=== PATIENT | male | born 1955 | race Caucasian/White ===

== ENCOUNTER 2020-01-10 09:37 | Emergency (ER) | payer MEDICARE, SELFPAY ==
[2020-01-10] VITALS (8 sets, daily range): BP systolic 128–163; BP diastolic 71–85; PULSE 76–96; RESP 12–19; O2SAT 98–100
--- NOTE | ~2020-01-10 | CT_ITS ---
EXAMINATION: CTA chest abdomen pelvis DATE: 01/10/2020 11:37 INDICATION: Chest pain. TECHNIQUE: Computed tomographic angiography (CTA) of the chest, abdomen, and pelvis was performed wit hout and with 100 mL Omnipaque-350 intravenous contrast. Volume-rendered 3D-reconstructions of the ao rta and large arteries were constructed by the technologist on a separate workstation. Automated expo sure control and iterative reconstruction technique were employed. The dose-length product was 123 m Gy-cm. COMPARISON: 09/23/2013 and 06/23/2013 FINDINGS: Thorax: Mild to moderate emphysema. No pneumonia, pulmonary edema, pleural effusion or pneumothorax. Heart si ze is normal. No pericardial effusion. Median sternotomy and changes of prior repair of an earlier as cending thoracic aortic aneurysm. There is residual aneurysmal dilation of the more distal ascending aorta at the distal margin of the repair immediately proximal to the level of the takeoff of the inno minate artery where the aorta measures 5.0 x 4.9 cm in maximal diameter measured orthogonal to the ax is of flow on axial and sagittal images. This appears increased from 4.5 x 4.4 similar in correspondi ng measurements on the prior study. The aorta tapers to 2.9 x 3.2 cm immediately following the takeof f of the left subclavian artery. No thoracic aortic dissection. No pathologically enlarged thoracic l ymphadenopathy. Small sliding-type hiatal hernia. Mild thoracic spondylosis. Abdomen/pelvis: Liver, gallbladder, spleen, pancreas, bilateral adrenal glands and kidneys are normal. There is mild colonic diverticulosis with a sigmoid predominance. There is no adjacent inflammatory change to sugg est diverticulitis. The appendix is not visualized. No pericecal inflammatory change to suggest acute appendicitis. No bowel obstruction. Small left and tiny right fat-containing inguinal hernias. Bladd er is normal. No free intraperitoneal gas or fluid. No pathologically enlarged abdominal or pelvic ly mphadenopathy. There is calcified atherosclerosis without hemodynamically significant stenosis of the normal caliber abdominal aorta and many of the other arteries. Mild lumbar spondylosis. IMPRESSION: 1. Postoperative change of prior dissection repair at the proximal ascending thoracic aorta with incr ease in size of aneurysmal dilation of the more distal ascending aorta now measuring 5.0 x 4.9 cm. No recurrent aortic dissection or aneurysm of the descending thoracic or abdominal aorta. 2. Small sliding-type hiatal hernia. 3. Mild diverticulosis. 4. Emphysema. Reviewed, dictated and finalized at location A. IMPRESSION: 1. Postoperative change of prior dissection repair at the proximal ascending th oracic aorta with increase in size of aneurysmal dilation of the more distal as cending aorta now measuring 5.0 x 4.9 cm. No recurrent aortic dissection or ane urysm of the descending thoracic or abdominal aorta. 2. Small sliding-type hiatal hernia. 3. Mild diverticulosis. 4. Emphysema.
--- NOTE | ~2020-01-10 | XR_ITS ---
EXAMINATION: XR chest 2V DATE: 01/10/2020 10:16 INDICATION: Chest pain TECHNIQUE: Chest pain COMPARISON: Chest radiograph dated 07/11/2014 FINDINGS: Bilateral nipple shadows project along the cephalad margin of the bilateral anterior sixth ribs. No a irspace opacities, pulmonary edema, pleural effusion or pneumothorax. The cardiomediastinal silhouett e is normal. Median sternotomy wires and mediastinal surgical clips are seen, likely from prior coron juli artery bypass grafting. IMPRESSION: 1. No acute cardiopulmonary disease. Reviewed, dictated and finalized at location A.
--- NOTE | 2020-01-10 09:45 | ECG_ITS ---
Measurements Intervals [place] Rate: 92 P: 72 MT: 140 QRS: 11 QRSD: 101 T: 73 QT: 338 QTc: 419 Interpretive Statements SINUS RHYTHM NONSPECIFIC T-WAVE ABNORMALITY BORDERLINE ST ABNORMALITY- ANTEROLATERAL LEADS BORDERLINE ECG Electronically Signed On 01-10-2020 12:56:45 CDT by Db Faria D.O.
--- NOTE | 2020-01-10 09:57 | ED.GENADULT ---
HPI - General Adult General Chief complaint: Chest Pain <CARLOS Ruiz - Last Filed: 01/10/20 14:18> Stated complaint: cp <CARLOS Ruiz - Last Filed: 01/10/20 14:18> Time Seen by Provider: 01/10/20 09:57 <CARLOS Ruiz - Last Filed: 01/10/20 14:18> Source: patient <CARLOS Ruiz - Last Filed: 01/10/20 14:18> Mode of arrival: ambulatory <CARLOS Ruiz - Last Filed: 01/10/20 14:18> Limitations: no limitations <CARLOS Ruiz - Last Filed: 01/10/20 14:18> History of Present Illness HPI narrative: 64-year-old male patient presents to the emergency department with complaints of midsternal chest pain that started when he woke up this morning a little after 6 AM. Patient states that the chest pain currently is fine rates his pain 2 out of 10. Patient states the chest pain is intermittent comes and go but does not radiate anywhere else. Patient denies any lightheadedness or dizziness. Denies any recent fevers. Denies any abdominal pain, nausea, vomiting or diarrhea. Patient states he is a little short of breath but states he is a smoker. Patient does have a history of an aortic dissection in 2013. Patient states that he did eat some fried chicken for dinner last night denies any recent alcohol. Denies any pain with urination. Patient denies taking anything for his symptoms prior to arrival today. Patient states he is not followed by a facilities director and takes no meds. <CARLOS Ruiz - Last Filed: 01/10/20 14:18> Related Data Home medications: Home Medications Medication Instructions Recorded Confirmed atorvastatin 40 mg tablet 40 mg PO DAILY 01/15/20 metoprolol succinate 25 mg 25 mg PO DAILY 01/15/20 tablet,extended release 24 hr <CARLOS Ruiz - Last Filed: 01/10/20 14:18> Allergies/adverse reactions: Allergies Allergy/AdvReac Type Severity Reaction Status Date / Time Penicillins Allergy Unknown Unknown Verified 01/15/20 11:04 <CARLOS Ruiz - Last Filed: 01/10/20 14:18> Review of Systems Review of Systems: Narrative: CONSTITUTIONAL: Denies fever, chills, or sweats. EYES: Denies visual changes, redness, or discharge. ENT: Denies rhinorrhea, congestion, sore throat, or otalgia. CARDIOVASCULAR: Positive midsternal chest pain that is intermittent, positive palpitations, denies edema. RESPIRATORY: Denies cough, positive dyspnea. GASTROINTESTINAL: Denies abdominal pain, nausea, vomiting, or diarrhea. GENITOURINARY: Denies dysuria or hematuria. SKIN: Denies rash or itching. MUSCULOSKELETAL: Denies back pain, joint pain, or myalgia. NEUROLOGIC: Denies headache, numbness, or weakness. PSYCHIATRIC: Denies anxiety or depression. <CARLOS Ruiz - Last Filed: 01/10/20 14:18> [facility] Past Medical History Medical History: Medical History (Updated 01/15/20 @ 12:52 by Meghna Fine MD) Aortic arch dissection Emphysema lung Hyperlipidemia Thoracic aortic aneurysm (TAA) Tobacco abuse <CARLOS Ruiz - Last Filed: 01/10/20 14:18> Surgical History Surgical History: Surgical History (Updated 01/15/20 @ 12:06 by Meghna Fine MD) S/P aortic dissection repair <CARLOS Ruiz - Last Filed: 01/10/20 14:18> Family History Family History: Family History (Updated 02/03/16 @ 23:21 by DOCTOR UNKNOWN) Mother Patient's mother is in good health Father Cerebrovascular accident Patient's father is <CARLOS Ruiz - Last Filed: 01/10/20 14:18> Social History Social History: Social History (Updated 01/15/20 @ 11:06 by Angela Perales) Smoking packs per day: 1 Smoking cigarettes per day: 20.0 Years smoked: 50 Smoking pack-years: 50.00 Smoking status: Former smoker Tobacco type: cigarettes Smoking end date: 01/10/20 Alcohol intake: current Substance use: never Substance use type: does not use Li
[2020-01-10 09:58] LABS: Basophils Absolute Auto 0.1 K/mm3 (0.0-0.1); Basophils Percent Auto 0.8 % (0.2-1.2); Eosinophils Absolute Auto 0.2 K/mm3 (0-0.3); Eosinophils Percent Auto 2.7 % (0-4.4); Hemoglobin 17.6 g/dL (14.0-18.0); Immature Granulocyte Absolute 0.01 K/mm3 (0.00-0.031); Immature Granulocyte Percent A 0.2 % (0-0.5); Lymphocytes Absolute Auto 1.36 K/mm3 (0.9-3.2); Lymphocytes Percent Auto 21.6 % (18.3-44.2); Mean Corpuscular HGB Conc 33.8 g/dl (32-36); Mean Corpuscular Hemoglobin 33.7 pg (26-34); Mean Corpuscular Volume 99.4 fl (80-100); Mean Platelet Volume 8.9 fl (7.4-10.4); Monocytes Absolute Auto 0.6 K/mm3 (0.1-0.6); Monocytes Percent Auto 8.9 % (2.6-8.5); Neutrophils Absolute Auto 4.2 K/mm3 (1.3-6.7); Neutrophils Percent Auto 65.8 % (45.5-73.1); Platelet Count Result 200 k/mm3 (150-375); Red Blood Count 5.23 M/mm3 (4.6-6.20); Red Cell Distribution Width 14.2 % (11.5-14.5); White Blood Count 6.3 K/mm3 (4.5-10.0)
[2020-01-10 10:08] LABS: Prothrombin Time 12.7 Seconds (11.1-14.7)
[2020-01-10 10:09] LABS: Partial Thromboplastin Time 29.5 SECONDS (22.3-36.8)
[2020-01-10 10:10] LABS: Blood Urea Nitrogen 12 mg/dL (9-20); Calcium 9.4 mg/dL (8.4-10.2); Carbon Dioxide 26 mmol/L (22-30); Chloride 105 mmol/L (98-107); Estimated CRCL calculation 41 ml/min; Estimated Glomerular Filt Rate 47; Glucose 109 mg/dL (75-110); Potassium 3.8 mmol/L (3.4-5.0); Sodium 137 mmol/L (137-145)
[2020-01-10 10:23] LABS: Troponin I 0.038 ng/mL (0.000-0.034)
[2020-01-10] MEDS: SODIUM CHLORIDE 0.9% IV 1,000 ML 999 ML IV CONT (10:34)
[2020-01-10] MEDS: ASPIRIN 81 MG CHEWABLE TABLET 324 MG PO (10:35)
--- NOTE | 2020-01-27 11:34 | PC.NURSE ---
LATE ENTRY This note is being entered to document information to the patient's record. The following information was omitted on [01/10/2020], by [Rj Yanez]. PT TRANSFERRED TO HIGHER LEVEL OF CARE WITH DRIP RUNNING, UNKNOWN STOP TIME Rj.
== END 2020-01-10 13:50 | disposition short-term general hospital (02) ==
PROVIDERS: Emergency Medicine; Emergency Provider Nurse Practitioner Family; PCP Family Medicine
DX: R07.2 Precordial pain (principal); R79.89 Other specified abnormal findings of blood chemistry; J43.9 Emphysema, unspecified; E78.5 Hyperlipidemia, unspecified; R94.31 Abnormal electrocardiogram [ECG] [EKG]; F17.200 Nicotine dependence, unspecified, uncomplicated; R06.02 Shortness of breath; R03.0 Elevated blood-pressure reading, without diagnosis of hypertension
CPT/HCPCS: 36415; 71046; 71275; 74174; 80048; 84484; 85025; 85610; 85730; 93005; 96361; 96374; 99285; A9270; J7030; Q9967

== ENCOUNTER 2020-10-02 14:29 | Observation (INO) | payer MEDICARE, SELFPAY ==
[2020-10-02] VITALS (11 sets, daily range): BP systolic 91–140; BP diastolic 54–75; PULSE 74–103; RESP 12–18; TEMP 36.3–36.7; O2SAT 95–99; BMI 23.9
--- NOTE | ~2020-10-02 | US_ITS ---
EXAMINATION: US venous doppler LE EXAM DATE: 10/03/2020 09:04 INDICATION: Pulmonary embolism. TECHNIQUE: Multiple grayscale, color flow and Doppler images of the lower extremity deep venous syste ms bilaterally were obtained and reviewed. Correlation is made to pulmonary CT from yesterday. FINDINGS: Right side: The right common femoral, femoral and profunda veins demonstrate normal color flow, respi ratory variation, augmentation and compressibility. Compressibility, color flow confirmed within the right popliteal, posterior tibial, peroneal, and greater saphenous veins. Left side: The left common femoral, femoral and profunda veins demonstrate normal color flow, respira tory variation, augmentation and compressibility. Compressibility, color flow confirmed within the l eft popliteal, posterior tibial, peroneal, and greater saphenous veins. IMPRESSION: 1. No lower extremity deep venous thrombosis bilaterally. Reviewed, dictated and finalized at location A.
--- NOTE | ~2020-10-02 | CT_ITS ---
EXAMINATION: CTA chest PE protocol EXAM DATE: 10/02/2020 15:21 INDICATION: Pulmonary embolism/aortic dissection . History of aortic dissection, repair. TECHNIQUE: Spiral CTA of the chest (pulmonary arteries) was performed with 100 cc Omnipaque 350 intr avenous contrast injection. Images were acquired during the pulmonary arterial phase. Coronal maxi mum intensity projection 3D-reconstructions were created by the technologist on dedicated workstation . Axial, coronal and sagittal reformatted images were reviewed. The dose-length product (DLP) for t his examination was 235.77 mGy-cm. The exposure was tailored according to patient size (auto mA exp osure control), and iterative reconstruction (ASIR) was used as additional dose reduction technique. Comparison is made to prior examination from 01/10/2020. FINDINGS: There is tiny pulmonary embolism in right upper lobe anterior segmental pulmonary artery ( indicated on axial image 118). Again there is repair of the proximal ascending aorta, with aneurysmal dilation of the ascending aorta just before the arch, at 4.9 cm, unchanged. No thoracic aortic disse ction. There is mild to moderate emphysema and hyperinflation. There is a 5 mm lingular nodule unchanged, co nsistent with noncalcified granuloma. The lungs are otherwise clear. There are no pleural or perica rdial effusions. Tracheobronchial tree is patent. There is no mediastinal, hilar or axillary lymp hadenopathy. There is no pneumothorax. Heart normal in size. There are sternotomy wires, and ca rdiac/coronary surgical changes. Correlate with prior history. Upper abdomen is unremarkable. The bones are unremarkable. IMPRESSION: 1. Tiny right upper lobe segmental pulmonary embolism. 2. Stable ascending aortic aneurysm. No dissection. 3. Mild to moderate emphysema and hyperinflation. 4. Granuloma. Reviewed, dictated and finalized at location A.
--- NOTE | ~2020-10-02 | XR_ITS ---
EXAMINATION: XR chest 2V EXAM DATE: 10/02/2020 14:48 INDICATION: Anterior chest pain. TECHNIQUE: Frontal and lateral projections of the chest obtained and reviewed. Comparison is made to prior examination from 01/10/2020. FINDINGS: Sternotomy wires are present without findings to suggest sternal dehiscence. The lungs are clear. There are no pleural effusions. The cardiomediastinal silhouette is within normal limits. T here is no pneumothorax suspected. The bones and soft tissues are unremarkable. IMPRESSION: No acute cardiopulmonary findings. Reviewed, dictated and finalized at location A.
--- NOTE | 2020-10-02 14:31 | ECG_ITS ---
Measurements Intervals [place] Rate: 107 P: 63 [place]: 141 QRS: -19 QRSD: 93 T: 76 QT: 338 QTc: 452 Interpretive Statements SINUS TACHYCARDIA POSSIBLE LEFT ATRIAL ENLARGEMENT BORDERLINE ST-T WAVE ABNORMALITY- ANTEROLAT/HIGH LAT LEADS ABNORMAL ECG Electronically Signed On 10-02-2020 16:32:50 CDT by Db Faria D.O.
--- NOTE | 2020-10-02 14:44 | PC.NURSE ---
Pt to XY via stretcher at this time.
[2020-10-02] MEDS: ASPIRIN 81 MG CHEWABLE TABLET 324 MG PO (14:50)
[2020-10-02 15:03] LABS: Basophils Percent Auto 0.6 % (0.2-1.2); Eosinophils Absolute Auto 0.1 K/mm3 (0-0.3); Eosinophils Percent Auto 1.7 % (0-4.4); Hematocrit 46.4 % (42.0-52.0); Hemoglobin 15.9 g/dL (14.0-18.0); Immature Granulocyte Absolute 0.01 K/mm3 (0.00-0.031); Immature Granulocyte Percent A 0.1 % (0-0.5); Lymphocytes Absolute Auto 1.49 K/mm3 (0.9-3.2); Lymphocytes Percent Auto 21.1 % (18.3-44.2); Mean Corpuscular HGB Conc 34.3 g/dl (32-36); Mean Corpuscular Hemoglobin 33.4 pg (26-34); Mean Corpuscular Volume 97.5 fl (80-100); Mean Platelet Volume 8.9 fl (7.4-10.4); Monocytes Absolute Auto 0.6 K/mm3 (0.1-0.6); Monocytes Percent Auto 7.8 % (2.6-8.5); Neutrophils Absolute Auto 4.8 K/mm3 (1.3-6.7); Neutrophils Percent Auto 68.7 % (45.5-73.1); Platelet Count Result 184 k/mm3 (150-375); Red Blood Count 4.76 M/mm3 (4.6-6.20); Red Cell Distribution Width 14.2 % (11.5-14.5); White Blood Count 7.1 K/mm3 (4.5-10.0)
[2020-10-02 15:11] LABS: INR 0.9; Prothrombin Time 12.8 Seconds (11.1-14.7)
[2020-10-02 15:12] LABS: Partial Thromboplastin Time 30.4 SECONDS (22.3-36.8)
--- NOTE | 2020-10-02 15:12 | ED.CHESTPAIN ---
HPI - Chest Pain General Chief Complaint: Chest Pain Stated Complaint: chest pain Time Seen by Provider: 10/02/20 14:44 Source: patient, family and RN notes reviewed Limitations: no limitations History of Present Illness HPI narrative: Patient is 64 years old white male was walking inside his house as usual suddenly felt retrosternal tightness like somebody punching him in the chest associated with severe lightheadedness and dizziness making fell down to the floor. Patient denies loss of consciousness or any injury. Patient was able to manage to get up and still complaining of retrosternal chest pressure 5 out of 10. The above symptoms started 45 minutes prior to arrival to the emergency room. Patient denies shortness of breath or radiation of pain. Patient had similar symptoms last year without falling to the ground. History of thoracic aortic repair 2012. Patient denies any fever, chills, nausea, vomiting, diarrhea, constipation, headache, back pain or abdominal pain. Related Data Home Medications Medication Instructions Recorded Confirmed atorvastatin 40 mg tablet 40 mg PO DAILY 01/15/20 metoprolol succinate 25 mg 25 mg PO DAILY 01/15/20 tablet,extended release 24 hr Allergies Allergy/AdvReac Type Severity Reaction Status Date / Time Penicillins Allergy Unknown Unknown Verified 10/02/20 16:34 Review of Systems Review of Systems: Narrative: CONSTITUTIONAL: Denies fever, chills, or sweats. EYES: Denies visual changes, redness, or discharge. ENT: Denies rhinorrhea, congestion, sore throat, or otalgia. CARDIOVASCULAR: Chest pain RESPIRATORY: Denies cough or dyspnea. GASTROINTESTINAL: Denies abdominal pain, nausea, vomiting, or diarrhea. GENITOURINARY: Denies dysuria or hematuria. SKIN: Denies rash or itching. MUSCULOSKELETAL: Denies back pain, joint pain, or myalgia. NEUROLOGIC: Denies headache, numbness, or weakness. PSYCHIATRIC: Denies anxiety or depression. [facility] Past Medical History Medical History Aortic arch dissection Emphysema lung Hyperlipidemia Thoracic aortic aneurysm (TAA) Tobacco abuse Surgical History Surgical History S/P aortic dissection repair Family History Family History Mother Patient's mother is in good health Father Cerebrovascular accident Patient's father is Social History Social History Smoking packs per day: 1 Smoking cigarettes per day: 20.0 Years smoked: 50 Smoking pack-years: 50.00 Smoking status: Former smoker Tobacco type: cigarettes Smoking end date: 01/10/20 Alcohol intake: current Substance use: never Substance use type: does not use Gender identity (if verbalized by the patient): Male Exam Narrative: Exam Narrative: General appearance: Well-developed, well-nourished, anxious Skin: Normal color Head: Normocephalic, nontraumatic Eyes: Clear conjunctiva ENT: Oropharynx normal, ears normal, nose normal Neck: Supple, nontender Chest and respiratory: Airway patent, no respiratory distress, no accessory muscle use Heart: Tachycardia Abdomen: Soft, nontender, no organomegaly, quiet bowel sounds Vascular: Normal peripheral pulses, normal capillary refill. Musculoskeletal: Normal range of motion, nontender back Neurologic: Alert and oriented ?3, ENRICHMENT SPECIALIST is normal as tested, no gross motor deficit Course Course Emergency Course: Stable Consultations Consultation #1: Dr. Zuniga Date: 10/02/20 Time: 16:05 Vital Signs Vital signs: Vital Si
[2020-10-02 15:15] LABS: Anion Gap 6 mmol/L (8-16); Blood Urea Nitrogen 12 mg/dL (9-20); Carbon Dioxide 23 mmol/L (22-30); Chloride 107 mmol/L (98-107); Estimated CRCL calculation 47 ml/min; Estimated Glomerular Filt Rate 55; Glucose 170 mg/dL (75-110); Potassium 3.7 mmol/L (3.4-5.0); Sodium 136 mmol/L (137-145)
[2020-10-02 15:17] LABS: Estimated CRCL calculation 47 ml/min; Estimated Glomerular Filt Rate 55
[2020-10-02 15:26] LABS: Troponin I < 0.012 ng/mL (0.000-0.034)
[2020-10-02] MEDS: METOPROLOL TARTRATE 50 MG TAB 25 MG PO (15:36)
[2020-10-02] MEDS: ONDANSETRON INJ 4 MG/2 ML VIAL IV PUSH (15:37)
[2020-10-02] MEDS: MORPHINE SULFATE (*CRX) 4 MG/ML INJ IV PUSH (15:39)
--- NOTE | 2020-10-02 16:06 | ECG_ITS ---
Measurements Intervals [place] Rate: 80 P: 53 [place]: 132 QRS: -23 QRSD: 92 T: 55 QT: 365 QTc: 422 Interpretive Statements SINUS RHYTHM POSSIBLE LEFT ATRIAL ENLARGEMENT INFERIOR INFARCT, AGE INDETERMINATE ABNORMAL ECG Electronically Signed On 10-02-2020 16:33:44 CDT by Db Faria D.O.
[2020-10-02] MEDS: ENOXAPARIN 80 MG/0.8 ML SYRINGE 70 MG SUB-Q (16:11)
[2020-10-02] MEDS: NITROGLYCERIN OINTMENT 1 INCH DOSE TRANSDERM (16:20)
--- NOTE | 2020-10-02 17:27 | PM.IMHP ---
H&P: HPI History of Present Illness Date/Time: 10/02/20 17:27 this is a 64-year-old male patient who had emergent cardiothoracic surgery June 24, 2013 for type a aortic dissection repair. The patient had a six-month follow-up visit at [facility]. It was discussed about the risk and potential aortic enlargement of his remaining aorta and the importance of follow-up due to slight increase on the read that day. However the tells me that he did not follow-up with them any further. At 1 time he had been on metoprolol and atorvastatin and has stopped taking those when they ran out. 01/10/2020 the patient came to the emergency room with complaints of chest pain. He had a repeat CT and there were some changes with his prior dissection this CT was measuring 5.0 x 5.9 cm the patient was sent to [place] for further evaluation. Was walking inside of his house in his usual manner suddenly he felt this retrosternal tightness the middle of his chest he stated that it felt like somebody punched him in his chest then the patient fell over but he said he did not lose consciousness. He was having retrosternal chest pain 5/10. He denied any shortness of breath but he felt dizzy prior to falling on his knees. The patient denies hitting his head. He denies any problems with speech or any problems swallowing. Problems with his vision. His blood sugar was listed as 170. Troponin 0.012. Creatinine 1.3. EKG was reported as 107. Left atrial enlargement possible inferior myocardial infarction probably old. Chest x-ray was read as no cardiopulmonary findings. CTA shows tiny right upper lobe segmental pulmonary embolism. Stable ascending aortic aneurysm. No dissection mild to moderate emphysema and hyperinflation. Granuloma.Was given an aspirin, morphine, Zofran, Lopressor Lovenox, and Nitro ointment. Cardiology has been consulted. Patient was admitted to observation on date of service of 10/03/2019 Chief Complaint: Chest pain and pulmonary emboli Review of Systems Review of Systems: All systems reviewed & are unremarkable except as noted in HPI and below Constitutional: Constitutional: Reports as per HPI and Reports no additional constitutional complaints Eyes: Eyes: Reports as per HPI and Reports no additional eye complaints ENT: Reports system reviewed and no additional complaints, except as documented and Reports Normal hearing present Cardiovascular: Cardiovascular: Reports no additional cardiovascular complaints Respiratory: Respiratory: Reports no additional respiratory complaints and Reports no additional respiratory complaints Gastrointestinal: Gastrointestinal: Reports as per HPI and Reports no additional gastrointestinal complaints Musculoskeletal: Musculoskeletal: Reports no additional musculoskeletal complaints Integumentary/Breasts: Skin/Breast: Reports system reviewed and no additional complaints, except as docu and Reports as per HPI Neurologic: Reports system reviewed and no additional complaints, except as documented, Reports as per HPI and Reports Normal hearing present Psychiatric: Psychiatric: Reports no additional psychiatric complaints and Reports as per HPI Endocrine: Endocrine: Reports no additional endocrine complaints Hematologic/Lymphatic: Hematologic/Lymphatic: Reports no additional hematologic/lymphatic complaints Allergic/Immunologic: Allergic/Immunologic: Reports no additional allergic/immunologic complaints [facility] Past Medical History Medical History (Updated 10/02/20 @ 17:54 by Tatiana Cherry NP) Aortic arch dissection Emphysema lung Hyperlipidemia Thoracic aortic aneurysm (TAA) Tobacco abuse Surgical History Surgical History (Updated 10/02/20 @ 17:45 by Tatiana Cherry NP) History of appendectomy History of tonsillectomy S/P aortic dissection repair Family History Family History (Updated 10/02/20 @ 17:48 by Tatiana Cherry NP) Mother Dementia Father Cerebrovascular
--- NOTE | 2020-10-02 18:28 | PC.NURSE ---
This patient, Ki Shaver, was admitted to IMU Room 203-01. Patient/family oriented to hospital policies and general routines including ID bracelet, bed and alarms, visiting hours, pain management, procedures, bathroom and other care routines, personal items, smoking policy, room service/diet, and visiting hours. Information on how to activate the Rapid Response Team has been discussed. Patient/Family are encouraged to report perceived risks to care and to ask questions if they do not understand what they are told or what they should do.
[2020-10-02 18:58] LABS: Troponin I < 0.012 ng/mL (0.000-0.034)
[2020-10-02 21:40] LABS: Troponin I < 0.012 ng/mL (0.000-0.034)
[2020-10-03] VITALS (11 sets, daily range): BP systolic 110–122; BP diastolic 54–79; PULSE 18–88; RESP 16–18; TEMP 35.9–36.6; O2SAT 93–97
--- NOTE | 2020-10-03 | ECHO_ITS ---
Patient Info Name: Ki Shaver Age: 64 years : 1955 Gender: Male Ht: 67 in Wt: 154 lbs BSA: 1.82 m2 HR: 72 bpm BP: 110 / 54 mmHg Heart Rhythm: Sinus Rhythm Technical Quality: Good Exam Date: 10/03/2020 9:56 AM Exam Location: [facility] Patient Status: Inpatient Admit Date: 10/02/2020 Staff Ordering Physician: Tatiana Cherry NP [employer] C Developer: Martin Doherty RDCS, RT Attending Provider: Matt Girard MD Referring Physician: Jo Ann WOODY; Exam Type: CA echo doppler color flow Study Info Indications I26.99 - Other pulmonary embolism without acute cor pulmonale Complete two-dimensional, color flow and Doppler transthoracic echocardiogram is performed. Strain analysis performed. Summary 1. Complete two-dimensional, color flow and Doppler transthoracic echocardiogram is performed. 2. Mild left ventricular hypertrophy with normal systolic function. 3. Mildly sclerotic aortic valve which is not stenotic at this time. 4. Mild aortic regurgitation. 5. Mild tricuspid insufficiency. Left Ventricle Left ventricular chamber dimension is normal. Left ventricular systolic function is normal, estimated at 60-65%. There is mild concentric increased left ventricular wall thickness. The left ventricular diastolic function is grade I diastolic dysfunction. Right Ventricle Right ventricular chamber dimension is normal. Left Atria Left atrial chamber dimension is mildly enlarged. Right Atria Right atrial chamber dimension is normal. Aortic Valve The aortic valve is trileaflet. There is mild aortic valve sclerosis. There is mild aortic valve stenosis with a peak velocity of 331 cm/s, mean gradient of 22 mmHg, and aortic valve area of 1.5 cm2. There is mild aortic valve regurgitation. Pulmonic Valve The pulmonic valve is not well visualized. Mitral Valve The mitral valve has normal leaflets. Tricuspid Valve The tricuspid valve leaflets are normal. There is mild tricuspid valve regurgitation. Pericardium/Pleural The pericardium appears normal. Aorta The aortic root size at the sinus of Valsalva is normal. Left Ventricular Outflow Tract Name Value Normal LVOT 2D LVOT Diameter 2.1 cm LVOT Doppler LVOT Peak Gradient 5 mmHg LVOT Mean Gradient 2 mmHg LVOT VTI 27 cm LVOT VTI/AV VTI Ratio 0.4 LVOT Stroke Volume 95 ml LVOT CO 5.4 l/min LVOT CI 3.0 l/min/m2 Mitral Valve Name Value Normal MV Doppler MV Decel B[place] 443 cm/s2 MV PHT 53 ms MV Area (PHT) 4.1 cm2 4.0-5.0 MV Diastolic Function
[2020-10-03 05:06] LABS: Basophils Absolute Auto 0.1 K/mm3 (0.0-0.1); Basophils Percent Auto 0.8 % (0.2-1.2); Eosinophils Absolute Auto 0.2 K/mm3 (0-0.3); Eosinophils Percent Auto 2.5 % (0-4.4); Hematocrit 46.9 % (42.0-52.0); Immature Granulocyte Absolute 0.03 K/mm3 (0.00-0.031); Immature Granulocyte Percent A 0.4 % (0-0.5); Lymphocytes Percent Auto 26.9 % (18.3-44.2); Mean Corpuscular HGB Conc 34.1 g/dl (32-36); Mean Corpuscular Hemoglobin 33.5 pg (26-34); Mean Corpuscular Volume 98.1 fl (80-100); Mean Platelet Volume 8.8 fl (7.4-10.4); Monocytes Absolute Auto 0.8 K/mm3 (0.1-0.6); Monocytes Percent Auto 9.3 % (2.6-8.5); Neutrophils Absolute Auto 5.1 K/mm3 (1.3-6.7); Neutrophils Percent Auto 60.1 % (45.5-73.1); Platelet Count Result 187 k/mm3 (150-375); Red Blood Count 4.78 M/mm3 (4.6-6.20); Red Cell Distribution Width 14.3 % (11.5-14.5); White Blood Count 8.5 K/mm3 (4.5-10.0)
[2020-10-03 05:19] LABS: Alanine Aminotransferase 15 U/L (4-50); Albumin Level 3.5 g/dL (3.5-5.1); Alkaline Phosphatase 95 U/L (38-126); Anion Gap 5 mmol/L (8-16); Aspartate Amino Transferase 25 U/L (17-59); Bilirubin,Total 0.6 mg/dL (0.2-1.3); Blood Urea Nitrogen 12 mg/dL (9-20); Calcium 8.8 mg/dL (8.4-10.2); Carbon Dioxide 26 mmol/L (22-30); Chloride 108 mmol/L (98-107); Cholesterol 235 mg/dL (0-200); Estimated CRCL calculation 36 ml/min; Estimated Glomerular Filt Rate 41; Glucose 100 mg/dL (75-110); HDL Direct 28 mg/dL; Magnesium 1.9 mg/dL (1.6-2.3); Potassium 4.6 mmol/L (3.4-5.0); Sodium 139 mmol/L (137-145); Triglycerides 278 mg/dL (<150)
[2020-10-03 05:30] LABS: LDL Cholesterol Direct 156 mg/dL
[2020-10-03] MEDS: ENOXAPARIN 80 MG/0.8 ML SYRINGE 70 MG SUB-Q (05:58)
[2020-10-03 07:05] LABS: Free T4 Free Thyroxine Reflex 0.72 ng/dL (0.78-2.19)
[2020-10-03] MEDS: ATORVASTATIN 40 MG TABLET PO (09:40)
[2020-10-03] MEDS: METOPROLOL SUCCINATE EXT REL 25 MG TABCR PO (09:41)
[2020-10-03] MEDS: ASPIRIN 81 MG CHEWABLE TABLET PO (09:43)
--- NOTE | 2020-10-03 11:03 | PM.CNCAR ---
Assessment and Plan Additional Plan 64-year-old man with: Episode of chest pain yesterday with no evidence of acute coronary syndrome and known history of a ascending aortic dissection which was repaired emergently in 2012 he has some aneurysmal changes in the ascending aorta distal to the graft which appeared to be stable based on scans that have been done here and at [place] in the last couple of years. Biomarkers rule out evidence of acute coronary syndrome and he reports no evidence of coronary disease prior to this. The CT of the chest suggests that there might be a tiny right upper lobe subsegmental PE which is in my opinion unexpected other than his smoking history he does not have any history of DVT venous Doppler today. I do not believe he needs any additional cardiac evaluation here at [facility] since he has ruled out for acute coronary syndrome. The patient with his previous ascending aortic repair probably should not have follow-up angiograms in this laboratory ideally in any event. I would recommend that he be treated with beta-pablo therapy because of his aortic dissection and I suppose it we are going to presume this pain to be from very small PE systemic anticoagulation with the NOAC of your choice should be is started at this time. If we are going to anticoagulate him I would discontinue low-dose aspirin. Given his pathology in the ascending aorta follow-up with cardiology and or cardiothoracic surgery at [place] would be appropriate after discharge from [place]. Yahir Langley MD [facility] History of Present Illness History of Present Illness Consult date/time: 10/03/20 11:03 Consult reason: chest pain Reason For Visit: Chest pain/pulmonary embolism Narrative: This is a 64-year-old man I am seeing at the request of the hospitalist because of some chest pain for which he was admitted yesterday afternoon. The patient states that he was in his usual state of health when he was in his home and he open the front door to the step outside from moment to checked the temperature is he was going to go out run some errands. After he clothes there are came back inside he took a few steps into the house and he suddenly felt the sense of some chest pain he is describes this as a sharp stabbing like sensation in the center of the chest. He sat down on the couch and he then got lightheaded and states that he fell to the floor. He states he did not lose consciousness but when this occurred he got up and sat back on the couch he told his that he probably should come here for evaluation. He was brought to the emergency room where his evaluation as far as his cardiac status is concerned was essentially unrevealing. He does not have a history of coronary disease he does have a history of a negative coronary angiogram about 8 years ago when he had urgent repair of an ascending aortic aneurysm. The patient does have a history of aortic dissection which presented emergently back in 2012 he was taken to [facility] where he underwent emergency repair of a type a aortic dissection with reimplantation of the coronaries. He I believe had sparing of his aortic valve. The deep ascending aorta above the graft is known to be somewhat dilated with diameters of about 5 cm this has not changed over the last couple of years based on CT scans done here and at [place]. He did have an evaluation at [place] again in January of 2020 when he had some chest pain here felt that his aortic diameter might have enlarged although cardiothoracic erp consultant at [place] did not agree with that opinion and did not believe his pain had anything to do with his aorta. He unfortunately is a former smoker who quit smoking when he had his operation but then went back to smoking about a pack to a pack and half per day in more recent years. He does have hypertension and apparently does not take any medication or if he has medication prescribed he is not compliant with it. His eval
--- NOTE | 2020-10-03 17:15 | PM.DS ---
DS: Admitting Diagnosis Admitting Diagnosis Admitting Diagnosis: (1) Syncope: (2) Chest pain: (3) Pulmonary embolus: (4) Hyperlipidemia: (5) Tobacco abuse: (6) Thoracic aortic aneurysm (TAA): DS: Discharge Diagnosis Discharge Diagnosis (1) Pulmonary embolus: Code(s): I26.99 - Other pulmonary embolism without acute cor pulmonale Status: Acute Assessment and Plan: THE PATIENT FOUND TO HAVE PULMONARY EMBOLI WAS STARTED ON LOVENOX THERAPEUTIC DOSE GOING HOME ON XARELTO (2) Syncope: Code(s): R55 - Syncope and collapse Status: Acute Assessment and Plan: Likely vasovagal in nature (3) Chest pain: Qualifiers: Chest pain type: unspecified Qualified Code(s): R07.9 - Chest pain, unspecified Code(s): R07.9 - Chest pain, unspecified Status: Acute Assessment and Plan: Likely secondary to PE Resolved (4) Pulmonary air embolism: Qualifiers: Encounter type: subsequent encounter Qualified Code(s): T79.0XXD - Air embolism (traumatic), subsequent encounter Code(s): T79.0XXA - Air embolism (traumatic), initial encounter Status: Acute Assessment and Plan: Started on Xarelto. (5) Hyperlipidemia: Code(s): E78.5 - Hyperlipidemia, unspecified Status: Chronic Assessment and Plan: Follow-up in outpatient setting (6) Tobacco abuse: Code(s): Z72.0 - Tobacco use Status: Acute Assessment and Plan: Encouraged Tobacco cessation. (7) Emphysema lung: Code(s): J43.9 - Emphysema, unspecified Status: Acute Assessment and Plan: Stable Follow up in the outpatient setting (8) Thoracic aortic aneurysm (TAA): Code(s): I71.2 - Thoracic aortic aneurysm, without rupture Status: Acute Assessment and Plan: Is status post repair in 2012 Continue metoprolol (9) Aortic arch atherosclerosis: Code(s): I70.0 - Atherosclerosis of aorta Status: Acute Assessment and Plan: Stable Continue to monitor DS: Summary Hospital Course Reason for hospitalization: Syncope. Hospital Course: The patient was admitted to IMU he was monitored overnight on telemetry there were no events hospital stay was uneventful for the most part. Patient was found to have a pulmonary emboli was started on therapeutic Lovenox and went home on Xarelto. Consults obtained: none Procedures performed:none Status at Discharge Cognitive/behavioral status at discharge: AOX3 Functional status at discharge: independent ambulation Overall status at discharge: patient is progressing back to baseline Time Spent with Patient Time attestation: Total time spent providing and/or coordinating discharge services: Exam Const: General: comfortable, no acute distress, well developed, alert and awake Nutritional Appearance: average body habitus Orientation/consciousness: patient oriented x3 HENMT: Head: normal to inspection, normocephalic and atraumatic Ears: hearing grossly normal bilaterally Face and sinus: normal facial exam Eyes: General: appearance normal, both eyes and all related structures Pupils: Equal, round and reactive pupils present EOM: EOMs intact bilaterally Neck: Neck: full ROM, no lymphadenopathy and no JVD Thyroid: thyroid normal Lymphatic: no lymphadenopathy noted Resp: Effort & Inspection: normal respiratory effort and able to speak in complete sentences Auscultation: clear to auscultation bilaterally Cardio: Jugular venous distension: no JVD Rate: regular rate Rhythm: regular rhythm Heart sounds: S1 normal heart sound present and S2 normal heart sound present GI: GI Palp: Yes Soft to palpation and Yes No hepatosplenomegaly present : General: Yes deferred Skin: Rashes: no rashes Wounds: no wounds Neuro: General: patient oriented x3 and CN's II-XI intact bilaterally Cranial nerves: Yes CN's II-XII intact bi
[2020-10-06 03:53] LABS: Hexagonal Phase Confirm Negative (Negative); Lupus dRVVT 1:1 Mix Interpreta Not Indicated; Lupus dRVVT Screen 41 sec (<=45); PTT-LA Screen 42 sec (<=40)
== END 2020-10-03 17:50 | disposition home or self-care (01) ==
LOC: ANHED 16:05 → ANHIMU 18:28
PROVIDERS: Nurse Practitioner; Admitting Provider Internal Medicine; Emergency Provider Emergency Medicine; PCP Family Medicine; Visit Provider Internal Medicine
DX: I26.99 Other pulmonary embolism without acute cor pulmonale (principal); R55 Syncope and collapse; R07.9 Chest pain, unspecified; I71.2 Thoracic aortic aneurysm, without rupture; E78.5 Hyperlipidemia, unspecified; J43.9 Emphysema, unspecified; I70.0 Atherosclerosis of aorta; F17.210 Nicotine dependence, cigarettes, uncomplicated
CPT/HCPCS: 36415; 71046; 71275; 80048; 80053; 80061; 81291; 83735; 84439; 84443; 84484; 85025; 85598; 85610; 85613; 85730; 93005; 93306; 93970; 96372; 96374; 96375; 99285; A9270; G0378; J1650; J2270; J2405; Q9967

== ENCOUNTER 2021-02-13 09:18 | Outpatient (CLI) | payer MEDICARE, SELFPAY ==
[2021-02-13 09:50] LABS: Basophils Percent Auto 0.5 % (0.2-1.2); Eosinophils Absolute Auto 0.2 K/mm3 (0-0.3); Eosinophils Percent Auto 2.6 % (0-4.4); Hematocrit 46.4 % (42.0-52.0); Hemoglobin 15.3 g/dL (14.0-18.0); Immature Granulocyte Absolute 0.02 K/mm3 (0.00-0.031); Immature Granulocyte Percent A 0.3 % (0-0.5); Lymphocytes Absolute Auto 1.64 K/mm3 (0.9-3.2); Lymphocytes Percent Auto 22.1 % (18.3-44.2); Mean Corpuscular Hemoglobin 32.5 pg (26-34); Mean Corpuscular Volume 98.5 fl (80-100); Monocytes Absolute Auto 0.5 K/mm3 (0.1-0.6); Monocytes Percent Auto 7.2 % (2.6-8.5); Neutrophils Percent Auto 67.3 % (45.5-73.1); Platelet Count Result 212 k/mm3 (150-375); Red Blood Count 4.71 M/mm3 (4.6-6.20); Red Cell Distribution Width 13.7 % (11.5-14.5); White Blood Count 7.4 K/mm3 (4.5-10.0)
[2021-02-13 10:43] LABS: Alanine Aminotransferase 17 U/L (4-50); Albumin Level 3.9 g/dL (3.5-5.1); Alkaline Phosphatase 98 U/L (38-126); Anion Gap 4 mmol/L (8-16); Aspartate Amino Transferase 21 U/L (17-59); Bilirubin,Total 0.5 mg/dL (0.2-1.3); Blood Urea Nitrogen 13 mg/dL (9-20); Calcium 9.2 mg/dL (8.4-10.2); Carbon Dioxide 24 mmol/L (22-30); Chloride 103 mmol/L (98-107); Cholesterol 254 mg/dL (0-200); Estimated Glomerular Filt Rate 51; Glucose 94 mg/dL (65-110); HDL Direct 41 mg/dL; Potassium 4.3 mmol/L (3.4-5.0); Sodium 131 mmol/L (137-145); Triglycerides 128 mg/dL (<150)
[2021-02-13 10:54] LABS: LDL Cholesterol Direct 173 mg/dL
== END 2021-02-13 09:19 | disposition home or self-care (01) ==
PROVIDERS: PCP Family Medicine; Visit Provider Physician Assistant
DX: E78.5 Hyperlipidemia, unspecified (principal); J43.9 Emphysema, unspecified
CPT/HCPCS: 36415; 80053; 80061; 85025

== ENCOUNTER 2021-02-27 12:44 | Outpatient (CLI) | payer MEDICARE, SELFPAY ==
--- NOTE | ~2021-02-27 | CT_ITS ---
EXAMINATION: CTA chest PE protocol DATE: 02/27/2021 13:27 INDICATION: History of pulmonary embolism. Noncompliant with anticoagulation. TECHNIQUE: Computed tomography angiography (CTA) of the chest was performed with 100 mL Omnipaque-350 intravenous contrast timed to evaluate the pulmonary arteries. Coronal maximum intensity projection 3D-reconstructions were created by the technologist. Automated exposure control and iterative reconst ruction technique were employed. Exam dose: 329.06 mGy-cm total exam DLP. COMPARISON: 10/02/2020 CT pulmonary scan 01/10/2020 CTA chest abdomen pelvis FINDINGS: There is diagnostic enhancement of the pulmonary arteries and no evidence of pulmonary embo lism. Status post sternotomy. Normal heart size. No pericardial or pleural effusion. There is ascending aortic aneurysm ectasia. No aortic dissection. No hilar or mediastinal mass lesion or lymphadenopathy. There are degenerative changes of the thoracic and lumbar spine. 6 mm right lower lobe right lower lobe irregular mass, suspicious for primary malignant pulmonary malgorzata plasm. 6 mm lingular nodule, most likely a granuloma, not significantly changed since 10/02/2020 or 01/10/2020. There is mild emphysema. No pulmonary infiltrate or consolidation or pulmonary mass lesion is detected. There is degenerative spurring of the thoracic and lumbar spine. IMPRESSION: No evidence of pulmonary embolism 6 mm irregular right lower lobe mass, suspicious for small malignant pulmonary neoplasm Emphysema Dr. Wiseman telephoned the report including the 6 mm right lower lobe possible pulmonary malignancy on at 1643 hours [address] [facility]. Reviewed, dictated and finalized at [facility]. Reviewed, dictated and finalized at [facility]. IMPRESSION: No evidence of pulmonary embolism 6 mm irregular right lower lobe mass, suspicious for small malignant pulmonary neoplasm Emphysema Dr. Wiseman telephoned the report including the 6 mm right lower lobe possible pul monary malignancy on 02/27/2021 at 1643 hours Astrid Loandesklbers.
== END 2021-02-27 12:45 | disposition home or self-care (01) ==
PROVIDERS: PCP Family Medicine; Visit Provider Physician Assistant
DX: I26.99 Other pulmonary embolism without acute cor pulmonale (principal); J43.9 Emphysema, unspecified
CPT/HCPCS: 71275; Q9967

== ENCOUNTER 2021-03-16 08:34 | Outpatient (CLI) | payer MEDICARE, SELFPAY ==
--- NOTE | ~2021-03-16 | PE_ITS ---
EXAMINATION: PET skull to mid thigh DATE: 03/16/2021 10:38 INDICATION: Solitary pulmonary nodule. TECHNIQUE: Blood glucose level was 108 mg/dL. 12.351 mCi of 18-fluorodeoxyglucose (18-FDG) was admini stered i.v. Low dose computed tomography (CT) images were acquired from the base of the brain to the proximal thighs for attenuation correction and anatomic localization. Automated exposure control was employed. Dose-length product (DLP) was 424 mGy-cm. Positron emission tomography (PET) images were ac quired in the same distribution. COMPARISON: Chest CT 02/27/2021, 10/02/2020, 01/10/20 FINDINGS: Head/neck: There is increased activity in the oral cavity, oropharynx, and glottis without CT correla te, likely physiologic. There are no pathologically enlarged lymph nodes. Chest: There is moderate emphysema. There is a 7 mm nodule in lingula without increased activity, sta ble from 01/10/20, likely benign. There is a 7 mm nodule in right lower lobe without increased activity , increased from 5 mm on 10/02/20. No pleural effusion. The heart size is normal. There are coronary a rtery calcifications. No pericardial effusion. There is tube graft repair of ascending aorta. Ascendi ng aorta measures 4.9 cm distal to the graft, stable from 01/10/20. Abdomen/pelvis/proximal thighs: Calcifications in the liver is consistent with old granulomatous dise ase. The gallbladder, spleen, pancreas, adrenal glands, and kidneys are normal. There are no dilated loops of bowel. There are no pathologically enlarged lymph nodes. There is no free intraperitoneal fl uid. There is a left inguinal hernia containing fat. There is a small sliding hiatal hernia. There is no osseous malignancy. There is increased activity in left hip joint, consistent with inflammation. IMPRESSION: 1. 7 mm right lower lobe pulmonary nodule without increased activity, increased from 5 mm on 1, suspicious for primary bronchogenic carcinoma. Noncontrast low-dose chest CT is recommended in 3 [facility]. 2. Moderate emphysema. Reviewed, dictated and finalized at [facility]. IMPRESSION: 1. 7 mm right lower lobe pulmonary nodule without increased activity, increased from 5 mm on 10/02/2020, suspicious for primary bronchogenic carcinoma. Noncont rast low-dose chest CT is recommended in 3 months. 2. Moderate emphysema.
[2021-03-16 08:56] LABS: Glucose Point of Care 108 mg/dl (65-105)
== END 2021-03-16 08:35 | disposition home or self-care (01) ==
PROVIDERS: PCP Family Medicine; Visit Provider Internal Medicine Pulmonary Disease
DX: R91.1 Solitary pulmonary nodule (principal)
CPT/HCPCS: 78815; A9552

== ENCOUNTER 2024-03-14 15:54 | Emergency (ER) | payer MEDICARE, SELFPAY ==
--- NOTE | ~2024-03-14 | CT_ITS ---
EXAMINATION: CTA chest abdomen pelvis DATE: 03/14/2024 19:10 INDICATION: Chest pain. History of aortic aneurysm and pulmonary embolism. Elevated d-dimer. TECHNIQUE: Computed tomography angiography (CTA) of the chest, abdomen and pelvis was performed with 100 CC Omnipaque 350 intravenous contrast. Automated exposure control and iterative reconstruction te chnique were employed. Exam dose: 396.54 mGy-cm total exam DLP. COMPARISON: 10/02/2020 CTA chest FINDINGS: There is nipple-like focal bulging of the right anterolateral aspect of the ascending aorta at the beginning of the aortic arch, suggesting contained thoracic aortic rupture. There is approxim ately 4.7 cm diameter aortic aneurysm in this region, otherwise relatively stable since 02/27/2021. ergency cardiovascular surgical consultation is recommended. No evidence of pulmonary embolism is noted. No hilar or mediastinal mass lesion or lymphadenopathy. Normal heart size. No pericardial or pleural effusion. Mild emphysematous changes. No pulmonary infiltrate or consolidation or pulmonary mass lesion is evid ent. The liver, gallbladder, bile ducts, pancreas, pancreatic duct, spleen, and adrenal glands and kidneys are unremarkable. There is atherosclerotic plaque and calcification of the abdominal aorta but no aneurysm. There is at herosclerotic change as well as the iliac and femoral arteries without aneurysm. No intraperitoneal or retroperitoneal or pelvic mass lesion or adenopathy or ascites is noted. There is prostate enlargement and calcification. There is moderate diffuse thickening of the urinary bladder likely due to prostatomegaly. Diverticulosis of the sigmoid colon; no CT evidence of diverticulitis. No bowel obstruction is detect ed. No intraperitoneal free air. Bilateral small fat-containing inguinal hernias, larger on the left. Small fat-containing umbilical hernia. No suspicious osteolytic or osteoblastic lesions are noted. Status post sternotomy. Degenerative spurring of the thoracic and lumbar spine. IMPRESSION: Focal aortic rupture is suggested at the anterolateral right aspect of the ascending aor ta at the anterior aortic arch, likely contained by serosa; emergency cardiovascular surgical consult ation is recommended. Dr. Wiseman telephoned this finding and emergency perivascular surgical consult re commendation to emergency room physician Dr. Feng on 03/14/2024 at 1953 hours. No evidence of pulmonary embolism Emphysema Diverticulosis of sigmoid colon; no evidence of diverticulitis Prostatomegaly, likely responsible for diffuse bladder wall thickening Small bilateral fat-containing inguinal hernias and umbilical hernia Reviewed, dictated and finalized at [facility]. Reviewed, dictated and finalized at [facility]. IMPRESSION: Focal aortic rupture is suggested at the anterolateral right aspec t of the ascending aorta at the anterior aortic arch, likely contained by seros a; emergency cardiovascular surgical consultation is recommended. Dr. Wiseman tele phoned this finding and emergency perivascular surgical consult recommendation to emergency room physician Dr. Feng on 03/14/2024 at 1953 hours. No evidence of pulmonary embolism Emphysema Diverticulosis of sigmoid colon; no evidence of diverticulitis Prostatomegaly, likely responsible for diffuse bladder wall thickening Small bilateral fat-containing inguinal hernias and umbilical hernia
--- NOTE | ~2024-03-14 | XR_ITS ---
XR chest 2V DATE: 03/14/2024 16:26 INDICATION: Chest pain TECHNIQUE: PA and lateral views COMPARISON: 10/02/2020 2 view chest 02/27/2021 CTA chest FINDINGS: Bilateral nipple shadows project over the chest on the PA view. Mild bilateral hyperinflation. No pulmonary infiltrate or consolidation, pleural effusion or pulmonary vascular congestion or pneumo thorax is detected. No apparent pulmonary mass lesion but the previously reported 6 mm irregular soft tissue mass in the right lower on 02/27/2021 cannot be definitively excluded on the current examination, possibly obscure d by overlapping vessels and skeletal structures. CT thorax is recommended to compare with the 6 mm r ight lower lobe mass noted on 02/27/2021. Normal heart size. Aortic arch calcification. No hilar or mediastinal enlargement. Degenerative changes of the cervical, thoracic and lumbar spine. IMPRESSION: CT thorax is recommended to follow-up the 6 mm irregular mass reported in the right lower lobe on 02/27/2021 CT thorax Bilateral mild hyperinflation suggesting possible obstructive airways disease Status post sternotomy Aortic calcification Reviewed, dictated and finalized at [facility]. IMPRESSION: CT thorax is recommended to follow-up the 6 mm irregular mass repor joe in the right lower lobe on 02/27/2021 CT thorax Bilateral mild hyperinflation suggesting possible obstructive airways disease Status post sternotomy Aortic calcification
[2024-03-14 15:55] VITALS: BP 177/60; PULSE 86; RESP 18; TEMP 36.2; O2SAT 100
--- NOTE | 2024-03-14 15:58 | ECG_ITS ---
Test Date: 2024-03-14 16:01:39 Measurements Intervals [place] Rate: 86 P: 44 MT: 117 QRS: 20 QRSD: 93 T: 64 QT: 360 QTc: 432 Interpretive Statements SINUS RHYTHM NONSPECIFIC ST & T-WAVE ABNORMALITY- LATERAL LEADS BASELINE ARTIFACT- V4-V5 BORDERLINE ECG No previous ECG available for comparison Electronically Signed On 03-14-2024 18:58:41 CDT by Db Faria D.O.
[2024-03-14 16:15] LABS: Basophils Absolute Auto 0.1 K/mm3 (0.0-0.1); Basophils Percent Auto 0.8 % (0.2-1.2); Eosinophils Absolute Auto 0.3 K/mm3 (0-0.3); Eosinophils Percent Auto 2.9 % (0-4.4); Hematocrit 42.5 % (42.0-52.0); Hemoglobin 13.5 g/dL (14.0-18.0); Immature Granulocyte Absolute 0.04 K/mm3 (0.00-0.031); Immature Granulocyte Percent A 0.4 % (0-0.5); Lymphocytes Absolute Auto 2.13 K/mm3 (0.9-3.2); Lymphocytes Percent Auto 21.8 % (18.3-44.2); Mean Corpuscular HGB Conc 31.8 g/dl (32-36); Mean Corpuscular Hemoglobin 29.5 pg (26-34); Mean Corpuscular Volume 92.8 fl (80-100); Monocytes Absolute Auto 0.7 K/mm3 (0.1-0.6); Monocytes Percent Auto 7.4 % (2.6-8.5); Neutrophils Absolute Auto 6.5 K/mm3 (1.3-6.7); Neutrophils Percent Auto 66.7 % (45.5-73.1); Platelet Count Result 277 k/mm3 (150-375); Red Blood Count 4.58 M/mm3 (4.6-6.20); Red Cell Distribution Width 14.7 % (11.5-14.5); White Blood Count 9.8 K/mm3 (4.5-10.0)
[2024-03-14 16:26] LABS: Alanine Aminotransferase 10 U/L (6-50); Albumin Level 4.4 g/dL (3.5-5.1); Alkaline Phosphatase 101 U/L (38-126); Anion Gap 9 mmol/L (4-12); Aspartate Amino Transferase 17 U/L (17-59); Bilirubin,Total 0.3 mg/dL (0.2-1.3); Blood Urea Nitrogen 11 mg/dL (9-20); Calcium 9.3 mg/dL (8.4-10.2); Carbon Dioxide 27 mmol/L (22-30); Chloride 104 mmol/L (98-107); Estimated CRCL calculation 36 ml/min; Estimated Glomerular Filt Rate 43; Glucose 97 mg/dL (65-110); Lipase 39 U/L (23-300); Potassium 3.6 mmol/L (3.4-5.0); Sodium 140 mmol/L (137-145)
[2024-03-14 16:29] LABS: Partial Thromboplastin Time 30.8 Seconds (22.3-36.8)
[2024-03-14 16:37] LABS: Troponin I < 0.012 ng/mL (0.000-0.034)
[2024-03-14 18:30] VITALS: BP 173/67; PULSE 87; RESP 14; O2SAT 100
[2024-03-14 18:39] LABS: D Dimer 0.98 ug/mL (<0.48)
--- NOTE | 2024-03-14 18:53 | ED.CHESTPAIN ---
HPI - Chest Pain General Chief Complaint: Chest Pain <ROEL Guzman Last Filed: 03/14/24 23:11> Stated Complaint: CP <ROEL Guzman Last Filed: 03/14/24 23:11> Time Seen by Provider: 03/14/24 17:46 <ROEL Guzman Last Filed: 03/14/24 23:11> Source: patient <ROEL Guzman Last Filed: 03/14/24 23:11> Mode of arrival: ambulatory <ROEL Guzman Last Filed: 03/14/24 23:11> Limitations: no limitations <ROEL Guzman Last Filed: 03/14/24 23:11> History of Present Illness HPI narrative: This is a 68 year old male that presents to the ER for chest pain. Ongoing since this morning. Reports the pain is sharp and constant. Reports the pain radiates into his abdomen. Denies fever, shortness of breath, vomiting, or diarrhea. <ROEL Guzman Last Filed: 03/14/24 23:11> Related Data Home Medications: Home Medications Medication Instructions Recorded Confirmed aspirin 81 mg tablet,delayed 81 mg PO DAILY 03/24/21 06/20/22 release (Adult Aspirin Regimen) metoprolol succinate 50 mg tablet PO 03/24/21 06/20/22 tablet,extended release 24 hr rosuvastatin 40 mg tablet 40 mg PO DAILY 03/24/21 06/20/22 <ROEL Guzman Last Filed: 03/14/24 23:11> Allergies/Adverse Reactions: Allergies Allergy/AdvReac Type Severity Reaction Status Date / Time Penicillins Allergy Unknown Unknown Verified 06/20/22 13:25 <ROEL Guzman Last Filed: 03/14/24 23:11> Review of Systems Review of Systems: CONSTITUTIONAL: Denies fever CARDIOVASCULAR: Reports chest pain. Denies edema. RESPIRATORY: Reports dyspnea. GASTROINTESTINAL: Reports abdominal pain. Denies nausea, vomiting, or diarrhea. GENITOURINARY: Denies dysuria <ROEL Guzman Last Filed: 03/14/24 23:11> All systems reviewed & are unremarkable except as noted in HPI and below <Shaniqua Feng PA-C - Last Filed: 03/14/24 23:11> PMFSH Past Medical History Medical History: Medical History Aortic arch dissection Aortic stenosis Emphysema lung History of pulmonary embolism Hyperlipidemia Thoracic aortic aneurysm (TAA) Tobacco abuse <Shaniqua Feng PA-C - Last Filed: 03/14/24 23:11> Surgical History Surgical History: Surgical History History of appendectomy History of tonsillectomy S/P aortic dissection repair <Shaniqua Feng PA-C - Last Filed: 03/14/24 23:11> Family History Family History: Family History Mother Dementia Father Patient's father is Pancreatic cancer Sibling Lung cancer <Shaniqua Feng PA-C - Last Filed: 03/14/24 23:11> Social History Social History: Social History (Updated 06/20/22 @ 13:30 by Joie Rosa) Social History: The patient lives with his who is the durable power compliance attorney for healthcare. The patient is a full code but does not want to live in a vegetative state on a ventilator. The patient still continues to smoke 1 pack a cigarettes a day. He had quit many years ago and then went back to smoking again. The patient is retired from [employer]. He has no children. Years smoked: 50 Smoking status: Current every day smoker Tobacco type: cigarettes Second hand tobacco smoke exposure: Yes Smoking end date: 01/10/20 Alcohol intake: current Alcohol use details: 2 a month Substance use: never Substance use type: does not use Living arrangements: with family Occupation/Education: retired Gender identity (if verbalized by the patient): Male Sexual Orientation (if Verbalized by the Patient): Straight or Heterosexual Spiritual care concerns: No <ROEL Guzman Last Filed: 03/14/24 23:11> Exam Narrative: GENERAL: Well-appearing, well-nourished, and in no
[2024-03-14] MEDS: ASPIRIN 81 MG CHEWABLE TABLET 324 MG PO (19:23)
[2024-03-14 19:40] LABS: Add Urine Microscopic? NO; Appearance Urine Clear (Clear); Bilirubin Urine Negative (Negative); Blood Urine Negative (Negative); Color Urine Yellow (Yellow); Glucose Urine UA Negative (Negative); Ketones Urine Negative (Negative); Leukocyte Esterase Ur Negative LEU/UL (Negative); Nitrate Urine Negative (Negative); Protein Urine Negative (Negative); Specific Grav Ur 1.008 (1.001-1.035); Urobilinogen Urine 0.2 mg/dL (<2.0); pH Urine 7.5 (5.0-9.0)
[2024-03-14 19:46] LABS: Troponin I < 0.012 ng/mL (0.000-0.034)
[2024-03-14 20:07] VITALS: BP 162/72; PULSE 86; RESP 16; O2SAT 100
[2024-03-14 20:27] VITALS: BP 169/72; PULSE 89
[2024-03-14] MEDS: ESMOLOL HCL 2,500 MG/250 ML 2,500 MG/250 ML BAG 19.8 MG IV CONT (20:27)
[2024-03-14] MEDS: ESMOLOL HCL 100 MG/10 ML VIAL 33 MG IV PUSH (20:28)
[2024-03-14 20:35] VITALS: BP 189/77; PULSE 84
[2024-03-14] MEDS: niCARdipine 20 MG/200 ML 20 MG/200 ML BAG 50 MG IV CONT (20:35)
--- NOTE | 2024-03-14 20:40 | PC.NURSE ---
[facility] evac here to transport pt to [facility]. Report called to Elda SANTILLAN at [facility]. Pt being sent w keyon, pcs, and chart.
[2024-03-14 20:41] VITALS: BP 189/77; PULSE 84; RESP 19; O2SAT 100
== END 2024-03-14 20:42 | disposition short-term general hospital (02) ==
PROVIDERS: Student in an Organized Health Care Education/Training Program; Emergency Provider Physician Assistant; PCP Family Medicine
DX: I71.8 Aortic aneurysm of unspecified site, ruptured (principal); J43.9 Emphysema, unspecified; E78.5 Hyperlipidemia, unspecified; F17.210 Nicotine dependence, cigarettes, uncomplicated; Z86.711 Personal history of pulmonary embolism; Z79.82 Long term (current) use of aspirin; Z79.899 Other long term (current) drug therapy; K57.90 Diverticulosis of intestine, part unspecified, without perforation or abscess without bleeding; N40.0 Benign prostatic hyperplasia without lower urinary tract symptoms; R93.41 Abnormal radiologic findings on diagnostic imaging of renal pelvis, ureter, or bladder; R94.31 Abnormal electrocardiogram [ECG] [EKG]
CPT/HCPCS: 36415; 71046; 71275; 74174; 80053; 81003; 83690; 84484; 85025; 85380; 85610; 85730; 86850; 86900; 86901; 93005; 96374; 96375; 99291; A9270; J2404; Q9967

== ENCOUNTER 2024-05-04 09:50 | Outpatient (CLI) | payer MEDICARE, SELFPAY ==
[2024-05-04 10:20] LABS: Basophils Absolute Auto 0.1 K/mm3 (0.0-0.1); Basophils Percent Auto 0.7 % (0.2-1.2); Eosinophils Absolute Auto 0.3 K/mm3 (0-0.3); Eosinophils Percent Auto 4.3 % (0-4.4); Hematocrit 34.1 % (42.0-52.0); Hemoglobin 10.3 g/dL (14.0-18.0); Immature Granulocyte Absolute 0.02 K/mm3 (0.00-0.031); Immature Granulocyte Percent A 0.3 % (0-0.5); Lymphocytes Absolute Auto 1.38 K/mm3 (0.9-3.2); Lymphocytes Percent Auto 20.7 % (18.3-44.2); Mean Corpuscular HGB Conc 30.2 g/dl (32-36); Mean Corpuscular Hemoglobin 27.6 pg (26-34); Mean Corpuscular Volume 91.4 fl (80-100); Mean Platelet Volume 9.6 fl (7.4-10.4); Monocytes Absolute Auto 0.6 K/mm3 (0.1-0.6); Monocytes Percent Auto 8.5 % (2.6-8.5); Neutrophils Absolute Auto 4.4 K/mm3 (1.3-6.7); Neutrophils Percent Auto 65.5 % (45.5-73.1); Platelet Count Result 240 k/mm3 (150-375); Red Blood Count 3.73 M/mm3 (4.6-6.20); Red Cell Distribution Width 15.4 % (11.5-14.5); White Blood Count 6.7 K/mm3 (4.5-10.0)
[2024-05-04 10:31] LABS: Alanine Aminotransferase 9 U/L (6-50); Albumin Level 3.9 g/dL (3.5-5.1); Alkaline Phosphatase 99 U/L (38-126); Anion Gap 7 mmol/L (4-12); Aspartate Amino Transferase 15 U/L (17-59); Bilirubin,Total 0.5 mg/dL (0.2-1.3); Blood Urea Nitrogen 15 mg/dL (9-20); Calcium 9.2 mg/dL (8.4-10.2); Carbon Dioxide 25 mmol/L (22-30); Chloride 109 mmol/L (98-107); Cholesterol 108 mg/dL (0-200); Estimated Glomerular Filt Rate 43; Glucose 107 mg/dL (65-110); HDL Direct 28 mg/dL; Sodium 141 mmol/L (137-145); Triglycerides 150 mg/dL (<150)
[2024-05-04 10:42] LABS: LDL Cholesterol Direct 44 mg/dL
[2024-05-06 14:23] LABS: PSA, Free 0.1 ng/mL; PSA, Total 0.2 ng/mL (< OR = 4.0); Percent Free Prostate Spec Ag 50 % (calc) (>25)
== END 2024-05-04 09:51 | disposition home or self-care (01) ==
PROVIDERS: PCP Family Medicine; Visit Provider Family Medicine
DX: I10 Essential (primary) hypertension (principal); N40.1 Benign prostatic hyperplasia with lower urinary tract symptoms; E78.2 Mixed hyperlipidemia; I35.0 Nonrheumatic aortic (valve) stenosis
CPT/HCPCS: 36415; 80053; 80061; 84153; 84154; 84443; 85025

== ENCOUNTER 2024-08-11 09:23 | Outpatient (CLI) | payer MEDICARE, SELFPAY ==
--- OUTSIDE RECORDS SUMMARY | 2024-08-11 09:56 | XMS_ITS | Clinical Summary ---
Author Organization [facility] Address [address] [place] [address] Care Team Providers Care Box Order Person Name Role Phone Meghna Fine MD Primary Care Provider Yahir Brooke MD Unavailable [phone] Armando Balderas Chi, MD Unavailable [phone] Balta Bennett MD Unavailable Allergies Active Allergy Reactions Criticality Noted Date Comments Penicillins Hives Medium Medications rosuvastatin (CRESTOR) 40 mg tablet Take 1 tablet (40 mg total) by mouth daily 30 tablet 11 03/17/2024 Active metoprolol tartrate (LOPRESSOR) 37.5 mg tablet immediate release tablet Take 1 tablet (37.5 mg total) by mouth 2 (two) times a day 60 tablet 03/16/2024 Active Active Problems Patient Care Coordination No te Formatting of this note migh t be different from the original. This is a 65-year-old male presenting to us with a pulmonary nodule. He has a medical history significant for an aortic dissection status post repair, heart murmur, PE, osteoarthritis and emphysema. He is a current every day smoker. He underwent a CTA chest PE protocol on 02/27/2021. There is diagnostic enhancement of the pulmonary arteries and no evidence of pulmonary embolism. Status post sternotomy. Normal heart size. No pericardial or pleural effusion. Status post sternotomy. Normal heart size. No pericardial or pleural effusion. There is ascending aortic aneurysm ectasias. No aortic dissection. No hilar or mediastinal mass lesion or lymphadenopathy. There are degenerative changes of the thoracic and lumbar spine. 6 mm right lower lobe right lower lobe irregular mass, suspicious for primary malignant pulmonary neoplasm. 6 mm lingular nodule, most likely a granuloma, not significantly changed since 10/02/2020 or 01/10/2020. There is mild emphysema. No pulmonary infiltrate or consolidation or pulmonary mass lesion is detected. There is degenerative spurring of the thoracic and lumbar spine. He underwent a PET scan on 03/16/2021. There is increased activity in the oral cavity, oropharynx, and glottis without CT correlate, likely physiologic. There are no physiologically enlarged lymph nodes. There is moderate emphysema. There is a 7 mm nodule in the lingula without increased activity, stable, likely benign. There is a 7 mm nodule in the right lower lobe without increased activity, increased from 5 mm on 10/02/2020. No pleural effusion. The heart size is normal. There are coronary artery calcifications. No pericardial effusion. There is tube graft repair of ascending aorta. Ascending aorta measures 4.9 cm distal to the graft stable from 01/10/2020. Calcifications in the liver consistent with old granulomatous disease. The gallbladder, spleen, pancreas, adrenal glands, kidneys are normal. There are no dilated loops of bowel. There are no pathologically enlarged lymph nodes. There is a left inguinal hernia containing fat. There was a small sliding hiatal hernia. There is no osseous malignancy. There was increased activity in the left hip joint, consistent with inflammation. He is here for further surgical evaluation and discussion. Problem Noted Date Diagnosed Date Ascending aortic aneurysm, unspecified whether r uptured 03/14/2024 Radiotherapy follow-up examination 03/28/2022 Malignant neoplasm of lower lobe of right lung 0 07/18/2021 Cancer Staging:Clinical stage from 06/27/2021:Stage IA1(cT1a, cN0, cM0) - Signed by Balta Bennett MD on 07/18/2021 Lung nodule seen on imaging study 03/30/2021 Chest pain 01/10/2020 Assessment & Plan (01/12/2020 6:33 PM CDT): Awoke 7/5 and noticed palpitations and substernal chest pressure, at worst 7/10 severity, <2/10 by time he was paged out to us. Similar to pain he had w/ dissection. No change w/ exertion or position. Went to OSH --> known thoracic aortic aneurysm increased by 3mm compared to 2015. EKG NSR, no ST changes. Initially started on esmolol gtt in ED, turned off before came up to floor. Not on any BP meds at home. Given improving symptoms, unremarkable EKG, favor acute myocardial injury over ischemia. - Cardiac surgery consulted: aneurysm overall stable, no e/o acute aortic pathology, therefore unlikely CP was 2/2 aneurysm - Spot 1x labetalol for SBP < 120; speaking with CT, no need for strict BP target at this time, but keep BP around 120's (01/09) - Telemetry monitoring --> multiple witnessed runs of 150 regular narrow-complex SVT's consistent atrial tachycardia, consistent with pt.'s palpitations; no anti-coagulation indicated at this time (01/10) - 3x repeat troponins 0.04 -> 0.04 -> 0.04; suspect chronic process from hypertension possible hypertrophy > ischemia/injury - Will order TTE today (01/10). Last TTE in 2014 s/p dissection repair with normal LV/RV function. - Patient started on metoprolol XL 25mg for control of atrial arrythmia, no recurrence. - Discussed with patient holter monitoring outpatient for arrythmia after d/c if recurrence despite metoprolol. - TTE: EF 58%, normal LV function, normal LV cavity and wall, moderate AR//TR, normal PASP. - D/c home with outpatient cardiology (Dr. Colon, [facility]). (01/11) Tobacco use 01/10/2020 Assessment & Plan (01/10/2020 10:25 PM CDT): Current 1 ppd smoker. - nicotine patch - cessation counseling Elevated serum creatinine 01/10/2020 Assessment & Plan (01/12/2020 3:29 PM CDT): - Crea 1.49 (admission 01/09) -> 1.53 (01/10) -> 1.72 (01/11) - Patient tolerating normal pO. - trend BMP, renally dose meds History of aortic dissection 06/30/2013 Assessment & Plan (01/12/2020 5:23 PM CDT): History of type A aortic dissection s/p repair 06/2013 with ascending aorta replacement (32mm graft); complicated by 49*42mm enlargement distal to the graft on CT in 2014; size has increased to 52*49mm on repeat CT 01/10/20 at OSH. Started on esmolol gtt in ED, later discontinued - Cardiac Surgery consulted and evaluated patient in ED: do not think presenting symptoms are due to the noted aortic aneurysm given overall stable size. - Labetalol PRN, no specific tight BP control at this time, CP less likely from dissection vs. AFibb. Will avoid hydralazine given hx dissection. - Per patient, home BP's very consistent 120's/70's but haven't measured for a few years, no current HTN medications. - Will transition patient to metoprolol XL 25mg today for BP/dissection control, continue monitoring BP's. (01/10) - Started atorvastatin 40mg due to >10% reduction of ASCVD risk, independent beneficial effect on mortality in TAA. (01/11) Surgical History Surgery Date Site/Laterality Comments APPENDECTOMY Appendectomy OTHER SURGICAL HISTORY Aortic dissection repair with 32 mm Hemashield graft TONSILLECTOMY Tonsillectomy AORTA SURGERY Medical History Medical History Date Comments Hx Other Medical Tobacco use Pulmonary emphysema (HCC) Emphys drew Osteoarthritis Osteoarthritis Hx Other Medical Aortic aneurysm with type A aortic dissection Hx Other Medical Subaortic steno sis with subaortic membrane Hx Other Medical Moderate aortic regurgitation Heart murmur Aortic dissection (HCC) Family History Medical History Relation Name Comments Cancer Father Cancer; Cause o f : Cancer Aneurysm Maternal Grandfather Aneurys m - Relation: Grandfather (Added by TW Conv) Other Maternal Grandfather Aortic dissection; Cause of : Aortic dissection Dementia Mother Hypertension Mother Family history of hypertension - (Added by TW Conv) Transient ischemic attack Mother in 80s Relation Name Status Comments Father (Age 77) Maternal Grandfather (Age 59) Mother (Age 86) Social History Tobacco Use Types Packs/Day Years Used Date Smoking Tobacco: Former Cigarettes 1 53.8 1 968 - 05/04/2021 Smokeless Tobacco: Never Tobacco Cessation:Counseling Given: Yes Comments:. The pt. is currently quiting on his own. Alcohol Use Standard Drinks/Week Comments Yes 0 (1 standard drink = 0.6 oz pur e alcohol) AUDIT-C Answer Date Recorded Q1: How often do you have a drink containing alc ohol? Monthly or less 07/17/2021 Q2: How many drinks containi ng alcohol do you have on a typical day when you are drinking? 1 or 2 07/17/2021 Q3: How often do you have si x or more drinks on one occasion? Never 07/17/2021 Personal Safety Answer Date Recorded Have you ever been in or are you currently in a harmful physical or emotional relationship or is someone making you feel afraid or unsafe? 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 SPECIALIST Gender Identity Not on file Sexual Orientation Straight 07/12/2021 1: 28 PM RADIOLOGY SPECIALIST Obstetrics History Last Filed Vital Signs Vital Sign Reading Time Taken Comments Blood Pressure 116/98 03/16/2024 12:00 PM CDT Pulse 81 03/16/2024 12:00 PM CDT Temperature 36.9 ??C (98.4 ??F) 03/16/2024 8:00 AM CD T Respiratory Rate 18 03/16/2024 12:0 0 PM CDT Oxygen Saturation 99% 03/16/2024 12: 00 PM CDT Inhaled Oxygen Concentration - - Weight 64.8 kg (142 lb 13.7 oz) 03/15/2024 2:13 AM CDT Height 170.2 cm (5' 7 ) 03/15/2024 2:13 AM CDT Body Mass Index 22.37 03/15/2024 2:13 AM CDT Plan of Treatment Health Maintenance Due Date Last Done Comments Colon Cancer Screening-Colonoscopy 1955 Depression Screening 1955 Hepatitis C Screening 1955 DTaP/Tdap/Td Vaccine (1 - Tdap) 1964 Hepatitis B Screening 10/07/1971 Zoster Vaccine (1 of 2) 10/07/2003 Abdominal Aortic Aneurysm (A AA) Screen 2018 08/25/2014, 02/10/2014, 06/24/2013 Pneumococcal vaccine 65+ (1 of 1 - PCV) 2018 Well Visit 65+ 2018 Covid-19 Vaccine ( season) 2024 07/06/2021, 01/07/2021, 12/09/2020 Influenza Vaccine (#1) 2024 Fall Risk Assessment 03/16/2025 03/16/2024, 07/18/19 22 Procedures Procedure Name Priority Date/Time Associated Diagnosis Comments CTA ABDOMEN PELVIS W WO CONTRAST Routine 08/25/2014 8:40 AM RADIOLOGY SPECIALIST from Last 3 Months or Most Recently Relevant to Health Maintenance Results * CT Angiogram Abdomen Pelvis W WO Contrast (08/25/2014 8:40 AM RADIOLOGY SPECIALIST) Anatomical Region Laterality Modality Body N/A Computed Tomogra phy 08/25/2014 8:40 AM RADIOLOGY SPECIALIST Narrative 08/25/2014 9:26 AM RADIOLOGY SPECIALIST PHU DE OLIVEIRA M.D. FINAL REPORT ACC# ??Date Time ??Exam [id number] Aug 25, 2014 08:40:[id number] Chest with contrast [id number] Aug 25, 2014 08:40:00 [id number] CTA Abd&Pelv wwo w recons EXAMINATION: ? 1. CT chest with contrast 2. CT angiogram abdomen and pelvis without and with contrast HISTORY: ??58-year-old man with type A aortic dissection repaired TECHNIQUE: ??Transaxial computed tomographic images of the chest were obtained with contrast. CT angiographic images of the abdomen and pelvis were obtained without and with contrast. 119 mL Optiray-350 was administered without complication. FINDINGS: ??Comparison is made to 02/10/2014. There are surgical changes of ascending aortic repair. No residual dissection is identified. No dissection is seen in the descending aorta. The great vessels of the arch are normal in course and caliber. The maximum diameter of the descending aorta orthogonal to the flow of blood is located just distal to the aortic repair measures 4.9 x 4.2 cm (slightly increased from the prior exam ) Aortic annulus: 22 x 23 mm (unchanged) Sinuses of Valsalva: 33 x 38 mm (unchanged) The heart size is normal. No pericardial effusion. There is mild atherosclerosis in the unrepaired descending aorta. There is no supraclavicular, axillary, mediastinal, hilar lymph adenopathy. There is mild to moderate paraseptal and centrilobular emphysema. A small amount reticulation groundglass is noted in the anterior left upper lobe, likely early fibrosis. No pleural effusion or pneumothorax. Abdomen and pelvis: No focal liver lesion is identified. The gallbladder is decompressed. The pancreas, spleen, and kidneys are normal. There is thickening of both adrenal glands which may reflect hyperplasia. No hydronephrosis. The bladder is normal. The prostate is enlarged. There is no free intraperitoneal air fluid. The bowel is normal in course and caliber without evidence of obstruction. No suspicious osseous lytic or blastic lesion, or compression fracture. Abdomen and pelvis Vascular findings: There is moderate severity atherosclerosis of the abdominal aorta. The celiac axis, superior mesenteric artery and inferior mesenteric artery without significant stenosis. There are single bilateral renal arteries without significant stenosis. Atherosclerosis extends throughout the iliac arteries without significant stenosis in the common or external iliac arteries. The common femoral arteries and included portions of the superficial femoral arteries and or fundus numerous arteries are without significant stenosis. IMPRESSION: ?? 1. Repaired descending aortic dissection with slight interval increase in aneurysmal dilatation of the proximal bad river band ascending aorta which now measures 4.9 x 4.2 cm measured orthogonal to the flow blood. 2. No evidence of recurrent or residual dissection. 3. Diffuse atherosclerosis without significant stenosis in the abdomen or pelvis. Requested By: HIREN CARNEY M.D. Dictated By: ?? PHU DE OLIVEIRA M.D. ??on Aug 25 2014 ??9:26A This document has been electronically signed by: PHU DE OLIVEIRA M.D. on Aug 25 2014 ??9:26A [id number] Procedure Note Provider, MD Iveth - 11/02/2016 PHU DE OLIVEIRA M.D. FINAL REPORT ACC# Date Time Exam [id number] Aug 25, 2014 08:40:[id number] Chest with contrast [id number] Aug 25, 2014 08:40:00 [id number] CTA Abd&Pelv wwo w recons EXAMINATION: 1. CT chest with contrast 2. CT angiogram abdomen and pelvis without and with contrast HISTORY: 58-year-old man with type A aortic dissection repaired TECHNIQUE: Transaxial computed tomographic images of the chest were obtained with contrast. CT angiographic images of the abdomen and pelvis were obtained without and with contrast. 119 mL Optiray-350 was administered without complication. FINDINGS: Comparison is made to 02/10/2014. There are surgical changes of ascending aortic repair. No residual dissection is identified. No dissection is seen in the descending aorta. The great vessels of the arch are normal in course and caliber. The maximum diameter of the descending aorta orthogonal to the flow of blood is located just distal to the aortic repair measures 4.9 x 4.2 cm (slightly increased from the prior exam ) Aortic annulus: 22 x 23 mm (unchanged) Sinuses of Valsalva: 33 x 38 mm (unchanged) The heart size is normal. No pericardial effusion. There is mild atherosclerosis in the unrepaired descending aorta. There is no supraclavicular, axillary, mediastinal, hilar lymph adenopathy. There is mild to moderate paraseptal and centrilobular emphysema. A small amount reticulation groundglass is noted in the anterior left upper lobe, likely early fibrosis. No pleural effusion or pneumothorax. Abdomen and pelvis: No focal liver lesion is identified. The gallbladder is decompressed. The pancreas, spleen, and kidneys are normal. There is thickening of both adrenal glands which may reflect hyperplasia. No hydronephrosis. The bladder is normal. The prostate is enlarged. There is no free intraperitoneal air fluid. The bowel is normal in course and caliber without evidence of obstruction. No suspicious osseous lytic or blastic lesion, or compression fracture. Abdomen and pelvis Vascular findings: There is moderate severity atherosclerosis of the abdominal aorta. The celiac axis, superior mesenteric artery and inferior mesenteric artery without significant stenosis. There are single bilateral renal arteries without significant stenosis. Atherosclerosis extends throughout the iliac arteries without significant stenosis in the common or external iliac arteries. The common femoral arteries and included portions of the superficial femoral arteries and or fundus numerous arteries are without significant stenosis. IMPRESSION: 1. Repaired descending aortic dissection with slight interval increase in aneurysmal dilatation of the proximal bad river band ascending aorta which now measures 4.9 x 4.2 cm measured orthogonal to the flow blood. 2. No evidence of recurrent or residual dissection. 3. Diffuse atherosclerosis without significant stenosis in the abdomen or pelvis. Requested By: HIREN CARNEY M.D. Dictated By: PHU DE OLIVEIRA M.D. on Aug 25 2014 9:26A This document has been electronically signed by: PHU DE OLIVEIRA M.D. on Aug 25 2014 9:26A [id number] us Historical Provider MD HUFF CT PROCEDURES Final R esult from Last 3 Months or Most Recently Relevant to Health Maintenance Insurance MEDICARE [facility] MEDICARE [facility] MEDICARE [facility] Advance Directives For more information, please contact: [phone] * LIMITED - No CPR (Latest Code Status on File) Date Activated Date Inactivated Comments 03/15/2024 2:50 AM 03/16/2024 5:56 PM * Full Code Date Activated Date Inactivated Comments 01/10/2020 8:49 PM 01/12/2020 11:02 PM Care Teams Box Order Person Relationship Specialty Start Date End Date Meghna Fine MD [address] [place] [address] PCP - General Family Medicine 10/02/20 Yahir Brooke MD [address] [place] [address] Referring Physician Critical Care Med 03/30/21 Armando Balderas Chi, MD [address] [place] [address] Referring Physician Pulmonary Disease 03/30/21 Balta Bennett MD [address] [facility] [address] [place] [address] Radiation Oncologist Radiation Oncology 07/18/21
--- OUTSIDE RECORDS SUMMARY | 2024-08-11 09:56 | XMS_ITS | Referral Summary ---
Author Organization [facility] Address [address] [place] [address] Care Team Providers Care Waste Management Recycling Technician Name Role Phone Meghna Fine MD Primary Care Provider Yahri Brooke MD Unavailable [phone] Armando Balderas Chi, MD Unavailable [phone] Balta Bennett MD Unavailable Allergies Active Allergy [...] D/c home with outpatient cardiology (Dr. Colon, [facility]). (01/11) Tobacco use 01/10/2020 Assessment & Plan [...] beneficial effect on mortality in TAA. 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 INSPECTOR Gender Identity Not on file Sexual Orientation Straight 07/12/2021 1: 28 PM PAIRER INSPECTOR Last Filed Vital Signs Vital Sign Reading [...] 03/15/2024 2:13 AM CDT Plan of Treatment Not on file Procedures Procedure Name Priority Date/Time Associated Diagnosis Comments CTA ABDOMEN PELVIS W WO CONTRAST Routine 08/25/2014 8:40 AM PAIRER INSPECTOR from Last 3 Months or Most Recently Relevant to Health Maintenance Results * CT Angiogram Abdomen Pelvis W WO Contrast (08/25/2014 8:40 AM PAIRER INSPECTOR) Anatomical Region Laterality Modality Body N/A Computed Tomogra phy 08/25/2014 8:40 AM PAIRER INSPECTOR Narrative 08/25/2014 9:26 AM PAIRER INSPECTOR PHU DE OLIVEIRA M.D. FINAL REPORT ACC# ??Date Time ??Exam [id number] Aug 25, 2014 08:40:[id number] Chest with contrast [id number] Aug 25, 2014 08:40:00 [id number] CTA Abd&Pelv wwo w recons EXAMINATION: ? [...] increase in aneurysmal dilatation of the proximal cabazon ascending aorta which now measures 4.9 x [...] OLIVEIRA M.D. on Aug 25 2014 ??9:26A [id number] Procedure Note Provider, MD Iveth - 11/02/2016 PHU DE OLIVEIRA M.D. FINAL REPORT ACC# Date Time Exam [id number] Aug 25, 2014 08:40:[id number] Chest with contrast [id number] Aug 25, 2014 08:40:00 [id number] CTA Abd&Pelv wwo w recons EXAMINATION: 1. [...] increase in aneurysmal dilatation of the proximal cabazon ascending aorta which now measures 4.9 x [...] OLIVEIRA M.D. on Aug 25 2014 9:26A [id number] us Historical Provider MD HUFF CT PROCEDURES Final R esult from Last 3 Months or Most Recently Relevant to Health Maintenance Insurance [facility] MEDICARE [employer] [facility] MEDICARE BLUE [facility] Advance Directives For more information, please contact: [phone] * LIMITED - No CPR (Latest Code Status on File) Date Activated Date Inactivated Comments 03/15/2024 2:50 AM 03/16/2024 5:56 PM * Full Code Date Activated Date Inactivated Comments 01/10/2020 8:49 PM 01/12/2020 11:02 PM Care Teams Waste Management Recycling Technician Relationship Specialty Start Date End Date Meghna Fine MD [address] [facility] [address] [place] [address] PCP - General Family Medicine 10/02/20 Yahir Brooke MD [address] [facility] [address] [place] [address] Referring Physician Critical Care Med 03/30/21 Armando Balderas Chi, MD [facility] [address] [place] [address] Referring Physician Pulmonary Disease 03/30/21 Balta Bennett MD [address] [facility] [address] [place] [address] Radiation Oncologist Radiation Oncology 07/18/21
--- OUTSIDE RECORDS SUMMARY | 2024-08-11 09:57 | XMS_ITS ---
Author Organization [facility] Address [address] [place] [address] Care Team Providers Care Vault Installer Name Role Phone Meghna Fine MD Primary Care Provider Yahir Brooke MD Unavailable [phone] Armando Balderas Chi, MD Unavailable Balta Bennett MD Unavailable [phone] Active Problems Patient Care Coordination No te [...] 06/27/2021:Stage IA1(cT1a, cN0, cM0) - Signed by Blata Bennett MD on 07/18/2021 Lung nodule seen [...] D/c home with outpatient cardiology (Dr. Colon, [facility]). (01/11) Tobacco use 01/10/2020 Assessment [...] beneficial effect on mortality in [place]. (01/11) Current Oncology Plans No current plan information found. Past Plans No past plan information found. Radiation Treatments * Plan Last Treated On Elapsed Days Fractions Treated Prescribed Fraction Dose Prescribed Total Dose RLL_SBRT 08/16/2021 8 3 1,800 cGy 5,400 cGy Reference Point Last Treated On Elapsed Days Session Dose Total Dose [id number] 08/16/2021 8 1,800 cGy 5,400 cGy Lifetime Dose Tracking * Chemical Lifetime Dose Automatic Entry Manual Entr y DLP 1,136 mGycm 1,136 mGycm 0 mGycm Treatment Summaries Malignant neoplasm of lower lobe of right lung (HCC)* Images from the original note were not included. [address] [place] [address] This Survivorship Care Plan is a cancer treatment summary and follow-up plan and is provided to youto keep with your health care records and to share with your primary care provider or any of your doctors and nurses. This summary is a brief record of major aspects of your cancer treatment not a detailed or comprehensive record of your care. You should review this with your cancer provider. Treatment Summary and Survivorship Care Plan for Non-Small Cell Lung Cancer General Information Patient name Ki Shaver (home) Date of 1955 Health Care Providers (Including Names, Institutions) Provider Name: Contact Information: Primary Care Physician Meghna Fine MD [phone] Surgeon No care steam boiler fireman to display Radiation Oncologist Balta Bennett MD [phone] Medical Oncologist No care steam boiler fireman to display Other Providers Treatment Summary Cancer Diagnosis Information Diagnosis Malignant neoplasm of lower lobe of right lung (CMS/HCC) (HCC) Diagnosis date 07/18/2021 Staging information Cancer Staging Malignant neoplasm of lower lobe of right lung (CMS/HCC) (HCC) Staging form: Lung, AJCC 8th Edition - Clinical stage from 06/27/2021: Stage IA1 (cT1a, cN0, cM0) - Signed by Balta Bennett MD on 07/18/2021 Treatment Completed Surgery No Radiation Radiation Treatments Active Plans RLL_SBRT Most recent treatment: Dose planned: 1,800 cGy (fraction 3 on 08/16/2021) Total: Dose planned: 5,400 cGy Elapsed Days: 8 Reference Points [id number] Most recent treatment: Dose given: 1,800 cGy (on 08/16/2021) Total: Dose given: 5,400 cGy Elapsed Days: 8 Historical No historical radiation treatments to show. Systemic Therapy (chemotherapy, hormonal therapy, other) [No treatment plan] Lifetime Dose Tracking Lifetime Dose Tracking No doses have been documented on this patient for the following tracked chemicals: doxorubicin, epirubicin, idarubicin, daunorubicin, mitoxantrone, bleomycin, mitomycin, cyclophosphamide, carmustine,cisplatin, ifosfamide, carboplatin, fluorouracil, etoposide, doxorubicin HCl pegylated liposomal, et oposide phosphate, valrubicin, doxorubicin isotoxic equivalent Research Studies Persistent symptoms or side effects that have continued after finishing treatment: Other: : Treatment Ongoing: No Follow-up Care Plan Your follow-up care plan is design to inform you and primary care providers regarding the recommended and required follow-up, cancer screening and routine health maintenance that is needed to maintain optimal health. Schedule of Clinical Visits Coordinating Provider When/How often Balta Bennett MD Every 3-6 months for first 2 years, then every 6-12 months for 3-5 years then yearly. Cancer Surveillance or other Recommended Tests Coordinating Provider Test How Often Balta Bennett MD Chest Imaging Every 3-6 months for 2 years then every 6-12 months years 3-5, then yearly. All providers Monitor for adjunct faculty for medical terminology cardiac toxicity. Meghna Fine Monitor for adjunct faculty for medical terminology toxicity Cardiac - congestive heart failure (CHF), coronary artery disease (CAD) Renal insufficiency- Creatinine Musculoskeletal - Chest wall pain Neurologic - neuropathy Hematologic - CBC Yearly Possible late- and long-term effects that someone with this type of cancer and treatment may experience: Constipation Hearing loss Kidney problems Peripheral neuropathy or numbness and tingling Pneumonitis or inflammation of the lung (6 weeks-6 months after treatment) * Pulmonary fibrosis or scarring (6 weeks-6 months after treatment) * Trouble with or painful swallowing * Chest wall toxicity between 9-12 months after radiation therapy * Please call your radiation oncologist if experiencing these late effects * Fatigue Many patients experience some level of fatigue. Some patients experience severe and ongoing fatigue. An active lifestyle with healthy sleep patterns can improve your energy levels. Talk to your provider about ongoing (more than 3 months) fatigue. Please continue to see your primary care provider for all general health care recommended for a person your age, including cancer screening tests. Any symptoms should be brought to the attention of your provider: Anything that represents a brand new symptom; Anything that represents a persistent symptom; Anything you are worried about that might be related to the cancer coming back. Cancer survivors may experience issues with the areas listed below. If you have any concerns in these or other areas, please speak with your doctors or nurses to find out how you can get help with them. Anxiety and depression Emotional and mental health Fatigue Fertility Financial advice or assistance Insurance Memory or concentration loss Parenting Physical functioning School/work Sexual functioning Stopping smoking Weight changes Other A number of lifestyle/behaviors can affect your ongoing health, including the risk for the cancer coming back or developing another cancer. Discuss these recommendations with your doctor or nurse: Eat a healthy diet: focus on more fruits, vegetables and whole grains. Maintain a healthy weight; avoid being overweight. Aim for a normal body mass index (BMI) of 18.5-24.9. Help learning to eat healthier, call the tin pourer at: [facility] [facility] . Have an active lifestyle, strive for 30 minutes of moderate exercise 5 times a week and strength orresistance training at least twice a week. Use broad-spectrum (UVA+UVB) sunscreen with SPF 30 or greater, is water resistant, limit time spentin the sun (10 am-4pm), wear hat, wear UV protective clothing, wear sunglasses. Never use a tanningbed. Skin that was irradiated may be more sensitive over your lifetime. Do not smoke or chew tobacco; participate in a smoking cessation program. Limit alcohol intake, 1 drink per day for a woman and 2 drinks per day for a man. Resources you may be interested in: [facility] http://www.[facility]/ [facility] Cancer Information Center 1st floor of [facility] [phone]. Computer access, educational material, counseling services (FREE) Cancer Resources: www.cancer.net [place] Disabilities Act: The U.S. Department of Justice provides information about the Americans with Disabilities Act (ADA). Toll free number http://www.ada.gov/ Occupational Therapy at [facility]. Improve memory and thinking following chemotherapy. Improve your performance at home, work and in the community. or Toll free www..[facility]/patients A service of [employer], a non-profit organization providing free, professional support - includingcounseling, support group, financial assistance, educational workshops and publications -to anyone coping with lung cancer. http://www.lungcancer.org/ We are a partnership of lung cancer survivors, advocates, researchers, healthcare professionals andsmithmill leaders. And we are united in the belief that every person with lung cancer deserves a cure. http://www.freetobreathe.org/ Lung Cancer Connection is committed to organizing and funding community outreach programs aimed at those affected by lung cancer in the [place] area. http://www.lungcancerconnectioninc.org Cancer and Careers empowers and educates people with cancer to thrive in their workplace by providing expert advice, interactive tools and educational events. http://www.cancerandcareers.org/en/qpagpgw-dri-ysnb Springboard Beyond Cancer: https://survivorship.cancer.gov/ an online tool for cancer survivors andcaregivers created by the [place] Cancer Society and the National Cancer Sigel. It provides: Information on dealing with side effects from cancer and treatment Caregivers with support and resources Practical advice about talking to friends and family about cancer Questions to ask their health care team
--- OUTSIDE RECORDS SUMMARY | 2024-08-11 09:57 | XMS_ITS | Encounter Summary ---
Author Organization [facility] Address [address] [place] [address] Phone Care Team Providers Care Story Teller Name Role Phone Meghna Fine MD Primary Care Provider Yahir Brooke MD Unavailable [phone] Armando Balderas Chi, MD Unavailable [phone] Balta Bennett MD Unavailable Encounter Details Date Type Department Care Team (Latest Contact Info) Description 02/27/2021 Orders Only [facility] Scanning, Provider Social History Tobacco Use Types Packs/Day Years Used Date Smoking Tobacco: Former Comments:Smoking History Pac ks/day: 1 Packs Alcohol Use Standard Drinks/Week Comments Yes 0 (1 standard drink = 0.6 oz pur e alcohol) Sex and Gender Information Value Date Recorded Sex Assigned at Not on file Legal Sex 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 Gender Identity Not on file Sexual Orientation Straight 07/12/2021 1: 28 PM VISUAL EDUCATOR documented as of this encounter Plan of Treatment Not on file documented as of this encounter Procedures Procedure Name Priority Date/Time Associated Diagnosis Comments SCAN - RADIOLOGY/IMAGING 02/27/2021 documented in this encounter Results * SCAN - RADIOLOGY/IMAGING (02/27/2021) Anatomical Region Laterality Modality Other us Provider Scanning Final Result documented in this encounter Visit Diagnoses Not on filedocumented in this encounter Care Teams Story Teller Relationship Specialty Start Date End Date Rostovtseva, Meghna Y., MD [address] [place] [address] PCP - General Family Medicine 10/02/20 Yahir Brooke MD [address] [place] [address] Referring Physician Critical Care Med 03/30/21 Armando Balderas Chi, MD [address] [place] [address] Referring Physician Pulmonary Disease 03/30/21 Balta Bennett MD [address] [facility] [address] [place] [address] Radiation Oncologist Radiation Oncology 07/18/21 documented as of this encounter
[2024-08-11 10:19] LABS: Basophils Absolute Auto 0.1 K/mm3 (0.0-0.1); Eosinophils Absolute Auto 0.2 K/mm3 (0-0.3); Eosinophils Percent Auto 2.9 % (0-4.4); Hematocrit 25.9 % (42.0-52.0); Hemoglobin 7.4 g/dL (14.0-18.0); Immature Granulocyte Absolute 0.01 K/mm3 (0.00-0.031); Immature Granulocyte Percent A 0.2 % (0-0.5); Lymphocytes Absolute Auto 0.97 K/mm3 (0.9-3.2); Lymphocytes Percent Auto 19.1 % (18.3-44.2); Mean Corpuscular HGB Conc 28.6 g/dl (32-36); Mean Corpuscular Hemoglobin 24.4 pg (26-34); Mean Corpuscular Volume 85.5 fl (80-100); Mean Platelet Volume 10.8 fl (7.4-10.4); Monocytes Absolute Auto 0.4 K/mm3 (0.1-0.6); Monocytes Percent Auto 7.3 % (2.6-8.5); Neutrophils Absolute Auto 3.5 K/mm3 (1.3-6.7); Neutrophils Percent Auto 69.5 % (45.5-73.1); Platelet Count Result 205 k/mm3 (150-375); Red Blood Count 3.03 M/mm3 (4.6-6.20); Red Cell Distribution Width 16.9 % (11.5-14.5); White Blood Count 5.1 K/mm3 (4.5-10.0)
[2024-08-11 10:40] LABS: Platelet Estimate Adequate (Adequate)
[2024-08-11 10:41] LABS: Anisocytosis 1+; Hypochromasia 1+; Ovalocytes 1+; Schistocytes None Seen
[2024-08-11 10:49] LABS: Alanine Aminotransferase 9 U/L (6-50); Albumin Level 3.3 g/dL (3.5-5.1); Alkaline Phosphatase 82 U/L (38-126); Anion Gap 9 mmol/L (4-12); Aspartate Amino Transferase 15 U/L (17-59); Bilirubin,Total 0.6 mg/dL (0.2-1.3); Blood Urea Nitrogen 12 mg/dL (9-20); Carbon Dioxide 26 mmol/L (22-30); Chloride 103 mmol/L (98-107); Estimated Glomerular Filt Rate 54; Glucose 97 mg/dL (65-110); Potassium 3.5 mmol/L (3.4-5.0); Sodium 138 mmol/L (137-145)
== END 2024-08-11 09:24 | disposition home or self-care (01) ==
LOC: ANHLAB 09:25
PROVIDERS: PCP Family Medicine; Visit Provider Physician Assistant
DX: K92.0 Hematemesis (principal)
CPT/HCPCS: 36415; 80053; 85025

== ENCOUNTER 2024-08-11 11:40 | Inpatient (IN) | payer MEDICARE, SELFPAY ==
[2024-08-11] VITALS (45 sets, daily range): BP systolic 100–176; BP diastolic 39–84; PULSE 71–106; RESP 6–26; TEMP 36.5–37.2; O2SAT 97–100; BMI 18.0
--- NOTE | ~2024-08-11 | CT_ITS ---
EXAMINATION: CT diagnostic chest w con DATE: 08/12/2024 15:52 INDICATION: gastric mass - staging TECHNIQUE: Computed tomography (CT) of the chest was performed with 75 mL Omnipaque-350 intravenous c ontrast. Additional 3D reconstructions utilizing coronal maximum intensity projection (MIP) were perf ormed. Automated exposure control and iterative reconstruction technique were employed. The dose-liza th product was 154.80 mGy-cm. COMPARISON: 08/11/2024 and 03/14/2024 FINDINGS: Mild to moderate upper lung predominant emphysema. There is a band of pleural thickening containing a pproximately 6-7 cm medial collateral along the posterior right ninth rib. There is approximately 2.1 x 1.2 cm spiculated nodule at the medial side of the region of pleural thickening. There is thin elida ear discoid atelectasis/scarring at this location on the prior CT this could represent progression of the atelectasis/scarring although neoplasm cannot be absolutely excluded. No other suspicious pulmon juli nodules, pulmonary edema or pleural effusion. Heart size normal. Atherosclerotic coronary artery calcifications. No pericardial effusion. Postopera tive changes of prior median sternotomy and aortic root repair. No significant change in a fusiform a neurysm of the ascending thoracic aorta immediately distal to the site of repair which measures 5.2 x 4.8 cm in maximal diameter measured orthogonal to the axis of flow on the sagittal and coronal image s respectively. This tapers to a normal caliber and the descending thoracic aorta. No dissection. No pathologically enlarged thoracic lymphadenopathy. Again seen is prominent gastric distention. There is asymmetric gastric wall thickening along the les ser curvature extending from the cardia to the gastric antrum with which is suspicious for malignancy or suspicious imaging features also reported on interval endoscopy. There is an indistinct serosal m argin stomach both at the cardia and at the fundus as well as several adjacent prominent but still no rmal-sized gastric hepatic lymph nodes which are suspicious for metastatic disease. Review of the CT of the abdomen pelvis one day prior demonstrates no other lesions suspicious for metastatic disease i n the abdomen or pelvis. Mild thoracic spondylosis. IMPRESSION: 1. Prominent wall thickening along the lesser curvature of stomach extending from the cardia to the a ntrum indistinct serosal margin and multiple adjacent gastric hepatic lymph nodes suspicious for jordyn isabel cancer with extra serosal invasion and local metastatic lymphadenopathy. 2. 2.1 x 1.0 cm spiculated pleural-based nodule at the posterior right lower lobe at the site of prio r thin linear discoid atelectasis/scarring along the mildly recent CT from 5 months prior which would favor atelectasis/scarring over malignancy. No other suspicious pulmonary nodules or pathologically enlarged thoracic lymphadenopathy to suggest metastatic disease. Consider 3 month follow-up chest CT. 3. Mild to moderate emphysema. 4. 5.2 x 4.8 cm fusiform ascending thoracic aortic aneurysm along the distal margin of a likely aorti c root repair. Reviewed, dictated and finalized at location A. L GEAR GENERATOR OPERATOR IMPRESSION: 1. Prominent wall thickening along the lesser curvature of stomach extending fr om the cardia to the antrum indistinct serosal margin and multiple adjacent gas tric hepatic lymph nodes suspicious for gastric cancer with extra serosal invas ion and local metastatic lymphadenopathy. 2. 2.1 x 1.0 cm spiculated pleural-based nodule at the posterior right lower lo be at the site of prior thin linear discoid atelectasis/scarring along the mild ly recent CT from 5 months prior which would favor atelectasis/scarring over ma lignancy. No other suspicious pulmonary nodules or pathologically enlarged thor acic lymphadenopathy to suggest metastatic disease. Consider 3 month follow-up chest CT. 3. Mild to moderate emphysema. 4. 5.2 x 4.8 cm fusiform ascending thoracic aortic aneurysm along the distal ma rgin of a likely aortic root repair.
--- NOTE | ~2024-08-11 | CT_ITS ---
CLINICAL INDICATION: Left upper quadrant abdominal pain COMPARISON: 03/14/2024. TECHNIQUE: Multiple contiguous axial images of the abdomen and pelvis were performed following the ad ministration of with 100 mL Omnipaque-350 intravenous contrast The dose-length product (DLP) was 208.64 mGy-cm. Automated exposure control and iterative reconstruction technique were employed. FINDINGS/OBSERVATIONS: Visualized lower thorax: The bilateral lung bases are clear. The heart is of normal size, without pericardial effusion. Appearance of the thoracic and abdominal aorta is unchanged from 03/14/2024 The esophagus is distended with fluid. Significant distention of the stomach with both fluid and retained gastric contents. This is a signif icant change from previous examination dated 03/14/2024 and likely the source of patient's discomfort. The distended stomach demonstrates mass effect on the adjacent spleen and splenic vasculature. Urgent decompression is recommended. No discrete source of obstruction is identified. Retained oral contrast is identified within the colon and distal small bowel suggesting interval exam ination. Remaining loops of small bowel and colon are otherwise unremarkable. The appendix is not definitively visualized. However, no pericecal inflammatory change is identified suggest the presence of acute appendicitis. Free fluid is identified within the pelvis, never a normal finding in a male patient. IMPRESSION: Significant gastric distention for which urgent decompression is recommended. Reviewed, dictated and finalized at location A. L SOLDERER
--- OUTSIDE RECORDS SUMMARY | 2024-08-11 12:10 | XMS_ITS ---
Author Organization [facility] Address [address] [place] [address] Care Team Providers Care Gravity Prospecting Observer Helper Name Role Phone Meghna Fine MD Primary Care Provider Yahir Brooke MD Unavailable [phone] Armando Balderas Chi, MD Unavailable [phone] Balta Bennett MD Unavailable Active Problems Patient Care Coordination No te [...] D/c home with outpatient cardiology (Dr. Colon, [facility]). (01/11) Tobacco use 01/10/2020 Assessment & Plan [...] from the original note were not included. [address] [place] [address] This Survivorship Care Plan is a cancer [...] Information: Primary Care Physician Meghna Fine MD [phone] Surgeon No care production team member to display Radiation Oncologist Balta Bennett MD [phone] Medical Oncologist No care production team member to display Other Providers Treatment Summary Cancer Diagnosis Information Diagnosis Malignant neoplasm of lower lobe of right lung (CMS/HCC) (HCC) Diagnosis date 07/18/2021 Staging information Cancer Staging Malignant neoplasm of lower lobe of right lung (CMS/HCC) (HCC) Staging form: Lung, AJCC 8th Edition - Clinical stage from 06/27/2021: Stage IA1 (cT1a, cN0, cM0) - Signed by Balta Benentt MD on 07/18/2021 Treatment Completed Surgery No [...] 3-5, then yearly. All providers Monitor for intermediate project manager cardiac toxicity. Meghna Fine Monitor for intermediate project manager toxicity Cardiac - congestive heart failure (CHF), [...] Help learning to eat healthier, call the director of billing at: [facility] [facility] . Have an active [...] man. Resources you may be interested in: [facility] [facility] http://www.[facility]/ [facility] & [facility] Information Center 1st floor of [facility] [phone]. Computer access, educational material, counseling services (FREE) Cancer Resources: www.cancer.net [place] Disabilities Act: The U.S. Department of Justice provides information about the Americans with Disabilities Act (ADA). Toll free number http://www.ada.gov/ Occupational Therapy at [facility]. Improve memory and thinking following chemotherapy. Improve your performance at home, work and in the community. or Toll free www..[facility]/patients A service of [employer], a non-profit organization providing free, professional support - includingcounseling, support group, financial assistance, educational workshops and publications -to anyone coping with lung cancer. http://www.lungcancer.org/ We are a partnership of lung cancer survivors, advocates, researchers, healthcare professionals anduniversity leaders. And we are united in the belief that every person with lung cancer deserves a cure. http://www.freetobreathe.org/ Lung Cancer Connection is committed to organizing and funding community outreach programs aimed at those affected by lung cancer in the [place] area. http://www.lungcancerconnectioninc.org Cancer and Careers empowers and educates people with cancer to thrive in their workplace by providing expert advice, interactive tools and educational events. http://www.cancerandcareers.org/en/ggskzct-fdh-jrvq Springboard Beyond Cancer: https://survivorship.cancer.gov/ an online tool for cancer survivors andcaregivers created by the [place] Cancer Society and the National Cancer Rosie. It provides: Information on dealing with side effects from cancer and treatment Caregivers with support and resources Practical advice about talking to friends and family about cancer Questions to ask their health care team
--- OUTSIDE RECORDS SUMMARY | 2024-08-11 12:10 | XMS_ITS | Referral Summary ---
Author Organization [facility] Address [address] [place] [address] Care Team Providers Care Porter Baggage Name Role Phone Meghna Fine MD Primary Care Provider Yahir Brooke MD Unavailable [phone] Armando Balderas Chi, MD Unavailable [phone] Balta Bnenett MD Unavailable Allergies Active Allergy Reactions Criticality [...] D/c home with outpatient cardiology (Dr. Colon, [facility]). 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 FINAL REPORT ACC# ??Date Time ??Exam [id number] Aug 25, 2014 08:40:[id number] Chest with contrast [id number] Aug 25, 2014 08:40:00 45727 CTA Abd&Pelv wwo w recons EXAMINATION: ? 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 on Aug 25 2014 ??9:26A [id number] Procedure Note Provider, MD Iveth - 11/02/2016 PHU DE OLIVEIRA M.D. FINAL REPORT ACC# Date Time Exam [id number] Aug 25, 2014 08:40:[id number] Chest with contrast [id number] Aug 25, 2014 08:40:00 [id number] CTA Abd&Pelv wwo w recons EXAMINATION: 1. 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 on Aug 25 2014 9:26A [id number] us Historical Provider MD HUFF CT PROCEDURES Final R esult from Last 3 Months or Most Recently Relevant to Health Maintenance Insurance MEDICARE [facility] MEDICARE [employer] [facility] MEDICARE BLUE [facility] Advance Directives For more information, please contact: [phone] * LIMITED - No CPR (Latest Code Status on File) Date Activated Date Inactivated Comments 03/15/2024 2:50 AM 03/16/2024 5:56 PM * Full Code Date Activated Date Inactivated Comments 01/10/2020 8:49 PM 01/12/2020 11:02 PM Care Teams Porter Baggage Relationship Specialty Start Date End Date Meghna Fine MD [address] [facility] [address] [place] [address] PCP - General Family Medicine 10/02/20 Yahir Brooke MD [address] [facility] [address] [place] [address] Referring Physician Critical Care Med 03/30/21 Armando Balderas Chi, MD [facility] [address] [place] [address] Referring Physician Pulmonary Disease 03/30/21 Balta Bennett MD [address] [facility] [address] [place] [address] Radiation Oncologist Radiation Oncology 07/18/21
--- OUTSIDE RECORDS SUMMARY | 2024-08-11 12:10 | XMS_ITS | Clinical Summary ---
Author Organization [facility] Address [address] [place] [address] Care Team Providers Care Manufacturing Advisor Name Role Phone Meghna Fine MD Primary Care Provider Yahir Brooke MD Unavailable [phone] Armando Balderas Chi, MD Unavailable [phone] aBlta Bennett MD Unavailable Allergies Active Allergy Reactions [...] 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 FINAL REPORT ACC# ??Date Time ??Exam [id number] Aug 25, 2014 08:40:[id number] Chest with contrast [id number] Aug 25, 2014 08:40:00 [id number] CTA Abd&Pelv wwo w recons EXAMINATION: ? 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 on Aug 25 2014 ??9:26A [id number] Procedure Note Provider, MD Iveth - 11/02/2016 PHU DE OLIVEIRA M.D. FINAL REPORT ACC# Date Time Exam [id number] Aug 25, 2014 08:40:[id number] Chest with contrast [id number] Aug 25, 2014 08:40:00 [id number] CTA Abd&Pelv wwo w recons EXAMINATION: 1. 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 on Aug 25 2014 9:26A [id number] us Historical Provider MD HUFF CT PROCEDURES Final R esult from Last 3 Months or Most Recently Relevant to Health Maintenance Insurance MEDICARE [facility] MEDICARE [facility] MEDICARE [facility] Advance Directives For more information, please contact: [phone] * LIMITED - No CPR (Latest Code Status on File) Date Activated Date Inactivated Comments 03/15/2024 2:50 AM 03/16/2024 5:56 PM * Full Code Date Activated Date Inactivated Comments 01/10/2020 8:49 PM 01/12/2020 11:02 PM Care Teams Manufacturing Advisor Relationship Specialty Start Date End Date Meghna Fine MD [address] [place] [address] PCP - General Family Medicine 10/02/20 Yahir Brooke MD [address] [place] [address] Referring Physician Critical Care Med 03/30/21 Armando Balderas Chi, MD [address] [place] [address] Referring Physician Pulmonary Disease 03/30/21 Balta Bennett MD [address] [facility] [address] [place] [address] Radiation Oncologist Radiation Oncology 07/18/21
--- OUTSIDE RECORDS SUMMARY | 2024-08-11 12:10 | XMS_ITS | Encounter Summary ---
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 Gender Identity Not on file Sexual Orientation Straight 07/12/2021 1: 28 PM EXCHANGE TROUBLE SHOOTER documented as of this encounter Plan of Treatment Not on file documented as of this encounter Procedures Procedure Name Priority Date/Time Associated Diagnosis Comments SCAN - RADIOLOGY/IMAGING 02/27/2021 documented in this encounter Results * SCAN - RADIOLOGY/IMAGING (02/27/2021) Anatomical Region Laterality Modality Other us Provider Scanning Final Result documented in this encounter Visit Diagnoses Not on filedocumented in this encounter Care Teams Car Changer Relationship Specialty Start Date End Date Rostovtseva, Meghna Y., MD [address] [place] [address] PCP - General Family Medicine 10/02/20 Yahir Brooke MD [address] [place] [address] Referring Physician Critical Care Med 03/30/21 Armando Balderas Chi, MD [address] [place] [address] Referring Physician Pulmonary Disease 03/30/21 Balta Bennett MD [address] [facility] [address] [place] [address] Radiation Oncologist Radiation Oncology 07/18/21 documented as of this encounter
[2024-08-11] MEDS: PANTOPRAZOLE SODIUM IV 40 MG VIAL IV PUSH ×2 (13:45→20:52)
--- OUTSIDE RECORDS SUMMARY | 2024-08-11 13:56 | XMS_ITS ---
Author Organization [facility] Address [address] [place] [address] Care Team Providers Care Fish Straightener Name Role Phone Meghna Fine MD Primary Care Provider Yahir Brooke MD Unavailable [phone] Armando Balderas Chi, MD Unavailable Balta Bennett MD Unavailable Active Problems Patient [...] D/c home with outpatient cardiology (Dr. Colon, [facility]). (01/11) Tobacco use 01/10/2020 Assessment & Plan [...] from the original note were not included. [address] [place] [address] This Survivorship Care Plan is a cancer [...] Information: Primary Care Physician Meghna Fine MD [phone] Surgeon No care team supervisor to display Radiation Oncologist Balta Bennett MD [phone] Medical Oncologist No care team supervisor to display Other Providers Treatment Summary Cancer [...] 3-5, then yearly. All providers Monitor for termite renewal inspector cardiac toxicity. Meghna Fine Monitor for termite renewal inspector toxicity Cardiac - congestive heart failure (CHF), [...] Help learning to eat healthier, call the head automatic sawyer at: [facility] . Have an active [...] Resources you may be interested in: [facility] http://www.[facility]/ [facility] & Cancer Information Center 1st floor of [facility] [phone]. Computer access, educational material, counseling services (FREE) Cancer Resources: www.cancer.net Afghan Disabilities Act: The U.S. Department of Justice provides information about the Americans with Disabilities Act (ADA). Toll free number http://www.ada.gov/ Occupational Therapy at [facility]. Improve memory and thinking following chemotherapy. Improve your performance at home, work and in the community. or Toll free www..[facility]/patients A service of [employer], a non-profit organization providing free, professional support - includingcounseling, support group, financial assistance, educational workshops and publications -to anyone coping with lung cancer. http://www.lungcancer.org/ We are a partnership of lung cancer survivors, advocates, researchers, healthcare professionals andredfield leaders. And we are united in the belief that every person with lung cancer deserves a cure. http://www.freetobreathe.org/ Lung Cancer Connection is committed to organizing and funding community outreach programs aimed at those affected by lung cancer in the [place] area. http://www.lungcancerconnectioninc.org Cancer and Careers empowers and educates people with cancer to thrive in their workplace by providing expert advice, interactive tools and educational events. http://www.cancerandcareers.org/en/lrdohak-gyd-xpln Spring[employer] Beyond Cancer: https://survivorship.cancer.gov/ an online tool for cancer survivors andcaregivers created by the [employer] Cancer Society and the National Cancer [place]. It provides: Information on dealing with side effects from cancer and treatment Caregivers with support and resources Practical advice about talking to friends and family about cancer Questions to ask their health care team
--- OUTSIDE RECORDS SUMMARY | 2024-08-11 13:56 | XMS_ITS | Clinical Summary ---
Author Organization [facility] Address [address] [place] [address] Care Team Providers Care Knitting Machine Tender Name Role Phone Meghna Fine MD Primary Care Provider Yahir Brooke MD Unavailable [phone] Armando Balderas Chi, MD Unavailable [phone] Balta Bennett MD Unavailable Allergies Active Allergy [...] D/c home with outpatient cardiology (Dr. Colon, [facility]). (01/11) Tobacco use 01/10/2020 Assessment & [...] on file Legal Sex Male 3:07 AM CLAIMS ANALYST Gender Identity Not on file Sexual Orientation Straight 07/12/2021 1: 28 PM CLAIMS ANALYST Obstetrics History Last Filed Vital Signs Vital [...] W WO CONTRAST Routine 08/25/2014 8:40 AM CLAIMS ANALYST from Last 3 Months or Most Recently Relevant to Health Maintenance Results * CT Angiogram Abdomen Pelvis W WO Contrast (08/25/2014 8:40 AM CLAIMS ANALYST) Anatomical Region Laterality Modality Body N/A Computed Tomogra phy 08/25/2014 8:40 AM CLAIMS ANALYST Narrative 08/25/2014 9:26 AM CLAIMS ANALYST PHU DE OLIVEIRA M.D. FINAL REPORT ACC# ??Date Time ??Exam [id number] Aug 25, 2014 08:40:[id number] Chest with contrast [id number] Aug 25, 2014 08:40:00 [id number] CTA Abd&Pelv wwo w recons EXAMINATION: ? [...] increase in aneurysmal dilatation of the proximal [place] ascending aorta which now measures 4.9 x [...] OLIVEIRA M.D. on Aug 25 2014 ??9:26A [id number] Procedure Note Provider, MD Iveth - 11/02/2016 PHU DE OLIVEIRA M.D. FINAL REPORT ACC# Date Time Exam [id number] Aug 25, 2014 08:40:[id number] Chest with contrast [id number] Aug 25, 2014 08:40:00 [id number] CTA Abd&Pelv wwo w recons EXAMINATION: 1. [...] increase in aneurysmal dilatation of the proximal [place] ascending aorta which now measures 4.9 x [...] OLIVEIRA M.D. on Aug 25 2014 9:26A [id number] us Historical Provider MD HUFF CT PROCEDURES Final R esult from Last 3 Months or Most Recently Relevant to Health Maintenance Insurance MEDICARE [facility] MEDICARE [facility] MEDICARE [facility] Advance Directives For more information, please contact: [phone] * LIMITED - No CPR (Latest Code Status on File) Date Activated Date Inactivated Comments 03/15/2024 2:50 AM 03/16/2024 5:56 PM * Full Code Date Activated Date Inactivated Comments 01/10/2020 8:49 PM 01/12/2020 11:02 PM Care Teams Knitting Machine Tender Relationship Specialty Start Date End Date Meghna Fine MD [address] [place] [address] PCP - General Family Medicine 10/02/20 Yahir Brooke MD [address] [place] [address] Referring Physician Critical Care Med 03/30/21 Armando Balderas Chi, MD [address] [place] [address] Referring Physician Pulmonary Disease 03/30/21 Balta Bennett MD [address] [facility] [address] [place] [address] Radiation Oncologist Radiation Oncology 07/18/21
--- OUTSIDE RECORDS SUMMARY | 2024-08-11 13:56 | XMS_ITS | Referral Summary ---
Author Organization [facility] Address [address] [place] [address] Care Team Providers Care Meat Counter Clerk Name Role Phone Meghna Fine MD Primary Care Provider Yahir Brooke MD Unavailable [phone] Armando Balderas Chi, MD Unavailable [phone] Balta Bennett MD Unavailable Allergies Active Allergy [...] D/c home with outpatient cardiology (Dr. Colon, [facility]). 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 FINAL REPORT ACC# ??Date Time ??Exam [id number] Aug 25, 2014 08:40:[id number] Chest with contrast [id number] Aug 25, 2014 08:40:00 [id number] CTA Abd&Pelv wwo w recons EXAMINATION: ? [...] increase in aneurysmal dilatation of the proximal [place] ascending aorta which now measures 4.9 x [...] OLIVEIRA M.D. on Aug 25 2014 ??9:26A [id number] Procedure Note Provider, MD Iveth - 11/02/2016 PHU DE OLIVEIRA M.D. FINAL REPORT ACC# Date Time Exam [id number] Aug 25, 2014 08:40:[id number] Chest with contrast [id number] Aug 25, 2014 08:40:00 [id number] CTA Abd&Pelv wwo w recons EXAMINATION: 1. [...] increase in aneurysmal dilatation of the proximal [place] ascending aorta which now measures 4.9 x [...] OLIVEIRA M.D. on Aug 25 2014 9:26A [id number] us Historical Provider MD HUFF CT PROCEDURES Final R esult from Last 3 Months or Most Recently Relevant to Health Maintenance Insurance MEDICARE [facility] MEDICARE [employer] [facility] MEDICARE BLUE [facility] Advance Directives For more information, please contact: [phone] * LIMITED - No CPR (Latest Code Status on File) Date Activated Date Inactivated Comments 03/15/2024 2:50 AM 03/16/2024 5:56 PM * Full Code Date Activated Date Inactivated Comments 01/10/2020 8:49 PM 01/12/2020 11:02 PM Care Teams Meat Counter Clerk Relationship Specialty Start Date End Date Meghna Fine MD [address] [facility] [address] [place] [address] PCP - General Family Medicine 10/02/20 Yahir Brooke MD [address] [facility] [address] [place] [address] Referring Physician Critical Care Med 03/30/21 Armando Balderas Chi, MD [facility] [address] [place] [address] Referring Physician Pulmonary Disease 03/30/21 Balta Bennett MD [address] [facility] [address] [place] [address] Radiation Oncologist Radiation Oncology 07/18/21
--- OUTSIDE RECORDS SUMMARY | 2024-08-11 13:56 | XMS_ITS | Encounter Summary ---
Author Organization [facility] Address [address] [place] [address] Phone Care Team Providers Care Diving Fisher Name Role Phone Mehgna Fine MD Primary Care Provider Yahir Brooke MD Unavailable [phone] Armando Balderas Chi, MD Unavailable [phone] Balta Bennett MD Unavailable [phone] Encounter Details Date Type Department Care Team [...] on file Legal Sex Male 3:07 AM PUBLICATION SPECIALIST Gender Identity Not on file Sexual Orientation Straight 07/12/2021 1: 28 PM PUBLICATION SPECIALIST documented as of this encounter Plan of Treatment Not on file documented as of this encounter Procedures Procedure Name Priority Date/Time Associated Diagnosis Comments SCAN - RADIOLOGY/IMAGING 02/27/2021 documented in this encounter Results * SCAN - RADIOLOGY/IMAGING (02/27/2021) Anatomical Region Laterality Modality Other us Provider Scanning Final Result documented in this encounter Visit Diagnoses Not on filedocumented in this encounter Care Teams Diving Fisher Relationship Specialty Start Date End Date Rostovtseva, Meghna Y., MD [address] [place] [address] PCP - General Family Medicine 10/02/20 Yahir Brooke MD [address] [place] [address] Referring Physician Critical Care Med 03/30/21 Armando Balderas Chi, MD [address] [place] [address] Referring Physician Pulmonary Disease 03/30/21 Balta Bennett MD [address] [facility] [address] [place] [address] Radiation Oncologist Radiation Oncology 07/18/21 documented as of this encounter
--- NOTE | 2024-08-11 14:06 | ED.GENADULT ---
HPI - General Adult General Chief complaint: Recheck/Abnormal Lab/Rx Stated complaint: Low hemoglobin-needs tranfusion Time Seen by Provider: 08/11/24 13:28 Source: patient Mode of arrival: ambulatory Limitations: no limitations History of Present Illness HPI narrative: 68-year-old with a history of COPD, type. Dissection of the aorta here with a complaint of low hemoglobin. Patient states that for the last 4 months he has been feeling weak having left upper abdominal pain and epigastric pain on and off. He also reports he has been having black color stool. He denies any shortness of breath. No history of nausea or vomiting. No previous history of peptic ulcer disease. Not on any anticoagulant Related Data Home Medications ?Medication ?Instructions ?Recorded ?Confirmed ?Last Taken ?Type aspirin 81 mg tablet,delayed 81 mg PO DAILY 03/24/21 08/11/24 Unknown History release (Adult Aspirin Regimen) Al hyd-Mg tr-alg ac-sod bicarb 80 tablet PO 03/24/24 08/11/24 Unknown History mg-20 mg chewable tablet Allergies Allergy/AdvReac Type Severity Reaction Status Date / Time Penicillins Allergy Unknown Unknown Verified 08/11/24 13:34 Review of Systems Review of Systems: All systems reviewed & are unremarkable except as noted in HPI and below Constitutional: Constitutional: Reports no additional constitutional complaints Eyes: Eyes: Reports no additional eye complaints ENT: Reports system reviewed and no additional complaints, except as documented Cardiovascular: Cardiovascular: Reports no additional cardiovascular complaints Respiratory: Respiratory: Reports no additional respiratory complaints Gastrointestinal: Gastrointestinal: Reports as per HPI Musculoskeletal: Musculoskeletal: Reports no additional musculoskeletal complaints Integumentary/Breasts: Skin/Breast: Reports system reviewed and no additional complaints, except as docu Neurologic: Reports system reviewed and no additional complaints, except as documented [facility] Past Medical History Medical History Malignant neoplasm of lower lobe of right lung completed a definitive course of [facility] 08/20[facility] at [facility] [place] 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 Code status: Full code. Smoking packs per day: 1 Smoking cigarettes per day: 20.0 Years smoked: 50 Smoking pack-years: 50.00 Smoking status: Current every day smoker Tobacco type: cigarettes Second hand tobacco smoke exposure: Yes Smoking end date: 01/10/20 Alcohol intake: former Alcohol use details: Substance use: never Substance use type: does not use Do You Feel Safe in your Home?: Yes Lack of Transportation: No Lack of Food: Never True Current Housing: I Have Housing Concerned About Future Housing: No Difficulty Paying Gas/Electric Bills: No Difficulty Paying for Meds: No Currently Unemployed: YES Education: Don't Know Difficulty w/ Childcare or Family Care: No Living arrangements: with family Occupation/Education: retired Spiritual care concerns: No Exam Narrative: GENERAL: Well-appearing, well-nourished, and in no acute distress. HEAD: Normocephalic, atraumatic. EYES: PERRLA and EOMI. ENT: Nares clear, no rhinorrhea or epistaxis. Mucous membranes moist. NECK: Supple. CHEST: Clear to auscultation. No respiratory distress. HEART: Regular rate and rhythm. No murmur heard. Normal peripheral pulses. ABDOMEN: Soft, mild tenderness in the epigastric and LUQ , nondistended, normal active bowel sounds. heme positive stool EXTREMITIES: Normal range of motion. No edema. SKIN: Warm, dry, no rash. NEURO: No focal deficits. Alert and oriented x3. PSYCH: Normal mood and affect. Course Course Emergency Course: Patient remained stable here and did start IV Protonix. Discussed with GI , will transfuse with [address] shows gastric distention will place a NG tube . Vital Signs Vital signs: Vital Signs Temperature 36.5 C 08/11/24 12:33 Pulse Rate 97 08/11/24 12:33 Respiratory Rate 16 08/11/24 12:33 Blood Pressure 100/39 L 08/11/24 12:33 Pulse Oximetry 100 08/11/24 12:33 Oxygen Delivery Room Air 08/11/24 12:33 Temperature 37.2 C 08/11/24 15:48 Pulse Rate 83 08/11/24 15:48 Respiratory Rate 16 08/11/24 15:48 Blood Pressure 132/58 L 08/11/24 15:48 Pulse Oximetry 100 08/11/24 15:48 Oxygen Delivery Room Air 08/11/24 13:29 Medical Decision Making Medical Records Medical records reviewed: Yes I reviewed the external patient's medical records. Vital Signs Vital Signs: Vital Signs Temperature 36.5 C 08/11/24 12:33 Pulse Rate 97 08/11/24 12:33 Respiratory Rate 16 08/11/24 12:33 Blood Pressure 100/39 L 08/11/24 12:33 Pulse Oximetry 100 08/11/24 12:33 Oxygen Delivery Room Air 08/11/24 12:33 Temperature 37.2 C 08/11/24 15:48 Pulse Rate 83 08/11/24 15:48 Respiratory Rate 16 08/11/24 15:48 Blood Pressure 132/58 L 08/11/24 15:48 Pulse Oximetry 100 08/11/24 15:48 Oxygen Delivery Room Air 08/11/24 13:29 Lab Data Lab results reviewed: Yes I reviewed the patient's lab results. Labs: Lab Results 08/11/24 Range/Units 14:07 Blood Type A Positive Antibody Screen Negative Crossmatch See Detail Imaging Data Radiologist's impression: ITS Impressions Abdomen/Pelvis CT 08/11/24 15:29 IMPRESSION: Significant gastric distention for which urgent decompression is recommended. Critical Care Time Critical Care Time Critical Care Time: Yes Total Critical Care Time: 45 Discharge Plan Discharge Clinical Impression: Gastric distention GI bleeding Qualifiers: GI bleed type/associated pathology: melena Qualified Code(s): K92.1 - Melena Anemia Qualifiers: Anemia type: iron deficiency Iron deficiency anemia type: chronic blood loss Qualified Code(s): D50.0 - Iron deficiency anemia secondary to blood loss (chronic) Patient Disposition: Still a Patient Condition: Stable Patient Language: Trinidadian Prescriptions: No Action aspirin [Adult Aspirin Regimen] 81 mg tablet,delayed release (DR/EC) 81 mg PO DAILY Al hyd-Mg tr-alg ac-sod bicarb 80-20 mg tablet,chewable PO rosuvastatin 40 mg tablet 40 mg PO DAILY Qty: 90 0RF omeprazole 40 mg capsule,delayed release(DR/EC) 40 mg PO BID Qty: 180 1RF famotidine 20 mg tablet 20 mg PO DAILY Qty: 30 0RF finasteride 5 mg tablet 5 mg PO DAILY Qty: 90 1RF tamsulosin 0.4 mg capsule 0.4 mg PO QHS Qty: 90 1RF metoprolol tartrate 25 mg tablet 37.5 mg PO BID Qty: 270 0RF Follow-up/Referrals: David Berrios MD [Primary Care Provider] - Time of Disposition: 14:18
[2024-08-11] MEDS: SODIUM CHLORIDE 0.9% IV 250 ML 30 ML IV CONT (14:37)
--- NOTE | 2024-08-11 14:37 | PC.NURSE ---
Blood consent signed and placed in pt. chart.
--- NOTE | 2024-08-11 15:15 | PC.NURSE ---
CT notified there is a green top at bedside. Will get blood when pt. returns from CT.
--- NOTE | 2024-08-11 15:35 | P.HP_ITS ---
H&P: HPI History of Present Illness Date/Time: 08/11/24 15:35 Chief Complaint: Low hemoglobin. Narrative: This is a 68-year-old male smoker with history of type A aortic dissection status post repair in June 2013, right lower lobe lung cancer for which he completed SBRT in August 2021, chronic obstructive pulmonary disease, pulmonary embolism, hyperlipidemia, aortic stenosis, benign prostatic hyperplasi a, chronic kidney disease stage 3, and gastroesophageal reflux disease who presented to the emergency department after was found to have a low hemoglobin on labs drawn earlier today. The patient provides the following history. He gives a several month history of intermittent epigastric discomfort which he attributes to indigestion for which she has been taking Tums and Pepto-Bismol with little relief. He has dark stools daily and reports a couple of episodes of what sounds like coffee-ground emesis though not for a week or more. He has also lost 15 lb unintentionally and endorses bloating, belching, and early satiety. Today he saw his new doctor who ordered labs and he was found to have a hemoglobin of 7.4, which is a 3 g drop in the last several months, he was referred to the ED. He has no history of malignancy or peptic ulcers. He has never had a colonoscopy or an endoscopy. He also denies syncope, near syncope, chest pain, shortness of breath, and current abdominal pain. He denies s ignificant alcohol and caffeine intake and denies NSAID use. He is not on SGLT 2 inhibitors. In the ED: Blood pressure was 100/39 on arrival and the remainder of his vital signs were stable. Outpatient labs this morning were significant for a WBC count 5.1, hemoglobin 7.4, creatinine 1.32. CT of the abdomen and pelvis significant gastric distension for which urgent decompression is recommended. ED nurses attempted to place an NG tube on several occasions in were unsuccessful and the patient has refused further attempts. On examination his abdomen is slightly distended but nontender and he is adamantly denying pain and current nausea. GI was consulted and they plan on endoscopy tomorrow. Review of Systems Review of Systems: 12 systems were reviewed and are negativ e except for as per HPI. 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 Code status: Full code. Smoking packs per day: 1 Smoking cigarettes per day: 20.0 Years smoked: 50 Smoking pack-years: 50.00 Smoking status: Current every day smoker Second hand tobacco smoke exposure: Yes Alcohol intake: former Alcohol use details: Substance use: never Substance use type: does not use Do You Feel Safe in your Home?: Yes Lack of Transportation: No Lack of Food: Never True Current Housing: I Have Housing Concerned About Future Housing: No Difficulty Paying Gas/Electric Bills: No Difficulty Paying for Meds: No Currently Unemployed: YES Education: Don't Know Difficulty w/ Childcare or Family Care: No Living arrangements: with family Occupation/Education: retired Spiritual care concerns: No Meds Home Medications and Allergies Home Medications ?Medication ?Instructions ?Recorded ?Confirmed ?Type aspirin 81 mg tablet,delayed 81 mg PO DAILY 03/24/21 08/11/24 History release (Adult Aspirin Regimen) Al hyd-Mg tr-alg ac-sod bicarb 80 tablet PO 03/24/24 08/11/24 History mg-20 mg chewable tablet rosuvastatin 40 mg tablet 40 mg PO DAILY #90 tabs 03/24/24 08/11/24 Rx finasteride 5 mg tablet 5 mg PO DAILY #90 tabs 06/22/24 08/11/24 Rx tamsulosin 0.4 mg capsule 0.4 mg PO QHS #90 caps 06/22/24 08/11/24 Rx metoprolol tartrate 25 mg tablet 37.5 mg (1.5 x 25 mg) PO BID #270 07/17/24 08/11/24 Rx tabs famotidine 20 mg tablet 20 mg PO DAILY #30 tabs 08/11/24 08/11/24 Rx omeprazole 40 mg capsule,delayed 40 mg PO BID #180 caps 08/11/24 08/11/24 Rx release Allergies Allergy/AdvReac Type Severity Reaction Status Date / Time Penicillins Allergy Unknown Unknown Verified 08/11/24 13:34 Vital Signs Vital Signs - 24 hr 08/11/24 12:33 08/11/24 13:29 08/11/24 14:34 Temperature 97.7 F Pulse Rate 97 87 86 Respiratory Rate 16 14 16 Blood Pressure 100/39 L 130/51 L 135/50 L Pulse Oximetry 100 100 100 Oxygen Delivery Room Air Room Air Exam Narrative: General: Nontoxic-appearing male sitting up in bed in no distress. Weight: 55.5 kg. BMI: 18.1. HEENT: Wearing corrective lenses. PERRL, EOMI. Sclera anicteric. Pale conjunctiva. Oral mucosa moist. Neck: Supple. Respiratory: Lungs are clear to auscultation bilaterally. Cardiovascular: Regular rate and rhythm with S1-S2. Systolic murmur at the right upper sternal border. Gastrointestinal: Abdomen is soft and nontender with positive bowel sounds. Stomach does feel a bit distended. Skin: Warm and dry. Generalized pallor. Extremities: No cyanosis, clubbing, or edema. Radial and pedal pulses intact. Neurological: Alert. Cranial nerves 2-12 are grossly intact. No gross focal deficits to casual conversation. Psychiatric: Pleasant and cooperative with normal mood and affect. Judgment and insight intact. H&P: Results Labs Labs: Laboratory Last Values Iron 11 ug/dL (49-181) L 08/11/24 15:52 TIBC 361 ug/dL (265-497) 08/11/24 15:52 % Saturation 3 % (20-50) L 08/11/24 15:52 Ferritin 5.20 ng/mL (11.1-264) L 08/11/24 15:52 Vitamin B12 208.0 pg/mL (239-931) L 08/11/24 15:52 Folate 3.3 ng/mL (2.76->20) 08/11/24 15:52 TSH (Reflex) 2.530 uIU/mL (0.465-4.68) 08/11/24 15:52 Blood Type A Positive 08/11/24 14:07 Antibody Screen Negative 08/11/24 14:07 Crossmatch See Detail 08/11/24 14:07 Impressions Abdomen/Pelvis CT 08/11/24 15:29 IMPRESSION: Significant gastric distention for which urgent decompression is recommended. Assessment and Plan Assessment and plan (1) GI bleeding: Qualifiers: GI bleed type/associated pathology: melena Qualified Code(s): K92.1 - Melena Code(s): K92.2 - Gastrointestinal hemorrhage, unspecified Status: Acute (2) Blood loss anemia: Code(s): D50.0 - Iron deficiency anemia secondary to blood loss (chronic) Status: Acute (3) Gastric distention: Code(s): K31.89 - Other diseases of stomach and duodenum Status: Acute (4) Iron deficiency anemia: Code(s): D50.9 - Iron deficiency anemia, unspecified Status: Acute (5) Vitamin B12 deficiency: Code(s): E53.8 - Deficiency of other specified B group vitamins Status: Acute (6) Aortic stenosis: Code(s): I35.0 - Nonrheumatic aortic (valve) stenosis Status: Acute (7) Tobacco abuse: Code(s): Z72.0 - Tobacco use Status: Acute Plan The patient presented to the emergency department after he was found to have a hemoglobin of 7.4 with a several month history of dark stools as detailed in HPI. Labs, imaging, EKG, and all reports were personally reviewed. He likely has ongoing GI blood loss, presumably from an upper GI tract source. He has been started on pantoprazole and will be NPO after midnight for endoscopy tomorrow per Dr. Arrington. CT scan showed significant distension of the stomach however NG tube insertion was unsuccessful in the ED and the patient has adamantly refused further attempts. At the time my evaluation his abdominal exam is benign he is not having any pain or nausea whatsoever. This could pose a problem tomorrow with his procedure however if his stomach is full. He has iron and B12 deficiency and will receive Venofer and IM cyanocobalamin. He has known aortic stenosis which does not seem to be causing issues. Smoking cessation is encouraged and was discussed. He declines the need for nicotine patch at this time. Findings and treatment plan were discussed with the patient. Questions were solicited and answered to satisfaction. The patient's medical management will be taken over by the hospitalist team in a.m. Quality VTE Prophylaxis VTE prophylaxis: mechanical ordered If No VTE Prophylaxis Answer both mechanical and pharmacologic: Reason no pharmacologic proph: medical contraindication (anemia, dark stools) Hospitalist MIPS Advance Care Plan I have confirmed that the patient's Advanced Care Plan is present, code status is documented, or surrogate decision maker is listed in patient medical record.: Yes Medication Reconciliation I have utilized all available resources to obtain, update and review the patients current medications (includes all prescriptions, OTC, herbals, cannabis, and nutritional supplements).: Yes
--- NOTE | 2024-08-11 15:44 | WPDGICN ---
Assessment and Plan Assessment and plan (1) GI bleeding: Qualifiers: GI bleed type/associated pathology: melena Qualified Code(s): K92.1 - Melena Code(s): K92.2 - Gastrointestinal hemorrhage, unspecified Status: Acute Assessment and Plan: The patient has clear evidence of [id number] GI bleeding, most likely from a gastro-duodenal source, most frequently peptic ulcer disease, erosive gastritis, or less likely gastric neoplasm. He has significant GERD, so chronic erosive esophagitis is also in the differential diagnosis. An EGD will be scheduled for tomorrow noon/afternoon. Iron studies are not back, but if he is found to be iron deficient will consider colonoscopy at a different date, since patient is not able to tolerate colonoscopy prep at this moment. (2) Anemia: Qualifiers: Anemia type: iron deficiency Iron deficiency anemia type: chronic blood loss Qualified Code(s): D50.0 - Iron deficiency anemia secondary to blood loss (chronic) Code(s): D64.9 - Anemia, unspecified Status: Acute GI Consult Note Consult date/time: 08/11/24 15:44 HPI: Ki Shaver is a 68 year old male with a history of aortic dissection repaired, who has been complaining of dark stools over the past 2 weeks, and describes what seems coffee ground emesis 4 days ago. He is also endorsing daily heartburn, but no dysphagia. He came to the ER feeling weak and found to have severe anemia (Hb 7.0), and is currently receiving a unit of PRBC. He denies chest pain, but describes epigastric-LUQ discomfort that has been intermittent for the past month. 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 The patient is a full code but does not want to live in a vegetative state on a ventilator. The patient still continues to smoke 1 pack a cigarettes a day. He had quit many years ago and then went back to smoking again. The patient is retired from [employer]. He has no children. Smoking packs per day: 1 Smoking cigarettes per day: 20.0 Years smoked: 50 Smoking pack-years: 50.00 Smoking status: Current every day smoker Tobacco type: cigarettes Second hand tobacco smoke exposure: Yes Smoking end date: 01/10/20 Alcohol intake: former Alcohol use details: Substance use: never Substance use type: does not use Do You Feel Safe in your Home?: Yes Lack of Transportation: No Lack of Food: Never True Current Housing: I Have Housing Concerned About Future Housing: No Difficulty Paying Gas/Electric Bills: No Difficulty Paying for Meds: No Currently Unemployed: YES Education: Don't Know Difficulty w/ Childcare or Family Care: No Living arrangements: with family Occupation/Education: retired Gender identity (if verbalized by the patient): Male Sexual Orientation (if Verbalized by the Patient): Straight or Heterosexual Spiritual care concerns: No Meds Home Medications and Allergies Home Medications ?Medication ?Instructions ?Recorded ?Confirmed ?Type aspirin 81 mg tablet,delayed 81 mg PO DAILY 03/24/21 08/11/24 History release (Adult Aspirin Regimen) Al hyd-Mg tr-alg ac-sod bicarb 80 tablet PO 03/24/24 08/11/24 History mg-20 mg chewable tablet rosuvastatin 40 mg tablet 40 mg PO DAILY #90 tabs 03/24/24 08/11/24 Rx finasteride 5 mg tablet 5 mg PO DAILY #90 tabs 06/22/24 08/11/24 Rx tamsulosin 0.4 mg capsule 0.4 mg PO QHS #90 caps 06/22/24 08/11/24 Rx metoprolol tartrate 25 mg tablet 37.5 mg (1.5 x 25 mg) PO BID #270 07/17/24 08/11/24 Rx tabs famotidine 20 mg tablet 20 mg PO DAILY #30 tabs 08/11/24 08/11/24 Rx omeprazole 40 mg capsule,delayed 40 mg PO BID #180 caps 08/11/24 08/11/24 Rx release Allergies Allergy/AdvReac Type Severity Reaction Status Date / Time Penicillins Allergy Unknown Unknown Verified 08/11/24 13:34 Vital Signs Vital Signs - 24 hr 08/11/24 12:33 08/11/24 13:29 08/11/24 14:34 Temperature 97.7 F Pulse Rate 97 87 86 Respiratory Rate 16 14 16 Blood Pressure 100/39 L 130/51 L 135/50 L Pulse Oximetry 100 100 100 Oxygen Delivery Room Air Room Air Exam Const: General: cooperative and healthy appearing Resp: Effort & Inspection: normal respiratory effort and able to speak in complete sentences Auscultation: clear to auscultation bilaterally Cardio: Rate: regular rate Rhythm: regular rhythm GI: Inspection: normal to inspection GI Palp: No No hepatosplenomegaly present Auscultation: normal bowel sounds Rectal Exam: deferred Skin: General skin exam: normal color Psych: Appearance: grossly normal Mental Status: mental status grossly normal
[2024-08-11] MEDS: TUBING, BLOOD PLUM PUMP TUBING 1 EACH XX (15:56)
[2024-08-11 16:36] LABS: Iron 11 ug/dL (49-181)
--- NOTE | 2024-08-11 16:37 | PC.NURSE ---
Order placed by to place NG tube. Pt. started bleeding from L. nare upon initial insertion of NG tube into L. nare. NG not advanced, but removed d/t bleeding. NG tube then placed into R. nare successfully. Dr. Ann notified of bleeding and to bedside to assess pt. Per MD, NG tube removed. Nasal clamp applied. Pt. denies any current pain.
[2024-08-11 16:45] LABS: Percent Iron Saturation 3 % (20-50)
--- NOTE | 2024-08-11 17:30 | PC.NURSE ---
Nasal clamp removed. No active bleeding. Pt states he does not feel like blood is running down his throat. Pt. continues to deny any pain.
[2024-08-11 17:31] LABS: Folic Acid 3.3 ng/mL (2.76->20)
--- NOTE | 2024-08-11 17:33 | PC.NURSE ---
CARISSA Saleem stated that no need for NG tube at this time
--- NOTE | 2024-08-11 18:07 | ADMGEN ---
This patient, Ki Shaver, was admitted to Medical Room 242-. Patient/family oriented to hospital policies and general routines including ID bracelet, bed and alarms, visiting hours, pain management, procedures, bathroom and other care routines, personal items, smoking policy, room service/diet, and visiting hours. Information on how to activate the Rapid Response Team has been discussed. Patient/Family are encouraged to report perceived risks to care and to ask questions if they do not understand what they are told or what they should do.
[2024-08-11] MEDS: SODIUM CHLORIDE 0.9% IV 1,000 ML 125 ML IV CONT (18:30)
[2024-08-12] VITALS (11 sets, daily range): BP systolic 129–154; BP diastolic 47–64; PULSE 73–86; RESP 14–20; TEMP 36.5–37; O2SAT 96–100
[2024-08-12] MEDS: IRON SUCROSE COMPLEX 200 MG, IRON SUCROSE COMPLEX 100 MG in SODIUM CHLORIDE 0.9% IV 250 ML 176.67 MG IVPB (00:39)
[2024-08-12] MEDS: SODIUM CHLORIDE 0.9% IV 1,000 ML 125 ML IV CONT ×2 (03:51→11:14)
[2024-08-12 06:16] LABS: Basophils Percent Auto 0.6 % (0.2-1.2); Eosinophils Absolute Auto 0.2 K/mm3 (0-0.3); Eosinophils Percent Auto 3.5 % (0-4.4); Hematocrit 27.7 % (42.0-52.0); Hemoglobin 8.1 g/dL (14.0-18.0); Immature Granulocyte Absolute 0.01 K/mm3 (0.00-0.031); Immature Granulocyte Percent A 0.2 % (0-0.5); Lymphocytes Absolute Auto 0.85 K/mm3 (0.9-3.2); Lymphocytes Percent Auto 17.7 % (18.3-44.2); Mean Corpuscular HGB Conc 29.2 g/dl (32-36); Mean Corpuscular Volume 85.5 fl (80-100); Mean Platelet Volume 11.6 fl (7.4-10.4); Monocytes Absolute Auto 0.4 K/mm3 (0.1-0.6); Monocytes Percent Auto 7.5 % (2.6-8.5); Neutrophils Absolute Auto 3.4 K/mm3 (1.3-6.7); Neutrophils Percent Auto 70.5 % (45.5-73.1); Platelet Count Result 156 k/mm3 (150-375); Red Blood Count 3.24 M/mm3 (4.6-6.20); Red Cell Distribution Width 16.2 % (11.5-14.5); White Blood Count 4.8 K/mm3 (4.5-10.0)
[2024-08-12 06:35] LABS: Anion Gap 7 mmol/L (4-12); Blood Urea Nitrogen 11 mg/dL (9-20); Calcium 8.4 mg/dL (8.4-10.2); Carbon Dioxide 21 mmol/L (22-30); Chloride 107 mmol/L (98-107); Estimated CRCL calculation 39 ml/min; Estimated Glomerular Filt Rate 59; Glucose 69 mg/dL (65-110); Magnesium 2.1 mg/dL (1.6-2.3); Potassium 3.7 mmol/L (3.4-5.0); Sodium 135 mmol/L (137-145)
[2024-08-12 06:36] LABS: Anisocytosis 1+; Hypochromasia 1+; Platelet Estimate Adequate (Adequate)
[2024-08-12 06:37] LABS: Burr Cells 1+; Ovalocytes 1+; Schistocytes None Seen
--- NOTE | 2024-08-12 06:48 | P.PNGI_ITS ---
Progress Note: A&P Assessment and Plan (1) GI bleeding: Qualifiers: GI bleed type/associated pathology: melena Qualified Code(s): K92.1 - Melena Code(s): K92.2 - Gastrointestinal hemorrhage, unspecified Status: Acute Assessment and Plan: The patient presented with severe anemia, melena, and a history of possible coffee-ground emesis. His post-transfusion hemoglobin this morning is 8.1 g/dL. However, he is iron deficient. An EGD is planned for today to evaluate for a source of chronic blood loss. If no source is identified, a colonoscopy will be performed tomorrow. (2) Iron deficiency anemia: Code(s): D50.9 - Iron deficiency anemia, unspecified Status: Acute Time Spent With Patient Time with patient: less than 15 minutes Subjective Date/time seen: 08/12/24 06:48 Interval history: The patient did well during the night. No melena. No abdominal pain. Iron studies prior to transfusion did show iron deficiency. Objective Data Vital Signs Vital Signs: Vital Signs - 24 hr 08/11/24 12:33 08/11/24 13:22 08/11/24 13:23 Temperature 97.7 F Pulse Rate 97 91 89 Respiratory Rate 16 25 H 14 Blood Pressure 100/39 L 132/54 L Pulse Oximetry 100 100 100 Oxygen Delivery Room Air 08/11/24 13:29 08/11/24 13:30 08/11/24 13:31 Temperature Pulse Rate 87 84 85 Respiratory Rate 14 9 L 17 Blood Pressure 130/51 L 130/51 L Pulse Oximetry 100 100 100 Oxygen Delivery Room Air 08/11/24 13:45 08/11/24 13:46 08/11/24 14:00 Temperature Pulse Rate 71 90 84 Respiratory Rate 20 15 20 Blood Pressure 133/52 L Pulse Oximetry 100 100 100 Oxygen Delivery 08/11/24 14:01 08/11/24 14:15 08/11/24 14:16 Temperature Pulse Rate 84 100 98 Respiratory Rate 12 20 14 Blood Pressure 124/60 117/50 L Pulse Oximetry 100 100 100 Oxygen Delivery 08/11/24 14:30 08/11/24 14:31 08/11/24 14:34 Temperature Pulse Rate 84 86 86 Respiratory Rate 20 13 16 Blood Pressure 135/50 L 135/50 L Pulse Oximetry 100 100 Oxygen Delivery 08/11/24 14:45 08/11/24 14:46 08/11/24 15:00 Temperature Pulse Rate 85 90 87 Respiratory Rate 7 L 13 11 L Blood Pressure 121/52 L Pulse Oximetry 100 100 100 Oxygen Delivery 08/11/24 15:01 08/11/24 15:30 08/11/24 15:44 Temperature Pulse Rate 82 75 84 Respiratory Rate 19 11 L 17 Blood Pressure 131/53 L 151/52 H Pulse Oximetry 100 100 Oxygen Delivery 08/11/24 15:45 08/11/24 15:46 08/11/24 15:48 Temperature 99 F Pulse Rate 84 83 83 Respiratory Rate 6 L 10 L 16 Blood Pressure 132/58 L 132/58 L Pulse Oximetry 100 100 100 Oxygen Delivery 08/11/24 16:00 08/11/24 16:01 08/11/24 16:04 Temperature 98 F Pulse Rate 86 78 84 Respiratory Rate 12 12 16 Blood Pressure 113/57 L 113/57 L Pulse Oximetry 100 100 100 Oxygen Delivery 08/11/24 16:15 08/11/24 16:16 08/11/24 16:30 Temperature Pulse Rate 83 81 Respiratory Rate 12 12 23 H Blood Pressure 138/57 L Pulse Oximetry 100 100 100 Oxygen Delivery 08/11/24 16:31 08/11/24 16:38 08/11/24 16:41 Temperature Pulse Rate 106 H 95 Respiratory Rate 26 H 16 14 Blood Pressure 160/61 H 176/73 H 176/73 H Pulse Oximetry 97 99 100 Oxygen Delivery 08/11/24 16:45 08/11/24 16:46 08/11/24 17:00 Temperature Pulse Rate 96 102 H 88 Respiratory Rate 14 26 H 15 Blood Pressure 159/84 H Pulse Oximetry Oxygen Delivery 08/11/24 17:01 08/11/24 17:15 08/11/24 17:16 Temperature Pulse Rate 88 85 84 Respiratory Rate 15 12 20 Blood Pressure 158/56 H 148/59 H Pulse Oximetry 98 98 Oxygen Delivery 08/11/24 17:30 08/11/24 17:31 08/11/24 18:24 Temperature 98.1 F Pulse Rate 83 81 87 Respiratory Rate 22 H 16 16 Blood Pressure 142/57 H 147/48 H Pulse Oximetry 98 98 100 Oxygen Delivery 08/11/24 18:50 08/11/24 20:00 08/11/24 20:12 Temperature 98.5 F 98.5 F Pulse Rate 83 83 Respiratory Rate 18 18 Blood Pressure 163/59 H 163/59 H Pulse Oximetry 100 100 100 Oxygen Delivery Room Air 08/11/24 20:50 08/12/24 00:00 08/12/24 04:00 Temperature 98.2 F 98.2 F Pulse Rate 86 80 Respiratory Rate 18 18 Blood Pressure 135/59 L 154/55 H Pulse Oximetry 96 97 Oxygen Delivery Room Air 08/12/24 04:06 Temperature 98.2 F Pulse Rate 80 Respiratory Rate 18 Blood Pressure 154/55 H Pulse Oximetry 97 Oxygen Delivery Intake/Output Intake/Output: Intake & Output 08/09/24 08/10/24 08/11/24 08/12/24 23:59 23:59 23:59 23:59 Intake Total 350 1000 Balance 350 1000 Meds/Results Medications: Active Medications Generic Name Dose Route Start Last Admin Trade Name Freq PRN Reason Stop Dose Admin Cyanocobalamin 1,000 mcg 08/12/24 09:00 Cyanocobalamin Inj 1,000 Mcg/Ml Vial IM 08/14/24 09:01 DAILY TODD Ferrous Sulfate 325 mg 08/12/24 09:00 Ferrous Sulfate [address] PO BID TODD Sodium Chloride 1,000 mls @ 125 mls/hr 08/11/24 16:10 08/12/24 03:51 Normal Saline Iv IV CONT 125 mls/hr .Q8H TODD Administration Pantoprazole Sodium 40 mg 08/11/24 21:00 08/11/24 20:52 Pantoprazole Sodium Iv 40 Mg Vial IV PUSH 40 mg Q12HR TODD Administration Radiology Results: ITS Impressions Abdomen/Pelvis CT 08/11/24 15:29 IMPRESSION: Significant gastric distention for which urgent decompression is recommended. Labs Labs: Laboratory Results - last 24 hr 08/11/24 08/11/24 08/12/24 14:07 15:52 05:30 WBC 4.8 RBC 3.24 L Hgb 8.1 L Hct 27.7 L MCV 85.5 MCH 25.0 L MCHC 29.2 L RDW 16.2 H Plt Count 156 MPV 11.6 H Immature Gran % (Auto) 0.2 Neut % (Auto) 70.5 Lymph % (Auto) 17.7 L [place] % (Auto) 7.5 Eos % (Auto) 3.5 Baso % (Auto) 0.6 Lymph # (Auto) 0.85 L [place] # (Auto) 0.4 Eos # (Auto) 0.2 Baso # (Auto) 0.0 Abs Immat Gran (auto) 0.01 Absolute Neuts (auto) 3.4 Absolute Nucleated RBC 0.000 Nucleated RBC % 0.0 Platelet Estimate Adequate Hypochromasia 1+ Anisocytosis 1+ Ovalocytes 1+ Elissa Cells 1+ Schistocytes None seen Sodium 135 L Potassium 3.7 Chloride 107 Carbon Dioxide 21 L Anion Gap 7 BUN 11 Creatinine 1.22 Estim Creat Clear Calc 39 Estimated GFR 59 Glucose 69 Calcium 8.4 Magnesium 2.1 Iron 11 L TIBC 361 % Saturation 3 L Ferritin 5.20 L Vitamin B12 208.0 L Folate 3.3 TSH (Reflex) 2.530 Blood Type A Positive Antibody Screen Negative Crossmatch See Detail
--- NOTE | 2024-08-12 07:48 | PM.IMPN ---
Progress Note: A&P Assessment and Plan (1) GI bleeding: Qualifiers: GI bleed type/associated pathology: melena Qualified Code(s): K92.1 - Melena Code(s): K92.2 - Gastrointestinal hemorrhage, unspecified Status: Acute Assessment and Plan: Patient reports coffee ground emesis for a week or so. Denies significant alcohol and caffeine intake. Denies overuse of NSAIDs. - Pantoprazole - GI consulted, appreciate recommendations EGD Protruding, friable, fungating, ulcerated, infiltrative mass seen in the antrum with stigmata of bleeding. It appeared partially obstructing. Malignant appearing. Pylorus permeable but near obstructed. Biopsies pending Recommend oncology consult Clear liquids only due to near obstruction of the pylorus. Might need transfer for palliative pyloric stent. (2) Gastric mass: Code(s): K31.89 - Other diseases of stomach and duodenum Status: Acute Assessment and Plan: Abdomen/pelvis CT: Significant gastric distention for which urgent decompression is recommended. Per chart review, ED nurses attempted to place an NG tube several times and were unsuccessful. Patient refusing further attempts. Chest CT for stagin. Prominent wall thickening along the lesser curvature of stomach extending from the cardia to the antrum indistinct serosal margin and multiple adjacent gastric hepatic lymph nodes suspicious for gastric cancer with extra serosal invasion and local metastatic lymphadenopathy. 2. 2.1 x 1.0 cm spiculated pleural-based nodule at the posterior right lower lobe at the site of prior thin linear discoid atelectasis/scarring along the mildly recent CT from 5 months prior which would favor atelectasis/scarring over malignancy. No other suspicious pulmonary nodules or pathologically enlarged thoracic lymphadenopathy to suggest metastatic disease. Consider 3 month follow-up chest CT. 3. Mild to moderate emphysema. 4. 5.2 x 4.8 cm fusiform ascending thoracic aortic aneurysm along the distal margin of a likely aortic root repair. Abdomen/pelvis CT: Significant gastric distention for which urgent decompression is recommended. Oncology consulted, appreciate recommendations Surgery consulted, appreciate recommendations GI consulted, appreciate recommendations EGD Protruding, friable, fungating, ulcerated, infiltrative mass seen in the antrum with stigmata of bleeding. It appeared partially obstructing. Malignant appearing. Pylorus permeable but near obstructed. Biopsies pending Clear liquids only due to near obstruction of the pylorus. Given that there is no definitive evidence of metastatic disease the possibility of surgical resection will be explored If patient is a poor candidate for surgical resection will need transfer for palliative pyloric stent. (3) Blood loss anemia: Code(s): D50.0 - Iron deficiency anemia secondary to blood loss (chronic) Status: Acute Assessment and Plan: H/H 7.4/25.9 on admission. Patient reporting coffee ground like emesis concerning for GI bleed. See plan above #1. - H/H 8.1/27.7 on am labs - Continue to monitor (4) Iron deficiency anemia: Code(s): D50.9 - Iron deficiency anemia, unspecified Status: Acute Assessment and Plan: Iron panel: Iron 11, TIBC 361, % sat 3, ferritin 5.2. - Given venofer x1 - Started on iron supplementation BID - Monitor (5) Vitamin B12 deficiency: Code(s): E53.8 - Deficiency of other specified B group vitamins Status: Acute Assessment and Plan: B12: 208 - Given IM cyanocobalamin x1 (6) Tobacco abuse: Code(s): Z72.0 - Tobacco use Status: Acute Assessment and Plan: Encourage cessation. Time Spent With Patient Time with patient: 25 - 35 minutes Subjective Date/time seen: 08/12/24 07:48 Interval history: 68-year-old male smoker with history of type A aortic dissection status post repair in June 2013, right lower lobe lung cancer for which he completed SBRT in August 2021, chronic obstructive pulmonary disease, pulmonary embolism, hyperlipidemia, aortic stenosis, benign prostatic hyperplasia, chronic kidney disease stage 3, and gastroesophageal reflux disease who presented to the hospital after he was found to have a low hemoglobin on labs drawn earlier today. Patient is pleasant sitting up in his chair with family at bedside. He continues to endorse reflux but denies any chest pain, shortness of breath, palpitations, nausea/vomiting and abdominal pain. Review of Systems Review of Systems: All systems reviewed & are unremarkable except as noted in HPI and below Exam Narrative: AF HR 78 RR 20 Spo2 100 BP 131/64 General: male in no acute respiratory distress who is nontoxic appearing, lying semi recumbent in bed. HEENT: Normocephalic. Atraumatic. Extraocular movement intact. Sclera clear and anicteric. No facial asymmetry. Chest: Lungs are clear to auscultation bilaterally. No wheezes or crackles. CV: Heart was regular rate and rhythm. S1/S2. No murmurs, gallops, or rubs. Abd: Abdomen was soft. Nontender. Nondistended. Positive bowel sounds. Ext: No clubbing, cyanosis, or edema. 2+ DP pulses bilaterally. Neuro: Patient is alert. Speech is clear. Objective Data Vital Signs Vital Signs: Vital Signs - 24 hr 08/11/24 12:33 08/11/24 13:22 08/11/24 13:23 Temperature 97.7 F Pulse Rate 97 91 89 Respiratory Rate 16 25 H 14 Blood Pressure 100/39 L 132/54 L Pulse Oximetry 100 100 100 Oxygen Delivery Room Air 08/11/24 13:29 08/11/24 13:30 08/11/24 13:31 Temperature Pulse Rate 87 84 85 Respiratory Rate 14 9 L 17 Blood Pressure 130/51 L 130/51 L Pulse Oximetry 100 100 100 Oxygen Delivery Room Air 08/11/24 13:45 08/11/24 13:46 08/11/24 14:00 Temperature Pulse Rate 71 90 84 Respiratory Rate 20 15 20 Blood Pressure 133/52 L Pulse Oximetry 100 100 100 Oxygen Delivery 08/11/24 14:01 08/11/24 14:15 08/11/24 14:16 Temperature Pulse Rate 84 100 98 Respiratory Rate 12 20 14 Blood Pressure 124/60 117/50 L Pulse Oximetry 100 100 100 Oxygen Delivery 08/11/24 14:30 08/11/24 14:31 08/11/24 14:34 Temperature Pulse Rate 84 86 86 Respiratory Rate 20 13 16 Blood Pressure 135/50 L 135/50 L Pulse Oximetry 100 100 Oxygen Delivery 08/11/24 14:45 08/11/24 14:46 08/11/24 15:00 Temperature Pulse Rate 85 90 87 Respiratory Rate 7 L 13 11 L Blood Pressure 121/52 L Pulse Oximetry 100 100 100 Oxygen Delivery 08/11/24 15:01 08/11/24 15:30 08/11/24 15:44 Temperature Pulse Rate 82 75 84 Respiratory Rate 19 11 L 17 Blood Pressure 131/53 L 151/52 H Pulse Oximetry 100 100 Oxygen Delivery 08/11/24 15:45 08/11/24 15:46 08/11/24 15:48 Temperature 99 F Pulse Rate 84 83 83 Respiratory Rate 6 L 10 L 16 Blood Pressure 132/58 L 132/58 L Pulse Oximetry 100 100 100 Oxygen Delivery 08/11/24 16:00 08/11/24 16:01 08/11/24 16:04 Temperature 98 F Pulse Rate 86 78 84 Respiratory Rate 12 12 16 Blood Pressure 113/57 L 113/57 L Pulse Oximetry 100 100 100 Oxygen Delivery 08/11/24 16:15 08/11/24 16:16 08/11/24 16:30 Temperature Pulse Rate 83 81 Respiratory Rate 12 12 23 H Blood Pressure 138/57 L Pulse Oximetry 100 100 100 Oxygen Delivery 08/11/24 16:31 08/11/24 16:38 08/11/24 16:41 Temperature Pulse Rate 106 H 95 Respiratory Rate 26 H 16 14 Blood Pressure 160/61 H 176/73 H 176/73 H Pulse Oximetry 97 99 100 Oxygen Delivery 08/11/24 16:45 08/11/24 16:46 08/11/24 17:00 Temperature Pulse Rate 96 102 H 88 Respiratory Rate 14 26 H 15 Blood Pressure 159/84 H Pulse Oximetry Oxygen Delivery 08/11/24 17:01 08/11/24 17:15 08/11/24 17:16 Temperature Pulse Rate 88 85 84 Respiratory Rate 15 12 20 Blood Pressure 158/56 H 148/59 H Pulse Oximetry 98 98 Oxygen Delivery 08/11/24 17:30 08/11/24 17:31 08/11/24 18:24 Temperature 98.1 F Pulse Rate 83 81 87 Respiratory Rate 22 H 16 16 Blood Pressure 142/57 H 147/48 H Pulse Oximetry 98 98 100 Oxygen Delivery 08/11/24 18:50 08/11/24 20:00 08/11/24 20:12 Temperature 98.5 F 98.5 F Pulse Rate 83 83 Respiratory Rate 18 18 Blood Pressure 163/59 H 163/59 H Pulse Oximetry 100 100 100 Oxygen Delivery Room Air 08/11/24 20:50 08/12/24 00:00 08/12/24 04:00 Temperature 98.2 F 98.2 F Pulse Rate 86 80 Respiratory Rate 18 18 Blood Pressure 135/59 L 154/55 H Pulse Oximetry 96 97 Oxygen Delivery Room Air 08/12/24 04:06 Temperature 98.2 F Pulse Rate 80 Respiratory Rate 18 Blood Pressure 154/55 H Pulse Oximetry 97 Oxygen Delivery Intake/Output Intake/Output: Intake & Output 08/09/24 08/10/24 08/11/24 08/12/24 23:59 23:59 23:59 23:59 Intake Total 350 1000 Balance 350 1000 Meds/Results Medications: Active Medications Generic Name Dose Route Start Last Admin Trade Name Kaitlyn PRN Reason Stop Dose Admin Cyanocobalamin 1,000 mcg 08/12/24 09:00 Cyanocobalamin Inj 1,000 Mcg/Ml Vial IM 08/14/24 09:01 DAILY TODD Ferrous Sulfate 325 mg 08/12/24 09:00 Ferrous Sulfate [address] PO BID TODD Sodium Chloride 1,000 mls @ 125 mls/hr 08/11/24 16:10 08/12/24 03:51 Normal Saline Iv IV CONT 125 mls/hr .Q8H TODD Administration Pantoprazole Sodium 40 mg 08/11/24 21:00 08/11/24 20:52 Pantoprazole Sodium Iv 40 Mg Vial IV PUSH 40 mg Q12HR TODD Administration Radiology Results: ITS Impressions Abdomen/Pelvis CT 08/11/24 15:29 IMPRESSION: Significant gastric distention for which urgent decompression is recommended. Labs Labs: Laboratory Results - last 24 hr 08/11/24 08/11/24 08/12/24 14:07 15:52 05:30 WBC 4.8 RBC 3.24 L Hgb 8.1 L Hct 27.7 L MCV 85.5 MCH 25.0 L MCHC 29.2 L RDW 16.2 H Plt Count 156 MPV 11.6 H Immature Gran % (Auto) 0.2 Neut % (Auto) 70.5 Lymph % (Auto) 17.7 L [place] % (Auto) 7.5 Eos % (Auto) 3.5 Baso % (Auto) 0.6 Lymph # (Auto) 0.85 L [place] # (Auto) 0.4 Eos # (Auto) 0.2 Baso # (Auto) 0.0 Abs Immat Gran (auto) 0.01 Absolute Neuts (auto) 3.4 Absolute Nucleated RBC 0.000 Nucleated RBC % 0.0 Platelet Estimate Adequate Hypochromasia 1+ Anisocytosis 1+ Ovalocytes 1+ [place] Cells 1+ Schistocytes None seen Sodium 135 L Potassium 3.7 Chloride 107 Carbon Dioxide 21 L Anion Gap 7 BUN 11 Creatinine 1.22 Estim Creat Clear Calc 39 Estimated GFR 59 Glucose 69 Calcium 8.4 Magnesium 2.1 Iron 11 L TIBC 361 % Saturation 3 L Ferritin 5.20 L Vitamin B12 208.0 L Folate 3.3 TSH (Reflex) 2.530 Blood Type A Positive Antibody Screen Negative Crossmatch See Detail Quality VTE Prophylaxis VTE prophylaxis: mechanical ordered
[2024-08-12] MEDS: CYANOCOBALAMIN INJ 1,000 MCG/ML VIAL 1000 MCG IM (08:53)
[2024-08-12] MEDS: PANTOPRAZOLE SODIUM IV 40 MG VIAL IV PUSH ×2 (08:53→20:19)
--- NOTE | 2024-08-12 12:45 | PC.NURSE ---
Patient off floor to GI lab via wheelchair. Report given to Ellie SANTILLAN.
[2024-08-12] MEDS: LACTATED RINGERS 1,000 ML 150 ML IV CONT (13:04)
--- NOTE | 2024-08-12 13:15 | WPDANESEPPF ---
Anes - Initial Pre Proc Eval Procedure: Operation Date: 08/12/24 15:00 Proposed Procedures p Esophagogastroduodenoscopy - Jimmy Arrington MD Date/Time: 08/12/24 13:15 Surgeon: Aimee Dwyer PA-C Pre Op Diagnosis: GI Bleed/Anemia/Astric Distention Patient Data Age: 68 Gender: M Height: 1.75 m Weight: 55.5 kg Last Vital Signs Temp 36.9 C 08/12/24 12:50 Pulse 75 08/12/24 12:50 Resp 16 08/12/24 12:50 BP 129/47 L 08/12/24 12:50 Pulse Ox 99 08/12/24 12:50 O2 Del Method Room Air 08/12/24 12:50 Allergies Allergy/AdvReac Type Severity Reaction Status Date / Time Penicillins Allergy Unknown Unknown Verified 08/12/24 13:00 Home Medications ?Medication ?Instructions ?Recorded ?Confirmed ?Type aspirin 81 mg tablet,delayed 81 mg PO DAILY 03/24/21 08/11/24 History release (Adult Aspirin Regimen) Al hyd-Mg tr-alg ac-sod bicarb 80 tablet PO 03/24/24 08/11/24 History mg-20 mg chewable tablet rosuvastatin 40 mg tablet 40 mg PO DAILY #90 tabs 03/24/24 08/11/24 Rx finasteride 5 mg tablet 5 mg PO DAILY #90 tabs 06/22/24 08/11/24 Rx tamsulosin 0.4 mg capsule 0.4 mg PO QHS #90 caps 06/22/24 08/11/24 Rx metoprolol tartrate 25 mg tablet 37.5 mg (1.5 x 25 mg) PO BID #270 07/17/24 08/11/24 Rx tabs famotidine 20 mg tablet 20 mg PO DAILY #30 tabs 08/11/24 08/11/24 Rx omeprazole 40 mg capsule,delayed 40 mg PO BID #180 caps 08/11/24 08/11/24 Rx release Laboratory Tests 08/11/24 08/11/24 08/12/24 14:07 15:52 05:30 WBC 4.8 K/mm3 (4.5-10.0) RBC 3.24 L M/mm3 (4.6-6.20) Hgb 8.1 L g/dL (14.0-18.0) Hct 27.7 L % (42.0-52.0) MCV 85.5 fl (80-100) MCH 25.0 L pg (26-34) MCHC 29.2 L g/dl (32-36) RDW 16.2 H % (11.5-14.5) Plt Count 156 k/mm3 (150-375) MPV 11.6 H fl (7.4-10.4) Immature Gran % (Auto) 0.2 % (0-0.5) Neut % (Auto) 70.5 % (45.5-73.1) Lymph % (Auto) 17.7 L % (18.3-44.2) [place] % (Auto) 7.5 % (2.6-8.5) Eos % (Auto) 3.5 % (0-4.4) Baso % (Auto) 0.6 % (0.2-1.2) Lymph # (Auto) 0.85 L K/mm3 (0.9-3.2) [place] # (Auto) 0.4 K/mm3 (0.1-0.6) Eos # (Auto) 0.2 K/mm3 (0-0.3) Baso # (Auto) 0.0 K/mm3 (0.0-0.1) Abs Immat Gran (auto) 0.01 K/mm3 (0.00-0.031) Absolute Neuts (auto) 3.4 K/mm3 (1.3-6.7) Absolute Nucleated RBC 0.000 K/mm3 (0.0-0.012) Nucleated RBC % 0.0 % (0.0-0.2) Platelet Estimate Adequate (Adequate) Hypochromasia 1+ Anisocytosis 1+ Ovalocytes 1+ [place]issa Cells 1+ Schistocytes None seen Sodium 135 L mmol/L (137-145) Potassium 3.7 mmol/L (3.4-5.0) Chloride 107 mmol/L (98-107) Carbon Dioxide 21 L mmol/L (22-30) Anion Gap 7 mmol/L (4-12) BUN 11 mg/dL (9-20) Creatinine 1.22 mg/dL (0.7-1.3) Estim Creat Clear Calc 39 ml/min Estimated GFR 59 (59 - ) Glucose 69 mg/dL (65-110) Calcium 8.4 mg/dL (8.4-10.2) Magnesium 2.1 mg/dL (1.6-2.3) Iron 11 L ug/dL (49-181) TIBC 361 ug/dL (265-497) % Saturation 3 L % (20-50) Ferritin 5.20 L ng/mL (11.1-264) Vitamin B12 208.0 L pg/mL (239-931) Folate 3.3 ng/mL (2.76->20) TSH (Reflex) 2.530 uIU/mL (0.465-4.68) Blood Type A Positive Antibody Screen Negative Crossmatch See Detail Patient hx anesthesia problems: none Family hx anesthesia problems: none Results Review: All pre-operative results and documents have been reviewed as part of the pre-operative evaluation. 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 Code status: Full code. Smoking packs per day: 1 Smoking cigarettes per day: 20.0 Years smoked: 50 Smoking pack-years: 50.00 Smoking status: Current every day smoker Second hand tobacco smoke exposure: Yes Alcohol intake: former Alcohol use details: Substance use: never Substance use type: does not use Do You Feel Safe in your Home?: Yes Lack of Transportation: No Lack of Food: Never True Current Housing: I Have Housing Concerned About Future Housing: No Difficulty Paying Gas/Electric Bills: No Difficulty Paying for Meds: No Currently Unemployed: YES Education: Don't Know Difficulty w/ Childcare or Family Care: No Living arrangements: with family Occupation/Education: retired Spiritual care concerns: No Anes - Eval Final PreProcedure Day of Procedure 08/12/24 13:15 Patient weight: thin Heart: regular rate and rhythm Lungs: decreased breath sounds Airway: Mallampati scale class II Neurological: alert and oriented Last oral intake: >/= 8 hours ASA classification: IV Emergent: no Anesthetic plan: proceed Anesthesia type and monitoring: general GIVS and standard monitoring Results Review: All pre-operative results and documents have been reviewed as part of the pre-operative evaluation. Informed Consent: The patient's anesthetic plan and its attendant risks and benefits were discussed with the patient/family/POA. Questions were solicited and answers provided to the satisfaction of the patient/family/POA.
--- NOTE | 2024-08-12 14:53 | WPDGIPROGNO ---
Progress Note: A&P Assessment and Plan (1) Gastric mass: Code(s): K31.89 - Other diseases of stomach and duodenum Status: Acute Assessment and Plan: See EGD report. Advanced gastric malignancy, likely adenocarcinoma. Biopsies pending. Suggest oncology consultation, possible comfort care. Doubt surgical candidate. Chest, abdomen and pelvis CT ordered for staging purposes. Clear liquids only due to near obstruction of the pylorus. Might need transfer for palliative pyloric stent. Subjective Date/time seen: 08/12/24 14:53 Interval history: Pt continues with abdominal pain - no melena Objective Data Vital Signs Vital Signs: Vital Signs - 24 hr 08/11/24 15:00 08/11/24 15:01 08/11/24 15:30 Temperature Pulse Rate 87 82 75 Respiratory Rate 11 L 19 11 L Blood Pressure 131/53 L Pulse Oximetry 100 100 Oxygen Delivery 08/11/24 15:44 08/11/24 15:45 08/11/24 15:46 Temperature Pulse Rate 84 84 83 Respiratory Rate 17 6 L 10 L Blood Pressure 151/52 H 132/58 L Pulse Oximetry 100 100 100 Oxygen Delivery 08/11/24 15:48 08/11/24 16:00 08/11/24 16:01 Temperature 99 F Pulse Rate 83 86 78 Respiratory Rate 16 12 12 Blood Pressure 132/58 L 113/57 L Pulse Oximetry 100 100 100 Oxygen Delivery 08/11/24 16:04 08/11/24 16:15 08/11/24 16:16 Temperature 98 F Pulse Rate 84 83 81 Respiratory Rate 16 12 12 Blood Pressure 113/57 L 138/57 L Pulse Oximetry 100 100 100 Oxygen Delivery 08/11/24 16:30 08/11/24 16:31 08/11/24 16:38 Temperature Pulse Rate 106 H Respiratory Rate 23 H 26 H 16 Blood Pressure 160/61 H 176/73 H Pulse Oximetry 100 97 99 Oxygen Delivery 08/11/24 16:41 08/11/24 16:45 08/11/24 16:46 Temperature Pulse Rate 95 96 102 H Respiratory Rate 14 14 26 H Blood Pressure 176/73 H 159/84 H Pulse Oximetry 100 Oxygen Delivery 08/11/24 17:00 08/11/24 17:01 08/11/24 17:15 Temperature Pulse Rate 88 88 85 Respiratory Rate 15 15 12 Blood Pressure 158/56 H Pulse Oximetry 98 Oxygen Delivery 08/11/24 17:16 08/11/24 17:30 08/11/24 17:31 Temperature Pulse Rate 84 83 81 Respiratory Rate 20 22 H 16 Blood Pressure 148/59 H 142/57 H Pulse Oximetry 98 98 98 Oxygen Delivery 08/11/24 18:24 08/11/24 18:50 08/11/24 20:00 Temperature 98.1 F 98.5 F Pulse Rate 87 83 Respiratory Rate 16 18 Blood Pressure 147/48 H 163/59 H Pulse Oximetry 100 100 100 Oxygen Delivery Room Air 08/11/24 20:12 08/11/24 20:50 08/12/24 00:00 Temperature 98.5 F 98.2 F Pulse Rate 83 86 Respiratory Rate 18 18 Blood Pressure 163/59 H 135/59 L Pulse Oximetry 100 96 Oxygen Delivery Room Air 08/12/24 04:00 08/12/24 04:06 08/12/24 08:00 Temperature 98.2 F 98.2 F 97.8 F Pulse Rate 80 80 79 Respiratory Rate 18 18 16 Blood Pressure 154/55 H 154/55 H 135/51 L Pulse Oximetry 97 97 99 Oxygen Delivery 08/12/24 08:50 08/12/24 12:50 Temperature 98.4 F Pulse Rate 75 Respiratory Rate 16 Blood Pressure 129/47 L Pulse Oximetry 99 Oxygen Delivery Room Air Room Air Intake/Output Intake/Output: Intake & Output 08/09/24 08/10/24 08/11/24 08/12/24 23:59 23:59 23:59 23:59 Intake Total 350 2517.5 Balance 350 2517.5 Meds/Results Medications: Active Medications Generic Name Dose Route Start Last Admin Trade Name Freq PRN Reason Stop Dose Admin Cyanocobalamin 1,000 mcg 08/12/24 09:00 08/12/24 08:53 Cyanocobalamin Inj 1,000 Mcg/Ml Vial IM 08/14/24 09:01 1,000 mcg DAILY TODD Administration Ferrous Sulfate 325 mg 08/12/24 09:00 08/12/24 08:35 Ferrous Sulfate [address] PO Not Given BID TODD Sodium Chloride 1,000 mls @ 125 mls/hr 08/11/24 16:10 08/12/24 11:14 Normal Saline Iv IV CONT 125 mls/hr .Q8H TODD Administration Lactated Ringer's 1,000 mls @ 150 mls/hr 08/12/24 13:05 08/12/24 14:45 Lr - Lactated Ringers Iv IV CONT 150 mls/hr .Q6H40M TODD Infusion Pantoprazole Sodium 40 mg 08/11/24 21:00 08/12/24 08:53 Pantoprazole Sodium Iv 40 Mg Vial IV PUSH 40 mg Q12HR TODD Administration Radiology Results: ITS Impressions Abdomen/Pelvis CT 08/11/24 15:29 IMPRESSION: Significant gastric distention for which urgent decompression is recommended. Labs Labs: Laboratory Results - last 24 hr 08/11/24 08/11/24 08/12/24 14:07 15:52 05:30 WBC 4.8 RBC 3.24 L Hgb 8.1 L Hct 27.7 L MCV 85.5 MCH 25.0 L MCHC 29.2 L RDW 16.2 H Plt Count 156 MPV 11.6 H Immature Gran % (Auto) 0.2 Neut % (Auto) 70.5 Lymph % (Auto) 17.7 L [place] % (Auto) 7.5 Eos % (Auto) 3.5 Baso % (Auto) 0.6 Lymph # (Auto) 0.85 L [place] # (Auto) 0.4 Eos # (Auto) 0.2 Baso # (Auto) 0.0 Abs Immat Gran (auto) 0.01 Absolute Neuts (auto) 3.4 Absolute Nucleated RBC 0.000 Nucleated RBC % 0.0 Platelet Estimate Adequate Hypochromasia 1+ Anisocytosis 1+ Ovalocytes 1+ [place] Cells 1+ Schistocytes None seen Sodium 135 L Potassium 3.7 Chloride 107 Carbon Dioxide 21 L Anion Gap 7 BUN 11 Creatinine 1.22 Estim Creat Clear Calc 39 Estimated GFR 59 Glucose 69 Calcium 8.4 Magnesium 2.1 Iron 11 L TIBC 361 % Saturation 3 L Ferritin 5.20 L Vitamin B12 208.0 L Folate 3.3 TSH (Reflex) 2.530 Blood Type A Positive Antibody Screen Negative Crossmatch See Detail
--- NOTE | 2024-08-12 15:48 | SUR.PHASEII ---
Transferred patient from post-op to CT scan.
--- NOTE | 2024-08-12 16:16 | WPDGIPROGNO ---
Progress Note: A&P Assessment and Plan (1) Gastric mass: Code(s): K31.89 - Other diseases of stomach and duodenum Status: Acute Assessment and Plan: EGD demonstrated a large, advanced gastric mass with evidence of adjacent lymphadenopathy. Liver metastases were not identified. Chest CT scan did not reveal definitive evidence of metastatic disease within the lungs or mediastinum. Medical Oncology and Surgery have been consulted urgently to determine the optimal course of therapy. The possibility of surgical resection will be explored in the absence of distant metastatic disease. A staging laparoscopy may be considered to further evaluate the extent of disease and rule out peritoneal carcinomatosis. If the patient is deemed a poor candidate for surgical resection, referral to a tertiary care center for palliative pyloric stenting will be pursued Subjective Date/time seen: 08/12/24 16:16 Objective Data Vital Signs Vital Signs: Vital Signs - 24 hr 08/11/24 16:30 08/11/24 16:31 08/11/24 16:38 Temperature Pulse Rate 106 H Respiratory Rate 23 H 26 H 16 Blood Pressure 160/61 H 176/73 H Pulse Oximetry 100 97 99 Oxygen Delivery 08/11/24 16:41 08/11/24 16:45 08/11/24 16:46 Temperature Pulse Rate 95 96 102 H Respiratory Rate 14 14 26 H Blood Pressure 176/73 H 159/84 H Pulse Oximetry 100 Oxygen Delivery 08/11/24 17:00 08/11/24 17:01 08/11/24 17:15 Temperature Pulse Rate 88 88 85 Respiratory Rate 15 15 12 Blood Pressure 158/56 H Pulse Oximetry 98 Oxygen Delivery 08/11/24 17:16 08/11/24 17:30 08/11/24 17:31 Temperature Pulse Rate 84 83 81 Respiratory Rate 20 22 H 16 Blood Pressure 148/59 H 142/57 H Pulse Oximetry 98 98 98 Oxygen Delivery 08/11/24 18:24 08/11/24 18:50 08/11/24 20:00 Temperature 98.1 F 98.5 F Pulse Rate 87 83 Respiratory Rate 16 18 Blood Pressure 147/48 H 163/59 H Pulse Oximetry 100 100 100 Oxygen Delivery Room Air 08/11/24 20:12 08/11/24 20:50 08/12/24 00:00 Temperature 98.5 F 98.2 F Pulse Rate 83 86 Respiratory Rate 18 18 Blood Pressure 163/59 H 135/59 L Pulse Oximetry 100 96 Oxygen Delivery Room Air 08/12/24 04:00 08/12/24 04:06 08/12/24 08:00 Temperature 98.2 F 98.2 F 97.8 F Pulse Rate 80 80 79 Respiratory Rate 18 18 16 Blood Pressure 154/55 H 154/55 H 135/51 L Pulse Oximetry 97 97 99 Oxygen Delivery 08/12/24 08:50 08/12/24 12:50 08/12/24 14:47 Temperature 98.4 F Pulse Rate 75 78 Respiratory Rate 16 20 Blood Pressure 129/47 L 131/64 Pulse Oximetry 99 100 Oxygen Delivery Room Air Room Air Room Air 08/12/24 14:57 08/12/24 15:07 Temperature Pulse Rate 76 78 Respiratory Rate 20 19 Blood Pressure 142/62 H 135/54 L Pulse Oximetry 100 98 Oxygen Delivery Room Air Room Air Intake/Output Intake/Output: Intake & Output 08/09/24 08/10/24 08/11/24 08/12/24 23:59 23:59 23:59 23:59 Intake Total 350 2517.5 Balance 350 2517.5 Meds/Results Medications: Active Medications Generic Name Dose Route Start Last Admin Trade Name Freq PRN Reason Stop Dose Admin Cyanocobalamin 1,000 mcg 08/12/24 09:00 08/12/24 08:53 Cyanocobalamin Inj 1,000 Mcg/Ml Vial IM 08/14/24 09:01 1,000 mcg DAILY TODD Administration Ferrous Sulfate 325 mg 08/12/24 09:00 08/12/24 08:35 Ferrous Sulfate [address] PO Not Given BID TODD Sodium Chloride 1,000 mls @ 125 mls/hr 08/11/24 16:10 08/12/24 11:14 Normal Saline Iv IV CONT 125 mls/hr .Q8H TODD Administration Pantoprazole Sodium 40 mg 08/11/24 21:00 08/12/24 08:53 Pantoprazole Sodium Iv 40 Mg Vial IV PUSH 40 mg Q12HR TODD Administration Radiology Results: ITS Impressions Abdomen/Pelvis CT 08/11/24 15:29 IMPRESSION: Significant gastric distention for which urgent decompression is recommended. Chest CT 08/12/24 15:53 IMPRESSION: 1. Prominent wall thickening along the lesser curvature of stomach extending from the cardia to the antrum indistinct serosal margin and multiple adjacent gastric hepatic lymph nodes suspicious for gastric cancer with extra serosal invasion and local metastatic lymphadenopathy. 2. 2.1 x 1.0 cm spiculated pleural-based nodule at the posterior right lower lobe at the site of prior thin linear discoid atelectasis/scarring along the mildly recent CT from 5 months prior which would favor atelectasis/scarring over malignancy. No other suspicious pulmonary nodules or pathologically enlarged thoracic lymphadenopathy to suggest metastatic disease. Consider 3 month follow-up chest CT. 3. Mild to moderate emphysema. 4. 5.2 x 4.8 cm fusiform ascending thoracic aortic aneurysm along the distal margin of a likely aortic root repair. Labs Labs: Laboratory Results - last 24 hr 08/11/24 08/11/24 08/12/24 14:07 15:52 05:30 WBC 4.8 RBC 3.24 L Hgb 8.1 L Hct 27.7 L MCV 85.5 MCH 25.0 L MCHC 29.2 L RDW 16.2 H Plt Count 156 MPV 11.6 H Immature Gran % (Auto) 0.2 Neut % (Auto) 70.5 Lymph % (Auto) 17.7 L [place] % (Auto) 7.5 Eos % (Auto) 3.5 Baso % (Auto) 0.6 Lymph # (Auto) 0.85 L [place] # (Auto) 0.4 Eos # (Auto) 0.2 Baso # (Auto) 0.0 Abs Immat Gran (auto) 0.01 Absolute Neuts (auto) 3.4 Absolute Nucleated RBC 0.000 Nucleated RBC % 0.0 Platelet Estimate Adequate Hypochromasia 1+ Anisocytosis 1+ Ovalocytes 1+ [place] Cells 1+ Schistocytes None seen Sodium 135 L Potassium 3.7 Chloride 107 Carbon Dioxide 21 L Anion Gap 7 BUN 11 Creatinine 1.22 Estim Creat Clear Calc 39 Estimated GFR 59 Glucose 69 Calcium 8.4 Magnesium 2.1 Iron 11 L TIBC 361 % Saturation 3 L Ferritin 5.20 L Vitamin B12 208.0 L Folate 3.3 TSH (Reflex) 2.530 Crossmatch See Detail
[2024-08-12] MEDS: FERROUS SULFATE 325 MG TABLET DR PO (16:58)
--- NOTE | 2024-08-12 19:29 | WPDONCCN ---
Assessment and Plan Assessment and plan (1) Iron deficiency anemia: Code(s): D50.9 - Iron deficiency anemia, unspecified Status: Acute Assessment and Plan: Labs noted that showed hemoglobin of 8.1 with MCV of 85.5. Iron 11 with saturation of 3% and ferritin of 5.2. Vitamin B12 208. This is secondary to gastric cancer with malabsorption and malnutrition with significant weight loss. I will start IV iron infusion and vitamin B12 injection. (2) Gastric mass: Code(s): K31.89 - Other diseases of stomach and duodenum Status: Acute Assessment and Plan: EGD finding noted. These findings are consistent with at least locally advanced gastric cancer with lymph node involvement. Patient would need PET scan as an outpatient along with the EUS for T and N staging as an outpatient. He will be a candidate for preoperative chemotherapy and then surgery. Patient would need port placement as well. I have provided him my office information for follow-up I have answered all the questions to patient's satisfaction. HPI Data of Consult Date/Time: 08/12/24 19:29 Requesting Physician: Aimee Dwyer PA-C Primary Care Provider: David Berrios MD Consult Narrative Narrative: Ki Shaver is a 68 year old male with history of aortic dissection status post repair in 2012 along with history of right lower lobe lung cancer status post SBRT treatment in August 27, COPD, pulmonary embolism, BPH and chronic kidney stage 3 disease came into the hospital tiredness and fatigue and found to have significant anemia. He has been eating for aphasia and has lost almost 20 lb weight in last 8 months duration. Labs showed hemoglobin of 7.4. EGD was performed on August 12 that showed malignant appearing gastric mass at the antrum. Biopsies were taken. CT abdomen and pelvis showed prominent wall thickening in the lesser curvature of the stomach along with gastric hepatic lymph node suspicious of gastric cancer with serosal invasion and local metastatic lymphadenopathy. There was 2.1 x 1. 0 cm pleural base nodule in the right lower lobe. Labs showed hemoglobin of 8.1. He denies any bleeding. He has been complaining of tiredness and fatigue. Review of Systems Review of Systems: Review of system as per HPI otherwise negative PMFSH Past Medical History Medical History Malignant neoplasm of lower lobe of right lung completed a definitive course of SBRT in 08/2021 at [facility] [place][Note 3] [place] type A dissection of aorta (06/2013) Pulmonary embolism Hearing loss Aortic stenosis Hyperlipidemia Tobacco abuse Emphysema lung Surgical History Surgical History History of repair of [place] type A dissecting aneurysm of thoracic aorta (06/24/13) History of appendectomy History of tonsillectomy Family History Family History Mother Dementia Father Patient's father is Pancreatic cancer Sibling Lung cancer Social History Social History Social History: Surrogate medical decision maker: Ellyn Shaver, spouse ([phone]). Code status: Full code. Smoking packs per day: 1 Smoking cigarettes per day: 20.0 Years smoked: 50 Smoking pack-years: 50.00 Smoking status: Current every day smoker Second hand tobacco smoke exposure: Yes Alcohol intake: former Alcohol use details: Substance use: never Substance use type: does not use Do You Feel Safe in your Home?: Yes Lack of Transportation: No Lack of Food: Never True Current Housing: I Have Housing Concerned About Future Housing: No Difficulty Paying Gas/Electric Bills: No Difficulty Paying for Meds: No Currently Unemployed: YES Education: Don't Know Difficulty w/ Childcare or Family Care: No Living arrangements: with family Occupation/Education: retired Spiritual care concerns: No Meds Home Medications and Allergies Home Medications ?Medication ?Instructions ?Recorded ?Confirmed ?Type aspirin 81 mg tablet,delayed 81 mg PO DAILY 03/24/21 08/11/24 History release (Adult Aspirin Regimen) Al hyd-Mg tr-alg ac-sod bicarb 80 tablet PO 03/24/24 08/11/24 History mg-20 mg chewable tablet rosuvastatin 40 mg tablet 40 mg PO DAILY #90 tabs 03/24/24 08/11/24 Rx finasteride 5 mg tablet 5 mg PO DAILY #90 tabs 06/22/24 08/11/24 Rx tamsulosin 0.4 mg capsule 0.4 mg PO QHS #90 caps 06/22/24 08/11/24 Rx metoprolol tartrate 25 mg tablet 37.5 mg (1.5 x 25 mg) PO BID #270 07/17/24 08/11/24 Rx tabs famotidine 20 mg tablet 20 mg PO DAILY #30 tabs 08/11/24 08/11/24 Rx omeprazole 40 mg capsule,delayed 40 mg PO BID #180 caps 08/11/24 08/11/24 Rx release Allergies Allergy/AdvReac Type Severity Reaction Status Date / Time Penicillins Allergy Unknown Unknown Verified 08/12/24 13:00 Vital Signs Vital Signs - 24 hr 08/11/24 20:00 08/11/24 20:12 08/11/24 20:50 Temperature 36.9 C 36.9 C Pulse Rate 83 83 Respiratory Rate 18 18 Blood Pressure 163/59 H 163/59 H Pulse Oximetry 100 100 Oxygen Delivery Room Air 08/12/24 00:00 08/12/24 04:00 08/12/24 04:06 Temperature 36.8 C 36.8 C 36.8 C Pulse Rate 86 80 80 Respiratory Rate 18 18 18 Blood Pressure 135/59 L 154/55 H 154/55 H Pulse Oximetry 96 97 97 Oxygen Delivery 08/12/24 08:00 08/12/24 08:50 08/12/24 12:50 Temperature 36.6 C 36.9 C Pulse Rate 79 75 Respiratory Rate 16 16 Blood Pressure 135/51 L 129/47 L Pulse Oximetry 99 99 Oxygen Delivery Room Air Room Air 08/12/24 14:47 08/12/24 14:57 08/12/24 15:07 Temperature Pulse Rate 78 76 78 Respiratory Rate 20 20 19 Blood Pressure 131/64 142/62 H 135/54 L Pulse Oximetry 100 100 98 Oxygen Delivery Room Air Room Air Room Air 08/12/24 16:00 Temperature 37.0 C Pulse Rate 73 Respiratory Rate 16 Blood Pressure 144/50 H Pulse Oximetry 99 Oxygen Delivery Exam Narrative: Lungs are clear to auscultation bilaterally Cardiovascular regular rate rhythm no murmurs Abdomen soft nontender nondistended bowel sounds are positive Extremities no edema Results Labs 08/12/24 05:30 08/12/24 05:30 Labs: Short CBC 08/12/24 Range/Units 05:30 WBC 4.8 (4.5-10.0) K/mm3 Hgb 8.1 L (14.0-18.0) g/dL Hct 27.7 L (42.0-52.0) % Plt Count 156 (150-375) k/mm3 [facility] 08/12/24 05:30 Sodium 135 L Potassium 3.7 Chloride 107 Carbon Dioxide 21 L BUN 11 Creatinine 1.22 Glucose 69 Calcium 8.4
[2024-08-13 00:06] VITALS: BP 142/57; PULSE 75; RESP 18; TEMP 36.4; O2SAT 97
[2024-08-13] MEDS: SODIUM CHLORIDE 0.9% IV 1,000 ML 125 ML IV CONT ×2 (00:10→08:27)
[2024-08-13 05:03] LABS: Hematocrit 25.6 % (42.0-52.0); Hemoglobin 7.7 g/dL (14.0-18.0); Mean Corpuscular HGB Conc 30.1 g/dl (32-36); Mean Corpuscular Hemoglobin 25.2 pg (26-34); Mean Corpuscular Volume 83.7 fl (80-100); Mean Platelet Volume 10.9 fl (7.4-10.4); Platelet Count Result 174 k/mm3 (150-375); Red Blood Count 3.06 M/mm3 (4.6-6.20); Red Cell Distribution Width 16.4 % (11.5-14.5); White Blood Count 5.1 K/mm3 (4.5-10.0)
[2024-08-13 05:15] LABS: Alanine Aminotransferase 9 U/L (6-50); Albumin Level 2.7 g/dL (3.5-5.1); Alkaline Phosphatase 67 U/L (38-126); Anion Gap 6 mmol/L (4-12); Aspartate Amino Transferase 22 U/L (17-59); Bilirubin,Total 0.7 mg/dL (0.2-1.3); Blood Urea Nitrogen 7 mg/dL (9-20); Calcium 7.8 mg/dL (8.4-10.2); Carbon Dioxide 22 mmol/L (22-30); Chloride 109 mmol/L (98-107); Estimated CRCL calculation 42 ml/min; Estimated Glomerular Filt Rate > 60; Glucose 66 mg/dL (65-110); Potassium 3.4 mmol/L (3.4-5.0); Sodium 137 mmol/L (137-145)
[2024-08-13 06:18] VITALS: BP 120/68; PULSE 72; RESP 14; TEMP 36.6; O2SAT 99
--- NOTE | 2024-08-13 07:03 | P.PNIM_ITS ---
Progress Note: A&P Assessment and Plan (1) GI bleeding: Qualifiers: GI bleed type/associated pathology: melena Qualified Code(s): K92.1 - Melena Code(s): K92.2 - Gastrointestinal hemorrhage, unspecified Status: Acute Assessment and Plan: Patient reports coffee ground emesis for a week or so. Denies significant alcohol and caffeine intake. Denies overuse of NSAIDs. Patient no longer vomiting, continues to endorses severe reflux. - Pantoprazole - GI consulted, appreciate recommendations EGD Protruding, friable, fungating, ulcerated, infiltrative mass seen in the antrum with stigmata of bleeding. It appeared partially obstructing. Malignant appearing. Pylorus permeable but near obstructed. Biopsies pending Recommend oncology consult Clear liquids only due to near obstruction of the pylorus. Might need transfer for palliative pyloric stent. (2) Gastric mass: Code(s): K31.89 - Other diseases of stomach and duodenum Status: Acute Assessment and Plan: Abdomen/pelvis CT: Significant gastric distention for which urgent decompression is recommended. Per chart review, ED nurses attempted to place an NG tube several times and were unsuccessful. Patient refusing further attempts. Chest CT for stagin. Prominent wall thickening along the lesser curvature of stomach extending from the cardia to the antrum indistinct serosal margin and multiple adjacent gastric hepatic lymph nodes suspicious for gastric cancer with extra serosal invasion and local metastatic lymphadenopathy. 2. 2.1 x 1.0 cm spiculated pleural-based nodule at the posterior right lower lobe at the site of prior thin linear discoid atelectasis/scarring along the mildly recent CT from 5 months prior which would favor atelectasis/scarring over malignancy. No other suspicious pulmonary nodules or pathologically enlarged thoracic lymphadenopathy to suggest metastatic disease. Consider 3 month follow- up chest CT. 3. Mild to moderate emphysema. 4. 5.2 x 4.8 cm fusiform ascending thoracic aortic aneurysm along the distal margin of a likely aortic root repair. Abdomen/pelvis CT: Significant gastric distention for which urgent decompression is recommended. Oncology consulted, appreciate recommendations Surgery consulted, appreciate recommendations GI consulted, appreciate recommendations EGD Protruding, friable, fungating, ulcerated, infiltrative mass seen in the antrum with stigmata of bleeding. It appeared partially obstructing. Malignant appearing. Pylorus permeable but near obstructed. Biopsies pending Clear liquids only due to near obstruction of the pylorus. Given that there is no definitive evidence of metastatic disease the possibility of surgical resection will be explored If patient is a poor candidate for surgical resection will need transfer for palliative pyloric stent. (3) Blood loss anemia: Code(s): D50.0 - Iron deficiency anemia secondary to blood loss (chronic) Status: Acute Assessment and Plan: H/H 7.4/25.9 on admission. Patient reporting coffee ground like emesis concerning for GI bleed. See plan above #1. - H/H 8.1/27.7 on am labs - Continue to monitor (4) Iron deficiency anemia: Code(s): D50.9 - Iron deficiency anemia, unspecified Status: Acute Assessment and Plan: Iron panel: Iron 11, TIBC 361, % sat 3, ferritin 5.2. - Given venofer x1 - Started on iron supplementation BID - Monitor (5) Vitamin B12 deficiency: Code(s): E53.8 - Deficiency of other specified B group vitamins Status: Acute Assessment and Plan: B12: 208 - Given IM cyanocobalamin x1 (6) Tobacco abuse: Code(s): Z72.0 - Tobacco use Status: Acute Assessment and Plan: Encourage cessation. Subjective Date/time seen: 08/13/24 07:03 Interval history: 68-year-old male smoker with history of type A aortic dissection status post rep air in June 2013, right lower lobe lung cancer for which he completed SBRT in August 2021, chronic obstructive pulmonary disease, pulmonary embolism, hyperlipidemia, aortic stenosis, benign prostatic hyperplasia, chronic kidney disease stage 3, and gastroesophageal reflux disease who presented to the hospital after he was found to have a low hemoglobin on labs drawn earlier today. If no surgery here does he need to be transferred to tertiary facility inpatient or is this something that can be outpatient Bethanie wants chemo before surgery it sounds like Review of Systems Review of Systems: All systems reviewed & are unremarkable except as noted in HPI and below Exam Narrative: AF HR General: male in no acute respiratory distress who is nontoxic appearing, lying semi recumbent in bed. HEENT: Normocephalic. Atraumatic. Extraocular movement intact. Sclera clear and anicteric. No facial asymmetry. Chest: Lungs are clear to auscultation bilaterally. No wheezes or crackles. CV: Heart was regular rate and rhythm. S1/S2. No murmurs, gallops, or rubs. Abd: Abdomen was soft. Nontender. Nondistended. Positive bowel sounds. Ext: No clubbing, cyanosis, or edema. 2+ DP pulses bilaterally. Neuro: Patient is alert. Speech is clear. Objective Data Vital Signs Vital Signs: Vital Signs - 24 hr 08/12/24 08:00 08/12/24 08:50 08/12/24 12:50 Temperature 97.8 F 98.4 F Pulse Rate 79 75 Respiratory Rate 16 16 Blood Pressure 135/51 L 129/47 L Pulse Oximetry 99 99 Oxygen Delivery Room Air Room Air 08/12/24 14:47 08/12/24 14:57 08/12/24 15:07 Temperature Pulse Rate 78 76 78 Respiratory Rate 20 20 19 Blood Pressure 131/64 142/62 H 135/54 L Pulse Oximetry 100 100 98 Oxygen Delivery Room Air Room Air Room Air 08/12/24 16:00 08/12/24 20:20 08/12/24 20:47 Temperature 98.6 F 97.7 F Pulse Rate 73 78 78 Respiratory Rate 16 14 14 Blood Pressure 144/50 H 144/52 H Pulse Oximetry 99 97 97 Oxygen Delivery Room Air 08/13/24 00:06 08/13/24 06:18 Temperature 97.6 F 97.9 F Pulse Rate 75 72 Respiratory Rate 18 14 Blood Pressure 142/57 H 120/68 Pulse Oximetry 97 99 Oxygen Delivery Intake/Output Intake/Output: Intake & Output 08/10/24 08/11/24 08/12/24 08/13/24 23:59 23:59 23:59 23:59 Intake Total 350 3547.5 1300 Balance 350 3547.5 1300 Meds/Results Medications: Active Medications Generic Name Dose Route Start Last Admin Trade Name Freq PRN Reason Stop Dose Admin Cyanocobalamin 1,000 mcg 08/12/24 09:00 08/12/24 08:53 Cyanocobalamin Inj 1,000 Mcg/Ml Vial IM 08/14/24 09:01 1,000 mcg DAILY TODD Administration Ferrous Sulfate 325 mg 08/12/24 09:00 08/12/24 16:58 Ferrous Sulfate [address] PO 325 mg BID TODD Administration Sodium Chloride 1,000 mls @ 125 mls/hr 08/11/24 16:10 08/13/24 00:10 Normal Saline Iv IV CONT 125 mls/hr .Q8H TODD Administration Pantoprazole Sodium 40 mg 08/11/24 21:00 08/12/24 20:19 Pantoprazole Sodium Iv 40 Mg Vial IV PUSH 40 mg Q12HR TODD Administration Radiology Results: ITS Impressions Abdomen/Pelvis CT 08/11/24 15:29 IMPRESSION: Significant gastric distention for which urgent decompression is recommended. Chest CT 08/12/24 15:53 IMPRESSION: 1. Prominent wall thickening along the lesser curvature of stomach extending from the cardia to the antrum indistinct serosal margin and multiple adjacent gastric hepatic lymph nodes suspicious for gastric cancer with extra serosal invasion and local metastatic lymphadenopathy. 2. 2.1 x 1.0 cm spiculated pleural-based nodule at the posterior right lower lobe at the site of prior thin linear discoid atelectasis/scarring along the mildly recent CT from 5 months prior which would favor atelectasis/scarring over malignancy. No other suspicious pulmonary nodules or pathologically enlarged thoracic lymphadenopathy to suggest metastatic disease. Consider 3 month follow- up chest CT. 3. Mild to moderate emphysema. 4. 5.2 x 4.8 cm fusiform ascending thoracic aortic aneurysm along the distal margin of a likely aortic root repair. Labs Labs: Laboratory Results - last 24 hr 08/13/24 04:31 WBC 5.1 RBC 3.06 L Hgb 7.7 L Hct 25.6 L MCV 83.7 MCH 25.2 L MCHC 30.1 L RDW 16.4 H Plt Count 174 MPV 10.9 H Sodium 137 Potassium 3.4 Chloride 109 H Carbon Dioxide 22 Anion Gap 6 BUN 7 L Creatinine 1.15 Estim Creat Clear Calc 42 Estimated GFR > 60 Glucose 66 Calcium 7.8 L Total Bilirubin 0.7 AST 22 ALT 9 Alkaline Phosphatase 67 Total Protein 5.0 L Albumin 2.7 L Quality VTE Prophylaxis VTE prophylaxis: mechanical ordered
[2024-08-13 08:00] VITALS: BP 140/41; PULSE 70; RESP 16; TEMP 36.4; O2SAT 100
[2024-08-13] MEDS: PANTOPRAZOLE SODIUM IV 40 MG VIAL IV PUSH (08:27)
[2024-08-13] MEDS: FERROUS SULFATE 325 MG TABLET DR PO (08:27)
[2024-08-13] MEDS: CYANOCOBALAMIN INJ 1,000 MCG/ML VIAL 1000 MCG IM (08:27)
--- NOTE | 2024-08-13 10:42 | PM.CNGS ---
Assessment and Plan Assessment and plan (1) Gastric mass: Code(s): K31.89 - Other diseases of stomach and duodenum <Katherine GuidoCARLOS - Last Filed: 08/13/24 12:57> Status: Acute <Katherine Guido CARLOS - Last Filed: 08/13/24 12:57> Assessment and Plan: Patient presented due to a drop in hemoglobin found on outpatient labs. He has recently experienced mild intermittent epigastric abdominal pain, dark stools, and coffee ground emesis. He has had issues with regurgitating some solid foods at times, specifically meat. He has otherwise been tolerating a full liquid/pureed diet. EGD showed a large malignant-appearing mass in the antrum that occupies the entire lesser curvature of the stomach up to the cardia with a partial obstruction at the pylorus. Workup consistent with gastric cancer with lymph node involvement, but no obvious liver metastasis or other distant metastasis. Oncology was consulted and recommends possible preoperative chemotherapy. He would likely need a total gastrectomy, and we would recommend referral to a Surgical Oncologist at [facility] who would be able to perform foregut surgery for his gastric mass. As he is tolerating a clear liquid diet, it would be okay from our standpoint to advance him to essentially a full liquid/pureed diet with supplements and he could be evaluated as an outpatient by Surgical Oncology. <Katherine GuidoCARLOS - Last Filed: 08/13/24 12:57> Patient presented due to a drop in hemoglobin found on outpatient labs. He has recently experienced mild intermittent epigastric abdominal pain, dark stools, and coffee ground emesis. He has had issues with regurgitating some solid foods at times, specifically meat. He has otherwise been tolerating a full liquid/pureed diet. EGD showed a large malignant-appearing mass in the antrum that occupies the entire lesser curvature of the stomach up to the cardia with a partial obstruction at the pylorus. Workup consistent with gastric cancer with lymph node involvement, but no obvious liver metastasis or other distant metastasis. Oncology was consulted and recommends possible preoperative chemotherapy. Given the extent of the tumor which seems seems to extend from the antrum to the cardia the stomach along the lesser curve, he may need a total gastrectomy, and we would recommend referral to a Surgical Oncologist at [facility] who would be able to perform foregut surgery for his gastric mass. As he is tolerating a clear liquid diet, it would be okay from our standpoint to advance him to essentially a full liquid/pureed diet with supplements and he could be evaluated as an outpatient by Surgical Oncology. I have personally seen and evaluated the patient today with BLACKJACK DEALER.? ? I have reviewed any new relevant radiographic and laboratory results.? I have reviewed the acharya elements of the patient's current surgical or medical problems and I have personally performed a substantive portion of the care for this patient.? I personally performed the pertinent physical exam and reviewed and confirmed the patient's medicine list.? ? I have formulated the surgical care plan and I agree with the documented note above. Patient currently is not totally obstructed. He is able to tolerate liquids and finally chopped ground up meat and soft foods. He is also able to tolerate liquids and Ensure. He has been transfused adequate hemoglobin levels during this hospitalization. He can be discharged from the hospital today and I will arrange for follow-up as an outpatient with Dr. Kamar Cristina at [facility] for Surgical Oncology evaluation. Still awaiting the biopsy results of the mass from endoscopy yesterday but it is very likely this represents a primary gastric cancer. Patient may even need to be evaluated for a stent to keep him from getting a gastric outlet obstruction in the near future. That can also be done at [facility] interventional GI if needed. <Sae Robins MD - Last Filed: 08/13/24 11:40> (2) Iron deficiency anemia: Code(s): D50.9 - Iron deficiency anemia, unspecified <CARLOS Conrad - Last Filed: 08/13/24 12:57> Status: Acute <CARLOS Conrad - Last Filed: 08/13/24 12:57> (3) Tobacco abuse: Code(s): Z72.0 - Tobacco use <CARLOS Conrad - Last Filed: 08/13/24 12:57> Status: Acute <CARLOS Conrad - Last Filed: 08/13/24 12:57> Assessment and Plan: I have discussed the patient's case and plan of care with Dr. Robins. <CARLOS Conrad - Last Filed: 08/13/24 12:57> History of Present Illness Consult details Consult date: 08/13/24 <CARLOS Conrad - Last Filed: 08/13/24 12:57> 08/13/24 <Sae Robins MD - Last Filed: 08/13/24 11:40> Reason for consult: other (Gastric mass) <CARLOS Conrad - Last Filed: 08/13/24 12:57> Requesting physician: Jimmy Arrington MD <CARLOS Conrad - Last Filed: 08/13/24 12:57> Narrative: This is a 68-year-old PMH of hypertension, COPD, aortic stenosis, CKD stage 3, GERD, history of type A aortic dissection status post repair in June 2013, right lower lobe lung cancer for which he completed SBRT in August 2021, who we have been asked to see in surgical consultation for a gastric mass. He was found to have a low hemoglobin on labs drawn as an outpatient and came into the ED for evaluation 2 days ago. He has had several month history of intermittent epigastric discomfort which he attributed to digestion, as well as dark stools. He has also had coffee-ground emesis a few days prior to admission. He has recently been watching what he eats and is able to tolerate a liquid diet, but will at times regurgitate or vomit solid foods, particularly meat. He has never had a colonoscopy or endoscopy. No significant alcohol or caffeine intake, and denies NSAID use. Workup in the ED showed CT evidence of significant gastric distension. He was admitted to the hospitalist and GI was consulted. He had an EGD yesterday that showed reflux esophagitis, and a protruding ulcerated infiltrative malignant appearing mass in the antrum with stigmata of bleeding, which occupies the entire lesser curvature up to the cardia. The pylorus was permeable but nearly obstructed. Biopsies were taken. Our service was consulted and he is now seen on the medical floor. He is currently tolerating a clear liquid diet without any vomiting or regurgitation. Denies any abdominal pain at this time. He reports about an unintentional 30 lb weight loss over the past few months. <CARLOS Conrad - Last Filed: 08/13/24 12:57> Review of Systems Review of Systems: All systems reviewed & are unremarkable except as noted in HPI and below <CARLOS Conrad - Last Filed: 08/13/24 12:57> [facility] Past Medical History Medical History: Medical History Malignant neoplasm of lower lobe of right lung completed a definitive course of SBRT in 08/2021 at [facility] [place] type A dissection of aorta (06/2013) Pulmonary embolism Hearing loss Aortic stenosis Hyperlipidemia Tobacco abuse Emphysema lung <CARLOS Conrad - Last Filed: 08/13/24 12:57> Surgical History Surgical History: Surgical History History of repair of [place] type A dissecting aneurysm of thoracic aorta (06/24/13) History of appendectomy Open appendectomy in his youth History of tonsillectomy <CARLOS Conrad - Last Filed: 08/13/24 12:57> Family History Family History: Family History Mother Dementia Father Patient's father is Pancreatic cancer Sibling Lung cancer <CARLOS Conrad - Last Filed: 08/13/24 12:57> Social History Social History: Social History Social History: Surrogate medical decision maker: Ellyn Shaver, spouse ([phone]). Code status: Full code. Smoking packs per day: 1 Smoking cigarettes per day: 20.0 Years smoked: 50 Smoking pack-years: 50.00 Smoking status: Current every day smoker Second hand tobacco smoke exposure: Yes Alcohol intake: former Alcohol use details: Substance use: never Substance use type: does not use Do You Feel Safe in your Home?: Yes Lack of Transportation: No Lack of Food: Never True Current Housing: I Have Housing Concerned About Future Housing: No Difficulty Paying Gas/Electric Bills: No Difficulty Paying for Meds: No Currently Unemployed: YES Education: Don't Know Difficulty w/ Childcare or Family Care: No Living arrangements: with family Occupation/Education: retired Spiritual care concerns: No <CARLOS Conrad - Last Filed: 08/13/24 12:57> Meds Home Medications and Allergies Home medications: Home Medications ?Medication ?Instructions ?Recorded ?Confirmed ?Type aspirin 81 mg tablet,delayed 81 mg PO DAILY 03/24/21 08/11/24 History release (Adult Aspirin Regimen) Al hyd-Mg tr-alg ac-sod bicarb 80 tablet PO 03/24/24 08/11/24 History mg-20 mg chewable tablet rosuvastatin 40 mg tablet 40 mg PO DAILY #90 tabs 03/24/24 08/11/24 Rx finasteride 5 mg tablet 5 mg PO DAILY #90 tabs 06/22/24 08/11/24 Rx tamsulosin 0.4 mg capsule 0.4 mg PO QHS #90 caps 06/22/24 08/11/24 Rx metoprolol tartrate 25 mg tablet 37.5 mg (1.5 x 25 mg) PO BID #270 07/17/24 08/11/24 Rx tabs famotidine 20 mg tablet 20 mg PO DAILY #30 tabs 08/11/24 08/11/24 Rx omeprazole 40 mg capsule,delayed 40 mg PO BID #180 caps 08/11/24 08/11/24 Rx release <CARLOS Conrad - Last Filed: 08/13/24 12:57> Allergies/Adverse reactions: Allergies Allergy/AdvReac Type Severity Reaction Status Date / Time Penicillins Allergy Unknown Unknown Verified 08/12/24 13:00 <CARLOS Conrad - Last Filed: 08/13/24 12:57> Vital Signs Vital Signs - 24 hr 08/12/24 12:50 08/12/24 14:47 08/12/24 14:57 Temperature 98.4 F Pulse Rate 75 78 76 Respiratory Rate 16 20 20 Blood Pressure 129/47 L 131/64 142/62 H Pulse Oximetry 99 100 100 Oxygen Delivery Room Air Room Air Room Air 08/12/24 15:07 08/12/24 16:00 08/12/24 20:20 Temperature 98.6 F Pulse Rate 78 73 78 Respiratory Rate 19 16 14 Blood Pressure 135/54 L 144/50 H Pulse Oximetry 98 99 97 Oxygen Delivery Room Air Room Air 08/12/24 20:47 08/13/24 00:06 08/13/24 06:18 Temperature 97.7 F 97.6 F 97.9 F Pulse Rate 78 75 72 Respiratory Rate 14 18 14 Blood Pressure 144/52 H 142/57 H 120/68 Pulse Oximetry 97 97 99 Oxygen Delivery 08/13/24 08:25 Temperature Pulse Rate Respiratory Rate Blood Pressure Pulse Oximetry Oxygen Delivery Room Air <Katherine MullenYael AurelioKENYETTA parkP - Last Filed: 08/13/24 12:57> Exam Const: General: comfortable and no acute distress <Katherine MullenYael AurelioKENYETTA parkP - Last Filed: 08/13/24 12:57> Orientation/consciousness: patient oriented x3 <Katherine Gamez AurelioKENYETTA parkP - Last Filed: 08/13/24 12:57> HENMT: Head: normocephalic and atraumatic <Katherine Gamez AurelioKENYETTA parkP - Last Filed: 08/13/24 12:57> Ears: hearing grossly normal bilaterally <Katherine Guido [employer] - Last Filed: 08/13/24 12:57> Eyes: General: appearance normal, both eyes and all related structures <Katherine Guido [facility] - Last Filed: 08/13/24 12:57> Pupils: Equal, round and reactive pupils present <Katherine SebasYael Aurelioxavier [employer] - Last Filed: 08/13/24 12:57> Neck: Neck: normal visual inspection and full ROM <KENYETTA ConradP - Last Filed: 08/13/24 12:57> Resp: Effort & Inspection: no respiratory distress <Katherine BKENYETTA LeeP - Last Filed: 08/13/24 12:57> Auscultation: clear to auscultation bilaterally <KENYETTA ConradP - Last Filed: 08/13/24 12:57> Cardio: Rate: regular rate <KENYETTA ConradP - Last Filed: 08/13/24 12:57> Rhythm: regular rhythm <Katehrine KENYETTA RogersP - Last Filed: 08/13/24 12:57> Peripheral pulses: Peripheral pulses 2+ throughout <Katherine B. Wasmuth, [employer] - Last Filed: 08/13/24 12:57> GI: Inspection: non-distended <KENYETTA ConradP - Last Filed: 08/13/24 12:57> GI Palp: Yes Soft to palpation, No Tenderness to palpation present (GI), No Guarding due to palpation present (GI), Yes No hepatosplenomegaly present and No Rebound tenderness present <KENYETTA ConradP - Last Filed: 08/13/24 12:57> Auscultation: normal bowel sounds <Katherine Guido [facility] - Last Filed: 08/13/24 12:57> Skin: General skin exam: normal color <KENYETTA ConradP - Last Filed: 08/13/24 12:57> Neuro: General: moves all extremities and no focal motor deficits <KENYETTA ConradP - Last Filed: 08/13/24 12:57> Speech: normal speech <Katherine Guido [employer] - Last Filed: 08/13/24 12:57> Motor exam (neuro): 5/5 motor strength present throughout <Katherine Guido [employer] - Last Filed: 08/13/24 12:57> Extrem: General: normal to inspection and no edema <KENYETTA ConradP - Last Filed: 08/13/24 12:57> Psych: Mental Status: mental status grossly normal <Katherine Guido [employer] - Last Filed: 08/13/24 12:57> Attitude: cooperative <Katherine Guido [employer] - Last Filed: 08/13/24 12:57> Insight: Good insight present (Psych) <Katherine Guido [employer] - Last Filed: 08/13/24 12:57> Judgement: Good judgement present (Psych) <Katherine Guido [employer] - Last Filed: 08/13/24 12:57> Results Labs Result diagrams: 08/13/24 04:31 08/13/24 04:31 <Katherine Guido [employer] - Last Filed: 08/13/24 12:57> Labs: Abnormal lab results 08/13/24 Range/Units 04:31 RBC 3.06 L (4.6-6.20) M/mm3 Hgb 7.7 L (14.0-18.0) g/dL Hct 25.6 L (42.0-52.0) % MCH 25.2 L (26-34) pg MCHC 30.1 L (32-36) g/dl RDW 16.4 H (11.5-14.5) % MPV 10.9 H (7.4-10.4) fl Chloride 109 H (98-107) mmol/L BUN 7 L (9-20) mg/dL Calcium 7.8 L (8.4-10.2) mg/dL Total Protein 5.0 L (6.3-8.2) g/dL Albumin 2.7 L (3.5-5.1) g/dL Diabetes panel 08/13/24 Range/Units 04:31 Sodium 137 (137-145) mmol/L Potassium 3.4 (3.4-5.0) mmol/L Chloride 109 H (98-107) mmol/L Carbon Dioxide 22 (22-30) mmol/L BUN 7 L (9-20) mg/dL Creatinine 1.15 (0.7-1.3) mg/dL Glucose 66 (65-110) mg/dL Calcium 7.8 L (8.4-10.2) mg/dL AST 22 (17-59) U/L ALT 9 (6-50) U/L Alkaline Phosphatase 67 (38-126) U/L Total Protein 5.0 L (6.3-8.2) g/dL Albumin 2.7 L (3.5-5.1) g/dL Calcium panel 08/13/24 Range/Units 04:31 Calcium 7.8 L (8.4-10.2) mg/dL Albumin 2.7 L (3.5-5.1) g/dL Pituitary panel 08/13/24 Range/Units 04:31 Sodium 137 (137-145) mmol/L Potassium 3.4 (3.4-5.0) mmol/L Chloride 109 H (98-107) mmol/L Carbon Dioxide 22 (22-30) mmol/L BUN 7 L (9-20) mg/dL Creatinine 1.15 (0.7-1.3) mg/dL Glucose 66 (65-110) mg/dL Calcium 7.8 L (8.4-10.2) mg/dL Adrenal panel 08/13/24 Range/Units 04:31 Sodium 137 (137-145) mmol/L Potassium 3.4 (3.4-5.0) mmol/L Chloride 109 H (98-107) mmol/L Carbon Dioxide 22 (22-30) mmol/L BUN 7 L (9-20) mg/dL Creatinine 1.15 (0.7-1.3) mg/dL Glucose 66 (65-110) mg/dL Calcium 7.8 L (8.4-10.2) mg/dL Total Bilirubin 0.7 (0.2-1.3) mg/dL AST 22 (17-59) U/L ALT 9 (6-50) U/L Alkaline Phosphatase 67 (38-126) U/L Total Protein 5.0 L (6.3-8.2) g/dL Albumin 2.7 L (3.5-5.1) g/dL All other labs normal. <CARLOS Conrad - Last Filed: 08/13/24 12:57> Imaging Additional studies: ITS Impressions Abdomen/Pelvis CT 08/11/24 15:29 IMPRESSION: Significant gastric distention for which urgent decompression is recommended. Chest CT 08/12/24 15:53 IMPRESSION: 1. Prominent wall thickening along the lesser curvature of stomach extending from the cardia to the antrum indistinct serosal margin and multiple adjacent gastric hepatic lymph nodes suspicious for gastric cancer with extra serosal invasion and local metastatic lymphadenopathy. 2. 2.1 x 1.0 cm spiculated pleural-based nodule at the posterior right lower lobe at the site of prior thin linear discoid atelectasis/scarring along the mildly recent CT from 5 months prior which would favor atelectasis/scarring over malignancy. No other suspicious pulmonary nodules or pathologically enlarged thoracic lymphadenopathy to suggest metastatic disease. Consider 3 month follow-up chest CT. 3. Mild to moderate emphysema. 4. 5.2 x 4.8 cm fusiform ascending thoracic aortic aneurysm along the distal margin of a likely aortic root repair. <CARLOS oCnrad - Last Filed: 08/13/24 12:57>
[2024-08-13 10:56] VITALS: O2SAT 98
[2024-08-13 12:00] VITALS: BP 131/52; PULSE 75; RESP 16; TEMP 36.4; O2SAT 100
[2024-08-13 12:10] VITALS: BMI 18.0
--- NOTE | 2024-08-13 13:35 | P.DS_ITS ---
DS: Admitting Diagnosis Discharge Date 08/13/2024 Admitting Diagnosis Gi bleeding Gastric mass Blood loss anemia Iron deficiency anemia Vit B12 deficiency Tobacco abuse DS: Discharge Diagnosis Discharge Diagnosis (1) GI bleeding: Qualifiers: GI bleed type/associated pathology: melena Qualified Code(s): K92.1 - M carter Code(s): K92.2 - Gastrointestinal hemorrhage, unspecified Status: Acute (2) Gastric mass: Code(s): K31.89 - Other diseases of stomach and duodenum Status: Acute (3) Blood loss anemia: Code(s): D50.0 - Iron deficiency anemia secondary to blood loss (chronic) Status: Acute (4) Iron deficiency anemia: Code(s): D50.9 - Iron deficiency anemia, unspecified Status: Acute (5) Vitamin B12 deficiency: Code(s): E53.8 - Deficiency of other specified B group vitamins Status: Acute (6) Tobacco abuse: Code(s): Z72.0 - Tobacco use Status: Acute DS: Summary Hospital Course Reason for hospitalization: Gi bleeding Gastric mass Blood loss anemia Iron deficiency anemia Vit B12 deficiency Tobacco abuse Hospital Course: 68-year-old male smoker with history of type A aortic dissection status post repair in June 2013, right lower lobe lung cancer for which he completed SBRT in August 2021, chronic obstructive pulmonary disease, pulmonary embolism, hyperlipidemia, aortic stenosis, benign prostatic hyperplasia, chronic kidney disease stage 3, and gastroesophageal reflux disease who presented to the hospital after he was found to have a low hemoglobin on outpatient labs. Patient reports coffee ground emesis for a week or so. Denies significant alcohol and caffeine intake. Denies overuse of NSAIDs. Started on pantoprazole and GI consulted. CT abdomen/pelvis showed significant gastric distension. EGD obtained and showed protruding, friable, fungating, ulcerated, infiltrative mass seen in the antrum with stigmata of bleeding. Malignant appearing. Pylorus permeable but near obstructed. Workup consistent with gastric cancer with lymph node involvement, but no obvious liver metastasis or other distant metastasis seen on imaging. Per GI patient is able to discharge and has a follow up for pyloric stent placement with [facility] interventional GI, Dr. Nuñez. Per surgery patient was ready for discharge with follow-up as an outpatient with with surgical oncologist at [facility] who would be able to perform foregut surgery for his gastric mass. Patient should stay on a liquid and/or pureed and mechanical soft diet. Ensure supplements is also recommended. Patients H/H remained stable throughout admission. Heme/onc evaluated patient and he was started on B12 and iron supplementation. Deficiency likely secondary to gastric mass causing malabsorption. Patients hematemesis resolved. He is to obtain a CBC in 5 days to reevaluate levels. Patient has no complaints at time of discharge denying chest pain, shortness a breath, palpitations, nausea/vomiting, abdominal pain, and dizziness/ lightheadedness. Patient discharged home in a stable condition. He is to follow up with Interventional GI and Surgical Oncology at [facility] as scheduled. Status at Discharge Functional status at discharge: independent ambulation Time Spent with Patient Time attestation: Total time spent providing and/or coordinating discharge services: Time spent: Greater than 30 minutes Exam Narrative: AF HR 75 RR 16 SPo2 100 BP 131/52 General: male in no acute respiratory distress who is nontoxic appearing, si tting up in chair HEENT: Normocephalic. Atraumatic. Extraocular movement intact. Sclera clear and anicteric. No facial asymmetry. Chest: Lungs are clear to auscultation bilaterally. No wheezes or crackles. CV: Heart was regular rate and rhythm. S1/S2. No murmurs, gallops, or rubs. Abd: Abdomen was soft. Nontender. Nondistended. Positive bowel sounds. Ext: No clubbing, cyanosis, or edema. 2+ DP pulses bilaterally. Neuro: Patient is alert. Speech is clear. DS: Data Data Completed and Pending Completed studies during hospitalization: Chest CT Abdomen/pelvis CT Pending studies at discharge: Pending at discharge 08/12/24 14:44 Surgical [PTH] Routine Labs on day of discharge: Labs from last 24 hours 08/13/24 04:31 WBC 5.1 RBC 3.06 L Hgb 7.7 L Hct 25.6 L MCV 83.7 MCH 25.2 L MCHC 30.1 L RDW 16.4 H Plt Count 174 MPV 10.9 H Sodium 137 Potassium 3.4 Chloride 109 H Carbon Dioxide 22 Anion Gap 6 BUN 7 L Creatinine 1.15 Estim Creat Clear Calc 42 Estimated GFR > 60 Glucose 66 Calcium 7.8 L Total Bilirubin 0.7 AST 22 ALT 9 Alkaline Phosphatase 67 Total Protein 5.0 L Albumin 2.7 L Discharge Plan Discharge Attending physician on discharge: Elida Mohan Consulting providers: Sae Robins; Horacio Kovacs Discharging Clinician: Aimee Dwyer Anticipated Discharge Date/Time: 08/13/24 13:13 Patient Disposition: Home, Self-Care Activity: as tolerated Diet: as tolerated and other - see discharge instructions Discharge Instructions: Discharge disposition: Patient admitted to the hospital for blood in his vomit GI evaluated patient and he underwent an upper endoscopy Results showing a large gastric mass concerning for malignancy Oncology and surgery consulted Per surgery: Patient may be discharged general surgery standpoint today. I will arrange for follow-up as an outpatient with with surgical oncologist at [facility]. My office will contact the patient with details for that referral. Patient should stay on a liquid and/or pureed and mechanical soft diet. Ensure supplements is also recommended. Patient to be discharged with copies of his CT of his chest and abdomen and pelvis on disc as well as copies of the radiology reports for the studies so that he can take to his consultation appointment with surgical Oncology at [facility]. Per GI: Patient will require a pyloric stent to prevent obstruction Patient will receive a call from interventional GI at [facility] to set this up, plan for placement hopefully on Saturday Diagnosed with iron and B12 deficiency causing anemia Likely secondary to malabsorption secondary to gastric mass Started on supplementation per heme/onc Attached is information on these medications Obtain a repeat blood draw in 5 days to reassess anemia Monitor blood pressures Take caution while standing, rising, or moving Change positions slowly taking a break between each position change If you standing feel dizzy sit back down and take a break Encouraged to continue with yearly vaccinations Return to the emergency department if he developed sudden shortness of breath, chest pain, nausea, vomiting, upset stomach or intractable diarrhea Return to the emergency department if you develop fever greater than 101.5 Follow-up with the primary care physician within 1-2 weeks Thank you for choosing [facility] for your healthcare needs Patient Instructions: Antibiotic Form, Iron Supplements (By mouth), Vitamin B Combination (By mouth), Complete Blenderized Diet (DC), Anemia (DC), Full Liquid Diet (DC) Patient Language: Divehi Stand Alone Forms: General Discharge Information Follow-up/Referrals: Horacio Kovacs MD [Physician] - Call for Appointment David Berrios MD [Primary Care Provider] - 1 Week Jimmy Arrington MD [Physician] - Call for Appointment Sae Robins MD [Physician] - Call for Appointment Discharge Medications: New ferrous sulfate 325 mg (65 mg iron) Tablet,Delayed Release (Dr/Ec) 325 mg PO BID Qty: 60 0RF cyanocobalamin (vitamin B-12) 1,000 mcg tablet 1,000 mcg PO DAILY Qty: 30 0RF Continued aspirin [Adult Aspirin Regimen] 81 mg tablet,delayed release (DR/EC) 81 mg PO DAILY Al hyd-Mg tr-alg ac-sod bicarb 80-20 mg tablet,chewable PO rosuvastatin 40 mg tablet 40 mg PO DAILY Qty: 90 0RF omeprazole 40 mg capsule,delayed release(DR/EC) 40 mg PO BID Qty: 180 1RF famotidine 20 mg tablet 20 mg PO DAILY Qty: 30 0RF finasteride 5 mg tablet 5 mg PO DAILY Qty: 90 1RF tamsulosin 0.4 mg capsule 0.4 mg PO QHS Qty: 90 1RF metoprolol tartrate 25 mg tablet 37.5 mg PO BID Qty: 270 0RF Other Ambulatory Orders: Complete Blood Count no Diff (Routine) Timeframe: 5 Days Location: Determined by Patient Ordered By: Aimee Dwyer Date of admission: 08/11/24 16:10 Primary Care Provider: David Berrios Admitting Provider: Elida Mohan Attending physician on admission: Aimee Dwyer Condition: Stable Hospitalist MIPS Heart Failure (Exclusion) Patient has history of Heart Transplant or Left Ventricular Assistive Device?: No IF YES, STOP HERE Heart Failure (Qualifier) Patient has current or prior documentation of LVEF less than or equal to 40%, or mod/servere depressed LVSF?: No IF NO, STOP HERE
--- NOTE | 2024-08-14 07:32 | P.CDI_ITS ---
CDI Query Clarification Request BMI: 18.1 Nutritional Diagnostic Statement: Please refer to the comprehensive nutrition assessment for further information. If you agree with diagnosis of Severe Protein Calorie Malnutrition as related to inadequate protein calorie intake as evidenced by < 75% of estimated protein needs > 1 month; significant weight loss of (24 ibs) 17% in 5 months, moderate subcutaneous fat loss (orbital fat pads) and moderate muscle wasting (temporalis). Please specify severity if known: * Mild * Moderate * Severe * Other/Unknown <Astrid Duncan RN - Last Filed: 08/14/24 07:33> Clarified Diagnosis Clarified Diagnosis: Severe protein calorie malnutrition <Aimee Dwyer PA-C - Last Filed: 08/14/24 16:23>
== END 2024-08-13 13:58 | disposition home or self-care (01) | DRG 374 ==
LOC: ANHED 14:18 → ANH2MED 17:13
PROVIDERS: Internal Medicine Gastroenterology; Physician Assistant; Admitting Provider Internal Medicine; Emergency Provider Family Medicine; PCP Family Medicine; Visit Provider Student in an Organized Health Care Education/Training Program
PROC: 0DJ08ZZ Inspection of Upper Intestinal Tract, Via Natural or Artificial Opening Endoscopic (ICD-10-PCS; principal; 2024-08-12 15:00)
DX: C16.3 Malignant neoplasm of pyloric antrum (principal); E43 Unspecified severe protein-calorie malnutrition; C77.2 Secondary and unspecified malignant neoplasm of intra-abdominal lymph nodes; Z68.1 Body mass index [BMI] 19.9 or less, adult; J44.9 Chronic obstructive pulmonary disease, unspecified; I35.0 Nonrheumatic aortic (valve) stenosis; N18.30 Chronic kidney disease, stage 3 unspecified; D50.0 Iron deficiency anemia secondary to blood loss (chronic); E53.8 Deficiency of other specified B group vitamins; E78.5 Hyperlipidemia, unspecified; K21.00 Gastro-esophageal reflux disease with esophagitis, without bleeding; K31.89 Other diseases of stomach and duodenum; N40.0 Benign prostatic hyperplasia without lower urinary tract symptoms; F17.210 Nicotine dependence, cigarettes, uncomplicated; Z85.118 Personal history of other malignant neoplasm of bronchus and lung; Z79.82 Long term (current) use of aspirin; Z86.711 Personal history of pulmonary embolism
CPT/HCPCS: 36415; 36430; 71260; 74177; 80048; 80053; 82607; 82728; 82746; 83540; 83550; 83735; 84443; 85025; 85027; 86850; 86900; 86901; 86923; 88305; 88342; 96361; 96374; 99285; A9270; J1756; J2003; J2371; J2470; J3420; J7030; J7050; J7120; P9016; Q9967

== ENCOUNTER 2024-08-21 14:27 | Outpatient (CLI) | payer MEDICARE, SELFPAY ==
--- OUTSIDE RECORDS SUMMARY | 2024-08-21 14:30 | XMS_ITS | Referral Summary ---
Author Organization [facility] Address [address] [place] [address] Care Team Providers Care Spinner Continuous Name Role Phone Meghna Fine MD Primary Care Provider Yahir Brooke MD Unavailable [phone] Armando Balderas Chi, MD Unavailable [phone] Balta Bennett MD Unavailable Allergies Active Allergy [...] D/c home with outpatient cardiology (Dr. Colon, [facility]). (01/11) Tobacco use 01/10/2020 Assessment & [...] on file Legal Sex Male 3:07 AM REAL ESTATE LEASING MANAGER Gender Identity Not on file Sexual Orientation Straight 07/12/2021 1: 28 PM REAL ESTATE LEASING MANAGER Last Filed Vital Signs Vital Sign Reading Time Taken Comments Blood Pressure 116/98 03/16/2024 12:00 PM CDT Pulse 81 03/16/2024 12:00 PM CDT Temperature 36.9 C (98.4 F) 03/16/2024 8:00 AM CDT Respiratory Rate 18 03/16/2024 12:0 0 PM [...] W WO CONTRAST Routine 08/25/2014 8:40 AM REAL ESTATE LEASING MANAGER from Last 3 Months or Most Recently Relevant to Health Maintenance Results * CT Angiogram Abdomen Pelvis W WO Contrast (08/25/2014 8:40 AM REAL ESTATE LEASING MANAGER) Anatomical Region Laterality Modality Body N/A Computed Tomogra phy 08/25/2014 8:40 AM REAL ESTATE LEASING MANAGER Narrative 08/25/2014 9:26 AM REAL ESTATE LEASING MANAGER PHU DE OLIVEIRA M.D. FINAL REPORT ACC# Date Time Exam [id number] Aug 25, 2014 08:40:[id number] Chest with contrast [id number] Aug 25, 2014 08:40:00 [id number] CTA Abd&Pelv wwo w recons EXAMINATION: 1. [...] increase in aneurysmal dilatation of the proximal [place] ascending aorta which now measures 4.9 x [...] OLIVEIRA M.D. on Aug 25 2014 9:26A [id number] Procedure Note Provider, MD Iveth - 11/02/2016 PHU DE OLIVEIRA M.D. FINAL REPORT ACC# Date Time Exam [id number] Aug 25, 2014 08:40:[id number] Chest with contrast [id number] Aug 25, 2014 08:40:00 [id number] CTA Abd&Pelv wwo w recons EXAMINATION: 1. [...] increase in aneurysmal dilatation of the proximal [place] ascending aorta which now measures 4.9 x [...] OLIVEIRA M.D. on Aug 25 2014 9:26A [id number] Historical Provider MD HUFF CT PROCEDURES Final R esult from Last 3 Months or Most Recently Relevant to Health Maintenance Insurance MEDICARE [facility] MEDICARE [facility] MEDICARE [facility] Advance Directives For more information, please contact: [phone] * LIMITED - No CPR (Latest Code Status on File) Date Activated Date Inactivated Comments 03/15/2024 2:50 AM 03/16/2024 5:56 PM * Full Code Date Activated Date Inactivated Comments 01/10/2020 8:49 PM 01/12/2020 11:02 PM Care Teams Spinner Continuous Relationship Specialty Start Date End Date Meghna Fine MD [address] [place] [address] PCP - General Family Medicine 10/02/20 Yahir Brooke MD [address] [place] [address] Referring Physician Critical Care Med 03/30/21 Armando Balderas Chi, MD [address] [place] [address] Referring Physician Pulmonary Disease 03/30/21 Balta Bennett MD [address] [facility] [address] [place], [place] [id number] Radiation Oncologist Radiation Oncology 07/18/21
--- OUTSIDE RECORDS SUMMARY | 2024-08-21 14:30 | XMS_ITS ---
Author Organization [facility] Address [address] [place] [address] Care Team Providers Care Eligibility Specialist Name Role Phone Meghna Fine MD Primary Care Provider Yahir Brooke MD Unavailable [phone] Armando Balderas Chi, MD Unavailable [phone] Balta Bennett MD Unavailable Active Problems Patient [...] D/c home with outpatient cardiology (Dr. Colon, [facility]). (01/11) Tobacco use 01/10/2020 Assessment & Plan [...] from the original note were not included. [id number] [place] [address] This Survivorship Care Plan is a cancer [...] Information: Primary Care Physician Meghna Fine MD [phone] Surgeon No care steam and gas turbines assembler to display Radiation Oncologist Balta Bennett MD [phone] Medical Oncologist No care steam and gas turbines assembler to display Other Providers Treatment Summary Cancer [...] 3-5, then yearly. All providers Monitor for middle or intermediate school principal cardiac toxicity. Meghna Fine Monitor for prison toxicity Cardiac - congestive heart failure (CHF), [...] Help learning to eat healthier, call the test director at: [facility] . Have an active [...] man. Resources you may be interested in: [facility] http://www.[facility]/ [facility] Cancer Information Center 1st floor of [facility] [phone]. Computer access, educational material, counseling services (FREE) Cancer Resources: www.cancer.net [place] Disabilities Act: The U.S. Department of Justice provides information about the Americans with Disabilities Act (ADA). Toll free number http://www.ada.gov/ Occupational Therapy at [facility]. Improve memory and thinking following chemotherapy. Improve your performance at home, work and in the community. or Toll free www..[facility]/patients A service of [employer], a non-profit organization providing free, professional support - includingcounseling, support group, financial assistance, educational workshops and publications -to anyone coping with lung cancer. http://www.lungcancer.org/ We are a partnership of lung cancer survivors, advocates, researchers, healthcare professionals andhathaway leaders. And we are united in the belief that every person with lung cancer deserves a cure. http://www.freetobreathe.org/ Lung Cancer Connection is committed to organizing and funding community outreach programs aimed at those affected by lung cancer in the [place] area. http://www.lungcancerconnectioninc.org Cancer and Careers empowers and educates people with cancer to thrive in their workplace by providing expert advice, interactive tools and educational events. http://www.cancerandcareers.org/en/brjqrbr-dvm-mauz Springboard Beyond Cancer: https://survivorship.cancer.gov/ an online tool for cancer survivors andcaregivers created by the [place] Cancer Society and the National Cancer [place]. It provides: Information on dealing with side effects from cancer and treatment Caregivers with support and resources Practical advice about talking to friends and family about cancer Questions to ask their health care team
--- OUTSIDE RECORDS SUMMARY | 2024-08-21 14:30 | XMS_ITS | Clinical Summary ---
Author Organization [facility] Address [address] [place] [address] Care Team Providers Care Publications Designer Name Role Phone Meghna Fine MD Primary Care Provider Yahir Brooke MD Unavailable [phone] Armando Balderas Chi, MD Unavailable [phone] Balta Bennett MD Unavailable Allergies Active Allergy [...] with outpatient cardiology (Dr. Colon, [facility]). (01/11) Tobacco use 01/10/2020 Assessment & Plan [...] on file Legal Sex Male 3:07 AM KEG FILLER Gender Identity Not on file Sexual Orientation Straight 07/12/2021 1: 28 PM KEG FILLER Obstetrics History Last Filed Vital Signs Vital [...] W WO CONTRAST Routine 08/25/2014 8:40 AM KEG FILLER from Last 3 Months or Most Recently Relevant to Health Maintenance Results * CT Angiogram Abdomen Pelvis W WO Contrast (08/25/2014 8:40 AM KEG FILLER) Anatomical Region Laterality Modality Body N/A Computed Tomogra phy 08/25/2014 8:40 AM KEG FILLER Narrative 08/25/2014 9:26 AM KEG FILLER PHU DE OLIVEIRA M.D. FINAL REPORT ACC# Date Time Exam [id number] Aug 25, 2014 08:40:[id number] Chest with contrast [id number] Aug 25, 2014 08:40:00 [id number] CTA Abd&Pelv wwo w recons EXAMINATION: 1. [...] increase in aneurysmal dilatation of the proximal [place] ascending aorta which now measures 4.9 x [...] OLIVEIRA M.D. on Aug 25 2014 9:26A [id number] Procedure Note Provider, MD Iveth - 11/02/2016 PHU DE OLIVEIRA M.D. FINAL REPORT ACC# Date Time Exam [id number] Aug 25, 2014 08:40:[id number] Chest with contrast [id number] Aug 25, 2014 08:40:00 [id number] CTA Abd&Pelv wwo w recons EXAMINATION: 1. [...] increase in aneurysmal dilatation of the proximal [place] ascending aorta which now measures 4.9 x [...] OLIVEIRA M.D. on Aug 25 2014 9:26A [id number] us Historical Provider MD HUFF CT PROCEDURES Final R esult from Last 3 Months or Most Recently Relevant to Health Maintenance Insurance MEDICARE [employer] [place] MEDICARE [facility] MEDICARE [facility] Advance Directives For more information, please contact: [phone] * LIMITED - No CPR (Latest Code Status on File) Date Activated Date Inactivated Comments 03/15/2024 2:50 AM 03/16/2024 5:56 PM * Full Code Date Activated Date Inactivated Comments 01/10/2020 8:49 PM 01/12/2020 11:02 PM Care Teams Publications Designer Relationship Specialty Start Date End Date Meghna Fine MD [address] [address] PCP - General Family Medicine 10/02/20 Yahir Brooke MD [address] [place] [address] Referring Physician Critical Care Med 03/30/21 Armando Balderas Chi, MD [address] [place] [address] Referring Physician Pulmonary Disease 03/30/21 Balta Bennett MD [address] [facility] [address] [place] [address] Radiation Oncologist Radiation Oncology 07/18/21
--- OUTSIDE RECORDS SUMMARY | 2024-08-21 14:31 | XMS_ITS | Encounter Summary ---
Author Organization [facility] Address [address] [facility] [place] [address] Care Team Providers Care Ross Lift Operator Name Role Phone Unavailable Primary Care Provider Unavailabl e Encounter Details Date Type Department Care Team (Latest Contact Info) Description 08/20/2024 Travel Social History Tobacco Use Types Packs/Day Years Used Date Smoking Tobacco: Every Day Cigarettes 0.3 55.1 Started: 1972 Smokeless Tobacco: Never Alcohol Use Standard Drinks/Week Comments Not Currently 0 (1 standard drink = 0.6 oz pur e alcohol) Sex and Gender Information Value Date Recorded Sex Assigned at Not on file Gender Identity Not on file Sexual Orientation Not on file documented as of this encounter Plan of Treatment Upcoming Encounters Date Type Department Care Team (Latest Contact Info) Description 08/24/2024 1:30 PM CORRECTION OFFICER SUPERVISOR Office Visit [facility] - General Surgery [address] [place] [id number] Kamar Cristina MD [address] [facility] [address] [place] [address] 08/26/2024 12:00 PM CORRECTION OFFICER SUPERVISOR Hospital Encounter [facility] [address] [place] [address] David Magana MD [address] [place] [address] Surgery General 08/26/2024 12:00 PM CORRECTION OFFICER SUPERVISOR Anesthesia Event [facility] [address] [place] [address] Ilan Reynolds DO [address] [facility] [address] 08/26/2024 12:00 PM CORRECTION OFFICER SUPERVISOR - 08/26/2024 1:00 PM CORRECTION OFFICER SUPERVISOR Surgery [facility] [address] [place] [id number] David Magana MD [address] [place] [address] EGD / EUS + stent Scheduled Procedures Name Priority Associated Diagnoses Date/Ti me ESOPHAGOGASTRODUODENOSCOPY ( EGD) /ESOPHAGOSCOPY WITH ULTRASOUND (EUS) Malignant neoplasm of stomach, unspecified location (HCC) 08/26/2024 12:00 PM CORRECTION OFFICER SUPERVISOR documented as of this encounter Visit Diagnoses Not on filedocumented in this encounter
--- OUTSIDE RECORDS SUMMARY | 2024-08-21 14:31 | XMS_ITS | Clinical Summary ---
Author Organization [facility] [facility] [facility] Address [address] [facility] [address] Care Team Providers Care University Tutor Name Role Phone Unavailable Primary Care Provider Unavailabl e Allergies Active Allergy Reactions Criticality Noted Date Comments Penicillins Hives High 08/20/2024 Medications famotidine (PEPCID) 20 mg tablet Take 1 Tablet by mouth daily. 08/11/2024 Active ferrous sulfate 325 mg (65 mg iron) Tablet, Delayed Release (E.C.) Take 1 Tablet by mouth 2 times daily. 08/13/2024 Active metoprolol succinate (TOPROL XL) 25 mg Extended Release 24 hour tablet Take 25 mg by mouth daily. Active omeprazole (PriLOSEC) 40 mg Capsule, Delayed Release(E.C.) Take 90 mg by mouth daily before breakfast. Active rosuvastatin (CRESTOR) 40 mg tablet Take 40 mg by mouth daily. 03/17/2024 Active aspirin (ECOTRIN EC) 81 mg Tablet, Delayed Release (E.C.) Take 81 mg by mouth daily. Active Active Problems No known active problems Encounters Date Type Department Care Team Description 08/21/2024 2:[address] GANG SUPERVISOR Office Visit [facility] Oncology and [facility] [address] [facility] [address] [place] [address] Horacio Kovacs MD 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); Chronic anemia 08/20/2024 Abstract [facility] Oncology and [facility] [address] [facility] [address] [place] [address] Horacio Kovacs MD from Last 3 Months Family History Medical History Relation Name Comments Cancer - Other Father Pancreatic Cancer Father No Known Problems Mother Lung Cancer Sister Relation Name Status Comments Father Mother Sister Social History Tobacco Use Types Packs/Day Years Used Date Smoking Tobacco: Every Day Cigarettes 0.5 54 Started: 08/21/1970 Alcohol Use Standard Drinks/Week Comments Not Currently 0 (1 standard drink = 0.6 oz pur e alcohol) about 4 times a year Sex and Gender Information Value Date Recorded Sex Assigned at Not on file Legal Sex Male 2:[address] GANG SUPERVISOR Gender Identity Not on file Sexual Orientation Not on file Last Filed Vital Signs Vital Sign Reading Time Taken Comments Blood Pressure 125/61 08/21/2024 1:[address] GANG SUPERVISOR Pulse 85 08/21/2024 1:[address] GANG SUPERVISOR Temperature 36.6 C (97.9 F) 08/21/2024 1:[address] GANG SUPERVISOR Respiratory Rate 18 08/21/2024 1:[address] GANG SUPERVISOR Oxygen Saturation 92% 08/21/2024 1:[address] GANG SUPERVISOR Inhaled Oxygen Concentration - - Weight 56.7 kg (125 lb) 08/21/2024 1:[address] GANG SUPERVISOR Height 170.2 cm (5' 7 ) 08/21/2024 1:[address] GANG SUPERVISOR Body Mass Index 19.58 08/21/2024 1:[address] GANG SUPERVISOR Plan of Treatment Upcoming Encounters Date Type Department Care Team (Late st Contact Info) Description 09/15/2024 4:30 PM CDT Telephone Check Up [facility] Oncology and Hematology [facility] [address] [facility] [address] [place] [address] Horacio Kovacs MD [address] [facility] [address] [place] [address] Health Maintenance Due Date Last Done Comments DTAP/TDAP/TD VACCINES (1 - Tdap) 1972 Traditional Medicare (ACO) Annual Wellness Visit 10/06 COLORECTAL SCREENING 1998 Colorectal Cancer Screening 1998 FIT-DNA Q 3 years 1998 FIT/FOBT Q 1 year 1998 Flex Sig/CT Colonography Q 5 years 1998 PNEUMOCOCCAL VACCINE 65+ YEARS (1 of 1 - PCV) 10/07/19 04 ZOSTER VACCINE (1 of 2) 10/07/2003 INFLUENZA VACCINE (#1) 2024 RSV VACCINE (60+ or ) (1 - 1-dose 75+ series) 2028 Insurance MEDICARE PART A AND B BS SUPP [facility]
--- OUTSIDE RECORDS SUMMARY | 2024-08-21 14:31 | XMS_ITS | Encounter Summary ---
Author Organization [facility] Address [address] [place] [address] Care Team Providers Care Lead Shipper Name Role Phone Unavailable Primary Care Provider Unavailabl e Encounter Details Date Type Department Care Team (Late Contact Info) Description 08/20/2024 Abstract [facility] Oncology and Hematology - [place] [address] [place] [address] Horacio Kovacs MD 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
--- OUTSIDE RECORDS SUMMARY | 2024-08-21 14:31 | XMS_ITS | Clinical Summary ---
Author Organization [facility] Address [address] [facility] [place] [address] Care Team Providers Care Improvement Nurse Name Role Phone Unavailable Primary Care Provider Unavailabl e Source Comments [facility],non-owned Affiliates and Associated Physician Practices is amultiple site organization consisting of ambulatory clinics and hospital sitesin [place], [place], [place] and [place]. This disclosure is being madepursuant to the Care Everywhere program and may not contain all information available regarding this patient. Last updated 18.[facility] Allergies Active Allergy Reactions Criticality Noted Date Comments Penicillins Urticaria Medium 08/20/2024 Medications * Be aware that medications may not be up to date on this document. Alwaysverify current medications with the patient. Medication Sig Dispensed Refills Start Date End Date Status omeprazole (PriLOSEC) 40 MG capsule Take 90 mg by mouth daily before breakfast Active famotidine (Pepcid) 20 MG tablet Take 1 (one) tablet by mouth Active rosuvastatin (Crestor) 40 MG tablet Take 1 (one) tablet by mouth once daily Active metoprolol succinate XL 24hr (Toprol XL) 25 MG tablet Take 1 (one) tablet by mouth once daily Active ferrous sulfate 325 (65 FE) MG tablet Take 1 (one) tablet by mouth once daily Active Encounters Date Type Department Care Team Description 08/20/2024 Travel 08/18/2024 Telephone [facility] - [address] [address] Darrin Recinos, RN Appointment (procedure confirmed) 08/14/2024 Telephone [facility] - [facility] [place] [address] Darrin Recinos, doll wig maker (external referral: EGD/EUS for stent placement / neoplasm of stomach from Dr. Jimmy Arrington f: [phone] Nuñez) from Last 3 Months Social History Tobacco Use Types Packs/Day Years Used Date Smoking Tobacco: Every Day Cigarettes 0.3 55.1 Started: 1970 Smokeless Tobacco: Never Tobacco Cessation:Ready to Q uit: Not Asked; Counseling Given: Not Answered Alcohol Use Standard Drinks/Week Comments Not Currently 0 (1 standard drink = 0.6 oz pur e alcohol) Sex and Gender Information Value Date Recorded Sex Assigned at Not on file Gender Identity Not on file Sexual Orientation Not on file Last Filed Vital Signs Vital Sign Reading Time Taken Comments Blood Pressure - - Pulse - - Temperature - - Respiratory Rate - - Oxygen Saturation - - Inhaled Oxygen Concentration - - Weight 59 kg (130 lb) 08/20/2024 10:43 AM ENGINEERING GEOLOGIST Height 170.2 cm (5' 7 ) 08/20/2024 10:43 AM ENGINEERING GEOLOGIST Body Mass Index 20.36 08/20/2024 10:43 AM ENGINEERING GEOLOGIST Plan of Treatment Upcoming Encounters Date Type Department Care Team (Latest Contact Info) Description 08/24/2024 1:30 PM ENGINEERING GEOLOGIST Office Visit [facility] - General Surgery [address] [place] [phone] Kamar Cristina MD [address] [facility] [address] [place] [address] 08/26/2024 12:00 PM ENGINEERING GEOLOGIST Hospital Encounter [facility] [address] [place] [address] David Magana MD [address] [place] [address] Surgery General 08/26/2024 12:00 PM ENGINEERING GEOLOGIST Anesthesia Event [facility] [address] [place] [address] Ilan Reynolds DO [address] [facility] [place] [address] 08/26/2024 12:00 PM ENGINEERING GEOLOGIST - 08/26/2024 1:00 PM ENGINEERING GEOLOGIST Surgery [facility] [address] [place] [address] David Magana MD [address] [place] [address] EGD / EUS + stent Scheduled Procedures Name Priority Associated Diagnoses Date/Ti me ESOPHAGOGASTRODUODENOSCOPY ( EGD) /ESOPHAGOSCOPY WITH ULTRASOUND (EUS) Malignant neoplasm of stomach, unspecified location (HCC) 08/26/2024 12:00 PM ENGINEERING GEOLOGIST Health Maintenance Due Date Last Done Comments COLOGUARD (AGES 45-75) - COL ON CA SCREENING 1953 COLON MONITORING 1953 COLONOSCOPY - COLON CA SCREENING 1953 CT COLONOGRAPHY - COLON CA SCREENING 1955 Colorectal Cancer Screening 1953 FIT - COLON CA SCREENING 1953 FLEX SIG - COLON CA SCREENING 1953 MEDICARE AWV 12 MONTHS 1953 HEPATITIS C SCREENING 10/02/1971 DTAP/TDAP/TD VACCINES (1 - Tdap) 1972 PNEUMOCOCCAL VACCINE 50+ (1 of 2 - PCV) 1972 ZOSTER VACCINE (1 of 2) 10/07/2003 AAA SCREENING 2018 COVID-19 VACCINE (1 - 2023-2 5 season) 2024 INFLUENZA VACCINE (#1) 2024 DEPRESSION SCREENING 07/08/2024 Respiratory Syncytial Virus (RSV) Vaccine Pt: or over 60 yrs (1 - 1-dose 75+ series) 2028 HEPATITIS B VACCINE Aged Out No longe r eligible based on patient's age to complete this topic HIB VACCINE Aged Out No longer eligi ble based on patient's age to complete this topic HPV VACCINE Aged Out No longer eligi ble based on patient's age to complete this topic MENINGOCOCCAL (Group B) VACCINE Aged Out No longer eligible based on patient's age to complete this topic MENINGOCOCCAL VACCINE Aged Out No gloria ladi eligible based on patient's age to complete this topic Ki SHAVER Personal/Famil y Self 1955
--- OUTSIDE RECORDS SUMMARY | 2024-08-21 14:31 | XMS_ITS | Referral Summary ---
Author Organization [facility] Address [address] [facility] [place] [address] Care Team Providers Care Paint Sprayer Sandblaster Name Role Phone Unavailable Primary Care Provider Unavailabl e Source Comments [facility],non-owned Affiliates and Associated Physician Practices is amultiple site organization consisting of ambulatory clinics and hospital sitesin [place], [place], [place] and [place]. This disclosure is being madepursuant to the Care Everywhere program and may not contain all information available regarding this patient. Last updated 18.[facility] Encounters Date Type Department Care Team Description 08/20/2024 Travel 08/18/2024 Telephone [facility] - [facility] [place] [address] Darrin Recinos, RN Appointment (procedure confirmed) 08/14/2024 Telephone [facility] - [address] [place] [address] Darrin Recinos, area manager (external referral: EGD/EUS for stent placement / neoplasm of stomach from Dr. Jimmy Arrington f: [phone] Nuñez) from Last 3 Months Allergies Active Allergy Reactions Criticality Noted Date [...] (one) tablet by mouth once daily Active Social History Tobacco Use Types Packs/Day Years [...] 59 kg (130 lb) 08/20/2024 10:43 AM FINANCIAL AGENT Height 170.2 cm (5' 7 ) 08/20/2024 10:43 AM FINANCIAL AGENT Body Mass Index 20.36 08/20/2024 10:43 AM FINANCIAL AGENT Plan of Treatment Upcoming Encounters Date Type Department Care Team (Latest Contact Info) Description 08/24/2024 1:30 PM FINANCIAL AGENT Office Visit [facility] - General Surgery [address] [place] [phone] Kamar Cristina MD [address] [facility] [address] [place] [address] 08/26/2024 12:00 PM FINANCIAL AGENT Hospital Encounter [facility] [address] [place] [address] David Magana MD [address] [place] [address] Surgery General 08/26/2024 12:00 PM FINANCIAL AGENT Anesthesia Event [facility] [address] [place] [address] Ilan Reynolds DO [address] [facility] [place] [address] 08/26/2024 12:00 PM FINANCIAL AGENT - 08/26/2024 1:00 PM [facility] Surgery [facility] [address] [place] [address] David Magana MD [address] [place] [address] EGD / EUS + stent Scheduled Procedures Name Priority Associated Diagnoses Date/Ti me ESOPHAGOGASTRODUODENOSCOPY ( EGD) /ESOPHAGOSCOPY WITH ULTRASOUND (EUS) Malignant neoplasm of stomach, unspecified location (HCC) 08/26/2024 12:00 PM FINANCIAL AGENT Ki SHAVER Personal/Famil y Self 1955
--- OUTSIDE RECORDS SUMMARY | 2024-08-21 14:31 | XMS_ITS | Encounter Summary ---
Author Organization [facility] Address [address] [place] [address] Care Team Providers Care Automation Driver Name Role Phone Unavailable Primary Care Provider Unavailabl e Reason for Referral * Eval and Treat (Routine) - Open Specialty Diagnoses / Procedures Referred By Milly andino Referred To Contact Thoracic Surgery Diagnoses 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) Procedures PA OFFICE/OUTPATIENT ESTABLISHED MOD MDM 30 MIN PA OFFICE/OUTPATIENT NEW MODERATE MDM 45 MINUTES Horacio Kovacs MD [address] [employer] [address] [address] Phone: tel: fax: Gabriel Domingo MD [address] [address] Phone: tel: fax: Referral ID Status Reason Start Date Expiration Date V isits Requested Visits Authorized [id number] Open STL CTS 08/21/2024 08/21/2025 1 1 GER SHIP * Eval and Treat (Routine) - Open Specialty Diagnoses / Procedures Referred By Milly andino Referred To Contact Oncology Diagnoses 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) Procedures PA OFFICE/OUTPATIENT ESTABLISHED MOD MDM 30 MIN PA OFFICE/OUTPATIENT NEW MODERATE MDM 45 MINUTES Horacio Kovacs MD [address] [employer] [address] [place] [address] Phone: tel: fax: Referral ID Status Reason Start Date Expiration Date Visits Re quested Visits Authorized [id number] Open 08/21/2024 08/22/2025 1 1 GER SHIP * PET Scan (Routine) - Open Specialty Diagnoses / Procedures Referred By Milly t Referred To Contact Diagnoses 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) Procedures PET TUMOR OR INFECTION IMG W CT SKB MDTH Horacio Kovacs MD [facility] [employer] [address] [place], [place] [address] Phone: tel: fax: Referral ID Status Reason Start Date Expiration Date Visits Re quested Visits Authorized [id number] Open 08/21/2024 09/21/2025 1 1 GER SHIP * Eval and Treat (Routine) - Open Specialty Diagnoses / Procedures Referred By Milly andino Referred To Contact Surgery Diagnoses 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) Procedures PA OFFICE/OUTPATIENT ESTABLISHED MOD MDM 30 MIN PA OFFICE/OUTPATIENT NEW MODERATE MDM 45 MINUTES Horacio Kovacs MD [address] [place] [address] [place] [address] Phone: tel: fax: Primo Ye, DO [address] [facility] [address] [place] [address] Phone: tel: fax: Referral ID Status Reason Start Date Expiration Date V isits Requested Visits Authorized [id number] Open CRS To Schedule (STL) 08/21/2024 08/21/2025 1 1 GER SHIP * Eval and Treat (Routine) - Open Specialty Diagnoses / Procedures Referred By Milly andino Referred To Contact Gastroenterology Diagnoses 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) Procedures PA OFFICE/OUTPATIENT ESTABLISHED MOD MDM 30 MIN PA OFFICE/OUTPATIENT NEW MODERATE MDM 45 MINUTES Horacio Kovacs MD [address] [place] [address] [employer] [address] [place], [place] [address] Phone: tel: fax: Wojciech Monsivais MD [address] [address] Phone: tel: fax: Referral ID Status Reason Start Date Expiration Date Visits Re quested Visits Authorized [id number] Open 08/21/2024 08/22/2025 1 1 GER SHIP Encounter Details Date Type Department Care Team (Late st Contact Info) Description 08/21/2024 2:00 PM MANAGER SHIP Office Visit [facility] Oncology and Hematology - [place] [address] [facility] [address] [place] [address] Horacio Kovacs MD [address] [facility] [address] [place] [address] 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); Chronic anemia Social History Tobacco Use Types Packs/Day Years Used Date Smoking Tobacco: Every Day Cigarettes 0.5 54 Started: 08/21/1970 Alcohol Use Standard Drinks/Week Comments Not Currently 0 (1 standard drink = 0.6 oz pur e alcohol) about 4 times a year Sex and Gender Information Value Date Recorded Sex Assigned at Not on file Legal Sex Male 2:06 PM MANAGER SHIP Gender Identity Not on file Sexual Orientation Not on file documented as of this encounter Last Filed Vital Signs Vital Sign Reading Time Taken Comments Blood Pressure 125/61 08/21/2024 1:45 PM MANAGER SHIP Pulse 85 08/21/2024 1:45 PM MANAGER SHIP Temperature 36.6 C (97.9 F) 08/21/2024 1:45 PM MANAGER SHIP Respiratory Rate 18 08/21/2024 1:45 PM MANAGER SHIP Oxygen Saturation 92% 08/21/2024 1:45 PM MANAGER SHIP Inhaled Oxygen Concentration - - Weight 56.7 kg (125 lb) 08/21/2024 1:45 PM MANAGER SHIP Height 170.2 cm (5' 7 ) 08/21/2024 1:45 PM MANAGER SHIP Body Mass Index 19.58 08/21/2024 1:45 PM MANAGER SHIP documented in this encounter Plan of Treatment Upcoming Encounters Date Type Department Care Team (Late st Contact Info) Description 09/15/2024 4:30 PM CDT Telephone Check Up [facility] Oncology and Hematology [facility] [address] [facility] [address] [place] [address] Horacio Kovacs MD [address] [facility] [address] [place] [address] Scheduled Orders Name Type Priority Associated Diagnoses Orde r Schedule CBC WITH DIFFERENTIAL Lab Stat Chronic anemia Expected: 08/21/2024, Expires: 08/21/2025 COMPREHENSIVE METABOLIC PANEL Lab Stat Chronic anemia Expected: 08/21/2024, Expires: 08/21/2025 FERRITIN Lab Routine Chronic anemia Expected: 08/21/2024, Expires: 08/21/2025 IRON, TIBC, AND PERCENT SATURATION Lab Routine Chronic anemia Expected: 08/21/2024, Expires: 08/21/2025 VITAMIN B12 AND FOLATE Lab Routine Chronic anemia Expected: 08/21/2024, Expires: 08/21/2025 PET TUMOR OR INFECTION IMG W CT SKB MDTH Imaging Routine 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) Expected: 08/22/2024, Expires: 08/21/2025 Scheduled Referrals Name Type Priority Associated Diagnoses Order Schedule AMB REFERRAL TO GASTROENTEROLOGY Outpatient Referral Routine 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) Ordered: 08/21/2024 AMB REFERRAL TO COLORECTAL SURGERY Outpatient Referral Routine 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) Ordered: 08/21/2024 AMB REFERRAL TO CHEMO TEACHING Outpatient Referral Routine 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) Ordered: 08/21/2024 AMB REFERRAL TO CARDIOVASCULAR SURGERY Outpatient Referral Routine 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) Ordered: 08/21/2024 documented as of this encounter Visit Diagnoses Diagnosis 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)- Primary Malignant neoplasm of lesser curvature of stomach, unspecified Chronic anemia Anemia, unspecified documented in this encounter
--- OUTSIDE RECORDS SUMMARY | 2024-08-21 14:31 | XMS_ITS | Encounter Summary ---
Author Organization [facility] Address [address] [place] [address] Phone Care Team Providers Care Lining Marker Name Role Phone Meghna Fine MD Primary Care Provider Yahir Brooke MD Unavailable [phone] Armando Balderas Chi, MD Unavailable [phone] Balta Bennett MD Unavailable Encounter Details Date [...] on file Legal Sex Male 3:07 AM WATERSHED ENGINEER Gender Identity Not on file Sexual Orientation Straight 07/12/2021 1: 28 PM WATERSHED ENGINEER documented as of this encounter Plan of Treatment Not on file documented as of this encounter Procedures Procedure Name Priority Date/Time Associated Diagnosis Comments SCAN - RADIOLOGY/IMAGING 02/27/2021 documented in this encounter Results * SCAN - RADIOLOGY/IMAGING (02/27/2021) Anatomical Region Laterality Modality Other us Provider Scanning Final Result documented in this encounter Visit Diagnoses Not on filedocumented in this encounter Care Teams Lining Marker Relationship Specialty Start Date End Date Rostovtseva, Meghna Y., MD [address] [place] [address] PCP - General Family Medicine 10/02/20 Yahir Brooke MD [address] [place] [address] Referring Physician Critical Care Med 03/30/21 Armando Balderas Chi, MD [address] [place] [address] Referring Physician Pulmonary Disease 03/30/21 Balta Bennett MD [address] [facility] [address] [place] [address] Radiation Oncologist Radiation Oncology 07/18/21 documented as of this encounter
--- OUTSIDE RECORDS SUMMARY | 2024-08-21 14:31 | XMS_ITS | Patient Health Summary ---
Author Organization [facility] [employer] Address [address] [facility] [place] [address] Care Team Providers Care Technical Support Internship Name Role Phone Unavailable Primary Care Provider Unavailabl e Note from [facility],non-owned Affiliates and Associated Physician Practices is amultiple site organization consisting of ambulatory clinics and hospital sitesin [place], [place], [place] and [place]. This disclosure is being madepursuant to the Care Everywhere program and may not contain all information available regarding this patient. Last updated 18.[facility] [employer] Allergies * Penicillins(Urticaria) -Medium Criticality Medications * Be aware that medications may not be up to date on this document. Alwaysverify current medications with the patient. * omeprazole (PriLOSEC) 40 MG capsule Take 90 mg by mouth daily before breakfast * famotidine (Pepcid) 20 MG tablet Take 1 (one) tablet by mouth * rosuvastatin (Crestor) 40 MG tablet Take 1 (one) tablet by mouth once daily * metoprolol succinate XL 24hr (Toprol XL) 25 MG tablet Take 1 (one) tablet by mouth once daily * ferrous sulfate 325 (65 FE) MG tablet Take 1 (one) tablet by mouth once daily Social History Tobacco Use Types Packs/Day Years [...] 59 kg (130 lb) 08/20/2024 10:43 AM BUSINESS EMPLOYMENT SPECIALIST Height 170.2 cm (5' 7 ) 08/20/2024 10:43 AM BUSINESS EMPLOYMENT SPECIALIST Body Mass Index 20.36 08/20/2024 10:43 AM BUSINESS EMPLOYMENT SPECIALIST
[2024-08-21 14:45] LABS: Basophils Absolute Auto 0.1 K/mm3 (0.0-0.1); Basophils Percent Auto 0.9 % (0.2-1.2); Eosinophils Absolute Auto 0.1 K/mm3 (0-0.3); Eosinophils Percent Auto 1.4 % (0-4.4); Hemoglobin 8.5 g/dL (14.0-18.0); Immature Granulocyte Absolute 0.01 K/mm3 (0.00-0.031); Immature Granulocyte Percent A 0.2 % (0-0.5); Lymphocytes Absolute Auto 1.32 K/mm3 (0.9-3.2); Lymphocytes Percent Auto 20.7 % (18.3-44.2); Mean Corpuscular HGB Conc 29.3 g/dl (32-36); Mean Corpuscular Hemoglobin 26.2 pg (26-34); Mean Corpuscular Volume 89.2 fl (80-100); Mean Platelet Volume 9.7 fl (7.4-10.4); Monocytes Absolute Auto 0.5 K/mm3 (0.1-0.6); Monocytes Percent Auto 7.5 % (2.6-8.5); Neutrophils Absolute Auto 4.4 K/mm3 (1.3-6.7); Neutrophils Percent Auto 69.3 % (45.5-73.1); Platelet Count Result 249 k/mm3 (150-375); Red Blood Count 3.25 M/mm3 (4.6-6.20); Red Cell Distribution Width 20.2 % (11.5-14.5); White Blood Count 6.4 K/mm3 (4.5-10.0)
[2024-08-21 14:49] LABS: Platelet Estimate Adequate (Adequate)
[2024-08-21 14:50] LABS: Schistocytes None Seen
[2024-08-21 14:52] LABS: Anisocytosis 2+; Hypochromasia 1+; Ovalocytes 1+
[2024-08-21 16:06] LABS: Iron 41 ug/dL (49-181)
[2024-08-21 16:08] LABS: Alanine Aminotransferase 14 U/L (6-50); Albumin Level 3.4 g/dL (3.5-5.1); Alkaline Phosphatase 73 U/L (38-126); Anion Gap 8 mmol/L (4-12); Aspartate Amino Transferase 25 U/L (17-59); Bilirubin,Total 0.5 mg/dL (0.2-1.3); Blood Urea Nitrogen 9 mg/dL (9-20); Calcium 9.4 mg/dL (8.4-10.2); Carbon Dioxide 24 mmol/L (22-30); Chloride 106 mmol/L (98-107); Estimated Glomerular Filt Rate 60; Glucose 100 mg/dL (65-110); Potassium 4.2 mmol/L (3.4-5.0); Sodium 138 mmol/L (137-145)
[2024-08-21 16:15] LABS: Percent Iron Saturation 12 % (20-50)
[2024-08-21 17:15] LABS: Folic Acid 3.1 ng/mL (2.76->20)
== END 2024-08-21 14:28 | disposition home or self-care (01) ==
LOC: ANHLAB 14:29
PROVIDERS: PCP Family Medicine; Visit Provider Internal Medicine Hematology & Oncology
DX: D64.9 Anemia, unspecified (principal)
CPT/HCPCS: 36415; 80053; 82607; 82728; 82746; 83540; 83550; 85025

== ENCOUNTER 2024-08-31 07:44 | Outpatient (CLI) | payer MEDICARE, SELFPAY ==
--- OUTSIDE RECORDS SUMMARY | 2024-08-31 07:56 | XMS_ITS | Clinical Summary ---
Author Organization [facility] [place] [facility] Address [address] [place] [address] Care Team Providers Care Humidifier Maintenance Worker Name Role Phone Unavailable Primary Care Provider [...] Encounters Date Type Department Care Team Description 08/28/2024 Orders Only [facility] Oncology and Hematology [facility] [address] [place] [address] Horacio Kovacs MD 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) 08/28/2024 Telephone [facility] Oncology and Hematology [facility] [address] [place] [address] Horacio Kovacs MD [facility] 08/26/2024 External Device Data STL ABSTRACTION Provider, Abstract 08/26/2024 External Device Data STL ABSTRACTION Provider, Abstract 08/25/2024 External Device Data STL ABSTRACTION Provider, Abstract 08/21/2024 2:00 PM RESIDENTIAL ELECTRICIAN Office Visit [facility] Oncology and [facility] [address] [place] [address] Horacio Kovacs MD 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); Chronic anemia 08/20/2024 Abstract [facility] Oncology and Hematology [facility] [address] [place] [address] Horacio Kovacs MD from Last [...] on file Legal Sex Male 2:06 PM RESIDENTIAL ELECTRICIAN Gender Identity Not on file Sexual Orientation Not on file Last Filed Vital Signs Vital Sign Reading Time Taken Comments Blood Pressure 125/61 08/21/2024 1:45 PM RESIDENTIAL ELECTRICIAN Pulse 85 08/21/2024 1:45 PM RESIDENTIAL ELECTRICIAN Temperature 36.6 C (97.9 F) 08/21/2024 1:45 PM RESIDENTIAL ELECTRICIAN Respiratory Rate 18 08/21/2024 1:45 PM RESIDENTIAL ELECTRICIAN Oxygen Saturation 92% 08/21/2024 1:45 PM RESIDENTIAL ELECTRICIAN Inhaled Oxygen Concentration - - Weight 56.7 kg (125 lb) 08/21/2024 1:45 PM RESIDENTIAL ELECTRICIAN Height 170.2 cm (5' 7 ) 08/21/2024 1:45 PM RESIDENTIAL ELECTRICIAN Body Mass Index 19.58 08/21/2024 1:45 PM RESIDENTIAL ELECTRICIAN Plan of Treatment Upcoming Encounters Date Type Department Care Team (Late st Contact Info) Description 09/15/2024 4:30 PM CDT Telephone Check Up [facility] Oncology [facility] [address] [place] [address] Horacio Kovacs MD [address] [facility] [employer] [place] [address] Health Maintenance Due Date Last Done Comments DTAP/TDAP/TD VACCINES (1 - Tdap) 1972 PNEUMOCOCCAL VACCINE 65+ YEARS (1 of 2 - PCV) 10/06/18 73 Traditional Medicare (ACO) Annual Wellness Visit 10/06 COLORECTAL SCREENING 1998 Colorectal Cancer Screening 1998 FIT-DNA Q 3 years 1998 FIT/FOBT Q 1 year 1998 Flex Sig/CT Colonography Q 5 years 1998 Lung Cancer Screening 10/07/2003 ZOSTER VACCINE (1 of 2) 10/07/2003 Abdominal Aortic Aneurysm (AAA) Screening 2018 INFLUENZA VACCINE (#1) 2024 RSV VACCINE (60+ or ) (1 - 1-dose 75+ series) 2028 Procedures Procedure Name Priority Date/Time Associated Diagnosis Comments [facility] NORMAL BLOOD Routine 08/28/2024 10:05 AM RESIDENTIAL ELECTRICIAN 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) from Last 3 Months Results * [facility] XT NORMAL BLOOD (08/28/2024 10:05 AM RESIDENTIAL ELECTRICIAN) [facility] 08/28/2024 11:01 PM RESIDENTIAL ELECTRICIAN [facility] Comment:See NGS Report for R esults. Blood specimen (specimen) 08/28/2024 10:05 AM RESIDENTIAL ELECTRICIAN 08/28/2024 10:06 AM RESIDENTIAL ELECTRICIAN Horacio Kovacs MD MOLECULAR ORDERABLES Final Resu lt [facility] [address], [address] [place] [address], [facility] [address], [address] [place], [place] [id number] from Last 3 Months Insurance MEDICARE PART A AND B [facility]
--- OUTSIDE RECORDS SUMMARY | 2024-08-31 07:56 | XMS_ITS | Referral Summary ---
Author Organization [facility] Address [address] [place] [address] Care Team Providers Care Sewer Line Photo Inspector Name Role Phone Meghna Fine MD Primary Care Provider Yahir Brooke MD Unavailable [phone] Armando Balderas Chi, MD Unavailable [phone] Balta Bennett MD Unavailable Allergies Active Allergy [...] D/c home with outpatient cardiology (Dr. Colon, [facility]). (01/11) Tobacco use 01/10/2020 Assessment & [...] on file Legal Sex Male 3:07 AM WORK ORDER SORTING CLERK Gender Identity Not on file Sexual Orientation Straight 07/12/2021 1: 28 PM WORK ORDER SORTING CLERK Last Filed Vital Signs Vital Sign Reading [...] W WO CONTRAST Routine 08/25/2014 8:40 AM WORK ORDER SORTING CLERK from Last 3 Months or Most Recently Relevant to Health Maintenance Results * CT Angiogram Abdomen Pelvis W WO Contrast (08/25/2014 8:40 AM WORK ORDER SORTING CLERK) Anatomical Region Laterality Modality Body N/A Computed Tomogra phy 08/25/2014 8:40 AM WORK ORDER SORTING CLERK Narrative 08/25/2014 9:26 AM WORK ORDER SORTING CLERK PHU DE OLIVEIRA M.D. FINAL REPORT ACC# Date Time Exam [id number] Aug 25, 2014 08:40:[id number] Chest with contrast [id number] Aug 25, 2014 08:40:00 [id number] CTA Abd&Pelv wwo w recons EXAMINATION: 1. [...] increase in aneurysmal dilatation of the proximal andreafski ascending aorta which now measures 4.9 x [...] OLIVEIRA M.D. on Aug 25 2014 9:26A [id number] Procedure Note Provider, MD Iveth - 11/02/2016 PHU DE OLIVEIRA M.D. FINAL REPORT ACC# Date Time Exam [id number] Aug 25, 2014 08:40:[id number] Chest with contrast [id number] Aug 25, 2014 08:40:00 30127 CTA Abd&Pelv wwo w recons EXAMINATION: 1. [...] increase in aneurysmal dilatation of the proximal andreafski ascending aorta which now measures 4.9 x [...] OLIVEIRA M.D. on Aug 25 2014 9:26A [id number] Historical Provider MD HUFF CT PROCEDURES Final R esult from Last 3 Months or Most Recently Relevant to Health Maintenance Insurance MEDICARE [facility]ICARE [facility] Advance Directives For more information, please contact: [phone] * LIMITED - No CPR (Latest Code Status on File) Date Activated Date Inactivated Comments 03/15/2024 2:50 AM 03/16/2024 5:56 PM * Full Code Date Activated Date Inactivated Comments 01/10/2020 8:49 PM 01/12/2020 11:02 PM Care Teams Sewer Line Photo Inspector Relationship Specialty Start Date End Date Meghna Fine MD [address] [place] [address] PCP - General Family Medicine 10/02/20 Yahir Brooke MD [address] [place] [address] Referring Physician Critical Care Med 03/30/21 Armando Balderas Chi, MD [address] [place] [address] Referring Physician Pulmonary Disease 03/30/21 Balta Bennett MD [address] [facility] [address] [place], [place] [id number] Radiation Oncologist Radiation Oncology 07/18/21
--- OUTSIDE RECORDS SUMMARY | 2024-08-31 07:56 | XMS_ITS | Referral Summary ---
Author Organization [facility] Address [address] [place] [address] Care Team Providers Care Manager Maritime Name Role Phone David Berrios MD Primary Care Provider [phone] Source Comments [facility] and Associated Physician Practices is amultiple site organization consisting of ambulatory clinics and hospital sitesin [place], [place], [place] and [place]. This disclosure is being madepursuant to the Care Everywhere program and may not contain all information available regarding this patient. Last updated 18.[facility] Encounters Date Type Department Care Team Description 08/26/2024 Travel 08/26/2024 12:25 PM LOCOMOTIVE SUPERVISOR - 08/26/2024 1:25 PM LOCOMOTIVE SUPERVISOR Surgery [facility] [address] [place] [address] David Magana MD EGD / EUS + stent 08/26/2024 12:52 PM LOCOMOTIVE SUPERVISOR Anesthesia Event [facility] [address] [place] [address] Chris Santiago MD [place], Steven, 08/26/2024 10:49 AM LOCOMOTIVE SUPERVISOR - 08/26/2024 3:30 PM LOCOMOTIVE SUPERVISOR Hospital Encounter [facility] [address] [place] [address] David Magana MD Surgery General Discharge Disposition: Home or Self Care 08/25/2024 Telephone [facility] [address] [place] [address] Astrid Avelar Follow-up 08/24/2024 Travel 08/24/2024 Telephone [facility] [address] [place] [address] Astrid Avelar Follow-up 08/24/2024 1:30 PM LOCOMOTIVE SUPERVISOR Office Visit [facility] - General Surgery [address] [place] [address] Kamar Cristina MD Gastric mass (Primary Dx) 08/20/2024 Travel 08/18/2024 Telephone [facility] - GI [address] [place] [address] Darrin Recinos RN Appointment (procedure confirmed) 08/14/2024 Telephone [facility] - GI [address] [place] [address] Darrin Recinos RN Procedure (external referral: EGD/EUS for stent placement / neoplasm of stomach from Dr. Jimmy Arrington f: [phone] Nuñez) from Last 3 Months [...] (one) tablet by mouth once daily Active Active Problems Problem Noted Date Diagnosed Date Gastric mass 08/24/2024 Social History Tobacco Use Types Packs/Day Years Used Date Smoking Tobacco: Every Day Cigarettes 0.3 55.1 Started: 1971 Smokeless Tobacco: Never Tobacco Cessation:Ready to Q [...] Sign Reading Time Taken Comments Blood Pressure 128/54 08/26/2024 3:15 PM LOCOMOTIVE SUPERVISOR Pulse 68 08/26/2024 3:15 PM LOCOMOTIVE SUPERVISOR Temperature 36.7 C (98 F) 08/26/2024 2:40 PM LOCOMOTIVE SUPERVISOR Respiratory Rate 15 08/26/2024 3:15 PM LOCOMOTIVE SUPERVISOR Oxygen Saturation 98% 08/26/2024 3:15 PM LOCOMOTIVE SUPERVISOR Inhaled Oxygen Concentration - - Weight 55.3 kg (122 lb) 08/26/2024 11:02 AM LOCOMOTIVE SUPERVISOR Height 170.2 cm (5' 7 ) 08/26/2024 11:02 AM LOCOMOTIVE SUPERVISOR Body Mass Index 19.11 08/26/2024 11:02 AM LOCOMOTIVE SUPERVISOR Functional Status Functional Status Response Date of Assess ment Is person deaf or have serious hearing difficult y? Yes 08/26/2024 Is person blind or have serious difficulty seein g? No 08/26/2024 Does person have serious dif ficulty walking/climbing stairs? No 08/26/2024 Does person have difficulty dressing/bathing? No 08/26/2024 Does person have difficulty doing errands alone? No 08/26/2024 Cognitive Status Response Date of Assessm ent Does person have difficulty concentrating/remembering/making decisions? No 08/26/2024 Plan of Treatment Upcoming Encounters Date Type Department Care Team (Late st Contact Info) Description 12/28/2024 2:15 PM CDT Office Visit [facility] - General Surgery [address] [place] [address] Kamar Cristina MD [address] [facility] [place] [address] Medical Devices Implanted Type Area Drain Tile Press Operator Device Identifier Shelf Expiration Date Model / Serial / Lot Stent Ddnl 22-27mm 10fr 9cm 230cm 270cm - [id number] Implanted:Qty: 1 on 08/26/2024 by David Magana MD at [facility] [employer] [id number] 07/10/2025 [id number] / [id number] Procedures Procedure Name Priority Date/Time Associated Diagnosis Comments ENDOTRACHEAL TUBE NOTE Routine 08/26/2024 1:11 PM LOCOMOTIVE SUPERVISOR ENDOSCOPIC ULTRASONOGRAPHY, GI Routine 08/26/2024 1:02 PM LOCOMOTIVE SUPERVISOR [place] ENDOSCOPIC ULTRASOUND EXAM 08/26/2024 12:47 PM LOCOMOTIVE SUPERVISOR Malignant neoplasm of stomach, unspecified location (HCC) from Last 3 Months Results * ETT LINE PERFORMABLE (08/26/2024 1:11 PM LOCOMOTIVE SUPERVISOR) Narrative Ivonne Henry APRN-CRNA - 08/26/2024 1:11 PM LOCOMOTIVE SUPERVISOR Ivonne Henry APRN-CRNA 08/26/2024 1:11 PM Endotracheal Tube Placement: Patient Location: OR. Intubation Event Date/Time: 08/26/2024 1:00 PM Procedure: intubation (72948) Procedure Section: Induction: rapid sequence Patient Position: sniffing Mask Ventilation: not attempted. Blade Type: Bates Blade Size: 2 Laryngoscopy View: grade 1 (full cords) Intubation Adjuncts: stylet and cricoid pressure Tube: endotracheal tube Placement: oral Tube type: cuff - inflated Tube Size (MM): 7 Depth of Insertion (CM): 21 Measured From: lips Cuff Inflated With: air Number of Attempts: 1. Placement Verified By: direct visualization, bilateral breath sounds, chest auscultation and CO2 monitor Tube secured with: adhesive tape and ETT portillo. Dentition unchanged? Yes Difficult Airway? No. Procedure Start Time: 08/26/2024 1:00 PM. Staff Section Anesthesia Provider: Ivonne Henry APRN-CRNA, Performed the procedure Provider #1: Chris Santiago MD. Chris Santiago MD GENERAL ANESTHESIA ORDERABLES * Endoscopic Ultrasonography, GI (08/26/2024 1:02 PM LOCOMOTIVE SUPERVISOR) Report Endoscopy POC Endoscopy Department Report _ Patient Name: Ki Shaver Procedure Date: 08/26/2024 1:02 PM Date of : 1955 Classification: Outpatient Gender: Male Ethnicity: Unknown Race: Unknown _ Providers: David Keller MD Referring MD: eBto Arrington MD; Horacio Kovacs MD; Kamar Cristina MD Procedure: Upper EUS Indications: Staging of gastric adenocarcinoma, For therapy of gastric outlet obstruction Medications: Monitored Anesthesia Care. See the Anesthesia note for documentation of the administered medications. Patient Profile: 68M w/ COPD, CKD, lung cancer s/p SBRT, and recent dx of gastric cancer w/ suspected metastatic lymphadenopathy in setting of anemia and oral intolerance. EGD 08/2024: Gastric antral mass extending along the lesser curvature of the stomach. Presents referred for EGD, EUS w/ possible FNA/B, and possible enteral stenting. Patient has undergone multidisciplinary evaluation by Oncology and Surgery. Enteral stenting was recommended. I had extensive discussion w/ patient and family regarding stent rationale, benefits, and risks; including persistent oral intolerance if underlying malignant gastroparesis, and stent malfunction due to migration or malignant invasion. Additionally I discussed stent alternatives, including nasojejunal / percutaneous feeding tube placement and gastrojejunostomy. Notably, patient is a poor candidate for endoscopic or surgical gastrojejunostomy due to extensive malignant involvement of the stomach. Plan to proceed with enteral stenting. Description of Procedure: After obtaining informed consent, the endoscope was passed under direct vision. Throughout the procedure, the patient's blood pressure, pulse, and oxygen saturations were monitored continuously. A [id number] was introduced through the mouth, and advanced to the duodenal bulb. A radial array echoendoscope was introduced through the mouth, and advanced to the antrum of the stomach. The upper EUS was accomplished without difficulty. The patient tolerated the procedure well. Findings: ENDOSCOPIC FINDING: : The esophagus was normal appearing. The esophagogastric landmarks were identified. A very large infiltrative superficially ulcerated mass with small self-limited contact bleeding was found extending along the gastric body, with circumferential involvment and associated obstruction of the gastric antrum and pylorus. There was abundant solid food residue in the stomach which could not be cleared. Limited examination of the duodenal bulb was unremarkable. - After endosonographic examination as noted below, the decision was made to proceed with enteral stent placement across the strictured segment. A long 0.035 inch Visiglide guidewire was advanced through the strictured segment under direct endoscopic and fluoroscopic guidance. The guidewire tip was coiled in the distal duodenum. A biliary extraction balloon cannula was advanced over the guidewire. Contrast was injected confirming luminal placement of the guidewire. The balloon was used to measure the strictured segment. The deflated balloon was removed. A 22 mm x 9 cm uncovered metal enteral stent (WallFlex, [employer]) was placed over the guidewire under direct endoscopic and fluoroscopic guidance. The stent appeared in adequate position, extending from the gastric body to the duodenal sweep. Contrast injection proximal to the stent revealed adequate luminal passage distal to the stent without contrast extravasation. There was no evidence of bleeding or perforation at the end of the procedure. This was stented with a 22 mm x 9 cm WallFlex stent under fluoroscopic guidance. ENDOSONOGRAPHIC FINDING: : The stomach and adjacent structures were examined endosonographically. A hypoechoic mass with poorly-defined margins was identified endosonographically along the gastric body and antrum. There was sonographic evidence suggesting invasion through the gastric wall and serosa with possible involvement of the adjacent left liver lobe. The exam was otherwise limited due to presence of abundant solid food residue in the stomach with associated endosonographic artifact. At least four sub-centimeter malignant appearing lymph nodes were visualized in the leon-gastric region, immediately adjacent to the mass. These were characterized by a round shape with hypoechoic endosonographic appearance and well defined margins. A trace amount of fluid, visualized as an anechoic feature, was found in the peritoneal cavity. Estimated Blood Loss: Estimated blood loss was minimal. Complications: No immediate complications. Impression: - Very large mass extending along the gastric body and antrum with superficial ulceration, associated small self-limited contact bleeding, and distal gastric outlet obstruction; compatible with known adenocarcinoma with endosonographic staging consistent with at least T3/4 N2 Mx disease. Note possible left liver lobe invasion and trace ascites. Exam limited by presence of abundant retained food contents in stomach. - Successful placement of a 22 mm x 9 cm transpyloric uncovered metal enteral stent (WallFlex, [employer]) under endoscopic and fluoroscopic guidance. Moderate Sedation: GA (elective intubation). Recommendation: - Monitor for fevers, bleeding, pain. - Start clear liquid diet this evening, then advanced to soft diet as tolerated tomorrow. - Have small meals, can increase frequency if needed to maintain caloric intake. - Chew all food thoroughly. Consumed food should be soft, moist and easily swallowed. Eat slowly and take small bites. - Remain in an upright position at least 60 minutes after meals. - Maintain the head of bed elevated at all times given risk of aspiration. - Hold any anticoagulant medications ( blood thinners ) for 2 days. Resume rest of home medications today. - Take acid reducing therapy with proton pump inhibitor-type medications (ex. Omeprazole, Esomeprazole, Pantoprazole, Lansoprazole) twice a day. - Avoid NSAID type medications (ex. Ibuprofen, Naproxen, Diclofenac, Celecoxib, Meloxicam, etc). - Follow-up with the referring providers from Surgery and Oncology. - The potential complications and concerning symptoms/findings, including but not limited to early or delayed fevers, infection, pain, bleeding, perforation, and stent migration/obstruction were discussed with the patient/caregiver. Emergency contact information was provided. Attending Participation: I personally performed the entire procedure. Procedure Code(s): --- Professional --- 80120, Esophagogastroduodenos copy, flexible, transoral; with placement of endoscopic stent (includes pre- and post-dilation and guide wire passage, when performed) 13198, Esophagogastroduodenos copy, flexible, transoral; with endoscopic ultrasound examination limited to the esophagus, stomach or duodenum, and adjacent structures 09908, Intraluminal dilation of strictures and/or obstructions (eg, esophagus), radiological supervision and interpretation Diagnosis Code(s): --- Professional --- C16.2, Malignant neoplasm of body of stomach C16.3, Malignant neoplasm of pyloric antrum K31.89, Other diseases of stomach and duodenum K31.1, Adult hypertrophic pyloric stenosis CPT copyright 2021 [employer]. All rights reserved. The codes documented in this report are preliminary and upon registered public surveyor review may be revised to meet current compliance requirements. David Keller MD 08/26/2024 2:16:30 PM Note Initiated On: 08/26/2024 1:02 PM Number of Addenda: [address] [id number] [facility] 08/26/2024 1:02 PM LOCOMOTIVE SUPERVISOR David Keller MD GI PROCEDURE ORDERABLES [facility] from Last 3 Months Advance Directives Documents on File Type Date Recorded Patient Leather Drier Expl anation Adv Directive/Living Will/POA 08/26/2024 Care Teams Manager Maritime Relationship Specialty Start Date End Date David Berrios MD [address] [place] [address] PCP - General Family Medicine 08/24/24
--- OUTSIDE RECORDS SUMMARY | 2024-08-31 07:56 | XMS_ITS | Clinical Summary ---
Author Organization [facility] Address [address] [place] [address] Care Team Providers Care Chemical Weigher Name Role Phone Meghna Fine MD Primary Care Provider Yahir Brooke MD Unavailable [phone] Armando Balderas Chi, MD Unavailable [phone] Balta Bennett MD Unavailable [phone] Allergies Active Allergy Reactions Criticality Noted Date [...] D/c home with outpatient cardiology (Dr. Colon, [facility]). (01/11) Tobacco use 01/10/2020 Assessment & Plan [...] on file Legal Sex Male 3:07 AM PULP BEATER Gender Identity Not on file Sexual Orientation Straight 07/12/2021 1: 28 PM PULP BEATER Obstetrics History Last Filed Vital Signs Vital [...] - Tdap) 1964 Hepatitis B Screening 10/07/1971 Pneumococcal vaccine 65+ (1 of 1 - PCV) 10/07/2003 Zoster Vaccine (1 of 2) 10/07/2003 Abdominal Aortic Aneurysm (A AA) Screen 2018 08/25/2014, 02/10/2014, 06/24/2013 Well Visit 65+ 2018 Covid-19 Vaccine ( season) 2024 07/06/2021, 01/07/2021, 12/09/2020 Influenza Vaccine (#1) 2024 Fall Risk Assessment 03/16/2025 03/16/2024, 07/18/19 22 Procedures Procedure Name Priority Date/Time Associated Diagnosis Comments CTA ABDOMEN PELVIS W WO CONTRAST Routine 08/25/2014 8:40 AM PULP BEATER from Last 3 Months or Most Recently Relevant to Health Maintenance Results * CT Angiogram Abdomen Pelvis W WO Contrast (08/25/2014 8:40 AM PULP BEATER) Anatomical Region Laterality Modality Body N/A Computed Tomogra phy 08/25/2014 8:40 AM PULP BEATER Narrative 08/25/2014 9:26 AM PULP BEATER PHU DE OLIVEIRA M.D. FINAL REPORT ACC# Date Time Exam [id number] Aug 25, 2014 08:40:[address] Chest with contrast [id number] Aug 25, 2014 08:40:00 20592 CTA Abd&Pelv wwo w recons EXAMINATION: 1. [...] increase in aneurysmal dilatation of the proximal [place] ascending aorta which now measures 4.9 x [...] OLIVEIRA M.D. on Aug 25 2014 9:26A [id number] Procedure Note Provider, MD Iveth - 11/02/2016 PHU DE OLIVEIRA M.D. FINAL REPORT ACC# Date Time Exam [id number] Aug 25, 2014 08:40:[address] Chest with contrast [id number] Aug 25, 2014 08:40:00 56615 CTA Abd&Pelv wwo w recons EXAMINATION: 1. [...] increase in aneurysmal dilatation of the proximal [place] ascending aorta which now measures 4.9 x [...] OLIVEIRA M.D. on Aug 25 2014 9:26A [id number] us Historical Provider MD HUFF CT PROCEDURES Final R esult from Last 3 Months or Most Recently Relevant to Health Maintenance Insurance MEDICARE [employer] [place] MEDICARE COUNTS INCLUDE 234 BEDS AT THE [facility] MEDICARE COUNTS INCLUDE 234 BEDS AT THE [facility] Advance Directives For more information, please contact: [phone] * LIMITED - No CPR (Latest Code Status on File) Date Activated Date Inactivated Comments 03/15/2024 2:50 AM 03/16/2024 5:56 PM * Full Code Date Activated Date Inactivated Comments 01/10/2020 8:49 PM 01/12/2020 11:02 PM Care Teams Chemical Weigher Relationship Specialty Start Date End Date Meghna Fine MD [address] [address] PCP - General Family Medicine 10/02/20 Yahir Brooke MD [address] [place] [address] Referring Physician Critical Care Med 03/30/21 Armando Balderas Chi, MD [address] [place] [address] Referring Physician Pulmonary Disease 03/30/21 Balta Benntet MD [address] [facility] [address] [place] [address] Radiation Oncologist Radiation Oncology 07/18/21
--- OUTSIDE RECORDS SUMMARY | 2024-08-31 07:56 | XMS_ITS | Patient Health Summary ---
Author Organization [facility] Address [address] [facility] [place] [address] Care Team Providers Care Double Bottom Driver Name Role Phone David Berrios MD Primary Care Provider [phone] Note from [facility],non-owned Affiliates and Associated Physician Practices is amultiple site organization consisting of ambulatory clinics and hospital sitesin [place], [place], [place] and [place]. This disclosure is being madepursuant to the Care Everywhere program and may not contain all information available regarding this patient. Last updated 18.[facility] Allergies * Penicillins(Urticaria) -Medium Criticality Medications * [...] (one) tablet by mouth once daily Active Problems Problem Noted Date Diagnosed Date [...] Comments Blood Pressure 128/54 08/26/2024 3:15 PM DOUBLE BOTTOM DRIVER Pulse 68 08/26/2024 3:15 PM DOUBLE BOTTOM DRIVER Temperature 36.7 C (98 F) 08/26/2024 2:40 PM DOUBLE BOTTOM DRIVER Respiratory Rate 15 08/26/2024 3:15 PM DOUBLE BOTTOM DRIVER Oxygen Saturation 98% 08/26/2024 3:15 PM DOUBLE BOTTOM DRIVER Inhaled Oxygen Concentration - - Weight 55.3 kg (122 lb) 08/26/2024 11:02 AM DOUBLE BOTTOM DRIVER Height 170.2 cm (5' 7 ) 08/26/2024 11:02 AM DOUBLE BOTTOM DRIVER Body Mass Index 19.11 08/26/2024 11:02 AM DOUBLE BOTTOM DRIVER Medical Devices Implanted Type Area Health Safety Coordinator Device Identifier Shelf Expiration Date Model / Serial / Lot Stent Ddnl 22-27mm 10fr 9cm 230cm 270cm - [id number] Implanted:Qty: 1 on 08/26/2024 by David Magana MD at [facility] [employer] [id number] 07/10/2025 [id number] / [id number] Procedures * ENDOTRACHEAL TUBE NOTE(Performed 08/26/2024) * ENDOSCOPIC ULTRASONOGRAPHY, GI(Performed 08/26/2024) * [place] ENDOSCOPIC ULTRASOUND EXAM(Performed 08/26/2024) Performed for Malignant neoplasm of stomach, unspecified location (HCC) Results * ETT LINE PERFORMABLE (08/26/2024 1:11 PM DOUBLE BOTTOM DRIVER) Narrative Ivonne Henry APRN-CRNA - 08/26/2024 1:11 PM DOUBLE BOTTOM DRIVER Ivonne Henry APRN-CRNA 08/26/2024 1:11 PM Endotracheal Tube Placement: Patient Location: OR. Intubation Event Date/Time: 08/26/2024 1:00 PM Procedure: intubation ([id number]) Procedure Section: Induction: rapid sequence Patient Position: [...] PM. Staff Section Anesthesia Provider: Ivonne Henry APRN-ZANE, Performed the procedure Provider #1: Chris Santiago MD. Chris Santiago MD GENERAL ANESTHESIA ORDERABLES * Endoscopic Ultrasonography, GI (08/26/2024 1:02 PM DOUBLE BOTTOM DRIVER) Report Endoscopy POC Endoscopy Department Report _ Patient Name: Ki Shaver Procedure Date: 08/26/2024 1:02 PM Date of : 1955 Classification: Outpatient Gender: Male Ethnicity: Unknown Race: Unknown _ Providers: David Keller MD Referring MD: Beto Arrington MD; Horacio Kovacs MD; Kamar Cristina [...] and oxygen saturations were monitored continuously. A [id number] was introduced through the mouth, and advanced [...] 9 cm uncovered metal enteral stent (WallFlex, [employer]) was placed over the guidewire under [...] appearing lymph nodes were visualized in the demetrius-gastric region, immediately adjacent to the mass. These [...] cm transpyloric uncovered metal enteral stent (WallFlex, [employer]) under endoscopic and fluoroscopic guidance. Moderate [...] entire procedure. Procedure Code(s): --- Professional --- 39720, Esophagogastroduodenos copy, flexible, transoral; with placement of endoscopic stent (includes pre- and post-dilation and guide wire passage, when performed) 71537, Esophagogastroduodenos copy, flexible, transoral; with endoscopic ultrasound examination limited to the esophagus, stomach or duodenum, and adjacent structures 64003, Intraluminal dilation of strictures and/or obstructions (eg, esophagus), radiological supervision and interpretation Diagnosis Code(s): --- Professional --- C16.2, Malignant neoplasm of body of stomach C16.3, Malignant neoplasm of pyloric antrum K31.89, Other diseases of stomach and duodenum 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 All rights reserved. The codes documented in this report are preliminary and upon alignment technician review may be revised to meet current compliance requirements. David Keller MD 08/26/2024 2:16:30 PM Note Initiated On: 08/26/2024 1:02 PM Number of Addenda: [address] [address] [facility] 08/26/2024 1:02 PM DOUBLE BOTTOM DRIVER David Keller MD GI PROCEDURE ORDERABLES [facility] Care Teams Double Bottom Driver Relationship Specialty Start Date End Date David Berrios MD [address] [place] [address] PCP - General Family Medicine 08/24/24
--- OUTSIDE RECORDS SUMMARY | 2024-08-31 07:56 | XMS_ITS | Clinical Summary ---
Author Organization [facility] [employer] Address [address] [facility] [place] [address] Care Team Providers Care Residential Pest Control Technician Name Role Phone David Berrios MD Primary Care Provider [phone] Source Comments [facility] and Associated Physician Practices is amultiple site organization consisting of ambulatory clinics and hospital sitesin [place], [place], [place] and [place]. This disclosure is being madepursuant to the Care Everywhere program and may not contain all information available regarding this patient. Last updated 18.[facility] [employer] Allergies Active Allergy Reactions Criticality Noted Date [...] Noted Date Diagnosed Date Gastric mass 08/24/2024 Encounters Date Type Department Care Team Description 08/26/2024 12:52 PM TEACHING ARTIST Anesthesia Event [facility] [address] [place] [address] Chris Santiago MD Blackshear, Steven, DO 08/26/2024 12:25 PM TEACHING ARTIST - 08/26/2024 1:25 PM TEACHING ARTIST Surgery [facility] [address] [place] [address] David Magana MD EGD / EUS + stent 08/26/2024 10:49 AM TEACHING ARTIST - 08/26/2024 3:30 PM TEACHING ARTIST Hospital Encounter [facility] [address] [place] [address] David Magana MD Surgery General Discharge Disposition: Home or Self Care 08/26/2024 Travel 08/25/2024 Telephone [facility] [address] [place] [address] Astrid Avelar Follow-up 08/24/2024 1:30 PM TEACHING ARTIST Office Visit [facility] - General Surgery [address] [place] [address] Kamar Cristina MD Gastric mass (Primary Dx) 08/24/2024 Travel 08/24/2024 Telephone [facility] [address] [place] [address] Astrid Avelar Follow-up 08/20/2024 Travel 08/18/2024 Telephone [facility] - GI [address] [place] [phone] Darrin Recinos RN Appointment (procedure confirmed) 08/14/2024 Telephone [facility] - GI [address] [place] [phone] Darrin Recinos, flight hostess (external referral: EGD/EUS for stent placement / neoplasm of stomach from Dr. Jimmy Arrington f: [phone] Nuñez) from Last 3 Months [...] Comments Blood Pressure 128/54 08/26/2024 3:15 PM TEACHING ARTIST Pulse 68 08/26/2024 3:15 PM TEACHING ARTIST Temperature 36.7 C (98 F) 08/26/2024 2:40 PM TEACHING ARTIST Respiratory Rate 15 08/26/2024 3:15 PM TEACHING ARTIST Oxygen Saturation 98% 08/26/2024 3:15 PM TEACHING ARTIST Inhaled Oxygen Concentration - - Weight 55.3 kg (122 lb) 08/26/2024 11:02 AM TEACHING ARTIST Height 170.2 cm (5' 7 ) 08/26/2024 11:02 AM TEACHING ARTIST Body Mass Index 19.11 08/26/2024 11:02 AM TEACHING ARTIST Plan of Treatment Upcoming Encounters Date Type Department Care Team (Late st Contact Info) Description 12/28/2024 2:15 PM CDT Office Visit [facility] - General Surgery [address] [place] [address] Kamar Cristina MD [address] [facility] [address] [place] [address] Health Maintenance Due Date Last Done Comments [...] 2) 10/07/2003 AAA SCREENING 2018 COVID-19 VACCINE ( - 2023-2 5 season) 2024 INFLUENZA VACCINE [...] on patient's age to complete this topic Medical Devices Implanted Type Area Alliances Consultant Device Identifier Shelf Expiration Date Model / Serial / Lot Stent Ddnl 22-27mm 10fr 9cm 230cm 270cm - [id number] Implanted:Qty: 1 on 08/26/2024 by David Magana MD at [facility] [employer] [id number] 07/10/2025 [id number] / [id number] Procedures Procedure Name Priority Date/Time Associated Diagnosis Comments ENDOTRACHEAL TUBE NOTE Routine 08/26/2024 1:11 PM TEACHING ARTIST ENDOSCOPIC ULTRASONOGRAPHY, GI Routine 08/26/2024 1:02 PM TEACHING ARTIST MA ENDOSCOPIC ULTRASOUND EXAM 08/26/2024 12:47 PM TEACHING ARTIST Malignant neoplasm of stomach, unspecified location (HCC) from Last 3 Months Results * ETT LINE PERFORMABLE (08/26/2024 1:11 PM TEACHING ARTIST) Narrative Ivonne Henry APRN-CRNA - 08/26/2024 1:11 PM TEACHING ARTIST Ivonne Henry APRN-CRNA 08/26/2024 1:11 PM Endotracheal Tube Placement: Patient Location: OR. Intubation Event Date/Time: 08/26/2024 1:00 PM Procedure: intubation ([id number]) Procedure Section: Induction: rapid sequence Patient Position: [...] * Endoscopic Ultrasonography, GI (08/26/2024 1:02 PM TEACHING ARTIST) Report Endoscopy POC Endoscopy Department Report _ [...] and oxygen saturations were monitored continuously. A [id number] was introduced through the mouth, and advanced [...] 9 cm uncovered metal enteral stent (WallFlex, [employer]) was placed over the guidewire under [...] cm transpyloric uncovered metal enteral stent (WallFlex, [employer]) under endoscopic and fluoroscopic guidance. Moderate Sedation: [...] entire procedure. Procedure Code(s): --- Professional --- 72809, Esophagogastroduodenos copy, flexible, transoral; with placement of endoscopic stent (includes pre- and post-dilation and guide wire passage, when performed) 00963, Esophagogastroduodenos copy, flexible, transoral; with endoscopic ultrasound examination limited to the esophagus, stomach or duodenum, and adjacent structures 31725, Intraluminal dilation of strictures and/or obstructions (eg, esophagus), radiological supervision and interpretation Diagnosis Code(s): --- Professional --- C16.2, Malignant neoplasm of body of stomach C16.3, Malignant neoplasm of pyloric antrum K31.89, Other diseases of stomach and duodenum 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 All rights reserved. The codes documented in this report are preliminary and upon security services manager review may be revised to meet current compliance requirements. David Keller MD 08/26/2024 2:16:30 PM Note Initiated On: 08/26/2024 1:02 PM Number of Addenda: [address] [address] [facility] 08/26/2024 1:02 PM TEACHING ARTIST David Keller MD GI PROCEDURE ORDERABLES [facility] from Last 3 Months Advance Directives Documents on File Type Date Recorded Patient Alliance Consultant Expl anation Adv Directive/Living Will/POA 08/26/2024 Care Teams Residential Pest Control Technician Relationship Specialty Start Date End Date David Berrios MD [address] [place] [address] PCP - General Family Medicine 08/24/24
--- OUTSIDE RECORDS SUMMARY | 2024-08-31 07:56 | XMS_ITS | Encounter Summary ---
Author Organization [facility] Address [address] [place] [address] Phone Care Team Providers Care Blind Hooker Name Role Phone Meghna Fine MD Primary Care Provider Yahir Brooke MD Unavailable [phone] Armando Balderas Chi, MD Unavailable [phone] Balta Bennett MD Unavailable Encounter Details Date [...] on file Legal Sex Male 3:07 AM PRESIDENT AND CHIEF OPERATING OFFICER Gender Identity Not on file Sexual Orientation Straight 07/12/2021 1: 28 PM PRESIDENT AND CHIEF OPERATING OFFICER documented as of this encounter Plan of Treatment Not on file documented as of this encounter Procedures Procedure Name Priority Date/Time Associated Diagnosis Comments SCAN - RADIOLOGY/IMAGING 02/27/2021 documented in this encounter Results * SCAN - RADIOLOGY/IMAGING (02/27/2021) Anatomical Region Laterality Modality Other us Provider Scanning Final Result documented in this encounter Visit Diagnoses Not on filedocumented in this encounter Care Teams Blind Hooker Relationship Specialty Start Date End Date Rostovtseva, Meghna Y., MD [address] [place] [address] PCP - General Family Medicine 10/02/20 Yahir Brooke MD [address] [place] [address] Referring Physician Critical Care Med 03/30/21 Armando Balderas Chi, MD [address] [place] [address] Referring Physician Pulmonary Disease 03/30/21 Balta Bennett MD [address] [facility] [address] [place] [address] Radiation Oncologist Radiation Oncology 07/18/21 documented as of this encounter
--- OUTSIDE RECORDS SUMMARY | 2024-08-31 07:56 | XMS_ITS ---
Author Organization [facility] Address [address] [place] [address] Care Team Providers Care Heavy Repairer Name Role Phone Meghna Fine MD Primary Care Provider Yahir Brooke MD Unavailable [phone] Armando Balderas Chi, MD Unavailable [phone] Balta Bennett MD Unavailable Active Problems Patient [...] effect on mortality in TAA. (01/11) Current Treatment and Therapy Plans No current plan information found. Past Treatment and Therapy Plans No past plan information found. Radiation Treatments * Course C1_RLL_202108/08/2021 - 08/16/2021 Treatment Period Energy Fraction Dose Fractions Total Dose Plans Planned RLL_SBRT 08/08/2021 - 08/16/2021 1,800 3 / 5,400 Reference Points Delivered [id number]_5400 08/08/2021 - 08/16/2021 5,400 Lifetime Dose Tracking * Chemical Lifetime Dose Automatic Entry Manual Entr y DLP 1,136 mGycm 1,136 mGycm 0 mGycm Treatment Summaries Malignant neoplasm of lower lobe of right lung (HCC)* Images from the original note were not included. [address] [address] This Survivorship Care Plan is a cancer [...] Information: Primary Care Physician Meghna Fine MD [phone] Surgeon No care outreach team member to display Radiation Oncologist Balta Bennett MD [phone] Medical Oncologist No care outreach team member to display Other Providers Treatment [...] 3-5, then yearly. All providers Monitor for exterminator cardiac toxicity. Meghna Fine Monitor for exterminator toxicity Cardiac - congestive heart failure (CHF), [...] Help learning to eat healthier, call the harness maker at: [facility] for [facility] . Have an active lifestyle, strive [...] Resources you may be interested in: [facility] [place] [facility] http://www.[facility]/ [facility] Information [facility] 1st floor of [facility] [phone]. Computer access, educational material, counseling services (FREE) Cancer Resources: www.cancer.net [place] Disabilities Act: The U.S. Department of Justice provides information about the Americans with Disabilities Act (ADA). Toll free number http://www.ada.gov/ Occupational Therapy at [facility]. Improve memory and thinking following chemotherapy. Improve your performance at home, work and in the community. or Toll free www..[facility]/patients A service of [employer], a non-profit organization providing free, professional support - includingcounseling, support group, financial assistance, educational workshops and publications -to anyone coping with lung cancer. http://www.lungcancer.org/ We are a partnership of lung cancer survivors, advocates, researchers, healthcare professionals and[place] leaders. And we are united in the belief that every person with lung cancer deserves a cure. http://www.freetobreathe.org/ Lung Cancer Connection is committed to organizing and funding community outreach programs aimed at those affected by lung cancer in the [place] area. http://www.lungcancerconnectioninc.org Cancer and Careers empowers and educates people with cancer to thrive in their workplace by providing expert advice, interactive tools and educational events. http://www.cancerandcareers.org/en/krwgear-inq-vvmh Springboard Beyond Cancer: https://survivorship.cancer.gov/ an online tool for cancer survivors andcaregivers created by the [place] Cancer Society and the National Cancer [place]. It provides: Information on dealing with side effects from cancer and treatment Caregivers with support and resources Practical advice about talking to friends and family about cancer Questions to ask their health care team
[2024-08-31 09:10] LABS: Prothrombin Time 13.8 Seconds (11.1-14.7)
[2024-08-31 09:11] LABS: Partial Thromboplastin Time 30.2 Seconds (22.3-36.8)
== END 2024-08-31 07:45 | disposition home or self-care (01) ==
LOC: ANHSURGERY 07:50
PROVIDERS: PCP Family Medicine; Visit Provider Surgery
DX: C16.9 Malignant neoplasm of stomach, unspecified (principal)
CPT/HCPCS: 36415; 85610; 85730

== ENCOUNTER 2024-08-31 10:02 | Outpatient (CLI) | payer MEDICARE, SELFPAY ==
[2024-08-31 10:24] LABS: Basophils Absolute Auto 0.1 K/mm3 (0.0-0.1); Basophils Percent Auto 0.9 % (0.2-1.2); Eosinophils Absolute Auto 0.2 K/mm3 (0-0.3); Eosinophils Percent Auto 2.7 % (0-4.4); Hematocrit 35.4 % (42.0-52.0); Hemoglobin 10.6 g/dL (14.0-18.0); Immature Granulocyte Absolute 0.02 K/mm3 (0.00-0.031); Immature Granulocyte Percent A 0.3 % (0-0.5); Lymphocytes Absolute Auto 1.41 K/mm3 (0.9-3.2); Lymphocytes Percent Auto 21.4 % (18.3-44.2); Mean Corpuscular HGB Conc 29.9 g/dl (32-36); Mean Corpuscular Hemoglobin 26.9 pg (26-34); Mean Corpuscular Volume 89.8 fl (80-100); Mean Platelet Volume 9.1 fl (7.4-10.4); Monocytes Absolute Auto 0.4 K/mm3 (0.1-0.6); Monocytes Percent Auto 6.7 % (2.6-8.5); Neutrophils Absolute Auto 4.5 K/mm3 (1.3-6.7); Platelet Count Result 279 k/mm3 (150-375); Red Blood Count 3.94 M/mm3 (4.6-6.20); White Blood Count 6.6 K/mm3 (4.5-10.0)
[2024-08-31 10:30] LABS: Platelet Estimate Adequate (Adequate); Schistocytes None Seen
[2024-08-31 10:32] LABS: Anisocytosis 2+
[2024-08-31 10:33] LABS: Hypochromasia 1+; Ovalocytes 1+
[2024-08-31 11:00] LABS: Alanine Aminotransferase 12 U/L (6-50); Albumin Level 3.7 g/dL (3.5-5.1); Alkaline Phosphatase 81 U/L (38-126); Anion Gap 9 mmol/L (4-12); Aspartate Amino Transferase 18 U/L (17-59); Bilirubin,Total 0.5 mg/dL (0.2-1.3); Blood Urea Nitrogen 7 mg/dL (9-20); Calcium 9.6 mg/dL (8.4-10.2); Carbon Dioxide 23 mmol/L (22-30); Chloride 107 mmol/L (98-107); Estimated Glomerular Filt Rate 56; Glucose 101 mg/dL (65-110); Potassium 3.8 mmol/L (3.4-5.0); Sodium 139 mmol/L (137-145)
[2024-08-31 11:14] LABS: Iron 38 ug/dL (49-181)
--- OUTSIDE RECORDS SUMMARY | 2024-08-31 11:14 | XMS_ITS | Referral Summary ---
Author Organization [facility] Address [address] [place] [address] Care Team Providers Care Tool Dresser Name Role Phone Meghna Fine MD Primary Care Provider Yahir Brooke MD Unavailable [phone] Armando Balderas Chi, MD Unavailable [phone] Balta Bennett MD Unavailable Allergies Active Allergy [...] with outpatient cardiology (Dr. Colon, [facility]). (01/11) Tobacco use 01/10/2020 Assessment & Plan [...] on file Legal Sex Male 3:07 AM SMELLER Gender Identity Not on file Sexual Orientation Straight 07/12/2021 1: 28 PM SMELLER Last Filed Vital Signs Vital Sign Reading [...] W WO CONTRAST Routine 08/25/2014 8:40 AM SMELLER from Last 3 Months or Most Recently Relevant to Health Maintenance Results * CT Angiogram Abdomen Pelvis W WO Contrast (08/25/2014 8:40 AM SMELLER) Anatomical Region Laterality Modality Body N/A Computed Tomogra phy 08/25/2014 8:40 AM SMELLER Narrative 08/25/2014 9:26 AM SMELLER PHU DE OLIVEIRA M.D. FINAL REPORT ACC# Date Time Exam [id number] Aug 25, 2014 08:40:[address] Chest with contrast [id number] Aug 25, 2014 08:40:00 02675 CTA Abd&Pelv wwo w recons EXAMINATION: 1. 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 on Aug 25 2014 9:26A [id number] Procedure Note Provider, MD Iveth - 11/02/2016 PHU DE OLIVEIRA M.D. FINAL REPORT ACC# Date Time Exam [id number] Aug 25, 2014 08:40:[id number] Chest with contrast [id number] Aug 25, 2014 08:40:00 22735 CTA Abd&Pelv wwo w recons EXAMINATION: 1. 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 on Aug 25 2014 9:26A [id number] Historical Provider MD HUFF CT PROCEDURES Final R esult from Last 3 Months or Most Recently Relevant to Health Maintenance Insurance MEDICARE [facility] MEDICARE [facility] MEDICARE [facility] Advance Directives For more information, please contact: [phone] * LIMITED - No CPR (Latest Code Status on File) Date Activated Date Inactivated Comments 03/15/2024 2:50 AM 03/16/2024 5:56 PM * Full Code Date Activated Date Inactivated Comments 01/10/2020 8:49 PM 01/12/2020 11:02 PM Care Teams Tool Dresser Relationship Specialty Start Date End Date Meghna Fine MD [address] [place] [address] PCP - General Family Medicine 10/02/20 Yahir Brooke MD [address] [place] [address] Referring Physician Critical Care Med 03/30/21 Armando Balderas Chi, MD [address] [place] [address] Referring Physician Pulmonary Disease 03/30/21 Balta Bennett MD [address] [facility] [address] [place], [place] [id number] Radiation Oncologist Radiation Oncology 07/18/21
--- OUTSIDE RECORDS SUMMARY | 2024-08-31 11:15 | XMS_ITS | Clinical Summary ---
Author Organization [facility] [facility] Address [address] [address] Care Team Providers Care Rf Test Engineer Name Role Phone Unavailable Primary Care Provider [...] Department Care Team Description 08/28/[address] [facility] Oncology and Hematology [facility] [address] [place] [address] Horacio Kovacs MD 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) 08/28/[address] [facility] Oncology and Hematology [facility] [address] [place] [address] Horacio Kovacs MD [facility] 08/26/2024 External Device Data STL ABSTRACTION Provider, Abstract 08/26/2024 External Device Data STL ABSTRACTION Provider, Abstract 08/25/2024 External Device Data STL ABSTRACTION Provider, Abstract 08/21/2024 2:00 PM CMM PROGRAMMER Office Visit 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 Oncology and Hematology [facility] [address] [place] [address] Horacio Kovacs MD from Last [...] on file Legal Sex Male 2:06 PM CMM PROGRAMMER Gender Identity Not on file Sexual Orientation Not on file Last Filed Vital Signs Vital Sign Reading Time Taken Comments Blood Pressure 125/61 08/21/2024 1:45 PM CMM PROGRAMMER Pulse 85 08/21/2024 1:45 PM CMM PROGRAMMER Temperature 36.6 C (97.9 F) 08/21/2024 1:45 PM CMM PROGRAMMER Respiratory Rate 18 08/21/2024 1:45 PM CMM PROGRAMMER Oxygen Saturation 92% 08/21/2024 1:45 PM CMM PROGRAMMER Inhaled Oxygen Concentration - - Weight 56.7 kg (125 lb) 08/21/2024 1:45 PM CMM PROGRAMMER Height 170.2 cm (5' 7 ) 08/21/2024 1:45 PM CMM PROGRAMMER Body Mass Index 19.58 08/21/2024 1:45 PM CMM PROGRAMMER Plan of Treatment Upcoming Encounters Date Type Department Care Team (Late st Contact Info) Description 09/15/2024 4:30 PM CDT Telephone Check Up [facility] Oncology [facility] [address] [place] [address] Horacio Kovacs MD [address] [facility] [address] [place] [address] Health Maintenance Due Date Last [...] XT NORMAL BLOOD Routine 08/28/2024 10:05 AM CMM PROGRAMMER 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) from Last 3 Months Results * [facility] NORMAL [facility]LO[facility] (08/28/2024 10:05 AM CMM PROGRAMMER) [facility] 08/28/2024 11:01 PM CMM PROGRAMMER [facility] Comment:See NGS Report for R esults. Blood specimen (specimen) 08/28/2024 10:05 AM CMM PROGRAMMER 08/28/2024 10:06 AM CMM PROGRAMMER Horacio Kovacs MD MOLECULAR ORDERABLES Final Resu lt [facility] [address], [address] [place] [address], [facility] [address], [address] [place], [place] [id number] from Last 3 Months Insurance MEDICARE PART A AND B [facility]
--- OUTSIDE RECORDS SUMMARY | 2024-08-31 11:15 | XMS_ITS ---
Author Organization [facility] Address [address] [place] [address] Care Team Providers Care Home Builder Name Role Phone Meghna Fine MD Primary Care Provider Yahir Brooke MD Unavailable [phone] Armando Balderas Chi, MD Unavailable [phone] Balta Bennett MD Unavailable Active Problems Patient [...] D/c home with outpatient cardiology (Dr. Colon, [facility]). (01/11) Tobacco use 01/10/2020 Assessment & Plan [...] from the original note were not included. [address] [address] This Survivorship Care Plan is a cancer [...] Information: Primary Care Physician Meghna Fine MD [phone] Surgeon No care executive officer special warfare team to display Radiation Oncologist Balta Bennett MD [phone] Medical Oncologist No care executive officer special warfare team to display Other Providers Treatment Summary Cancer [...] 3-5, then yearly. All providers Monitor for technician terminal and repeater cardiac toxicity. Meghna Fine Monitor for technician terminal and repeater toxicity Cardiac - congestive heart failure (CHF), [...] Help learning to eat healthier, call the senior master scheduler at: [facility] for [facility] . Have an active lifestyle, strive [...] man. Resources you may be interested in: [facility] http://www.[facility] [place].[facility]/ [facility] & Cancer Information Center 1st floor of [facility] [phone]. Computer access, educational material, counseling services (FREE) Cancer Resources: www.cancer.net [place] Disabilities Act: The U.S. Department of Justice provides information about the Americans with Disabilities Act (ADA). Toll free number http://www.ada.gov/ Occupational Therapy at [facility]. Improve memory and thinking following chemotherapy. Improve your performance at home, work and in the community. or Toll free www..[facility]/patients A service of [employer], a non-profit organization providing free, professional support - includingcounseling, support group, financial assistance, educational workshops and publications -to anyone coping with lung cancer. http://www.lungcancer.org/ We are a partnership of lung cancer survivors, advocates, researchers, healthcare professionals andsteedman leaders. And we are united in the belief that every person with lung cancer deserves a cure. http://www.freetobreathe.org/ Lung Cancer Connection is committed to organizing and funding community outreach programs aimed at those affected by lung cancer in the [place] area. http://www.lungcancerconnectioninc.org Cancer and Careers empowers and educates people with cancer to thrive in their workplace by providing expert advice, interactive tools and educational events. http://www.cancerandcareers.org/en/kzppejk-woc-baob Springboard Beyond Cancer: https://survivorship.cancer.gov/ an online tool for cancer survivors andcaregivers created by the [place] Cancer Society and the National Cancer [place]. It provides: Information on dealing with side effects from cancer and treatment Caregivers with support and resources Practical advice about talking to friends and family about cancer Questions to ask their health care team
--- OUTSIDE RECORDS SUMMARY | 2024-08-31 11:15 | XMS_ITS | Clinical Summary ---
Author Organization [facility] Address [address] [place] [address] Care Team Providers Care Alining Inspector Name Role Phone Meghna Fine MD Primary Care Provider Yahir Brooke MD Unavailable [phone] Armando Balderas Chi, MD Unavailable [phone] Balta Bennett MD Unavailable Allergies Active Allergy [...] D/c home with outpatient cardiology (Dr. Colon, [facility]). (01/11) Tobacco use 01/10/2020 Assessment [...] Medical Tobacco use Pulmonary emphysema (HCC) Emphys rdew Osteoarthritis Osteoarthritis Hx Other Medical Aortic aneurysm [...] on file Legal Sex Male 3:07 AM TENSION WORKER Gender Identity Not on file Sexual Orientation Straight 07/12/2021 1: 28 PM TENSION WORKER Obstetrics History Last Filed Vital Signs Vital [...] W WO CONTRAST Routine 08/25/2014 8:40 AM TENSION WORKER from Last 3 Months or Most Recently Relevant to Health Maintenance Results * CT Angiogram Abdomen Pelvis W WO Contrast (08/25/2014 8:40 AM TENSION WORKER) Anatomical Region Laterality Modality Body N/A Computed Tomogra phy 08/25/2014 8:40 AM TENSION WORKER Narrative 08/25/2014 9:26 AM TENSION WORKER PHU DE OLIVEIRA M.D. FINAL REPORT ACC# Date Time Exam [id number] Aug 25, 2014 08:40:[id number] Chest with contrast [id number] Aug 25, 2014 08:40:00 16443 CTA Abd&Pelv wwo w recons EXAMINATION: 1. 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 on Aug 25 2014 9:26A [id number] Procedure Note Provider, MD Iveth - 11/02/2016 PHU DE OLIVEIRA M.D. FINAL REPORT ACC# Date Time Exam [id number] Aug 25, 2014 08:40:[id number] Chest with contrast [id number] Aug 25, 2014 08:40:00 [id number] CTA Abd&Pelv wwo w recons EXAMINATION: 1. 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 on Aug 25 2014 9:26A [id number] us Historical Provider MD HUFF CT PROCEDURES Final R esult from Last 3 Months or Most Recently Relevant to Health Maintenance Insurance MEDICARE [employer] [place] MEDICARE [facility] MEDICARE [facility] Advance Directives For more information, please contact: [phone] * LIMITED - No CPR (Latest Code Status on File) Date Activated Date Inactivated Comments 03/15/2024 2:50 AM 03/16/2024 5:56 PM * Full Code Date Activated Date Inactivated Comments 01/10/2020 8:49 PM 01/12/2020 11:02 PM Care Teams Alining Inspector Relationship Specialty Start Date End Date Meghna Fine MD [address] [address] PCP - General Family Medicine 10/02/20 Yahir Brooke MD [address] [place] [address] Referring Physician Critical Care Med 03/30/21 Armando Balderas Chi, MD [address] [place] [address] Referring Physician Pulmonary Disease 03/30/21 Balta Bennett MD [address] [facility] [address] [place] [address] Radiation Oncologist Radiation Oncology 07/18/21
--- OUTSIDE RECORDS SUMMARY | 2024-08-31 11:15 | XMS_ITS | Patient Health Summary ---
Author Organization [facility] Address [address] [place] [address] Care Team Providers Care Aircraft Structural Fitter Name Role Phone David Berrios MD Primary Care Provider [phone] Note from [facility],non-owned Affiliates and Associated Physician Practices is amultiple site organization consisting of ambulatory clinics and hospital sitesin [place], [place], [place] and [place]. This disclosure is being madepursuant to the Care Everywhere program and may not contain all information available regarding this patient. Last updated 18.[facility] Allergies * Penicillins(Urticaria) -Medium Criticality Medications * [...] Comments Blood Pressure 128/54 08/26/2024 3:15 PM POSTAL SUPERINTENDENT Pulse 68 08/26/2024 3:15 PM POSTAL SUPERINTENDENT Temperature 36.7 C (98 F) 08/26/2024 2:40 PM POSTAL SUPERINTENDENT Respiratory Rate 15 08/26/2024 3:15 PM POSTAL SUPERINTENDENT Oxygen Saturation 98% 08/26/2024 3:15 PM POSTAL SUPERINTENDENT Inhaled Oxygen Concentration - - Weight 55.3 kg (122 lb) 08/26/2024 11:02 AM POSTAL SUPERINTENDENT Height 170.2 cm (5' 7 ) 08/26/2024 11:02 AM POSTAL SUPERINTENDENT Body Mass Index 19.11 08/26/2024 11:02 AM POSTAL SUPERINTENDENT Medical Devices Implanted Type Area Lithograph Press Operator Tinware Device Identifier Shelf Expiration Date Model / Serial / Lot Stent Ddnl 22-27mm 10fr 9cm 230cm 270cm - [id number] Implanted:Qty: 1 on 08/26/2024 by David Magana MD at [facility] [employer] [id number] 07/10/2025 [id number] / [id number] Procedures * ENDOTRACHEAL TUBE NOTE(Performed 08/26/2024) * ENDOSCOPIC ULTRASONOGRAPHY, GI(Performed 08/26/2024) * [place] ENDOSCOPIC ULTRASOUND EXAM(Performed 08/26/2024) Performed for Malignant neoplasm of stomach, unspecified location (HCC) Results * ETT LINE PERFORMABLE (08/26/2024 1:11 PM POSTAL SUPERINTENDENT) Narrative Ivonne Henry APRN-CRNA - 08/26/2024 1:11 PM POSTAL SUPERINTENDENT Ivonne Henry APRN-CRNA 08/26/2024 1:11 PM Endotracheal Tube Placement: Patient Location: OR. Intubation Event Date/Time: 08/26/2024 1:00 PM Procedure: intubation ([id number]) Procedure Section: Induction: rapid sequence Patient Position: [...] * Endoscopic Ultrasonography, GI (08/26/2024 1:02 PM POSTAL SUPERINTENDENT) Report Endoscopy POC Endoscopy Department Report _ [...] and oxygen saturations were monitored continuously. A [id number] was introduced through the mouth, and advanced [...] 9 cm uncovered metal enteral stent (WallFlex, [employer]) was placed over the guidewire under [...] cm transpyloric uncovered metal enteral stent (WallFlex, [employer]) under endoscopic and fluoroscopic guidance. Moderate [...] entire procedure. Procedure Code(s): --- Professional --- 65923, Esophagogastroduodenos copy, flexible, transoral; with placement of endoscopic stent (includes pre- and post-dilation and guide wire passage, when performed) 14050, Esophagogastroduodenos copy, flexible, transoral; with endoscopic ultrasound examination limited to the esophagus, stomach or duodenum, and adjacent structures 82677, Intraluminal dilation of strictures and/or obstructions (eg, esophagus), radiological supervision and interpretation Diagnosis Code(s): --- Professional --- C16.2, Malignant neoplasm of body of stomach C16.3, Malignant neoplasm of pyloric antrum K31.89, Other diseases of stomach and duodenum K31.1, Adult hypertrophic pyloric stenosis CPT copyright 2021 [employer]. All rights reserved. The codes documented in this report are preliminary and upon closet organizer review may be revised to meet current compliance requirements. David Keller MD 08/26/2024 2:16:30 PM Note Initiated On: 08/26/2024 1:02 PM Number of Addenda: [address] [address] [facility] 08/26/2024 1:02 PM POSTAL SUPERINTENDENT David Keller MD GI PROCEDURE ORDERABLES [facility] Care Teams Aircraft Structural Fitter Relationship Specialty Start Date End Date David Berrios MD [address] [place] [address] PCP - General Family Medicine 08/24/24
--- OUTSIDE RECORDS SUMMARY | 2024-08-31 11:15 | XMS_ITS | Clinical Summary ---
Author Organization [facility] [employer] Address [address] [facility] [place] [address] Care Team Providers Care Groundskeeper Supervisor Name Role Phone David Berrios MD Primary Care Provider [phone] Source Comments [facility] and Associated Physician Practices is amultiple site organization consisting of ambulatory clinics and hospital sitesin [place], [place], [place] and [place]. This disclosure is being madepursuant to the Care Everywhere program and may not contain all information available regarding this patient. Last updated 18.[facility] [employer] Allergies Active Allergy Reactions Criticality Noted Date [...] Department Care Team Description 08/26/2024 12:52 PM PRINCIPAL ARCHITECTURAL FIRM Anesthesia Event [facility] ENDOSCOPY [address] [place] [address] Chris Santiago MD Blackshear, Steven, DO 08/26/2024 12:25 PM PRINCIPAL ARCHITECTURAL FIRM - 08/26/2024 1:25 PM PRINCIPAL ARCHITECTURAL FIRM Surgery [facility] ENDOSCOPY [address] [place] [address] David Magana MD EGD / EUS + stent 08/26/2024 10:49 AM PRINCIPAL ARCHITECTURAL FIRM - 08/26/2024 3:30 PM PRINCIPAL ARCHITECTURAL FIRM Hospital Encounter [facility] DEMETRIUS OP [address] [place] [address] David Magana MD Surgery General Discharge Disposition: Home or Self Care 08/26/2024 Travel 08/25/2024 Telephone [facility] ENDOSCOPY [address] [place] [address] Astrid Avelar Follow-up 08/24/2024 1:30 PM PRINCIPAL ARCHITECTURAL FIRM Office Visit [facility] - General Surgery [address] [place] [address] Kamar Cristina MD Gastric mass (Primary Dx) 08/24/2024 Travel 08/24/2024 Telephone [facility] ENDOSCOPY [address] [place] [address] Astrid Avelar Follow-up 08/20/2024 Travel 08/18/2024 Telephone [facility] - GI [address] [place] [phone] Darrin Recinos RN Appointment (procedure confirmed) 08/14/2024 Telephone [facility] - GI [address] [place] [phone] Darrin Recinos, geothermal plant manager (external referral: EGD/EUS for stent placement / neoplasm of stomach from Dr. Jimmy Arrington f: [phone] Nuñez) from Last 3 Months [...] Comments Blood Pressure 128/54 08/26/2024 3:15 PM PRINCIPAL ARCHITECTURAL FIRM Pulse 68 08/26/2024 3:15 PM PRINCIPAL ARCHITECTURAL FIRM Temperature 36.7 C (98 F) 08/26/2024 2:40 PM PRINCIPAL ARCHITECTURAL FIRM Respiratory Rate 15 08/26/2024 3:15 PM PRINCIPAL ARCHITECTURAL FIRM Oxygen Saturation 98% 08/26/2024 3:15 PM PRINCIPAL ARCHITECTURAL FIRM Inhaled Oxygen Concentration - - Weight 55.3 kg (122 lb) 08/26/2024 11:02 AM PRINCIPAL ARCHITECTURAL FIRM Height 170.2 cm (5' 7 ) 08/26/2024 11:02 AM PRINCIPAL ARCHITECTURAL FIRM Body Mass Index 19.11 08/26/2024 11:02 AM PRINCIPAL ARCHITECTURAL FIRM Plan of Treatment Upcoming Encounters Date Type Department Care Team (Late st Contact Info) Description 12/28/2024 2:15 PM CDT Office Visit [facility] - General Surgery [address] [place] [address] Kamar Cristina MD [address] [place] [address] Health Maintenance Due Date Last Done Comments [...] this topic Medical Devices Implanted Type Area Certified Midwife Device Identifier Shelf Expiration Date Model / Serial / Lot Stent Ddnl 22-27mm 10fr 9cm 230cm 270cm - [id number] Implanted:Qty: 1 on 08/26/2024 by David Magana MD at [facility] [employer] [id number] 07/10/2025 [id number] / [id number] Procedures Procedure Name Priority Date/Time Associated Diagnosis Comments ENDOTRACHEAL TUBE NOTE Routine 08/26/2024 1:11 PM PRINCIPAL ARCHITECTURAL FIRM ENDOSCOPIC ULTRASONOGRAPHY, GI Routine 08/26/2024 1:02 PM PRINCIPAL ARCHITECTURAL FIRM UT ENDOSCOPIC ULTRASOUND EXAM 08/26/2024 12:47 PM PRINCIPAL ARCHITECTURAL FIRM Malignant neoplasm of stomach, unspecified location (HCC) from Last 3 Months Results * ETT LINE PERFORMABLE (08/26/2024 1:11 PM PRINCIPAL ARCHITECTURAL FIRM) Narrative Ivonne Henry APRN-CRNA - 08/26/2024 1:11 PM PRINCIPAL ARCHITECTURAL FIRM Ivonne Henry APRN-CRNA 08/26/2024 1:11 PM Endotracheal Tube Placement: Patient Location: OR. Intubation Event Date/Time: 08/26/2024 1:00 PM Procedure: intubation ([id number]) Procedure Section: Induction: rapid sequence Patient Position: [...] * Endoscopic Ultrasonography, GI (08/26/2024 1:02 PM PRINCIPAL ARCHITECTURAL FIRM) Report Endoscopy POC Endoscopy Department Report _ [...] and oxygen saturations were monitored continuously. A [id number] was introduced through the mouth, and advanced [...] 9 cm uncovered metal enteral stent (WallFlex, [employer]) was placed over the guidewire under [...] appearing lymph nodes were visualized in the dmeetrius-gastric region, immediately adjacent to the mass. These [...] cm transpyloric uncovered metal enteral stent (WallFlex, [employer]) under endoscopic and fluoroscopic guidance. Moderate Sedation: [...] entire procedure. Procedure Code(s): --- Professional --- 50717, Esophagogastroduodenos copy, flexible, transoral; with placement of endoscopic stent (includes pre- and post-dilation and guide wire passage, when performed) 96275, Esophagogastroduodenos copy, flexible, transoral; with endoscopic ultrasound examination limited to the esophagus, stomach or duodenum, and adjacent structures 36670, Intraluminal dilation of strictures and/or obstructions (eg, esophagus), radiological supervision and interpretation Diagnosis Code(s): --- Professional --- C16.2, Malignant neoplasm of body of stomach C16.3, Malignant neoplasm of pyloric antrum K31.89, Other diseases of stomach and duodenum 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 All rights reserved. The codes documented in this report are preliminary and upon pump servicer helper review may be revised to meet current compliance requirements. David Keller MD 08/26/2024 2:16:30 PM Note Initiated On: 08/26/2024 1:02 PM Number of Addenda: [address] [address] [facility] 08/26/2024 1:02 PM PRINCIPAL ARCHITECTURAL FIRM David Keller MD GI PROCEDURE ORDERABLES [facility] from Last 3 Months Advance Directives Documents on File Type Date Recorded Patient Stenographer Secretary Expl anation Adv Directive/Living Will/POA 08/26/2024 Care Teams Groundskeeper Supervisor Relationship Specialty Start Date End Date David Berrios MD [address] [place] [address] PCP - General Family Medicine 08/24/24
--- OUTSIDE RECORDS SUMMARY | 2024-08-31 11:15 | XMS_ITS | Encounter Summary ---
Author Organization [facility] Address [address] [place] [address] Phone Care Team Providers Care Publications Production Supervisor Name Role Phone Meghna Fine MD Primary Care Provider Yahir Brooke MD Unavailable [phone] Armando Balderas Chi, MD Unavailable [phone] Balta Bennett MD Unavailable [phone] Encounter Details Date Type Department Care Team [...] on file Legal Sex Male 3:07 AM DICTAPHONE TYPIST Gender Identity Not on file Sexual Orientation Straight 07/12/2021 1: 28 PM DICTAPHONE TYPIST documented as of this encounter Plan of Treatment Not on file documented as of this encounter Procedures Procedure Name Priority Date/Time Associated Diagnosis Comments SCAN - RADIOLOGY/IMAGING 02/27/2021 documented in this encounter Results * SCAN - RADIOLOGY/IMAGING (02/27/2021) Anatomical Region Laterality Modality Other us Provider Scanning Final Result documented in this encounter Visit Diagnoses Not on filedocumented in this encounter Care Teams Publications Production Supervisor Relationship Specialty Start Date End Date Rostovtseva, Meghna Y., MD [address] [place] [address] PCP - General Family Medicine 10/02/20 Yahir Brooke MD [address] [place] [address] Referring Physician Critical Care Med 03/30/21 Armando Balderas Chi, MD [address] [place] [address] Referring Physician Pulmonary Disease 03/30/21 Balta Bennett MD [address] [facility] [address] [place] [address] Radiation Oncologist Radiation Oncology 07/18/21 documented as of this encounter
--- OUTSIDE RECORDS SUMMARY | 2024-08-31 11:15 | XMS_ITS | Referral Summary ---
Author Organization [facility] Address [address] [address] Care Team Providers Care Train Electronic Technician Name Role Phone David Berrios MD Primary Care Provider [phone] Source Comments [facility] and Associated Physician Practices is amultiple site organization consisting of ambulatory clinics and hospital sitesin [place], [place]. This disclosure is being madepursuant to the Care Everywhere program and may not contain all information available regarding this patient. Last updated 18.[facility] Encounters Date Type Department Care Team Description 08/26/2024 Travel 08/26/2024 12:25 PM CLINICAL SUPPORT ASSOCIATE - 08/26/2024 1:25 PM CLINICAL SUPPORT ASSOCIATE Surgery [facility] ENDOSCOPY [address] [place] [address] David Magana MD EGD / EUS + stent 08/26/2024 12:52 PM CLINICAL SUPPORT ASSOCIATE Anesthesia Event [facility] ENDOSCOPY [address] [place] [address] Chris Santiago MD [place], Steven, 08/26/2024 10:49 AM CLINICAL SUPPORT ASSOCIATE - 08/26/2024 3:30 PM CLINICAL SUPPORT ASSOCIATE Hospital Encounter [facility] LEON OP [address] [place] [address] David Magana MD Surgery General Discharge Disposition: Home or Self Care 08/25/[address] [facility] ENDOSCOPY [address] [place] [address] Astrid Avelar Follow-up 08/24/2024 Travel 08/24/[address] [facility] ENDOSCOPY [address] [place] [address] Astrid Avelar Follow-up 08/24/2024 1:30 PM CLINICAL SUPPORT ASSOCIATE Office Visit [facility] - General Surgery [address] [place] [address] Kamar Cristina MD Gastric mass (Primary Dx) 08/20/2024 Travel 08/18/2024 Telephone [facility] - GI [address] [place] [address] Darrin Recinos RN Appointment (procedure confirmed) 08/14/2024 Telephone [facility] - GI [address] [place] [address] Darrin Recinos RN Procedure (external referral: EGD/EUS for stent placement / neoplasm of stomach from Dr. Jimmy Arrington f: [phone] Nuñez) from Last 3 Months [...] Comments Blood Pressure 128/54 08/26/2024 3:15 PM CLINICAL SUPPORT ASSOCIATE Pulse 68 08/26/2024 3:15 PM CLINICAL SUPPORT ASSOCIATE Temperature 36.7 C (98 F) 08/26/2024 2:40 PM CLINICAL SUPPORT ASSOCIATE Respiratory Rate 15 08/26/2024 3:15 PM CLINICAL SUPPORT ASSOCIATE Oxygen Saturation 98% 08/26/2024 3:15 PM CLINICAL SUPPORT ASSOCIATE Inhaled Oxygen Concentration - - Weight 55.3 kg (122 lb) 08/26/2024 11:02 AM CLINICAL SUPPORT ASSOCIATE Height 170.2 cm (5' 7 ) 08/26/2024 11:02 AM CLINICAL SUPPORT ASSOCIATE Body Mass Index 19.11 08/26/2024 11:02 AM CLINICAL SUPPORT ASSOCIATE Functional Status Functional Status Response Date of [...] Description 12/28/2024 2:15 PM CDT Office Visit [facility] - General Surgery [address] [place] [id number] Kamar Cristina MD [address] [facility] [address] [place] [address] Medical Devices Implanted Type Area Observer Electrical Prospecting Device Identifier Shelf Expiration Date Model / Serial / Lot Stent Ddnl 22-27mm 10fr 9cm 230cm 270cm - [id number] Implanted:Qty: 1 on 08/26/2024 by David Magana MD at [facility] [employer] [id number] 07/10/2025 [id number] / [id number] Procedures Procedure Name Priority Date/Time Associated Diagnosis Comments ENDOTRACHEAL TUBE NOTE Routine 08/26/2024 1:11 PM CLINICAL SUPPORT ASSOCIATE ENDOSCOPIC ULTRASONOGRAPHY, GI Routine 08/26/2024 1:02 PM CLINICAL SUPPORT ASSOCIATE [place] ENDOSCOPIC ULTRASOUND EXAM 08/26/2024 12:47 PM CLINICAL SUPPORT ASSOCIATE Malignant neoplasm of stomach, unspecified location (HCC) from Last 3 Months Results * ETT LINE PERFORMABLE (08/26/2024 1:11 PM CLINICAL SUPPORT ASSOCIATE) Narrative Ivonne Henry APRN-CRNA - 08/26/2024 1:11 PM CLINICAL SUPPORT ASSOCIATE Ivonne Henry APRN-CRNA 08/26/2024 1:11 PM Endotracheal Tube Placement: Patient Location: OR. Intubation Event Date/Time: 08/26/2024 1:00 PM Procedure: intubation (82154) Procedure Section: Induction: rapid sequence Patient Position: [...] Tube secured with: adhesive tape and ETT potrillo. Dentition unchanged? Yes Difficult Airway? No. Procedure Start Time: 08/26/2024 1:00 PM. Staff Section Anesthesia Provider: Ivonne Henry APRN-CRNA, Performed the procedure Provider #1: Chris Santiago MD. Chris Santiago MD GENERAL ANESTHESIA ORDERABLES * Endoscopic Ultrasonography, GI (08/26/2024 1:02 PM CLINICAL SUPPORT ASSOCIATE) Report Endoscopy POC Endoscopy Department Report _ Patient Name: Ki Shaver Procedure Date: 08/26/2024 1:02 PM Date of : 1955 Classification: Outpatient Gender: Male Ethnicity: Unknown Race: Unknown _ Providers: David Keller MD Referring MD: Bteo Arrington MD; Horacio Kovacs MD; Kamar Cristina [...] and oxygen saturations were monitored continuously. A [id number] was introduced through the mouth, and advanced [...] 9 cm uncovered metal enteral stent (WallFlex, [employer]) was placed over the guidewire under [...] cm transpyloric uncovered metal enteral stent (WallFlex, [employer]) under endoscopic and fluoroscopic guidance. Moderate [...] entire procedure. Procedure Code(s): --- Professional --- 72314, Esophagogastroduodenos copy, flexible, transoral; with placement of endoscopic stent (includes pre- and post-dilation and guide wire passage, when performed) 48392, Esophagogastroduodenos copy, flexible, transoral; with endoscopic ultrasound examination limited to the esophagus, stomach or duodenum, and adjacent structures 98636, Intraluminal dilation of strictures and/or obstructions (eg, esophagus), radiological supervision and interpretation Diagnosis Code(s): --- Professional --- C16.2, Malignant neoplasm of body of stomach C16.3, Malignant neoplasm of pyloric antrum K31.89, Other diseases of stomach and duodenum 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 All rights reserved. The codes documented in this report are preliminary and upon abalone diver review may be revised to meet current compliance requirements. David Keller MD 08/26/2024 2:16:30 PM Note Initiated On: 08/26/2024 1:02 PM Number of Addenda: [address] [phone] [facility] PROVATION 08/26/2024 1:02 PM CLINICAL SUPPORT ASSOCIATE David Keller MD GI PROCEDURE ORDERABLES 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
[2024-08-31 11:23] LABS: Percent Iron Saturation 11 % (20-50)
[2024-08-31 12:17] LABS: Folic Acid 3.7 ng/mL (2.76->20); Vitamin B12 > 1000.0 pg/mL (239-931)
== END 2024-08-31 10:03 | disposition home or self-care (01) ==
LOC: ANHLAB 10:05
PROVIDERS: PCP Family Medicine; Visit Provider Internal Medicine Hematology & Oncology
DX: C16.5 Malignant neoplasm of lesser curvature of stomach, unspecified (principal)
CPT/HCPCS: 36415; 80053; 82607; 82728; 82746; 83540; 83550; 85025

== ENCOUNTER 2024-09-07 01:12 | Day surgery (SDC) | payer MEDICARE, SELFPAY ==
[2024-08-27 10:23] VITALS: BMI 19.3
--- NOTE | 2024-08-27 10:47 | PC.NURSE ---
Report to the Outpatient Waiting Room, entrance under the green pavilion located off [facility], at time ___11:30AM____ on date ___09/07/24____. Planned Procedure Time: __1:30PM .? Time changes happen often and if your time is changed the preop area will call you the afternoon before. - You and your visitor will be asked to self-screen and do not enter if you have any COVID symptoms. Please call surgeon if you need to reschedule. - A mask is optional within the hospital at this time. Patients may have clear liquids (water, carbonated beverages, clear teas, apple juice) until 3 hours prior to surgery (10:30AM) with a maximum of 20 ounces. - No food from midnight until time of surgery and no smoking, or chewing tobacco (or any form of nicotine). No chewing gum, candy or mints. Take only the following medications with a SIP of water on the morning of surgery: ____NONE DO NOT STOP ANY OF YOUR OTHER PRESCRIPTION MEDICATIONS PRIOR TO SURGERY EXCEPT THE FOLLOWING Hold all vitamins and supplements for 3 days per anesthesiologist.-LAST DOSE 09/03/24. Please no make-up, nail croatian, hairspray, perfume, deodorant, or body powder the day of surgery.? No jewelry (including any body piercings) or valuables the day of surgery, leave them at home.? Please take a shower or bath the night before, or the morning of, surgery with an antibacterial soap.? Wear comfortable, loose fitting clothing.? - Jewelry must be removed prior to entering the operating room.? Rings and piercings that are not removed may be cut off. - The hospital will not accept responsibility for valuables.? - Please leave all valuables, including medications, at home the day of surgery. If you are going home after surgery, a licensed courtesy car driver must drive you home.? - NO public transportation without another adult if you receive anesthesia. - We recommend that an adult stay with you for 24 hours following discharge. - We also recommend that you do not drive, make important decision, drink alcoholic beverages, or take any drugs that were not prescribed by your health care provider for at least 24 hours after your discharge time. Follow any additional instructions given to you from your surgeon. Telephone instructions given to ____PATIENT'S WIFE and asked if any additional questions and then verbalized understanding. Patient advised to call surgeon office or pre surgery nurse liaison [phone] if any additional questions.
[2024-09-07] MEDS: LACTATED RINGERS 1,000 ML 30 ML IV CONT (11:55)
--- NOTE | 2024-09-07 13:18 | WPDANESEPPF ---
Anes - Initial Pre Proc Eval Procedure: Operation Date: 09/07/24 13:30 Proposed Procedures p Insertion Maggie Cath - Sae Robins MD Date/Time: 09/07/24 13:18 Surgeon: Sae Robins MD Pre Op Diagnosis: Ca of lesser curvature stomach Patient Data Age: 68 Gender: M Height: 1.7 m Weight: 57.2 kg Allergies Allergy/AdvReac Type Severity Reaction Status Date / Time Penicillins Allergy Unknown HIVES Verified 09/07/24 12:05 Home Medications ?Medication ?Instructions ?Recorded ?Confirmed ?Type rosuvastatin 40 mg tablet 40 mg PO DAILY #90 tabs 03/24/24 09/07/24 Rx famotidine 20 mg tablet 20 mg PO DAILY #30 tabs 08/11/24 09/07/24 Rx ferrous sulfate 325 mg (65 mg 325 mg PO BID #60 tabs 08/13/24 09/07/24 Rx iron) tablet,delayed release cyanocobalamin (vitamin B-12) 5,000 mcg PO DAILY 08/27/24 09/07/24 History 5,000 mcg capsule omeprazole 40 mg capsule,delayed 40 mg PO QAM 08/27/24 09/07/24 History release Patient hx anesthesia problems: none Family hx anesthesia problems: none Results Review: All pre-operative results and documents have been reviewed as part of the pre-operative evaluation. 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 Code status: Full code. Smoking packs per day: 2 Smoking cigarettes per day: 40.0 Years smoked: 55 Smoking pack-years: 110.00 Smoking status: Current every day smoker Tobacco type: cigarettes Second hand tobacco smoke exposure: Yes Additional smoking assessment comments: CUTTING BACK-1/2 PACK/DAY CURRENTLY Alcohol intake: former Alcohol use details: Substance use: never Substance use type: does not use Do You Feel Safe in your Home?: Yes Lack of Transportation: No Lack of Food: Never True Current Housing: I Have Housing Concerned About Future Housing: No Difficulty Paying Gas/Electric Bills: No Difficulty Paying for Meds: No Currently Unemployed: YES Education: Don't Know Difficulty w/ Childcare or Family Care: No Living arrangements: with family Additional living arrangements comments: Occupation/Education: retired Spiritual care concerns: No Anes - Eval Final PreProcedure Day of Procedure 09/07/24 13:18 Patient weight: thin Heart: regular rate and rhythm Lungs: clear to auscultation Airway: Mallampati scale class II Neurological: alert and oriented Last oral intake: >/= 8 hours ASA classification: IV Emergent: no Anesthetic plan: proceed Anesthesia type and monitoring: general GIVS and standard monitoring Results Review: All pre-operative results and documents have been reviewed as part of the pre-operative evaluation. Informed Consent: The patient's anesthetic plan and its attendant risks and benefits were discussed with the patient/family/POA. Questions were solicited and answers provided to the satisfaction of the patient/family/POA.
--- NOTE | 2024-09-07 13:26 | PM.IMHP ---
H&P: HPI History of Present Illness Date/Time: 09/07/24 13:26 Chief Complaint: Stage IV gastric adenocarcinoma Narrative: Patient is a 68-year-old gentleman who previous is admitted to the hospital with near total gastric outlet obstruction and with upper GI bleeding and anemia. Upper endoscopy showed a large mass involving the lesser curve of the stomach. Biopsy of the mass showed poorly differentiated adenocarcinoma. He was referred to see surgical Oncology and they felt he was not a surgical candidate for resection. He was then sent to Medical Oncology for palliative management with chemotherapy. He presents now for placement of johnnie catheter for the chemotherapy treatments. About 2 weeks ago he did have a duodenal stent placed to prevent complete obstruction to allow him to eat. Since he has been able to he has gained several pounds. Review of Systems Review of Systems: The remainder of the review of systems to include constitutional, HEENT, cardiovascular, respiratory, GI, , integumentary, musculoskeletal, endocrine, immunologic, hematologic, psychiatric, and neurologic are all negative except for which is mentioned above in the HPI. 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 Code status: Full code. Smoking packs per day: 2 Smoking cigarettes per day: 40.0 Years smoked: 55 Smoking pack-years: 110.00 Smoking status: Current every day smoker Tobacco type: cigarettes Second hand tobacco smoke exposure: Yes Additional smoking assessment comments: CUTTING BACK-1/2 PACK/DAY CURRENTLY Alcohol intake: former Alcohol use details: Substance use: never Substance use type: does not use Do You Feel Safe in your Home?: Yes Lack of Transportation: No Lack of Food: Never True Current Housing: I Have Housing Concerned About Future Housing: No Difficulty Paying Gas/Electric Bills: No Difficulty Paying for Meds: No Currently Unemployed: YES Education: Don't Know Difficulty w/ Childcare or Family Care: No Living arrangements: with family Additional living arrangements comments: Occupation/Education: retired Spiritual care concerns: No Meds Home Medications and Allergies Home Medications ?Medication ?Instructions ?Recorded ?Confirmed ?Type rosuvastatin 40 mg tablet 40 mg PO DAILY #90 tabs 03/24/24 09/07/24 Rx famotidine 20 mg tablet 20 mg PO DAILY #30 tabs 08/11/24 09/07/24 Rx ferrous sulfate 325 mg (65 mg 325 mg PO BID #60 tabs 08/13/24 09/07/24 Rx iron) tablet,delayed release cyanocobalamin (vitamin B-12) 5,000 mcg PO DAILY 08/27/24 09/07/24 History 5,000 mcg capsule omeprazole 40 mg capsule,delayed 40 mg PO QAM 08/27/24 09/07/24 History release Allergies Allergy/AdvReac Type Severity Reaction Status Date / Time Penicillins Allergy Unknown HIVES Verified 09/07/24 12:05 Exam Const: General: comfortable and no acute distress HENMT: Ears: TM's normal bilaterally Face/Nose/Sinus: Normal nares present Mouth: Yes moist mucous membranes Eyes: General: appearance normal, both eyes and all related structures Sclera: sclerae normal Pupils: Equal, round and reactive pupils present EOM: EOMs intact bilaterally Neck: Neck: supple and no JVD Chest: Other: Clavicles bilaterally symmetric. No rashes or deformity in the upper chest wall bilateral. Resp: Effort & Inspection: normal respiratory effort Auscultation: clear to auscultation bilaterally Cardio: Rate: regular rate Rhythm: regular rhythm GI: GI Palp: Yes Soft to palpation, No Firmness to palpation present (GI), No Tenderness to palpation present (GI), No Guarding due to palpation present (GI) and No Hernia present Skin: General skin exam: normal color and no rashes or lesions noted Neuro: Speech: normal speech Motor exam (neuro): 11/09 motor strength present throughout Psych: Mental Status: mental status grossly normal Affect: normal affect Assessment and Plan Assessment and plan (1) Gastric adenocarcinoma: Code(s): C16.9 - Malignant neoplasm of stomach, unspecified Status: Acute Assessment and Plan: Patient unfortunately has non operative extensive adenocarcinoma stomach. He is not a surgical candidate for resection but he is going to receive palliative treatments from Medical Oncology. He presents today for placement johnnie catheter for the chemotherapy treatments. Risks, benefits, indications, and expected outcomes were discussed with the patient. Risks to and iatrogenic pneumothorax and need for placement of chest tube and bleeding necessitating blood transfusion was discussed. He understands and wishes to proceed.
--- NOTE | 2024-09-07 13:33 | WPDHPUPDATE1 ---
History and Physical Update Update Date/Time: 09/07/24 13:33 History and Physical has been reviewed, including an updated exam of the patient. There are NO changes in the patient's condition. Risks, benefits, and alternatives have been discussed and questions answered. Patient agrees to proceed with procedure.
[2024-09-07] MEDS: ceFAZolin 2 GM/D5W 50 ML 2 GM/50 ML BAG IVPB (13:47)
[2024-09-07] MEDS: LIDO 1%/EPINEPHRINE 1:100,000 50 ML VIAL 30 ML INFILTRATE (13:59)
[2024-09-07] MEDS: HEPARIN SODIUM 1,000 UNITS/ML VIAL 1000 UNITS IV PUSH (14:00)
[2024-09-07] MEDS: HEPARIN SODIUM 5,000 UNITS/ML VIAL 5000 UNITS IRRIGATION (14:04)
--- NOTE | 2024-09-07 14:58 | W.PM.PROC2 ---
Procedure Note - Detailed Date of Procedure 09/07/24 Pre-op Diagnosis Gastric adenocarcinoma Post-op Diagnosis Same Procedure Performed Placement of right subclavian vein johnnie catheter with intraoperative fluoroscopy Surgeon Sae Robins MD Commutator Repairer Shaniqua Young MOTTLER OPERATOR Anesthesia MAC and Local Indications Patient is a 5-year-old gentleman who unfortunately was recently diagnosed with advanced stage gastric adenocarcinoma. He is to undergo chemotherapy treatments and presents now for a johnnie catheter placement. Findings None significant Description of Procedure After informed consent was obtained patient brought to the operating room was placed supine position and then IV sedation was administered by anesthesia. The bilateral upper anterior neck and chest was then prepped and draped usual sterile fashion. A time-out was then performed correctly identifying the patient as well as procedure to be performed. He was given perioperative IV antibiotics. Approach placement of the johnnie catheter in the right subclavian vein. 1% lidocaine mixed with 0.5% Marcaine was injected just below the medial 3rd of the right clavicle and the right upper anterior chest wall. I then made a transverse incision with a scalpel this area and then dissected down through the dermis with the scalpel. Once in the subcutaneous tissues I dissected with electrocautery down to the anterior pectoralis major fascia. Then with a combination of electrocautery and blunt finger dissection and created a subcutaneous port pocket below the incision. I then placed the patient head-down Trendelenburg position and then used a long 18gauge spinal needle to cannulate the right subclavian vein percutaneously on the 1st pass without difficulty through the incision. There was prompt return of dark venous appearing blood. A guidewire was advanced through the needle into the right subclavian vein assessment down into the right atrium of the heart. The needle was then removed leaving the guidewire in place. Intraoperative fluoroscopy was then used to visualize the tip of the guidewire which was in the proper position. I then advanced a dilator breakaway sheath over the guidewire. The guidewire and dilator were removed leaving the sheath in place. A 9.6 [place] single-lumen silastic catheter was then advanced through the sheath into the right subclavian vein subsequent down into the right atrium of the heart. The sheath was then torn away leaving the catheter in place. Then utilizing intraoperative fluoroscopy once more I visualized the tip of the catheter and then pulled back on the catheter externals the chest wall into the tip was in the distal superior vena cava. The catheter was then cut to the appropriate length at the skin level and then attached to the titanium Smart Port. The port was then secured the subcutaneous port pocket on 3 sides utilizing 3-0 Prolene sutures. The port pocket was then irrigated with sterile saline solution. Hemostasis was good. I then accessed the port with a Bauer needle and aspirated blood easily and was flushed with heparinized saline solution. I then close incision utilizing interrupted 3-0 Vicryl sutures in subcutaneous tissues. The skin edges were then approximated utilizing a running subcuticular 4-0 Monocryl suture. The incision was then cleaned the skin glue was applied. I then percutaneously accessed the port 1 last time and again it aspirated blood easily. I then flushed with 5000units of heparin IV. The patient tolerated the procedure well no complications. All sponges, needles, and instrument counts were correct at the end procedure. EBL was _10__cc. The patient was awakened and taken to recovery in stable and satisfactory condition. Implants 9.6 [place] single-lumen silastic catheter attached to titanium Smart port placed via the right subclavian vein Estimated Blood Loss 10 Drains No Packing No Pathology None sent Complications No immediate complications Condition Stable Disposition PACU [facility] Billing Surgery - Charge Forward: Surgery Billing
[2024-09-07 15:02] VITALS: BP 125/44; PULSE 76; RESP 12; O2SAT 97
[2024-09-07 15:30] VITALS: BP 128/51; PULSE 76; RESP 16
== END 2024-09-07 15:47 | disposition home or self-care (01) ==
PROVIDERS: PCP Family Medicine; Visit Provider Surgery
PROC: (CPT 36561; principal; 2024-09-07 13:30)
DX: C16.5 Malignant neoplasm of lesser curvature of stomach, unspecified (principal); F17.210 Nicotine dependence, cigarettes, uncomplicated
CPT/HCPCS: 36561; 77001; C1788; J0690; J1644; J2003; J2004; J2405; J2704; J3010; J7030; J7120

== ENCOUNTER 2024-09-08 08:44 | Outpatient (CLI) | payer MEDICARE, SELFPAY ==
[2024-09-08 09:45] LABS: Glucose Point of Care 92 mg/dl (65-105)
== END 2024-09-08 08:45 | disposition home or self-care (01) ==
PROVIDERS: PCP Family Medicine; Visit Provider Internal Medicine Hematology & Oncology
DX: C16.5 Malignant neoplasm of lesser curvature of stomach, unspecified (principal)
CPT/HCPCS: 78815; A9552

== ENCOUNTER 2024-09-20 16:46 | Emergency (ER) | payer MEDICARE, SELFPAY ==
--- NOTE | ~2024-09-20 | CT_ITS ---
EXAMINATION: CT facial & cervical spine wo DATE: 09/20/2024 18:09 INDICATION: fall TECHNIQUE: Computed tomography (CT) of the maxillofacial region and cervical spine was performed with out intravenous contrast. Automated exposure control and iterative reconstruction technique were empl oyed. The dose-length product was 225.70 mGy-cm. COMPARISON: None FINDINGS: CERVICAL: Vertebral Body Alignment: Intact. Craniocervical and atlantoaxial alignment: Moderate degenerative change. Alignment intact. Osseous structures/fracture: No evidence of a lytic or blastic process in the visualized spine. No e vidence of acute fracture. Cervical soft tissues: The paraspinal soft tissues planes are maintained. Patulous esophagus. Emphyse matous change in the lungs. 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 Large disc osteophyte comp amanda at C4-5. Severe left neural foraminal narrowing at C4-5 and severe right neural foraminal narrowi ng at C5-6 secondary to degenerative changes. No severe central canal narrowing. FACE: Soft Tissues: No significant superficial soft tissue swelling. Facial bones: No acute fracture. No lytic or blastic process. Eyes: The globes are intact. The soft tissue planes of the orbits are maintained. Paranasal Sinuses: Mild right frontal and anterior/middle ethmoid mucosal thickening, mild bilateral maxillary mucosal thickening, the remaining aerated spaces are clear. Foreign Bodies: No radiopaque foreign bodies. Other Findings: Dental caries and periodontal disease involving the few remaining teeth. IMPRESSION: No acute fracture or traumatic malalignment in the cervical spine. No acute facial bone fracture. Reviewed, dictated and finalized at location K. IMPRESSION: No acute fracture or traumatic malalignment in the cervical spine. No acute fac ial bone fracture.
--- NOTE | ~2024-09-20 | XR_ITS ---
EXAMINATION: XR chest 1V portable Exam Date/Time: 09/20/2024 18:15 CDT HISTORY: WEAKNESS Comparison: 09/07/2024. RESULT: Lines, tubes, and devices: Implanted right chest port terminating in the distal SVC. Midline sternot jose wires. One fractured wire, in stable position. Upper abdominal stent. Lungs and pleura: Clear. Cardiomediastinal silhouette: Stable. Other: No acute osseous or upper abdominal finding. IMPRESSION: No acute cardiopulmonary process. Reviewed, dictated and finalized at location K.
--- NOTE | ~2024-09-20 | CT_ITS ---
EXAMINATION: CT brain wo con DATE: 09/20/2024 18:09 INDICATION: fall . TECHNIQUE: Computed tomography (CT) of the head was performed without intravenous contrast. The mA wa s adjusted according to patient size. Iterative reconstruction technique was employed. The dose-lengt h product was 605.33 mGy-cm. COMPARISON: None. FINDINGS: No acute intracranial hemorrhage or extra-axial fluid collection. No hydrocephalus, mass, or herniation. No acute ischemic infarct. Unremarkable dural venous sinus attenuation. No acute osseous abnormality. Right inferior frontal and ethmoid mucosal thickening, the remaining aerated spaces are clear. Mild atrophy and chronic white matter change. Atherosclerotic intracranial calcification. Bilateral l ens replacements. IMPRESSION: No acute intracranial process. Reviewed, dictated and finalized at location K.
--- OUTSIDE RECORDS SUMMARY | 2024-09-20 16:48 | XMS_ITS | Referral Summary ---
Author Organization [facility] Address [address] [place] [address] Care Team Providers Care Oil Sprayer Name Role Phone Meghna Fine MD Primary Care Provider Yahir Brooke MD Unavailable [phone] Armando Balderas Chi, MD Unavailable [phone] Balta Bennett MD Unavailable [phone] Allergies Active Allergy Reactions Criticality Noted Date [...] D/c home with outpatient cardiology (Dr. Colon, [facility]). (01/11) Tobacco use 01/10/2020 Assessment [...] on file Legal Sex Male 3:07 AM HOME HEALTH CLINICIAN Gender Identity Not on file Sexual Orientation Straight 07/12/2021 1: 28 PM HOME HEALTH CLINICIAN Last Filed Vital Signs Vital Sign Reading [...] W WO CONTRAST Routine 08/25/2014 8:40 AM HOME HEALTH CLINICIAN from Last 3 Months or Most Recently Relevant to Health Maintenance Results * CT Angiogram Abdomen Pelvis W WO Contrast (08/25/2014 8:40 AM HOME HEALTH CLINICIAN) Anatomical Region Laterality Modality Body N/A Computed Tomogra phy 08/25/2014 8:40 AM HOME HEALTH CLINICIAN Narrative 08/25/2014 9:26 AM HOME HEALTH CLINICIAN PHU DE OLIVEIRA M.D. FINAL REPORT ACC# Date Time Exam [id number] Aug 25, 2014 08:40:[id number] Chest with contrast [id number] Aug 25, 2014 08:40:00 [id number] CTA Abd&Pelv wwo w recons EXAMINATION: 1. [...] increase in aneurysmal dilatation of the proximal [place] ascending aorta which now measures 4.9 x [...] OLIVEIRA M.D. on Aug 25 2014 9:26A [id number] Procedure Note Provider, MD Iveth - 11/02/2016 PHU DE OLIVEIRA M.D. FINAL REPORT ACC# Date Time Exam [id number] Aug 25, 2014 08:40:[id number] Chest with contrast [id number] Aug 25, 2014 08:40:00 [id number] CTA Abd&Pelv wwo w recons EXAMINATION: 1. [...] increase in aneurysmal dilatation of the proximal [place] ascending aorta which now measures 4.9 x [...] OLIVEIRA M.D. on Aug 25 2014 9:26A [id number] Historical Provider MD HUFF CT PROCEDURES Final R esult from Last 3 Months or Most Recently Relevant to Health Maintenance Insurance MEDICARE [facility] MEDICARE [facility] MEDICARE [facility] Advance Directives For more information, please contact: [phone] * LIMITED - No CPR (Latest Code Status on File) Date Activated Date Inactivated Comments 03/15/2024 2:50 AM 03/16/2024 5:56 PM * Full Code Date Activated Date Inactivated Comments 01/10/2020 8:49 PM 01/12/2020 11:02 PM Care Teams Oil Sprayer Relationship Specialty Start Date End Date Meghna Fine MD [address] [place] [address] PCP - General Family Medicine 10/02/20 Yahir Brooke MD [address] [place] [address] Referring Physician Critical Care Med 03/30/21 Armando Balderas Chi, MD [address] [place] [address] Referring Physician Pulmonary Disease 03/30/21 Balta Bennett MD [address] [facility] [address] [place], [place] [id number] Radiation Oncologist Radiation Oncology 07/18/21
[2024-09-20 16:49] VITALS: BP 86/44; PULSE 106; RESP 20; TEMP 36.5; O2SAT 100
--- OUTSIDE RECORDS SUMMARY | 2024-09-20 16:49 | XMS_ITS | Clinical Summary ---
Author Organization [facility] Address [address] [place] [address] Care Team Providers Care Club Room Attendant Name Role Phone Meghna Fine MD Primary Care Provider Yahir Brooke MD Unavailable [phone] Armando Balderas Chi, MD Unavailable [phone] Balta Bennett MD Unavailable Allergies Active Allergy [...] D/c home with outpatient cardiology (Dr. Colon, [facility]). (01/11) Tobacco use 01/10/2020 Assessment [...] on file Legal Sex Male 3:07 AM FILTER CHANGING TECHNICIAN Gender Identity Not on file Sexual Orientation Straight 07/12/2021 1: 28 PM FILTER CHANGING TECHNICIAN Obstetrics History Last Filed Vital Signs Vital [...] W WO CONTRAST Routine 08/25/2014 8:40 AM FILTER CHANGING TECHNICIAN from Last 3 Months or Most Recently Relevant to Health Maintenance Results * CT Angiogram Abdomen Pelvis W WO Contrast (08/25/2014 8:40 AM FILTER CHANGING TECHNICIAN) Anatomical Region Laterality Modality Body N/A Computed Tomogra phy 08/25/2014 8:40 AM FILTER CHANGING TECHNICIAN Narrative 08/25/2014 9:26 AM FILTER CHANGING TECHNICIAN PHU DE OLIVEIRA M.D. FINAL REPORT ACC# Date Time Exam [id number] Aug 25, 2014 08:40:[id number] Chest with contrast [id number] Aug 25, 2014 08:40:00 96730 CTA Abd&Pelv wwo w recons EXAMINATION: 1. 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 on Aug 25 2014 9:26A [id number] Procedure Note Provider, MD Iveth - 11/02/2016 PHU DE OLIVEIRA M.D. FINAL REPORT ACC# Date Time Exam [id number] Aug 25, 2014 08:40:[id number] Chest with contrast [id number] Aug 25, 2014 08:40:00 [id number] CTA Abd&Pelv wwo w recons EXAMINATION: 1. 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 on Aug 25 2014 9:26A [id number] us Historical Provider MD HUFF CT PROCEDURES Final R esult from Last 3 Months or Most Recently Relevant to Health Maintenance Insurance MEDICARE [employer] [place] MEDICARE [facility] MEDICARE [facility] Advance Directives For more information, please contact: [phone] * LIMITED - No CPR (Latest Code Status on File) Date Activated Date Inactivated Comments 03/15/2024 2:50 AM 03/16/2024 5:56 PM * Full Code Date Activated Date Inactivated Comments 01/10/2020 8:49 PM 01/12/2020 11:02 PM Care Teams Club Room Attendant Relationship Specialty Start Date End Date Meghna Fine MD [address] [address] PCP - General Family Medicine 10/02/20 Yahir Brooke MD [address] [place] [address] Referring Physician Critical Care Med 03/30/21 Armando Balderas Chi, MD [address] [place] [address] Referring Physician Pulmonary Disease 03/30/21 Balta Bennett MD [address] [facility] [address] [place] [address] Radiation Oncologist Radiation Oncology 07/18/21
--- OUTSIDE RECORDS SUMMARY | 2024-09-20 16:49 | XMS_ITS | Encounter Summary ---
Author Organization [facility] Address [address] [place] [address] Phone Care Team Providers Care Florist Helper Name Role Phone Meghna Fine MD Primary Care Provider Yahir Brooke MD Unavailable [phone] Armando Balderas Chi, MD Unavailable [phone] Balta Bennett MD Unavailable Encounter Details Date [...] on file Legal Sex Male 3:07 AM SHANK TAPPER Gender Identity Not on file Sexual Orientation Straight 07/12/2021 1: 28 PM SHANK TAPPER documented as of this encounter Plan of Treatment Not on file documented as of this encounter Procedures Procedure Name Priority Date/Time Associated Diagnosis Comments SCAN - RADIOLOGY/IMAGING 02/27/2021 documented in this encounter Results * SCAN - RADIOLOGY/IMAGING (02/27/2021) Anatomical Region Laterality Modality Other us Provider Scanning Final Result documented in this encounter Visit Diagnoses Not on filedocumented in this encounter Care Teams Florist Helper Relationship Specialty Start Date End Date Rostovtseva, Meghna Y., MD [address] [place] [address] PCP - General Family Medicine 10/02/20 Yahir Brooke MD [address] [place] [address] Referring Physician Critical Care Med 03/30/21 Armando Balderas Chi, MD [address] [place] [address] Referring Physician Pulmonary Disease 03/30/21 Balta Bennett MD [address] [facility] [address] [place] [address] Radiation Oncologist Radiation Oncology 07/18/21 documented as of this encounter
--- OUTSIDE RECORDS SUMMARY | 2024-09-20 16:49 | XMS_ITS | Clinical Summary ---
[facility] Address [address] [place] [address] Care Team Providers Care Sales And Events Coordinator Name Role Phone Unavailable Primary Care Provider [...] Take 81 mg by mouth daily. 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 30 Tablet 09/14/2024 09/25/19 25 Active Active Problems No known active problems Encounters Date Type Department Care Team Description 09/17/2024 Abstract [facility] [address] Horacio Kovacs MD 09/15/2024 4:30 PM CDT Telephone Check Up [facility] [address] [place] [phone] Horacio Kovacs MD 09/14/2024 External Device Data STL ABSTRACTION Provider, Abstract 09/14/2024 Orders Only [facility] [address] [place] [phone] Horacio Kovacs MD 09/14/2024 Orders Only [facility] - [place] [address] [place] [phone] Horacio Kovacs MD 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) 09/14/2024 Refill [facility] [address] [place] [phone] Horacio Kovacs MD 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) 09/12/2024 External Device Data STL ABSTRACTION Provider, Abstract 09/12/2024 External Device Data STL ABSTRACTION Provider, Abstract 09/09/2024 External Device Data STL ABSTRACTION Provider, Abstract 09/08/2024 Orders Only [facility] - [place] [address] Horacio Kovacs MD 09/02/2024 Orders Only [facility] - [place] [place] [phone] Horacio Kovacs MD 08/31/2024 Orders Only [facility] - [place] [address] [place] [address] Horacio Kovacs MD 08/28/2024 Orders Only [facility] [address] [place] [address] Horacio Kovacs MD 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) 08/28/2024 Telephone [facility] [address] [place] [address] Horacio Kovacs MD [employer] 08/26/2024 External Device Data STL ABSTRACTION Provider, Abstract 08/26/2024 External Device Data STL ABSTRACTION Provider, Abstract 08/25/2024 External Device Data STL ABSTRACTION Provider, Abstract 08/21/2024 2:00 PM RETAIL AND PROMOTIONS COORDINATOR Office Visit [facility] H[facility] [address] [place] [address] Horacio Kovacs MD 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); Chronic anemia 08/20/2024 Abstract [facility] [address] [place] [address] Horacio Kovacs MD from Last 3 Months Family History Medical History Relation Name Comments Cancer - Other Father Pancreatic Cancer Father No Known Problems Mother Lung Cancer Sister Relation Name Status Comments Father Mother Sister Social History Tobacco Use Types Packs/Day Years Used Date Smoking Tobacco: Every Day Cigarettes 0.5 54.1 Started: 08/21/1970 Alcohol Use Standard Drinks/Week Comments Not Currently 0 (1 standard drink = 0.6 oz pur e alcohol) about 4 times a year Sex and Gender Information Value Date Recorded Sex Assigned at Not on file Legal Sex Male 2:06 PM RETAIL AND PROMOTIONS COORDINATOR Gender Identity Not on file Sexual Orientation Not on file Last Filed Vital Signs Vital Sign Reading Time Taken Comments Blood Pressure 125/61 08/21/2024 1:45 PM RETAIL AND PROMOTIONS COORDINATOR Pulse 85 08/21/2024 1:45 PM RETAIL AND PROMOTIONS COORDINATOR Temperature 36.6 C (97.9 F) 08/21/2024 1:45 PM RETAIL AND PROMOTIONS COORDINATOR Respiratory Rate 18 08/21/2024 1:45 PM RETAIL AND PROMOTIONS COORDINATOR Oxygen Saturation 92% 08/21/2024 1:45 PM RETAIL AND PROMOTIONS COORDINATOR Inhaled Oxygen Concentration - - Weight 56.7 kg (125 lb) 08/21/2024 1:45 PM RETAIL AND PROMOTIONS COORDINATOR Height 170.2 cm (5' 7 ) 08/21/2024 1:45 PM RETAIL AND PROMOTIONS COORDINATOR Body Mass Index 19.58 08/21/2024 1:45 PM RETAIL AND PROMOTIONS COORDINATOR Plan of Treatment Upcoming Encounters Date Type Department Care Team (Late st Contact Info) Description 09/29/2024 9:00 AM CDT Office Visit [facility] [address] [facility] [address] [place] [address] Horacio Kovacs MD [address] [facility] [address] [place] [address] Health Maintenance Due Date Last Done Comments DTAP/TDAP/TD VACCINES (1 - Tdap) 1974 PNEUMOCOCCAL VACCINE 50+ YEARS (1 of 2 - PCV) 10/06/18 [...] Procedure Name Priority Date/Time Associated Diagnosis Comments CBC WITH DIFFERENTIAL Routine 09/14/2024 4:20 PM CDT [facility] Routine 09/09/2024 5:08 PM RETAIL AND PROMOTIONS COORDINATOR 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) PET BONE IMG W CT SKL BSE MID THG Routine 09/08/2024 1:21 PM RETAIL AND PROMOTIONS COORDINATOR COMPREHENSIVE METABOLIC PANEL Routine 08/31/2024 2:57 PM RETAIL AND PROMOTIONS COORDINATOR COMPREHENSIVE METABOLIC PANEL Routine 08/31/2024 10:52 AM RETAIL AND PROMOTIONS COORDINATOR [facility] NORMAL BLOOD Routine 10:05 AM RETAIL AND PROMOTIONS COORDINATOR 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 09/09/2024 5:08 PM RETAIL AND PROMOTIONS COORDINATOR [facility] Genetic Diseases Assessed Cancer 09/09/2024 5:08 PM RETAIL AND PROMOTIONS COORDINATOR [facility] Description of Ranges of DNA Sequences Examined 105 gene liquid biopsy 09/09/2024 5:08 PM RETAIL AND PROMOTIONS COORDINATOR [facility] Overall Interpretation positive 09/09/2024 5:08 PM RETAIL AND PROMOTIONS COORDINATOR [facility] https://clinic al-portal.[employer] Not iT.[employer]/p atient/yfpl25q [email or web address] 5/reports/e37c [email or web address] 2d14 09/09/2024 5:08 PM RETAIL AND PROMOTIONS COORDINATOR [facility] Comment:[facility] link Low Coverage Regions JAK1, MSH3, SPOP, TERT 09/09/2024 5:08 PM RETAIL AND PROMOTIONS COORDINATOR [facility] Therapy Count 5 09/09/2024 5:08 PM RETAIL AND PROMOTIONS COORDINATOR [facility]: Potential Therapy 1 Gene: 3430^ERBB2^HGN C Variant: p.T862A Match Type: snvIndel Match Type Description: ERBB2 p.T862A Agent: Ado-Trastuzuma b Emtansine Drug Class: Anti-HER2 MAb Tissue: Non-Small Cell Lung Cancer Association: Response Evidence Status: Consensus Evidence ID: NCCN KDB Variant: Syzy-yv-tpkubb on Label: FDA Off Label FDA Approved?: Yes On label?: No 09/09/2024 5:08 PM RETAIL AND PROMOTIONS COORDINATOR [facility]: Potential Therapy 2 Gene: 3430^ERBB2^HGN C Variant: p.T862A Match Type: snvIndel Match Type Description: ERBB2 p.T862A Agent: Neratinib Drug Class: Anaya-HER TKI Tissue: Breast Cancer Association: Response Evidence Status: Consensus Evidence ID: NCCN KDB Variant: Jvok-pe-lmojjc on Label: FDA Off Label FDA Approved?: Yes On label?: No 09/09/2024 5:08 PM RETAIL AND PROMOTIONS COORDINATOR [facility]: Potential Therapy 3 Gene: 3430^ERBB2^HGN C Variant: p.T862A Match Type: snvIndel Match Type Description: ERBB2 p.T862A Agent: Trastuzumab + Neratinib Drug Class: Combination (Anti-HER2 MAb + Anaya-HER TKI) Tissue: Breast Cancer Association: Response Evidence Status: Consensus Evidence ID: MARV KDB Variant: Mkli-fa-wkqckd on Label: FDA Off Label FDA Approved?: Yes On label?: No 09/09/2024 5:08 PM RETAIL AND PROMOTIONS COORDINATOR [facility]: Potential Therapy 4 Gene: 3430^ERBB2^HGN C Variant: p.T862A Match Type: snvIndel Match Type Description: ERBB2 p.T862A Agent: Trastuzumab Deruxtecan Drug Class: MAb-Drug Conjugate Tissue: Non-Small Cell Lung Cancer Association: Response Evidence Status: Consensus Evidence ID: NCCN KDB Variant: Ebvg-ut-vbsagc on Label: FDA Off Label FDA Approved?: Yes On label?: No 09/09/2024 5:08 PM RETAIL AND PROMOTIONS COORDINATOR [facility]: Potential Therapy 5 Gene: 3430^ERBB2^HGN C Variant: p.T862A Match Type: snvIndel Match Type Description: ERBB2 p.T862A Agent: Trastuzumab + Pertuzumab Drug Class: Combination (Anti-HER2 MAbs) Tissue: Biliary Cancer Association: Response Evidence Status: Clinical research Evidence ID: [id number] Evidence URL: https://www.nc bi.nlm.nih.gov /pubmed/447429 12 Evidence Title: Targeted Therapy for Advanced Solid Tumors on the Basis of Molecular Profiles: Results From [employer], an Open-Label, Phase IIa Multiple Basket Study - PubMed KDB Variant: Hdzp-xn-tbyeho on Label: FDA Off Label FDA Approved?: Yes On label?: No 09/09/2024 5:08 PM RETAIL AND PROMOTIONS COORDINATOR [facility] Trial Count 3 09/09/2024 5:08 PM RETAIL AND PROMOTIONS COORDINATOR [facility]: Clinical Trial Match 1 Clinical Trial NCT ID: [id number] Clinical Trial Title: [id number] in Patients With Advanced Solid Tumors Harboring TP53 Y220C Mutation Clinical Trial URL: https://clinic altrials.gov/c t2/show/JYW569 81832 Clinical Phase: Phase 1/Phase 2 Clinical Trial Matches: 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 Clinical Trial Distance and Location: [address] [place], [place] 09/09/2024 5:08 PM RETAIL AND PROMOTIONS COORDINATOR [facility]: Clinical Trial Match 2 Clinical Trial NCT ID: [id number] Clinical Trial Title: The Evaluation of [id number] in Patients With Advanced Solid Tumors Harboring a TP53 Y220C Mutation (PYNNACLE) Clinical Trial URL: https://[facility] medical centerrials.gov/c t2/show/DIP029 12514 Clinical Phase: Phase 1/Phase 2 Clinical Trial Matches: 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 Clinical Trial Distance and Location: [address] [place] 09/09/2024 5:08 PM RETAIL AND PROMOTIONS COORDINATOR [facility]: Clinical Trial Match 3 Clinical Trial NCT ID: [id number] Clinical Trial Title: Beamion LUNG-1: A Study to Test Different Doses of Zongertinib in People With Different Types of Advanced Cancer (Solid Tumours With Changes in the HER2 Gene) Clinical Trial URL: https://[facility] medical centerrials.gov/c t2/show/QWD381 69481 Clinical Phase: Phase 1 Clinical Trial Matches: ERBB2 (HER2) p.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 us Horacio Kovacs MD MOLECULAR ORDERABLES Final Resu lt Performing Organization Address [facility]/ZIP Co de Phone Number [facility] [address] [facility], [address] [place] [address], [place] [phone] [facility] [address] [facility], [address] [place], [place] [address] * PET BONE IMG W CT SKB MDTH (09/08/2024 1:21 PM RETAIL AND PROMOTIONS COORDINATOR) Anatomical Region Laterality Modality Other us Horacio Kovacs MD PE ORDERABLES Final Result * COMPREHENSIVE METABOLIC PANEL (08/31/2024 2:57 PM RETAIL AND PROMOTIONS COORDINATOR) Only the most recent of2 resultswithin the time period is included. Blood us Horacio Kovacs MD CHEMISTRY ORDERABLES Final Resu lt * [facility] NORMAL BLOOD (08/28/2024 10:05 AM RETAIL AND PROMOTIONS COORDINATOR) [facility] 08/28/2024 11:01 PM RETAIL AND PROMOTIONS COORDINATOR [facility] Comment:See NGS Report for R esults. Blood specimen (specimen) 08/28/2024 10:05 AM RETAIL AND PROMOTIONS COORDINATOR 08/28/2024 10:06 AM RETAIL AND PROMOTIONS COORDINATOR us Horacio Kovacs MD MOLECULAR ORDERABLES Final Resu lt Performing Organization Address [facility]/ZIP Co de Phone Number [facility] [address] [facility], [address] [place] [address], [place] [phone] [facility] [address] [facility], [address] [place] [id number] from Last 3 Months Insurance MEDICARE PART A AND B [facility]
--- OUTSIDE RECORDS SUMMARY | 2024-09-20 16:49 | XMS_ITS | Patient Health Summary ---
Author Organization [facility] Address [address] [facility] [place] [address] Care Team Providers Care Major Appliance Assembly Supervisor Name Role Phone David Berrios MD Primary Care Provider [phone] Note from [facility],non-owned Affiliates and Associated Physician Practices is amultiple site organization consisting of ambulatory clinics and hospital sitesin [place], [place], [place] and [place]. This disclosure is being madepursuant to the Care Everywhere program and may not contain all information available regarding this patient. Last updated 18.[facility] Allergies * Penicillins(Urticaria) -Medium Criticality Medications * [...] Date Smoking Tobacco: Every Day Cigarettes 0.3 55.2 Started: 1971 Smokeless Tobacco: Never Tobacco Cessation:Ready [...] Comments Blood Pressure 128/54 08/26/2024 3:15 PM RATE SETTER Pulse 68 08/26/2024 3:15 PM RATE SETTER Temperature 36.7 C (98 F) 08/26/2024 2:40 PM RATE SETTER Respiratory Rate 15 08/26/2024 3:15 PM RATE SETTER Oxygen Saturation 98% 08/26/2024 3:15 PM RATE SETTER Inhaled Oxygen Concentration - - Weight 55.3 kg (122 lb) 08/26/2024 11:02 AM RATE SETTER Height 170.2 cm (5' 7 ) 08/26/2024 11:02 AM RATE SETTER Body Mass Index 19.11 08/26/2024 11:02 AM RATE SETTER Medical Devices Implanted Type Area Cavalry Scout Device Identifier Shelf Expiration Date Model / Serial / Lot Stent Ddnl 22-27mm 10fr 9cm 230cm 270cm - [id number] Implanted:Qty: 1 on 08/26/2024 by David Magana MD at [facility] [employer] [id number] 07/10/2025 [id number] / [id number] Procedures * ENDOTRACHEAL TUBE NOTE(Performed 08/26/2024) * ENDOSCOPIC ULTRASONOGRAPHY, GI(Performed 08/26/2024) * MT ENDOSCOPIC ULTRASOUND EXAM(Performed 08/26/2024) Performed for Malignant neoplasm of stomach, unspecified location (HCC) Results * ETT LINE PERFORMABLE (08/26/2024 1:11 PM RATE SETTER) Narrative Ivonne Henry APRN-CRNA - 08/26/2024 1:11 PM RATE SETTER Ivonne Henry APRN-CRNA 08/26/2024 1:11 PM Endotracheal Tube Placement: Patient Location: OR. Intubation Event Date/Time: 08/26/2024 1:00 PM Procedure: intubation (77616) Procedure Section: Induction: rapid sequence Patient Position: [...] * Endoscopic Ultrasonography, GI (08/26/2024 1:02 PM RATE SETTER) Report Endoscopy POC Endoscopy Department Report _ [...] and oxygen saturations were monitored continuously. A [id number] was introduced through the mouth, and advanced [...] 9 cm uncovered metal enteral stent (WallFlex, [employer]) was placed over the guidewire under [...] cm transpyloric uncovered metal enteral stent (WallFlex, [employer]) under endoscopic and fluoroscopic guidance. Moderate [...] entire procedure. Procedure Code(s): --- Professional --- 68203, Esophagogastroduodenos copy, flexible, transoral; with placement of endoscopic stent (includes pre- and post-dilation and guide wire passage, when performed) 31032, Esophagogastroduodenos copy, flexible, transoral; with endoscopic ultrasound examination limited to the esophagus, stomach or duodenum, and adjacent structures 22392, Intraluminal dilation of strictures and/or obstructions (eg, esophagus), radiological supervision and interpretation Diagnosis Code(s): --- Professional --- C16.2, Malignant neoplasm of body of stomach C16.3, Malignant neoplasm of pyloric antrum K31.89, Other diseases of stomach and duodenum 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 All rights reserved. The codes documented in this report are preliminary and upon surgical coder review may be revised to meet current compliance requirements. David Keller MD 08/26/2024 2:16:30 PM Note Initiated On: 08/26/2024 1:02 PM Number of Addenda: [address] [address] [facility] 08/26/2024 1:02 PM RATE SETTER David Keller MD GI PROCEDURE ORDERABLES [facility] Care Teams Major Appliance Assembly Supervisor Relationship Specialty Start Date End Date David Berrios MD [address] [place] [address] PCP - General Family Medicine 08/24/24
--- OUTSIDE RECORDS SUMMARY | 2024-09-20 16:49 | XMS_ITS ---
Author Organization [facility] Address [address] [place] [address] Care Team Providers Care Speed Winder Name Role Phone Meghna Fine MD Primary Care Provider Yahir Brooke MD Unavailable [phone] Armando Balderas Chi, MD Unavailable [phone] Balta Bennett MD Unavailable Active Problems Patient [...] D/c home with outpatient cardiology (Dr. Colon, [facility]). (01/11) Tobacco use 01/10/2020 Assessment & [...] from the original note were not included. [address] [address] This Survivorship Care Plan is a cancer [...] Information: Primary Care Physician Meghna Fine MD [phone] Surgeon No care seafood team member to display Radiation Oncologist Balta Bennett MD [phone] Medical Oncologist No care seafood team member to display Other Providers Treatment [...] 3-5, then yearly. All providers Monitor for watermelon inspector cardiac toxicity. Meghna Fine Monitor for correction toxicity Cardiac - congestive heart failure (CHF), [...] Help learning to eat healthier, call the tester compressed gases at: [facility] Medicine . Have an active lifestyle, strive [...] man. Resources you may be interested in: [facility] Cancer [facility] Cancer Center http://www.[facility]/ [facility] Cancer Information Center 1st floor of [facility] [phone]. Computer access, educational material, counseling services (FREE) Cancer Resources: www.cancer.net [place] Disabilities Act: The U.S. Department of Justice provides information about the Americans with Disabilities Act (ADA). Toll free number http://www.ada.gov/ Occupational Therapy at [facility]. Improve memory and thinking following chemotherapy. Improve your performance at home, work and in the community. or Toll free www..[facility]/patients A service of [employer], a non-profit organization providing free, professional support - includingcounseling, support group, financial assistance, educational workshops and publications -to anyone coping with lung cancer. http://www.lungcancer.org/ We are a partnership of lung cancer survivors, advocates, researchers, healthcare professionals and[place] leaders. And we are united in the belief that every person with lung cancer deserves a cure. http://www.freetobreathe.org/ Lung Cancer Connection is committed to organizing and funding community outreach programs aimed at those affected by lung cancer in the [place] area. http://www.lungcancerconnectioninc.org Cancer and Careers empowers and educates people with cancer to thrive in their workplace by providing expert advice, interactive tools and educational events. http://www.cancerandcareers.org/en/iyisgmb-bbn-zrzd [employer] Beyond Cancer: https://survivorship.cancer.gov/ an online tool for cancer survivors andcaregivers created by the [place] Cancer Society and the National Cancer [place]. It provides: Information on dealing with side effects from cancer and treatment Caregivers with support and resources Practical advice about talking to friends and family about cancer Questions to ask their health care team
--- OUTSIDE RECORDS SUMMARY | 2024-09-20 16:49 | XMS_ITS | Referral Summary ---
Author Organization [facility] Address [address] [place] [address] Care Team Providers Care Health And Physical Education Professor Name Role Phone David Berrios MD Primary Care Provider [phone] Source Comments [facility] and Associated Physician Practices is amultiple site organization consisting of ambulatory clinics and hospital sitesin [place], [place], [place] and [place]. This disclosure is being madepursuant to the Care Everywhere program and may not contain all information available regarding this patient. Last updated 18.[facility] Encounters Date Type Department Care Team Description 08/26/2024 Travel 08/26/2024 12:25 PM CATALOGUE CLERK - 08/26/2024 1:25 PM CATALOGUE CLERK Surgery [facility] [address] [place] [address] David Magana MD EGD / EUS + stent 08/26/2024 12:52 PM CATALOGUE CLERK Anesthesia Event [facility] [address] [place] [address] Chris Santiago MD Blackshear, Steven, 08/26/2024 10:49 AM CATALOGUE CLERK - 08/26/2024 3:30 PM CATALOGUE CLERK Hospital Encounter [facility] OP [address] [place] [address] David Magana MD Surgery General Discharge Disposition: Home or Self Care 08/25/2024 Telephone [facility] [address] [place] [address] Astrid Avelar Follow-up 08/24/2024 Travel 08/24/2024 Telephone [facility] [address] [place] [address] Astrid Avelar Follow-up 08/24/2024 1:30 PM CATALOGUE CLERK Office Visit [facility] - General Surgery [address] [place] [address] Kamar Cristina MD Gastric mass (Primary Dx) 08/20/2024 Travel 08/18/2024 Telephone [facility] - GI [address] [place] [address] Darrin Recinos RN Appointment (procedure confirmed) 08/14/2024 Telephone [facility] - GI [address] [place] [address] Darrin Recinos RN Procedure (external referral: EGD/EUS for stent placement / neoplasm of stomach from Dr. Jimmy Arrington f: [phone] Nuñez) from Last 3 Months [...] Comments Blood Pressure 128/54 08/26/2024 3:15 PM CATALOGUE CLERK Pulse 68 08/26/2024 3:15 PM CATALOGUE CLERK Temperature 36.7 C (98 F) 08/26/2024 2:40 PM CATALOGUE CLERK Respiratory Rate 15 08/26/2024 3:15 PM CATALOGUE CLERK Oxygen Saturation 98% 08/26/2024 3:15 PM CATALOGUE CLERK Inhaled Oxygen Concentration - - Weight 55.3 kg (122 lb) 08/26/2024 11:02 AM CATALOGUE CLERK Height 170.2 cm (5' 7 ) 08/26/2024 11:02 AM CATALOGUE CLERK Body Mass Index 19.11 08/26/2024 11:02 AM CATALOGUE CLERK Functional Status Functional Status Response Date of [...] Description 12/28/2024 2:15 PM CDT Office Visit [facility] - General Surgery [address] [place] [address] Kamar Cristina MD [address] [facility] [address] [place] [address] Medical Devices Implanted Type Area Senior Financial Accountant Device Identifier Shelf Expiration Date Model / Serial / Lot Stent Ddnl 22-27mm 10fr 9cm 230cm 270cm - [id number] Implanted:Qty: 1 on 08/26/2024 by David Magana MD at [facility] [employer] [id number] 07/10/2025 [id number] / [id number] Procedures Procedure Name Priority Date/Time Associated Diagnosis Comments ENDOTRACHEAL TUBE NOTE Routine 08/26/2024 1:11 PM CATALOGUE CLERK ENDOSCOPIC ULTRASONOGRAPHY, GI Routine 08/26/2024 1:02 PM CATALOGUE CLERK [place] ENDOSCOPIC ULTRASOUND EXAM 08/26/2024 12:47 PM CATALOGUE CLERK Malignant neoplasm of stomach, unspecified location (HCC) from Last 3 Months Results * ETT LINE PERFORMABLE (08/26/2024 1:11 PM CATALOGUE CLERK) Narrative Ivonne Henry APRN-CRNA - 08/26/2024 1:11 PM CATALOGUE CLERK Ivonne Henry APRN-CRNA 08/26/2024 1:11 PM Endotracheal Tube Placement: Patient Location: OR. Intubation Event Date/Time: 08/26/2024 1:00 PM Procedure: intubation (60766) Procedure Section: Induction: rapid sequence Patient Position: [...] * Endoscopic Ultrasonography, GI (08/26/2024 1:02 PM CATALOGUE CLERK) Report Endoscopy POC Endoscopy Department Report _ [...] and oxygen saturations were monitored continuously. A [id number] was introduced through the mouth, and advanced [...] 9 cm uncovered metal enteral stent (WallFlex, [employer]) was placed over the guidewire under [...] cm transpyloric uncovered metal enteral stent (WallFlex, [employer]) under endoscopic and fluoroscopic guidance. Moderate [...] entire procedure. Procedure Code(s): --- Professional --- 79172, Esophagogastroduodenos copy, flexible, transoral; with placement of endoscopic stent (includes pre- and post-dilation and guide wire passage, when performed) 88714, Esophagogastroduodenos copy, flexible, transoral; with endoscopic ultrasound examination limited to the esophagus, stomach or duodenum, and adjacent structures 49173, Intraluminal dilation of strictures and/or obstructions (eg, esophagus), radiological supervision and interpretation Diagnosis Code(s): --- Professional --- C16.2, Malignant neoplasm of body of stomach C16.3, Malignant neoplasm of pyloric antrum K31.89, Other diseases of stomach and duodenum 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 All rights reserved. The codes documented in this report are preliminary and upon clinical account specialist review may be revised to meet current compliance requirements. David Keller MD 08/26/2024 2:16:30 PM Note Initiated On: 08/26/2024 1:02 PM Number of Addenda: [address] [address] [facility] 08/26/2024 1:02 PM CATALOGUE CLERK David Keller MD GI PROCEDURE ORDERABLES [facility] from Last 3 Months Advance Directives Documents on File Type Date Recorded Patient Director Customer Expl anation Adv Directive/Living Will/POA 08/26/2024 Care Teams Health And Physical Education Professor Relationship Specialty Start Date End Date David Berrios MD [address] [place] [address] PCP - General Family Medicine 08/24/24
--- OUTSIDE RECORDS SUMMARY | 2024-09-20 16:49 | XMS_ITS | Clinical Summary ---
Author Organization [facility] Zachary Prell Address [address] [place] [address] Care Team Providers Care Stave Machine Tender Name Role Phone David Berrios MD Primary Care Provider [phone] Source Comments [facility] and Associated Physician Practices is amultiple site organization consisting of ambulatory clinics and hospital sitesin [place], [place], [place] and [place]. This disclosure is being madepursuant to the Care Everywhere program and may not contain all information available regarding this patient. Last updated 18.[facility] Zachary Prell Allergies Active Allergy Reactions Criticality Noted Date [...] Department Care Team Description 08/26/2024 12:52 PM CHEMICAL LABORATORY ASSISTANT Anesthesia Event [facility] END[facility] [address] [place] [address] Chris Santiago MD Blackshear, Steven, DO 08/26/2024 12:25 PM CHEMICAL LABORATORY ASSISTANT - 08/26/2024 1:25 PM CHEMICAL LABORATORY ASSISTANT Surgery [facility] END[facility] [address] [place] [address] David Magana MD EGD / EUS + stent 08/26/2024 10:49 AM CHEMICAL LABORATORY ASSISTANT - 08/26/2024 3:30 PM CHEMICAL LABORATORY ASSISTANT Hospital Encounter [facility] OP [address] [place] [address] David Magana MD Surgery General Discharge Disposition: Home or Self Care 08/26/2024 Travel 08/25/2024 Telephone [facility] END[facility]COPY [address] [place] [address] Astrid Avelar Follow-up 08/24/2024 1:30 PM CHEMICAL LABORATORY ASSISTANT Office Visit [facility] - General Surgery [address] [place] [address] Kamar Cristina MD Gastric mass (Primary Dx) 08/24/2024 Travel 08/24/2024 Telephone [facility] ENDOSCOPY [address] [place] [address] Astrid Avelar Follow-up 08/20/2024 Travel 08/18/2024 Telephone [facility] - GI [address] [place] [address] Darrin Recinos RN Appointment (procedure confirmed) 08/14/2024 Telephone [facility] - GI [address] [place] [address] Darrin Recinos, paediatrician (external referral: EGD/EUS for stent placement / neoplasm of stomach from Dr. Jimmy Arrington f: [phone] Nuñez) from Last 3 Months Social History Tobacco Use Types Packs/Day Years Used Date Smoking Tobacco: Every Day Cigarettes 0.3 55.2 Started: 1970 Smokeless Tobacco: Never Tobacco Cessation:Ready [...] Comments Blood Pressure 128/54 08/26/2024 3:15 PM CHEMICAL LABORATORY ASSISTANT Pulse 68 08/26/2024 3:15 PM CHEMICAL LABORATORY ASSISTANT Temperature 36.7 C (98 F) 08/26/2024 2:40 PM CHEMICAL LABORATORY ASSISTANT Respiratory Rate 15 08/26/2024 3:15 PM CHEMICAL LABORATORY ASSISTANT Oxygen Saturation 98% 08/26/2024 3:15 PM CHEMICAL LABORATORY ASSISTANT Inhaled Oxygen Concentration - - Weight 55.3 kg (122 lb) 08/26/2024 11:02 AM CHEMICAL LABORATORY ASSISTANT Height 170.2 cm (5' 7 ) 08/26/2024 11:02 AM CHEMICAL LABORATORY ASSISTANT Body Mass Index 19.11 08/26/2024 11:02 AM CHEMICAL LABORATORY ASSISTANT Plan of Treatment Upcoming Encounters Date Type Department Care Team (Late st Contact Info) Description 12/28/2024 2:15 PM CDT Office Visit [facility] - General Surgery [address] [place] [address] Kamar Cristina MD [address] [facility] [address] [place] [address] Health Maintenance Due Date Last Done Comments [...] to complete this topic MENINGOCOCCAL (Group B) VACC INE SHARED DECISION-MAKING Aged Out No longer eligibl e based on patient's age to complete this topic MENINGOCOCCAL GROUPS A/C/Y/W VACCINE Aged Out No longer eligible b ased on patient's age to complete this topic Medical Devices Implanted Type Area Weatherization And Housing Inspector Device Identifier Shelf Expiration Date Model / Serial / Lot Stent Ddnl 22-27mm 10fr 9cm 230cm 270cm - [id number] Implanted:Qty: 1 on 08/26/2024 by David Magana MD at [facility] [employer] [id number] 07/10/2025 [id number] / [id number] Procedures Procedure Name Priority Date/Time Associated Diagnosis Comments ENDOTRACHEAL TUBE NOTE Routine 08/26/2024 1:11 PM CHEMICAL LABORATORY ASSISTANT ENDOSCOPIC ULTRASONOGRAPHY, GI Routine 08/26/2024 1:02 PM CHEMICAL LABORATORY ASSISTANT [place] ENDOSCOPIC ULTRASOUND EXAM 08/26/2024 12:47 PM CHEMICAL LABORATORY ASSISTANT Malignant neoplasm of stomach, unspecified location (HCC) from Last 3 Months Results * ETT LINE PERFORMABLE (08/26/2024 1:11 PM CHEMICAL LABORATORY ASSISTANT) Narrative Ivonne Henry APRN-CRNA - 08/26/2024 1:11 PM CHEMICAL LABORATORY ASSISTANT Ivonne Henry APRN-CRNA 08/26/2024 1:11 PM Endotracheal Tube Placement: Patient Location: OR. Intubation Event Date/Time: 08/26/2024 1:00 PM Procedure: intubation ([id number]) Procedure Section: Induction: rapid sequence Patient Position: [...] * Endoscopic Ultrasonography, GI (08/26/2024 1:02 PM CHEMICAL LABORATORY ASSISTANT) Report Endoscopy POC Endoscopy Department Report _ [...] and oxygen saturations were monitored continuously. A [id number] was introduced through the mouth, and advanced [...] 9 cm uncovered metal enteral stent (WallFlex, [employer]) was placed over the guidewire under [...] cm transpyloric uncovered metal enteral stent (WallFlex, [employer]) under endoscopic and fluoroscopic guidance. Moderate [...] entire procedure. Procedure Code(s): --- Professional --- 83529, Esophagogastroduodenos copy, flexible, transoral; with placement of endoscopic stent (includes pre- and post-dilation and guide wire passage, when performed) 15123, Esophagogastroduodenos copy, flexible, transoral; with endoscopic ultrasound examination limited to the esophagus, stomach or duodenum, and adjacent structures 29068, Intraluminal dilation of strictures and/or obstructions (eg, esophagus), radiological supervision and interpretation Diagnosis Code(s): --- Professional --- C16.2, Malignant neoplasm of body of stomach C16.3, Malignant neoplasm of pyloric antrum K31.89, Other diseases of stomach and duodenum 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 All rights reserved. The codes documented in this report are preliminary and upon cover making machine operator review may be revised to meet current compliance requirements. David Keller MD 08/26/2024 2:16:30 PM Note Initiated On: 08/26/2024 1:02 PM Number of Addenda: [address] [address] [facility] 08/26/2024 1:02 PM CHEMICAL LABORATORY ASSISTANT David Keller MD GI PROCEDURE ORDERABLES [facility] DIOR from Last 3 Months Advance Directives Documents on File Type Date Recorded Patient Birth Attendant Expl anation Adv Directive/Living Will/POA 08/26/2024 Care Teams Stave Machine Tender Relationship Specialty Start Date End Date David Berrios MD [address] [place] [address] PCP - General Family Medicine 08/24/24
[2024-09-20 17:32] VITALS: BP 95/55; PULSE 96; RESP 12; O2SAT 95
[2024-09-20 17:44] VITALS: BP 97/62; PULSE 97; RESP 16; O2SAT 100
--- NOTE | 2024-09-20 17:45 | ED_ITS ---
HPI - Fall General Chief Complaint: Fall Stated Complaint: fall, N/V Time Seen by Provider: 09/20/24 17:44 Source: patient and family History of Present Illness HPI Narrative: 68 YEARS OLD WHITE MALE CAME TO THE ED BECAUSE OF WEAKNESS AND FALLS TODAY. PATIENT IS STATUS POST CHEMOTHERAPY 6 DAY AND 7 DAY. PATIENT IS TELLING ME THAT FOR THE LAST 7 DAYS BEEN NOT BEEN EATING OR DRINKING OR TAKING HIS MEDICATION GETTING WEAKER AND WEAKER, PATIENT WAS WALKING, LOST HIS BALANCE AND FELL FORWARD HIT HIS FACE ON THE GROUND, POSSIBLE LOSS OF CONSCIOUSNESS FOR 2-3 SECONDS. HISTORY OF STOMACH CANCER, HYPERLIPIDEMIA, ANEMIA, B12 DEFICIENCY, AORTIC DISSECTION TYPE A. PATIENT MAIN COMPLAINT AT THIS TIME IS CANNOT EAT OR DRINK. HE DENIES ANY FEVER OR CHILLS OR VOMITING OR CHEST PAIN OR ABDOMINAL PAIN MORE THAN USUAL Related Data Home Medications ?Medication ?Instructions ?Recorded ?Confirmed ?Last Taken ?Type cyanocobalamin (vitamin B-12) 5,000 mcg PO DAILY 08/27/24 09/20/24 09/04/24 History 5,000 mcg capsule Allergies Allergy/AdvReac Type Severity Reaction Status Date / Time Penicillins Allergy Unknown HIVES Verified 09/20/24 17:41 Review of Systems 2 Review of Systems: All systems reviewed & are unremarkable except as noted in HPI and below PMFSH Past Medical History Medical History Malignant neoplasm of lower lobe of right lung completed a definitive course of SBRT in 08/2021 at [facility] 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 Code status: Full code. Smoking packs per day: 1 Smoking cigarettes per day: 20.0 Years smoked: 55 Smoking pack-years: 55.00 Smoking status: Current every day smoker Tobacco type: cigarettes Second hand tobacco smoke exposure: Yes Additional smoking assessment comments: CUTTING BACK-1/2 PACK/DAY CURRENTLY Alcohol intake: former Alcohol use details: Substance use: never Substance use type: does not use Do You Feel Safe in your Home?: Yes Lack of Transportation: No Lack of Food: Never True Current Housing: I Have Housing Concerned About Future Housing: No Difficulty Paying Gas/Electric Bills: No Difficulty Paying for Meds: No Currently Unemployed: YES Education: Don't Know Difficulty w/ Childcare or Family Care: No Living arrangements: with family Additional living arrangements comments: Occupation/Education: retired Spiritual care concerns: No Exam 2 Narrative: GENERAL APPEARANCE: WELL-DEVELOPED, WELL-NOURISHED GENERALLY WEAK LOOKING SKIN: NORMAL COLOR HEAD: NORMOCEPHALIC, NONTRAUMATIC EYES: CLEAR CONJUNCTIVA ENT: OROPHARYNX NORMAL, EARS NORMAL, NOSE NORMAL NECK: SUPPLE, NONTENDER CHEST AND RESPIRATORY: AIRWAY PATENT, NO RESPIRATORY DISTRESS, NO ACCESSORY MUSCLE USE HEART: REGULAR RATE/RHYTHM ABDOMEN: SOFT, MILD EPIGASTRIC TENDERNESS, NO ORGANOMEGALY, QUIET BOWEL SOUNDS VASCULAR: NORMAL PERIPHERAL PULSES, NORMAL CAPILLARY REFILL. MUSCULOSKELETAL: NORMAL RANGE OF MOTION, NONTENDER BACK NEUROLOGIC: ALERT AND ORIENTED ?3, ROUND CUTTER OPERATOR IS NORMAL TESTED, NO GROSS MOTOR DEFICIT Course Consultations Consultation #1: DR KIM OUTPATIENT FOLLOW-UP Date: 09/20/24 Vital Signs Vital signs: Vital Signs Temperature 36.5 C 09/20/24 16:49 Pulse Rate 106 H 09/20/24 16:49 Respiratory Rate 20 09/20/24 16:49 Blood Pressure 86/44 L 09/20/24 16:49 Pulse Oximetry 100 09/20/24 16:49 Oxygen Delivery Room Air 09/20/24 16:49 Temperature 36.5 C 09/20/24 16:49 Pulse Rate 97 09/20/24 17:44 Respiratory Rate 16 09/20/24 17:44 Blood Pressure 97/62 L 09/20/24 17:44 Pulse Oximetry 100 09/20/24 17:44 Oxygen Delivery Room Air 09/20/24 16:49 MDM - Fall MDM Narrative Medical decision making narrative: PATIENT CAME WITH GENERAL WEAKNESS, POOR P.O. INTAKE FOR 1 WEEK AFTER HAVING CHEMOTHERAPY VITAL SIGNS SHOWING BLOOD PRESSURE 86/45, HEART RATE 106 OTHERWISE WITHIN NORMAL LIMIT PHYSICAL EXAMINATION SHOWING WEAK LOOKING PATIENT DIFFERENTIAL DIAGNOSIS INCLUDE DEHYDRATION, ELECTROLYTE IMBALANCE, FAILURE TO THRIVE, HYPERTENSION BLOOD WORKUP TODAY INCLUDES CBC, CMP SHOWED HEMOGLOBIN OF 9.5 CONSISTENT WITH PREVIOUS READINGS, BUN 29, CREATININE 1.3, GLUCOSE 112 RESPIRATORY PANEL NEGATIVE FOR COVID FLU RSV CHEST X-RAY SHOWED NO ACUTE ABNORMALITIES CT HEAD, CERVICAL SPINE, FACIAL BONES SHOWED NO ACUTE ABNORMALITIES BLOOD PRESSURE AT THE TIME OF DISCHARGE IS 137/59 COMPARED TO 86 ON 45 ON ARRIVAL TO THE ED. PATIENT RECEIVED 1.5 L OF NORMAL SALINE IV. DISCHARGED HOME, DISCUSSED WITH TO BE SEEN BY HIM IN THE MORNING THE PT WAS DISCHARGED TO HOME.THE PT,S CONDITION UPON DISCHARGE WAS FAIR,EDUCATION WAS PROVIDED TO THE PT IN REFERENCE TO THE FINAL IMPRESSION,DISCHARGE STUDY RESULTS,TREATMENT,PROGNOSIS AND NEED FOR FOLLOW UP . Differential Diagnosis Differential diagnosis: Likely other ( ABOVE) Medical Records Attestation: I reviewed the patient's medical records. Lab Data Attestation: I reviewed the patient's lab results. 09/20/24 18:32 09/20/24 18:32 Labs: Lab Results 09/20/24 Range/Units 18:32 WBC 5.1 (4.5-10.0) K/mm3 RBC 3.48 L (4.6-6.20) M/mm3 Hgb 9.5 L (14.0-18.0) g/dL Hct 31.2 L (42.0-52.0) % MCV 89.7 (80-100) fl MCH 27.3 (26-34) pg MCHC 30.4 L (32-36) g/dl RDW 19.9 H (11.5-14.5) % Plt Count 158 (150-375) k/mm3 MPV 9.7 (7.4-10.4) fl Immature Gran % (Auto) 0.2 (0-0.5) % Neut % (Auto) 73.3 H (45.5-73.1) % Lymph % (Auto) 23.3 (18.3-44.2) % [place] % (Auto) 1.4 L (2.6-8.5) % Eos % (Auto) 1.2 (0-4.4) % Baso % (Auto) 0.6 (0.2-1.2) % Lymph # (Auto) 1.18 (0.9-3.2) K/mm3 [place] # (Auto) 0.1 (0.1-0.6) K/mm3 Eos # (Auto) 0.1 (0-0.3) K/mm3 Baso # (Auto) 0.0 (0.0-0.1) K/mm3 Abs Immat Gran (auto) 0.01 (0.00-0.031) K/mm3 Absolute Neuts (auto) 3.7 (1.3-6.7) K/mm3 Absolute Nucleated RBC 0.000 (0.0-0.012) K/mm3 Nucleated RBC % 0.0 (0.0-0.2) % PT 14.4 (11.1-14.7) Seconds INR 1.1 APTT 27.5 (22.3-36.8) Seconds Sodium 137 (137-145) mmol/L Potassium 4.2 (3.4-5.0) mmol/L Chloride 105 (98-107) mmol/L Carbon Dioxide 25 (22-30) mmol/L Anion Gap 7 (4-12) mmol/L BUN 29 H D (9-20) mg/dL Creatinine 1.32 H (0.7-1.3) mg/dL Estim Creat Clear Calc 33 ml/min Estimated GFR 54 L (59 - ) Glucose 112 H (65-110) mg/dL Lactic Acid 1.6 (0.7-2.0) mmol/L Calcium 9.1 (8.4-10.2) mg/dL Total Bilirubin 0.7 (0.2-1.3) mg/dL AST 15 L (17-59) U/L ALT 10 (6-50) U/L Alkaline Phosphatase 61 (38-126) U/L Troponin I < 0.012 (0.000-0.034) ng/mL C-Reactive Protein 0.9 (<1.0) mg/dL Total Protein 6.0 L (6.3-8.2) g/dL Albumin 3.4 L (3.5-5.1) g/dL Influenza A (RT-PCR) Negative (Negative) Influenza B (RT-PCR) Negative (Negative) RSV (RT-PCR) Negative (Negative) SARS-CoV-2 RNA (RT-PCR) Negative (Negative) ECG Data EKG #1: Attestation: I personally reviewed and interpreted this ECG as follows: ECG completion date: 09/20/24 Interpretation: NORMAL SINUS RHYTHM AT 94 BEATS PER MINUTE, COMPARED TO EKG ON 2023 NO SIGNIFICANT CHANGES Critical Care Time Critical Care Time Critical Care Time: No Discharge Plan Discharge Clinical Impression: Weakness generalized, History of cancer of stomach Patient Disposition: Home, Self-Care Condition: Improved Instructions: Weakness (ED) Additional Instructions: CALL DR. KIM TOMORROW MORNING FOR OUTPATIENT VISIT ENCOURAGE FLUID INTAKE Patient Language: Italian Prescriptions: No Action rosuvastatin 40 mg tablet 40 mg PO DAILY Qty: 90 0RF famotidine 20 mg tablet 20 mg PO DAILY Qty: 30 0RF cyanocobalamin (vitamin B-12) 5,000 mcg capsule 5,000 mcg PO DAILY Patient Comments: ..... ferrous sulfate 325 mg (65 mg iron) Tablet,Delayed Release (Dr/Ec) 325 mg PO BID Qty: 60 0RF omeprazole 40 mg capsule,delayed release(DR/EC) 40 mg PO QAM Qty: 90 1RF Follow-up/Referrals: David Berrios MD [Primary Care Provider] -
--- NOTE | 2024-09-20 17:46 | ECG_ITS ---
Test Date: 2024-09-20 18:32:41 Measurements Intervals [place] Rate: 94 P: 80 SD: 127 QRS: 9 QRSD: 109 T: 66 QT: 358 QTc: 448 Interpretive Statements SINUS RHYTHM Compared to ECG 03/14/2024 16:01:39 No significant changes Electronically Signed On 09-21-2024 15:12:23 CDT by Han Blair M.D.
--- OUTSIDE RECORDS SUMMARY | 2024-09-20 17:53 | XMS_ITS ---
Author Organization [facility] Address [address] [place] [address] Care Team Providers Care Cargo Tank Mechanic Name Role Phone Meghna Fine MD Primary Care Provider Yahir Brooke MD Unavailable [phone] Armando Balderas Chi, MD Unavailable [phone] Balta Bennett MD Unavailable [phone] Active Problems Patient Care Coordination No te [...] D/c home with outpatient cardiology (Dr. Colon, [facility]). (01/11) Tobacco use 01/10/2020 Assessment & [...] from the original note were not included. [address] [address] This Survivorship Care Plan is a cancer [...] Information: Primary Care Physician Meghna Fine MD [phone] Surgeon No care merchandise flow team leader to display Radiation Oncologist Balta Bennett MD [phone] Medical Oncologist No care merchandise flow team leader to display Other Providers Treatment Summary Cancer Diagnosis Information Diagnosis Malignant neoplasm of lower lobe of right lung (CMS/HCC) (HCC) Diagnosis date 07/18/2021 Staging information Cancer Staging Malignant neoplasm of lower lobe of right lung (CMS/HCC) (HCC) Staging form: Lung, AJCC 8th Edition - Clinical stage from 06/27/2021: Stage IA1 (cT1a, cN0, cM0) - Signed by Balat Bennett MD on 07/18/2021 Treatment Completed Surgery [...] 3-5, then yearly. All providers Monitor for nursing aide cardiac toxicity. Meghna Fine Monitor for long-term toxicity Cardiac - congestive heart failure (CHF), [...] Help learning to eat healthier, call the broomcorn thresher at: [facility] . Have an active lifestyle, strive [...] man. Resources you may be interested in: [facility] http://www.[facility]/ [facility] & Cancer Information Center 1st floor of [facility] [phone]. Computer access, educational material, counseling services (FREE) Cancer Resources: www.cancer.net Citizen Of [place] Disabilities Act: The U.S. Department of Justice provides information about the Americans with Disabilities Act (ADA). Toll free number http://www.ada.gov/ Occupational Therapy at [facility]. Improve memory and thinking following chemotherapy. Improve your performance at home, work and in the community. or Toll free www..[facility]/patients A service of [employer], a non-profit organization providing free, professional support - includingcounseling, support group, financial assistance, educational workshops and publications -to anyone coping with lung cancer. http://www.lungcancer.org/ We are a partnership of lung cancer survivors, advocates, researchers, healthcare professionals and[place] leaders. And we are united in the belief that every person with lung cancer deserves a cure. http://www.freetobreathe.org/ Lung Cancer Connection is committed to organizing and funding community outreach programs aimed at those affected by lung cancer in the [place] area. http://www.lungcancerconnectioninc.org Cancer and Careers empowers and educates people with cancer to thrive in their workplace by providing expert advice, interactive tools and educational events. http://www.cancerandcareers.org/en/uiyhqvf-gru-ihkl Springboard Beyond Cancer: https://survivorship.cancer.gov/ an online tool for cancer survivors andcaregivers created by the [place] Of [place] Cancer Society and the National Cancer [place]. It provides: Information on dealing with side effects from cancer and treatment Caregivers with support and resources Practical advice about talking to friends and family about cancer Questions to ask their health care team
--- OUTSIDE RECORDS SUMMARY | 2024-09-20 17:53 | XMS_ITS | Referral Summary ---
Author Organization [facility] Address [address] [place] [address] Care Team Providers Care Public Relations Name Role Phone David Berrios MD Primary Care Provider [phone] [facility] and Associated Physician Practices is amultiple site organization consisting of ambulatory clinics and hospital sitesin [place], [place], [place] and [place]. This disclosure is being madepursuant to the Care Everywhere program and may not contain all information available regarding this patient. Last updated 18.[facility] Encounters Date Type Department Care Team Description 08/26/2024 Travel 08/26/2024 12:25 PM RAYON CONER - 08/26/2024 1:25 PM RAYON CONER Surgery [facility] ENDOSCOPY [address] [place] [address] David Magana MD EGD / EUS + stent 08/26/2024 12:52 PM RAYON CONER Anesthesia Event [facility] ENDOSCOPY [address] [place] [address] Chris Santiago MD [place], Steven, 08/26/2024 10:49 AM RAYON CONER - 08/26/2024 3:30 PM RAYON CONER Hospital Encounter [facility] LEON OP [address] [place] [address] David Magana MD Surgery General Discharge Disposition: Home or Self Care 08/25/2024 Telephone [facility] ENDOSCOPY [address] [place] [address] Astrid Avelar Follow-up 08/24/2024 Travel 08/24/2024 Telephone [facility] ENDOSCOPY [address] [place] [address] Astrid Avelar Follow-up 08/24/2024 1:30 PM RAYON CONER Office Visit [facility] - General Surgery [address] [place] [address] Kamar Cristina MD Gastric mass (Primary Dx) 08/20/2024 Travel 08/18/[address] [facility] - GI [address] [place] [address] Darrin Recinos RN Appointment (procedure confirmed) 08/14/[address] [facility] - GI [address] [place] [address] Darrin Recinos RN Procedure (external referral: EGD/EUS for stent placement / neoplasm of stomach from Dr. Jimmy Arrington f: [phone] Nuñez) from Last 3 Months [...] Comments Blood Pressure 128/54 08/26/2024 3:15 PM RAYON CONER Pulse 68 08/26/2024 3:15 PM RAYON CONER Temperature 36.7 C (98 F) 08/26/2024 2:40 PM RAYON CONER Respiratory Rate 15 08/26/2024 3:15 PM RAYON CONER Oxygen Saturation 98% 08/26/2024 3:15 PM RAYON CONER Inhaled Oxygen Concentration - - Weight 55.3 kg (122 lb) 08/26/2024 11:02 AM RAYON CONER Height 170.2 cm (5' 7 ) 08/26/2024 11:02 AM RAYON CONER Body Mass Index 19.11 08/26/2024 11:02 AM RAYON CONER Functional Status Functional Status Response Date of [...] Description 12/28/2024 2:15 PM CDT Office Visit [facility] - General Surgery [address] [place] [id number] Kamar Cristina MD [address] [facility] [address] [place] [address] Medical Devices Implanted Type Area Underground Production Foreperson Device Identifier Shelf Expiration Date Model / Serial / Lot Stent Ddnl 22-27mm 10fr 9cm 230cm 270cm - [id number] Implanted:Qty: 1 on 08/26/2024 by David Magana MD at [facility] [employer] [id number] 07/10/2025 [id number] / [id number] Procedures Procedure Name Priority Date/Time Associated Diagnosis Comments ENDOTRACHEAL TUBE NOTE Routine 08/26/2024 1:11 PM RAYON CONER ENDOSCOPIC ULTRASONOGRAPHY, GI Routine 08/26/2024 1:02 PM RAYON CONER UT ENDOSCOPIC ULTRASOUND EXAM 08/26/2024 12:47 PM RAYON CONER Malignant neoplasm of stomach, unspecified location (HCC) from Last 3 Months Results * ETT LINE PERFORMABLE (08/26/2024 1:11 PM RAYON CONER) Narrative Ivonne Henry APRN-CRNA - 08/26/2024 1:11 PM RAYON CONER Ivonne Henry APRN-CRNA 08/26/2024 1:11 PM Endotracheal Tube Placement: Patient Location: OR. Intubation Event Date/Time: 08/26/2024 1:00 PM Procedure: intubation (93787) Procedure Section: Induction: rapid sequence Patient Position: [...] * Endoscopic Ultrasonography, GI (08/26/2024 1:02 PM RAYON CONER) Report Endoscopy POC Endoscopy Department Report _ [...] and oxygen saturations were monitored continuously. A [id number] was introduced through the mouth, and advanced [...] 9 cm uncovered metal enteral stent (WallFlex, TV [employer]) was placed over the guidewire under [...] cm transpyloric uncovered metal enteral stent (WallFlex, TV [employer]) under endoscopic and fluoroscopic guidance. Moderate [...] entire procedure. Procedure Code(s): --- Professional --- 21476, Esophagogastroduodenos copy, flexible, transoral; with placement of endoscopic stent (includes pre- and post-dilation and guide wire passage, when performed) 62539, Esophagogastroduodenos copy, flexible, transoral; with endoscopic ultrasound examination limited to the esophagus, stomach or duodenum, and adjacent structures 15050, Intraluminal dilation of strictures and/or obstructions (eg, esophagus), radiological supervision and interpretation Diagnosis Code(s): --- Professional --- C16.2, Malignant neoplasm of body of stomach C16.3, Malignant neoplasm of pyloric antrum K31.89, Other diseases of stomach and duodenum 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 All rights reserved. The codes documented in this report are preliminary and upon automotive airconditioning mechanic review may be revised to meet current compliance requirements. David Keller MD 08/26/2024 2:16:30 PM Note Initiated On: 08/26/2024 1:02 PM Number of Addenda: [address] [address] [facility] PROVATION 08/26/2024 1:02 PM RAYON CONER David Keller MD GI PROCEDURE ORDERABLES [facility] PROVATION from Last 3 Months Advance Directives Documents on File Type Date Recorded Patient Human Resources Leader Expl anation Adv Directive/Living Will/POA 08/26/2024 Care Teams Public Relations Relationship Specialty Start Date End Date David Berrios MD [address] [place] [address] PCP - General Family Medicine 08/24/24
--- OUTSIDE RECORDS SUMMARY | 2024-09-20 17:53 | XMS_ITS | Encounter Summary ---
Author Organization [facility] Address [address] [place] [address] Phone Care Team Providers Care Glucose And Syrup Weigher Name Role Phone Meghna Fine MD Primary Care Provider Yahir Brooke MD Unavailable [phone] Armando Balderas Chi, MD Unavailable [phone] Balta Bennett MD Unavailable Encounter Details Date [...] on file Legal Sex Male 3:07 AM INVENTORY CONTROL ANALYST Gender Identity Not on file Sexual Orientation Straight 07/12/2021 1: 28 PM INVENTORY CONTROL ANALYST documented as of this encounter Plan of Treatment Not on file documented as of this encounter Procedures Procedure Name Priority Date/Time Associated Diagnosis Comments SCAN - RADIOLOGY/IMAGING 02/27/2021 documented in this encounter Results * SCAN - RADIOLOGY/IMAGING (02/27/2021) Anatomical Region Laterality Modality Other us Provider Scanning Final Result documented in this encounter Visit Diagnoses Not on filedocumented in this encounter Care Teams Glucose And Syrup Weigher Relationship Specialty Start Date End Date Rostovtseva, Meghna Y., MD [address] [place] [address] PCP - General Family Medicine 10/02/20 Yahir Brooke MD [address] [place] [address] Referring Physician Critical Care Med 03/30/21 Armando Balderas Chi, MD [address] [place] [address] Referring Physician Pulmonary Disease 03/30/21 Balta Bennett MD [address] [facility] [address] [place] [address] Radiation Oncologist Radiation Oncology 07/18/21 documented as of this encounter
--- OUTSIDE RECORDS SUMMARY | 2024-09-20 17:53 | XMS_ITS | Clinical Summary ---
Author Organization [facility] Address [address] [place] [address] Care Team Providers Care Muffler Mechanic Name Role Phone Meghna Fine MD Primary Care Provider Yahir Brooke MD Unavailable [phone] Armando Balderas Chi, MD Unavailable [phone] Balat Bennett MD Unavailable Allergies Active Allergy Reactions [...] on file Legal Sex Male 3:07 AM TUBE TRAILER FILLER Gender Identity Not on file Sexual Orientation Straight 07/12/2021 1: 28 PM TUBE TRAILER FILLER Obstetrics History Last Filed Vital Signs [...] W WO CONTRAST Routine 08/25/2014 8:40 AM TUBE TRAILER FILLER from Last 3 Months or Most Recently Relevant to Health Maintenance Results * CT Angiogram Abdomen Pelvis W WO Contrast (08/25/2014 8:40 AM TUBE TRAILER FILLER) Anatomical Region Laterality Modality Body N/A Computed Tomogra phy 08/25/2014 8:40 AM TUBE TRAILER FILLER Narrative 08/25/2014 9:26 AM TUBE TRAILER FILLER PHU DE OLIVEIRA M.D. FINAL REPORT ACC# Date Time Exam [id number] Aug 25, 2014 08:40:[id number] Chest with contrast [id number] Aug 25, 2014 08:40:00 [id number] CTA Abd&Pelv wwo w recons EXAMINATION: 1. 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 2. No evidence of recurrent or residual dissection. 3. Diffuse atherosclerosis without significant stenosis in the abdomen or pelvis. Requested By: HIREN CARNEY M.D. Dictated By: HPU DE OLIVEIRA M.D. on Aug 25 2014 9:26A This document has been electronically signed by: PHU DE OLIVEIRA M.D. on Aug 25 2014 9:26A [id number] Procedure Note Provider, MD Iveth - 11/02/2016 PHU DE OLIVEIRA M.D. FINAL REPORT ACC# Date Time Exam [id number] Aug 25, 2014 08:40:[id number] Chest with contrast [id number] Aug 25, 2014 08:40:00 [id number] CTA Abd&Pelv wwo w recons EXAMINATION: 1. 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 on Aug 25 2014 9:26A [id number] us Historical Provider MD HUFF CT PROCEDURES Final R esult from Last 3 Months or Most Recently Relevant to Health Maintenance Insurance MEDICARE [place] MEDICARE [facility] MEDICARE [facility] Advance Directives For more information, please contact: [phone] * LIMITED - No CPR (Latest Code Status on File) Date Activated Date Inactivated Comments 03/15/2024 2:50 AM 03/16/2024 5:56 PM * Full Code Date Activated Date Inactivated Comments 01/10/2020 8:49 PM 01/12/2020 11:02 PM Care Teams Muffler Mechanic Relationship Specialty Start Date End Date Meghna Fine MD [address] [address] PCP - General Family Medicine 10/02/20 Yahir Brooke MD [address] [place] [address] Referring Physician Critical Care Med 03/30/21 Armando Balderas Chi, MD [address] [place] [address] Referring Physician Pulmonary Disease 03/30/21 Balta Bennett MD [address] [facility] [address] [place] [address] Radiation Oncologist Radiation Oncology 07/18/21
--- OUTSIDE RECORDS SUMMARY | 2024-09-20 17:53 | XMS_ITS | Clinical Summary ---
[facility] Address [address] [place] [address] Care Team Providers Care Vice President Of News Name Role Phone Unavailable Primary Care Provider [...] Type Department Care Team Description 09/17/2024 Abstract [facility] [address] Horacio Kovacs MD 09/15/2024 4:30 PM CDT Telephone Check Up [facility] [address] [place] [phone] Horacio Kovacs MD 09/14/2024 External Device Data STL ABSTRACTION Provider, Abstract 09/14/2024 Orders Only [facility] [address] [place] [phone] Horacio Kovacs MD 09/14/2024 Orders Only [facility] - Jony [address] [place] [phone] Horacio Kovacs MD 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) 09/14/2024 Refill [facility] [address] [place] [phone] Horacio Kovacs MD 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) 09/12/2024 External Device Data STL ABSTRACTION Provider, Abstract 09/12/2024 External Device Data STL ABSTRACTION Provider, Abstract 09/09/2024 External Device Data STL ABSTRACTION Provider, Abstract 09/08/2024 Orders Only [facility] - Jony [address] Horacio Kovacs MD 09/02/2024 Orders Only [facility] - Jony [address] [place] [phone] Horacio Kovacs MD 08/31/2024 Orders Only [facility] - Jony [address] [place] [address] Horacio Kovacs MD 08/28/2024 Orders Only [facility] [address] [place] [address] Horacio Kovacs MD 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) 08/28/2024 Telephone [facility] [address] [place] [address] Horacio Kovacs MD [employer] [facility] 08/26/2024 External Device Data STL ABSTRACTION Provider, Abstract 08/26/2024 External Device Data STL ABSTRACTION Provider, Abstract 08/25/2024 External Device Data STL ABSTRACTION Provider, Abstract 08/21/2024 2:00 PM MAIL PROCESSING EQUIPMENT MECHANIC Office Visit [facility] Hematology [facility] [address] [place] [address] Horacio Kovacs MD 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); Chronic anemia 08/20/2024 Abstract [facility] [address] [place] [phone] Horacio Kovacs MD from Last 3 Months [...] on file Legal Sex Male 2:06 PM MAIL PROCESSING EQUIPMENT MECHANIC Gender Identity Not on file Sexual Orientation Not on file Last Filed Vital Signs Vital Sign Reading Time Taken Comments Blood Pressure 125/61 08/21/2024 1:45 PM MAIL PROCESSING EQUIPMENT MECHANIC Pulse 85 08/21/2024 1:45 PM MAIL PROCESSING EQUIPMENT MECHANIC Temperature 36.6 C (97.9 F) 08/21/2024 1:45 PM MAIL PROCESSING EQUIPMENT MECHANIC Respiratory Rate 18 08/21/2024 1:45 PM MAIL PROCESSING EQUIPMENT MECHANIC Oxygen Saturation 92% 08/21/2024 1:45 PM MAIL PROCESSING EQUIPMENT MECHANIC Inhaled Oxygen Concentration - - Weight 56.7 kg (125 lb) 08/21/2024 1:45 PM MAIL PROCESSING EQUIPMENT MECHANIC Height 170.2 cm (5' 7 ) 08/21/2024 1:45 PM MAIL PROCESSING EQUIPMENT MECHANIC Body Mass Index 19.58 08/21/2024 1:45 PM MAIL PROCESSING EQUIPMENT MECHANIC Plan of Treatment Upcoming Encounters Date Type Department Care Team (Late st Contact Info) Description 09/29/2024 9:00 AM CDT Office Visit [facility] [address] [facility] [address] [place] [address] Horacio Kovacs MD [address] [facility] [address] [place] [address] Health Maintenance Due Date Last [...] CDT [facility] Routine 09/09/2024 5:08 PM MAIL PROCESSING EQUIPMENT MECHANIC 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) PET BONE IMG W CT SKL BSE MID THG Routine 09/08/2024 1:21 PM MAIL PROCESSING EQUIPMENT MECHANIC COMPREHENSIVE METABOLIC PANEL Routine 08/31/2024 2:57 PM MAIL PROCESSING EQUIPMENT MECHANIC COMPREHENSIVE METABOLIC PANEL Routine 08/31/2024 10:52 AM MAIL PROCESSING EQUIPMENT MECHANIC [facility] NORMAL BLOOD Routine 10:05 AM MAIL PROCESSING EQUIPMENT MECHANIC 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) from Last 3 Months Results * CBC WITH DIFFERENTIAL (09/14/2024 4:20 PM CDT) Blood us Horacio Kovacs MD HEMATOLOGY ORDERABLES Final Res ult * [facility]F (09/09/2024 5:08 PM MAIL PROCESSING EQUIPMENT MECHANIC) Reason for Study To identify mutations relevant to patient's cancer. 09/09/2024 5:08 PM MAIL PROCESSING EQUIPMENT MECHANIC [facility] Genetic Diseases Assessed Cancer 09/09/2024 5:08 PM MAIL PROCESSING EQUIPMENT MECHANIC [facility] Description of Ranges of DNA Sequences Examined 105 gene liquid biopsy 09/09/2024 5:08 PM MAIL PROCESSING EQUIPMENT MECHANIC [facility] Overall Interpretation positive 09/09/2024 5:08 PM MAIL PROCESSING EQUIPMENT MECHANIC [facility] [email or web address] [email or web address]/p [id number] [email or web address] [id number] 09/09/2024 5:08 PM MAIL PROCESSING EQUIPMENT MECHANIC [facility] Comment:[facility] link Low Coverage Regions JAK1, MSH3, SPOP, TERT 09/09/2024 5:08 PM MAIL PROCESSING EQUIPMENT MECHANIC [facility] Therapy Count 5 09/09/2024 5:08 PM MAIL PROCESSING EQUIPMENT MECHANIC [facility]: Potential Therapy 1 Gene: 3430^ERBB2^HGN C Variant: [id number].[email or web address] Match Type: snvIndel Match Type Description: ERBB2 p.T862A Agent: Ado-Trastuzuma b Emtansine Drug Class: Anti-HER2 MAb Tissue: Non-Small Cell Lung Cancer Association: Response Evidence Status: Consensus Evidence ID: NCCN [id number] Variant: [id number] on Label: FDA Off Label FDA Approved?: Yes On label?: No 09/09/2024 5:08 PM MAIL PROCESSING EQUIPMENT MECHANIC [facility]: Potential Therapy 2 Gene: 3430^ERBB2^HGN C Variant: [email or web address].[email or web address] Match Type: snvIndel Match Type Description: ERBB2 p.T862A Agent: Neratinib Drug Class: Anaya-HER TKI Tissue: Breast Cancer Association: Response Evidence Status: Consensus Evidence ID: NCCN KDB Variant: [id number]-iclras on Label: FDA Off Label FDA Approved?: Yes On label?: No 09/09/2024 5:08 PM MAIL PROCESSING EQUIPMENT MECHANIC [facility]: Potential Therapy 3 Gene: 3430^ERBB2^HGN C Variant: [email or web address] Match Type: snvIndel Match Type Description: ERBB2 p.T862A Agent: Trastuzumab + Neratinib Drug Class: Combination (Anti-HER2 MAb + Anaya-HER TKI) Tissue: Breast Cancer Association: Response Evidence Status: Consensus Evidence ID: MARV KDB Variant: Jcvw-so-uyofrt on Label: FDA Off Label FDA Approved?: Yes On label?: No 09/09/2024 5:08 PM MAIL PROCESSING EQUIPMENT MECHANIC [facility]: Potential Therapy 4 Gene: 3430^ERBB2^HGN C Variant: p.[email or web address] Match Type: snvIndel Match Type Description: ERBB2 p.T862A Agent: Trastuzumab Deruxtecan Drug Class: MAb-Drug Conjugate Tissue: Non-Small Cell Lung Cancer Association: Response Evidence Status: Consensus Evidence ID: NCCN KDB Variant: [id number] on Label: FDA Off Label FDA Approved?: Yes On label?: No 09/09/2024 5:08 PM MAIL PROCESSING EQUIPMENT MECHANIC [facility]: Potential Therapy 5 Gene: 3430^ERBB2^HGN C Variant: [email or web address].[email or web address] Match Type: snvIndel Match Type Description: ERBB2 p.T862A Agent: Trastuzumab + Pertuzumab Drug Class: Combination (Anti-HER2 MAbs) Tissue: Biliary Cancer Association: Response Evidence Status: Clinical research Evidence ID: [id number] Evidence URL: https://www.nc bi.nlm.nih.gov /pubmed/199643 12 Evidence Title: Targeted Therapy for Advanced Solid Tumors on the Basis of Molecular Profiles: Results From MyPathway, an Open-Label, Phase IIa Multiple Basket Study - PubMed KDB Variant: [id number] on Label: FDA Off Label FDA Approved?: Yes On label?: No 09/09/2024 5:08 PM MAIL PROCESSING EQUIPMENT MECHANIC [facility] Trial Count 3 09/09/2024 5:08 PM MAIL PROCESSING EQUIPMENT MECHANIC [facility]: Clinical Trial Match 1 Clinical Trial NCT ID: [id number] Clinical Trial Title: [id number] in Patients With Advanced Solid Tumors Harboring TP53 Y220C Mutation Clinical Trial URL: https://clinic altrials.gov/c t2/show/HNL887 00979 Clinical Phase: Phase 1/Phase 2 Clinical Trial Matches: 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 Clinical Trial Distance and Location: [address] [place], [place] 09/09/2024 5:08 PM MAIL PROCESSING EQUIPMENT MECHANIC [facility]: Clinical Trial Match 2 Clinical Trial NCT ID: [id number] Clinical Trial Title: The Evaluation of [id number] in Patients With Advanced Solid Tumors Harboring a TP53 Y220C Mutation (PYNNACLE) Clinical Trial URL: https://[facility] hospitalrials.gov/c t2/show/YPX411 62028 Clinical Phase: Phase 1/Phase 2 Clinical Trial Matches: 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 Clinical Trial Distance and Location: [address] [place] 09/09/2024 5:08 PM MAIL PROCESSING EQUIPMENT MECHANIC [facility]: Clinical Trial Match 3 Clinical Trial NCT ID: [id number] Clinical Trial Title: Beamion LUNG-1: A Study to Test Different Doses of Zongertinib in People With Different Types of Advanced Cancer (Solid Tumours With Changes in the HER2 Gene) Clinical Trial URL: https://[facility] hospitalrials.gov/c t2/show/JNN977 95435 Clinical Phase: Phase 1 Clinical Trial Matches: 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 us Horacio Kovacs MD MOLECULAR ORDERABLES Final Resu lt Performing Organization Address [facility]/ZIP Co de Phone Number [facility] [address], [address] [place] [address], [place] [phone] [facility] [address], [address] [place], [place] [address] * PET BONE IMG W CT SKB MDTH (09/08/2024 1:21 PM MAIL PROCESSING EQUIPMENT MECHANIC) Anatomical Region Laterality Modality Other us Horacio Kovacs MD PE ORDERABLES Final Result * COMPREHENSIVE METABOLIC PANEL (08/31/2024 2:57 PM MAIL PROCESSING EQUIPMENT MECHANIC) Only the most recent of2 resultswithin the time period is included. Blood us Horacio Kovacs MD CHEMISTRY ORDERABLES Final Resu lt * [facility] NORMAL BLOOD (08/28/2024 10:05 AM MAIL PROCESSING EQUIPMENT MECHANIC) [facility] 08/28/2024 11:01 PM MAIL PROCESSING EQUIPMENT MECHANIC [facility] Comment:See NGS Report for R esults. Blood specimen (specimen) 08/28/2024 10:05 AM MAIL PROCESSING EQUIPMENT MECHANIC 08/28/2024 10:06 AM MAIL PROCESSING EQUIPMENT MECHANIC us Horacio Kovacs MD MOLECULAR ORDERABLES Final Resu lt Performing Organization Address [facility]/ZIP Co de Phone Number [facility] [address], [address] [place] [address], [place] [phone] [facility] [address], [address] [place] [id number] from Last 3 Months Insurance MEDICARE PART A AND B [facility]
--- OUTSIDE RECORDS SUMMARY | 2024-09-20 17:53 | XMS_ITS | Clinical Summary ---
Author Organization [facility] Address [address] [place] [address] Care Team Providers Care Paper Folder Name Role Phone David Berrios MD Primary Care Provider [phone] Source Comments [facility] and Associated Physician Practices is amultiple site organization consisting of ambulatory clinics and hospital sitesin [place], [place], [place] and [place]. This disclosure is being madepursuant to the Care Everywhere program and may not contain all information available regarding this patient. Last updated 18.[facility] Allergies Active Allergy Reactions Criticality Noted [...] Department Care Team Description 08/26/2024 12:52 PM HANDICAPPER HARNESS RACING Anesthesia Event [facility] [address] [place] [address] Chris Santiago MD Blackshear, Steven, DO 08/26/2024 12:25 PM HANDICAPPER HARNESS RACING - 08/26/2024 1:25 PM HANDICAPPER HARNESS RACING Surgery [facility] [address] [place] [address] David Magana MD EGD / EUS + stent 08/26/2024 10:49 AM HANDICAPPER HARNESS RACING - 08/26/2024 3:30 PM HANDICAPPER HARNESS RACING Hospital Encounter [facility] [address] [place] [address] David Magana MD Surgery General Discharge Disposition: Home or Self Care 08/26/2024 Travel 08/25/2024 Telephone [facility] [address] [place] [address] Astrid Avelar Follow-up 08/24/2024 1:30 PM HANDICAPPER HARNESS RACING Office Visit [facility] - General Surgery [address] [place] [address] Kamar Cristina MD Gastric mass (Primary Dx) 08/24/2024 Travel 08/24/2024 Telephone [facility] [address] [place] [address] Astrid Avelar Follow-up 08/20/2024 Travel 08/18/[address] [facility] - GI [address] [place] [address] Darrin Recinos RN Appointment (procedure confirmed) 08/14/[address] [facility] - GI [address] [place] [phone] Darrin Recinos, auto crane driver (external referral: EGD/EUS for stent placement / neoplasm of stomach from Dr. Jimmy Arrington f: [phone] Nuñez) from Last 3 Months [...] Comments Blood Pressure 128/54 08/26/2024 3:15 PM HANDICAPPER HARNESS RACING Pulse 68 08/26/2024 3:15 PM HANDICAPPER HARNESS RACING Temperature 36.7 C (98 F) 08/26/2024 2:40 PM HANDICAPPER HARNESS RACING Respiratory Rate 15 08/26/2024 3:15 PM HANDICAPPER HARNESS RACING Oxygen Saturation 98% 08/26/2024 3:15 PM HANDICAPPER HARNESS RACING Inhaled Oxygen Concentration - - Weight 55.3 kg (122 lb) 08/26/2024 11:02 AM HANDICAPPER HARNESS RACING Height 170.2 cm (5' 7 ) 08/26/2024 11:02 AM HANDICAPPER HARNESS RACING Body Mass Index 19.11 08/26/2024 11:02 AM HANDICAPPER HARNESS RACING Plan of Treatment Upcoming Encounters Date Type Department Care Team (Late st Contact Info) Description 12/28/2024 2:15 PM CDT Office Visit [facility] - General Surgery [address] [place] [address] Kamar Cristina MD [address] [facility] [address] [place] [address] Health Maintenance Due Date Last Done Comments [...] this topic Medical Devices Implanted Type Area Inspector Chief Device Identifier Shelf Expiration Date Model / Serial / Lot Stent Ddnl 22-27mm 10fr 9cm 230cm 270cm - [id number] Implanted:Qty: 1 on 08/26/2024 by David Magana MD at [facility] Scientific [employer] [id number] 07/10/2025 [id number] / [id number] Procedures Procedure Name Priority Date/Time Associated Diagnosis Comments ENDOTRACHEAL TUBE NOTE Routine 08/26/2024 1:11 PM HANDICAPPER HARNESS RACING ENDOSCOPIC ULTRASONOGRAPHY, GI Routine 08/26/2024 1:02 PM HANDICAPPER HARNESS RACING [place] ENDOSCOPIC ULTRASOUND EXAM 08/26/2024 12:47 PM HANDICAPPER HARNESS RACING Malignant neoplasm of stomach, unspecified location (HCC) from Last 3 Months Results * ETT LINE PERFORMABLE (08/26/2024 1:11 PM HANDICAPPER HARNESS RACING) Narrative Ivonne Henry APRN-CRNA - 08/26/2024 1:11 PM HANDICAPPER HARNESS RACING Ivonne Henry APRN-CRNA 08/26/2024 1:11 PM Endotracheal Tube Placement: Patient Location: OR. Intubation Event Date/Time: 08/26/2024 1:00 PM Procedure: intubation (32225) Procedure Section: Induction: rapid sequence Patient Position: [...] * Endoscopic Ultrasonography, GI (08/26/2024 1:02 PM HANDICAPPER HARNESS RACING) Report Endoscopy POC Endoscopy Department Report _ [...] and oxygen saturations were monitored continuously. A [id number] was introduced through the mouth, and advanced [...] 9 cm uncovered metal enteral stent (WallFlex, [employer]) was placed over the guidewire under [...] cm transpyloric uncovered metal enteral stent (WallFlex, [employer]) under endoscopic and fluoroscopic guidance. Moderate [...] entire procedure. Procedure Code(s): --- Professional --- 03313, Esophagogastroduodenos copy, flexible, transoral; with placement of endoscopic stent (includes pre- and post-dilation and guide wire passage, when performed) 74046, Esophagogastroduodenos copy, flexible, transoral; with endoscopic ultrasound examination limited to the esophagus, stomach or duodenum, and adjacent structures 82439, Intraluminal dilation of strictures and/or obstructions (eg, esophagus), radiological supervision and interpretation Diagnosis Code(s): --- Professional --- C16.2, Malignant neoplasm of body of stomach C16.3, Malignant neoplasm of pyloric antrum K31.89, Other diseases of stomach and duodenum 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 All rights reserved. The codes documented in this report are preliminary and upon hcc coders review may be revised to meet current compliance requirements. David Keller MD 08/26/2024 2:16:30 PM Note Initiated On: 08/26/2024 1:02 PM Number of Addenda: [address] [address] [facility] 08/26/2024 1:02 PM HANDICAPPER HARNESS RACING David Keller MD GI PROCEDURE ORDERABLES [facility] from Last 3 Months Advance Directives Documents on File Type Date Recorded Patient Preventive Medicine Physician Expl anation Adv Directive/Living Will/POA 08/26/2024 Care Teams Paper Folder Relationship Specialty Start Date End Date David Berrios MD [address] [place] [address] PCP - General Family Medicine 08/24/24
--- OUTSIDE RECORDS SUMMARY | 2024-09-20 17:53 | XMS_ITS | Referral Summary ---
Author Organization [facility] Address [address] [place] [address] Care Team Providers Care Crimper Assembler Name Role Phone Meghna Fine MD Primary Care Provider Yahir Brooke MD Unavailable [phone] Armando Balderas Chi, MD Unavailable [phone] Balta Bennett MD Unavailable [phone] Allergies Active Allergy Reactions Criticality Noted Date [...] D/c home with outpatient cardiology (Dr. Colon, [facility]). 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 FINAL REPORT ACC# Date Time Exam [id number] Aug 25, 2014 08:40:[address] Chest with contrast [id number] Aug 25, 2014 08:40:00 41080 CTA Abd&Pelv wwo w recons EXAMINATION: 1. 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 on Aug 25 2014 9:26A [id number] Procedure Note Provider, MD Ivteh - 11/02/2016 PHU DE OLIVEIRA M.D. FINAL REPORT ACC# Date Time Exam [id number] Aug 25, 2014 08:40:[address] Chest with contrast [id number] Aug 25, 2014 08:40:00 96293 CTA Abd&Pelv wwo w recons EXAMINATION: 1. 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 on Aug 25 2014 9:26A [id number] Historical Provider MD HUFF CT PROCEDURES Final R esult from Last 3 Months or Most Recently Relevant to Health Maintenance Insurance MEDICARE [facility] MEDICARE [facility] MEDICARE [facility] Advance Directives For more information, please contact: [phone] * LIMITED - No CPR (Latest Code Status on File) Date Activated Date Inactivated Comments 03/15/2024 2:50 AM 03/16/2024 5:56 PM * Full Code Date Activated Date Inactivated Comments 01/10/2020 8:49 PM 01/12/2020 11:02 PM Care Teams Crimper Assembler Relationship Specialty Start Date End Date Meghna Fine MD [address] [place] [address] PCP - General Family Medicine 10/02/20 Yahir Brooke MD [address] [place] [address] Referring Physician Critical Care Med 03/30/21 Armando Balderas Chi, MD [address] [place] [address] Referring Physician Pulmonary Disease 03/30/21 Balta Bennett MD [address] [facility] [address] [place], [place] [id number] Radiation Oncologist Radiation Oncology 07/18/21
--- OUTSIDE RECORDS SUMMARY | 2024-09-20 17:53 | XMS_ITS | Patient Health Summary ---
Author Organization [facility] Address [address] [place] [address] Care Team Providers Care Unindentured Apprentice Name Role Phone David Berrios MD Primary Care Provider [phone] Note from [facility],non-owned Affiliates and Associated Physician Practices is amultiple site organization consisting of ambulatory clinics and hospital sitesin [place], [place], [place] and [place]. This disclosure is being madepursuant to the Care Everywhere program and may not contain all information available regarding this patient. Last updated 18.[facility] Allergies * Penicillins(Urticaria) -Medium Criticality Medications * [...] Comments Blood Pressure 128/54 08/26/2024 3:15 PM ACCOUNT ENGINEER Pulse 68 08/26/2024 3:15 PM ACCOUNT ENGINEER Temperature 36.7 C (98 F) 08/26/2024 2:40 PM ACCOUNT ENGINEER Respiratory Rate 15 08/26/2024 3:15 PM ACCOUNT ENGINEER Oxygen Saturation 98% 08/26/2024 3:15 PM ACCOUNT ENGINEER Inhaled Oxygen Concentration - - Weight 55.3 kg (122 lb) 08/26/2024 11:02 AM ACCOUNT ENGINEER Height 170.2 cm (5' 7 ) 08/26/2024 11:02 AM ACCOUNT ENGINEER Body Mass Index 19.11 08/26/2024 11:02 AM ACCOUNT ENGINEER Medical Devices Implanted Type Area Junior Accountant Bookkeeper Device Identifier Shelf Expiration Date Model / Serial / Lot Stent Ddnl 22-27mm 10fr 9cm 230cm 270cm - [id number] Implanted:Qty: 1 on 08/26/2024 by David Magana MD at [facility] [employer] [id number] 07/10/2025 [id number] / [id number] Procedures * ENDOTRACHEAL TUBE NOTE(Performed 08/26/2024) * ENDOSCOPIC ULTRASONOGRAPHY, GI(Performed 08/26/2024) * KS ENDOSCOPIC ULTRASOUND EXAM(Performed 08/26/2024) Performed for Malignant neoplasm of stomach, unspecified location (HCC) Results * ETT LINE PERFORMABLE (08/26/2024 1:11 PM ACCOUNT ENGINEER) Narrative Ivonne Henry APRN-CRNA - 08/26/2024 1:11 PM ACCOUNT ENGINEER Ivonne Henry APRN-CRNA 08/26/2024 1:11 PM Endotracheal Tube Placement: Patient Location: OR. Intubation Event Date/Time: 08/26/2024 1:00 PM Procedure: intubation (71203) Procedure Section: Induction: rapid sequence Patient Position: [...] * Endoscopic Ultrasonography, GI (08/26/2024 1:02 PM ACCOUNT ENGINEER) Report Endoscopy POC Endoscopy Department Report _ [...] and oxygen saturations were monitored continuously. A [id number] was introduced through the mouth, and advanced [...] 9 cm uncovered metal enteral stent (WallFlex, [employer]) was placed over the guidewire under [...] cm transpyloric uncovered metal enteral stent (WallFlex, [employer]) under endoscopic and fluoroscopic guidance. Moderate [...] entire procedure. Procedure Code(s): --- Professional --- 30661, Esophagogastroduodenos copy, flexible, transoral; with placement of endoscopic stent (includes pre- and post-dilation and guide wire passage, when performed) 19885, Esophagogastroduodenos copy, flexible, transoral; with endoscopic ultrasound examination limited to the esophagus, stomach or duodenum, and adjacent structures 62299, Intraluminal dilation of strictures and/or obstructions (eg, esophagus), radiological supervision and interpretation Diagnosis Code(s): --- Professional --- C16.2, Malignant neoplasm of body of stomach C16.3, Malignant neoplasm of pyloric antrum K31.89, Other diseases of stomach and duodenum 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 All rights reserved. The codes documented in this report are preliminary and upon credit administrator review may be revised to meet current compliance requirements. David Keller MD 08/26/2024 2:16:30 PM Note Initiated On: 08/26/2024 1:02 PM Number of Addenda: [address] [address] [facility] 08/26/2024 1:02 PM ACCOUNT ENGINEER David Keller MD GI PROCEDURE ORDERABLES [facility] Care Teams Unindentured Apprentice Relationship Specialty Start Date End Date David Berrios MD [address] [place] [address] PCP - General Family Medicine 08/24/24
[2024-09-20] MEDS: SODIUM CHLORIDE 0.9% IV 1,000 ML 999 ML IV CONT (18:38)
[2024-09-20] MEDS: SODIUM CHLORIDE 0.9% IV 500 ML 999 ML IV CONT (18:41)
[2024-09-20 18:47] LABS: Basophils Percent Auto 0.6 % (0.2-1.2); Eosinophils Absolute Auto 0.1 K/mm3 (0-0.3); Eosinophils Percent Auto 1.2 % (0-4.4); Hematocrit 31.2 % (42.0-52.0); Hemoglobin 9.5 g/dL (14.0-18.0); Immature Granulocyte Absolute 0.01 K/mm3 (0.00-0.031); Immature Granulocyte Percent A 0.2 % (0-0.5); Lymphocytes Absolute Auto 1.18 K/mm3 (0.9-3.2); Lymphocytes Percent Auto 23.3 % (18.3-44.2); Mean Corpuscular HGB Conc 30.4 g/dl (32-36); Mean Corpuscular Hemoglobin 27.3 pg (26-34); Mean Corpuscular Volume 89.7 fl (80-100); Mean Platelet Volume 9.7 fl (7.4-10.4); Monocytes Absolute Auto 0.1 K/mm3 (0.1-0.6); Monocytes Percent Auto 1.4 % (2.6-8.5); Neutrophils Absolute Auto 3.7 K/mm3 (1.3-6.7); Neutrophils Percent Auto 73.3 % (45.5-73.1); Platelet Count Result 158 k/mm3 (150-375); Red Blood Count 3.48 M/mm3 (4.6-6.20); Red Cell Distribution Width 19.9 % (11.5-14.5); White Blood Count 5.1 K/mm3 (4.5-10.0)
[2024-09-20 18:58] LABS: Lactic Acid Reflex 1.6 mmol/L (0.7-2.0)
[2024-09-20 19:02] LABS: Alanine Aminotransferase 10 U/L (6-50); Albumin Level 3.4 g/dL (3.5-5.1); Alkaline Phosphatase 61 U/L (38-126); Anion Gap 7 mmol/L (4-12); Aspartate Amino Transferase 15 U/L (17-59); Bilirubin,Total 0.7 mg/dL (0.2-1.3); Blood Urea Nitrogen 29 mg/dL (9-20); CRP 0.9 mg/dL (<1.0); Calcium 9.1 mg/dL (8.4-10.2); Carbon Dioxide 25 mmol/L (22-30); Chloride 105 mmol/L (98-107); Estimated CRCL calculation 33 ml/min; Estimated Glomerular Filt Rate 54; Glucose 112 mg/dL (65-110); Potassium 4.2 mmol/L (3.4-5.0); Sodium 137 mmol/L (137-145)
[2024-09-20 19:11] LABS: INR 1.1; Prothrombin Time 14.4 Seconds (11.1-14.7)
[2024-09-20 19:12] LABS: Troponin I < 0.012 ng/mL (0.000-0.034)
[2024-09-20 19:15] LABS: Partial Thromboplastin Time 27.5 Seconds (22.3-36.8)
[2024-09-20 19:23] LABS: Influenza A QL RT-PCR Negative (Negative); Influenza B QL RT-PCR Negative (Negative); RSV RNA, RT-PCR Negative (Negative); SARS-CoV-2 RNA PCR Negative (Negative)
--- NOTE | 2024-09-20 19:24 | PC.NURSE ---
Report received from JACQUE Odonnell. Assumed care of patient at this time.
== END 2024-09-20 20:17 | disposition home or self-care (01) ==
PROVIDERS: Emergency Provider Emergency Medicine; PCP Family Medicine
DX: R53.1 Weakness (principal); C16.9 Malignant neoplasm of stomach, unspecified; E78.5 Hyperlipidemia, unspecified; W18.30XA Fall on same level, unspecified, initial encounter; D64.9 Anemia, unspecified; E53.8 Deficiency of other specified B group vitamins; Z85.118 Personal history of other malignant neoplasm of bronchus and lung; Z86.711 Personal history of pulmonary embolism; F17.210 Nicotine dependence, cigarettes, uncomplicated; Z20.822 Contact with and (suspected) exposure to COVID-19
CPT/HCPCS: 36415; 70450; 70486; 71045; 72125; 80053; 83605; 84484; 85025; 85610; 85730; 86140; 87637; 93005; 96360; 99284; J7030